=== PATIENT | female | born 1950 | race Caucasian/White ===

== ENCOUNTER → 2017-01-05 | Outpatient (REF) | payer MEDICARE, OTHER ==
[~2017-01-05] MED LIST: /ATOR40TA PO; /WARF25TA PO; ALBU1.25 INH; ALBU17IN INH; ATEN25TA PO; ATOR40TA PO; AZIT250T3 PO; BENZ100C5 PO; BIOT50004 PO; BISO5TAB5 PO; BYDU1INJ SC; CALC1CAP31 PO; CEFD1CAP8 PO; CEFT250T8 PO; DIGO0.12 PO; DIGO0.126 OR; DIOV320T PO; Duoneb NEB; FISH100049 PO; FOLI1TAB2 PO; FURO20TA2 PO; FURO40TA2 PO; GUAI1TAB PO; HYDR-3716 PO; HYDR200T3 PO; IMDU30TA PO; ISOS30TA4 PO; LASI20TA PO; LASI80TA PO; LEVA500T PO; LEVO137T PO; LEVO250T24 PO; MIRA33504 PO; MUCI600T34 PO; NICO14DI20 TD; NITR4TASL SL; NYST5000 SS; OCEA0.654; OMEG100011 PO; OMEP20CA3 PO; OMEP40CA2 PO; Oxygen; PRED10PA PO; PRED10TA PO; PRED20TAB PO; PREV30CA6 PO; SINEQUAN PO; SPIR1CAP INH; SYMB16INH INH; SYNT100T PO; TYLE325T5 PO; VALS1TAB46 PO; VENTOLIN; VICT18IN SC; VITA50003 PO; WARF-18 PO; WARF4TAB51 PO; ZOLO100T PO; [UNRECOGNIZED DRUG - CODE]; spiriva INH
== END ==
LOC: M LAB REF 16:50
PROVIDERS: ATTEND Internal Medicine Nephrology
DX: D64.9 Anemia, unspecified (principal)

== ENCOUNTER → 2017-01-24 | Outpatient (REF) | payer MEDICARE, OTHER | LOC: M SFHCPLAZ 09:53 | PROVIDERS: ATTEND Internal Medicine | DX: E03.9 Hypothyroidism, unspecified (principal) | CPT/HCPCS: 36415; 84443; G0463 ==

== ENCOUNTER 2017-03-10 20:45 | Inpatient (IN) | payer MEDICARE, OTHER ==
[~2017-03-10] VITALS: Ht 162.6 cm; Wt 49.8 kg
[2017-03-10] MEDS ORDERED: ATEN25TA PO (21:14)
[2017-03-10] MEDS ORDERED: COUM2.5T11 PO (21:14)
[2017-03-10] MEDS ORDERED: IPRATROPIUM 0.5MG/ALBUTEROL 2.5MG INH SOL UD 3ML (DUONEB)(J7620) NEB ONE (21:30)
[2017-03-10 22:10] LABS: VENOUS BASE EXCESS 1.5 (-2.0-2.0); VENOUS O2 SATURATION 73.8 % (60.0-80.0); VENOUS PARTIAL PRESSURE CO2 75.5 mmHg (38.0-50.0); VENOUS PARTIAL PRESSURE O2 43.9 mmHg (30.0-50.0); VENOUS STANDARD HCO3 25.4 MEQ/L; VENOUS TOTAL CO2 33.1 MEQ/L (24.0-28.0)
[2017-03-10 22:16] LABS: ADD MORPHOLOGY? YES; BASO % 0.3 % (0.0-1.0); EOS % 0.8 % (0.0-3.0); LARGE UNSTAINED CELL # 0.1 K/mm3 (0.0-0.4); LARGE UNSTAINED CELL % 1.8 % (0.0-4.0); LYMPH # 0.6 K/mm3 (1.5-4.5); LYMPH % 16.5 % (24.0-44.0); MEAN CORPUSCULAR HEMOGLOBIN 32.1 pg (27.0-33.0); MEAN CORPUSCULAR HGB CONC 30.8 g/dl (32.0-36.5); MEAN CORPUSCULAR VOLUME 104.1 fl (80.0-96.0); MONO # 0.2 K/mm3 (0.0-0.8); MONO % 5.7 % (0.0-5.0); NEUTROPHILS # 2.9 K/mm3 (1.8-7.7); PLATELET COUNT, AUTOMATED 139 k/mm3 (150-450); RED CELL DISTRIBUTION WIDTH 14.9 % (11.5-14.5); WHITE BLOOD COUNT 3.9 K/mm3 (4.0-10.0)
[2017-03-10 22:33] LABS: CALCIUM LEVEL 8.5 MG/DL (8.8-10.2); CREATININE FOR GFR 3.43 MG/DL (0.55-1.02); GLOMERULAR FILTRATION RATE 14.2 (>45); POTASSIUM SERUM 4.4 MEQ/L (3.5-5.1)
[2017-03-10 22:44] LABS: DIGOXIN LEVEL 1.1 NG/ML (0.5-2.0)
[2017-03-10 22:47] LABS: HYPOCHROMASIA 1+
[2017-03-10 23:39] LABS: ABG BASE EXCESS 1.5 (-2.0-2.0); ABG HCO3 28.8 MEQ/L (22.0-26.0); ABG PARTIAL PRESSURE CO2 59.8 mmHg (35.0-45.0); ABG PARTIAL PRESSURE O2 74.5 mmHg (75.0-100.0); ABG STANDARD HCO3 25.8 MEQ/L (22.0-26.0); ABG TOTAL CO2 30.7 MEQ/L (23.0-31.0); ABG pH (ARTERIAL) 7.301 UNITS (7.350-7.450)
[2017-03-11] VITALS (8 sets, daily range): BP systolic 146–172; BP diastolic 65–95; O2SAT 90
[2017-03-11] MEDS ORDERED: SYMB16INH INH (00:52)
[2017-03-11] MEDS ORDERED: ISOS20TAB PO (00:52)
[2017-03-11] MEDS ORDERED: PRED5TA PO (00:52)
[2017-03-11] MEDS ORDERED: SYNT150T PO (00:52)
[2017-03-11 01:58] LABS: ABG BASE EXCESS 1.7 (-2.0-2.0); ABG PARTIAL PRESSURE CO2 45.7 mmHg (35.0-45.0); ABG PARTIAL PRESSURE O2 71.8 mmHg (75.0-100.0); ABG STANDARD HCO3 25.9 MEQ/L (22.0-26.0); ABG TOTAL CO2 28.4 MEQ/L (23.0-31.0)
[2017-03-11] MEDS ORDERED: NITROGLYCERIN 0.4 MG SUBL TABLET SL PRN (02:30)
[2017-03-11] MEDS ORDERED: IPRATROPIUM 0.5MG/ALBUTEROL 2.5MG INH SOL UD 3ML (DUONEB)(J7620) NEB PRN (02:45)
[2017-03-11] MEDS ORDERED: LOPERAMIDE 2 MG CAP PO PRN (03:00)
--- NOTE | 2017-03-11 03:28 | HPEPDOC ---
General Date of Admission 03/11/2017 Primary Care Physician: Romel Powell Attending Physician: LUIGI ARDON MD Chief Complaint The patient is a 66-year-old female admitted with a reason for visit of SOB. Source: Patient, Family Exam Limitations: Clinical conditions (Currently on noninvasive positive pressure ventilation) Timing/Duration: Day(s) (2) History of Present Illness Anjali Delgado is a 66 year old woman with a history of COPD, CHF, cardiac stents, HTN, and left nephrectomy who presents with 2 days of fatigue, decreased appetite, and increasing shortness of breath. The patients daughter was in the room during the interview and provided most of the information because the patient was too tired to talk. She denies chest pain, cough, or sputum production, her only additional complaint is that of a 2 week bout of diarrhea and she vomited two days ago. She has no sick contacts. The patient did have feet and ankle swelling a few days ago, but this has gone down since. Home Medications Scheduled Atorvastatin Calcium (Atorvastatin Calcium) 40 Mg Tab, 40 MG PO DAILY, (Reported ) Bisoprolol Fumarate (Bisoprolol Fumarate) 5 Mg Tab, 5 MG PO DAILY, (Reported) Budesonide/Formoterol (Symbicort 160-4.5 Mcg/Act) 60 Puff/Inhaler Aers, 2 PUFF INH BID, (Reported) Calcitriol (Calcitriol) 0.25 Mcg Cap, 0.25 MCG PO DAILY, (Reported) Digoxin (Digoxin) 0.125 Mg Tab, 0.125 MG PO 3XW, (Reported) QHS: MON, WED, TUE Folic Acid (Folic Acid) 1 Mg Tab, 1 MG PO DAILY, (Reported) Furosemide (Furosemide) 40 Mg Tab, 40 MG PO DAILY, (Reported) Isosorbide Dinitrate (Isosorbide Dinitrate) 20 Mg Tab, 20 MG PO QHS, (Reported) Levothyroxine Sodium (Synthroid) 150 Mcg Tab, 150 MCG PO DAILY, (Reported) [place] 3 Polyunsat Fatty Acids ([place] 3 1000 mg) 1 Cap Cap, 1 CAP PO QHS, ( Reported) Omeprazole (Omeprazole) 40 Mg Cap, 40 MG PO DAILY, (Reported) Prednisone (Prednisone) 5 Mg Tab, 5 MG PO DAILY, (Reported) Sertraline Hcl (Zoloft) 100 Mg Tab, 100 MG PO QHS, (Reported) Warfarin Sod (Coumadin) 2.5 Mg Tab, 2.5 MG PO DAILY, (Reported) Scheduled PRN Albuterol Sulfate (Ventolin Hfa) 200 Puff/8 Gm Aers, 2 PUFF INH Q4H PRN for SHORTNESS OF BREATH, (Reported) Nitroglycerin (Nitrostat) 0.4 Mg Subl, 0.4 MG SL NITRO PRN for CHEST PAIN, ( Reported) Allergies Coded Allergies: Hydromorphone (Verified Adverse Reaction, Mild, HALLUCINATIONS, NOT HERSELF, 03/10/17) Past Medical History Medical History COPD Diastolic CHF Atrial fibrillation HTN Dyslipidemia CAD Hypothyroidism Depression Chronic kidney disease stage IV Family History Father: Paget disease Mother: atrial fibrillation Social History * Smoker: current smoker Alcohol: Denies Drugs: denies Recent Travel/Sick Contacts: Denies: Recent travel, Recent sick contacts Patient questioning limited due to her being too tired to talk. Review of Symptoms Constitutional: Reports: Chills (chronic), Fatigue, Denies: Fever, Night Sweats Eyes: Denies: Vision change Skin: Reports: Lesions (1st right metatarsal appears to have a cut), Denies: Rash Pulmonary: Reports: Dyspnea, Denies: Cough Cardiovascular: Denies: Chest Pain, Palpitations, Edema Gastrointestinal: Reports: Vomiting (2 days ago (once)), Diarrhea (started 2 weeks ago), Denies: Nausea, Abdominal Pain, Constipation, Melena, Hematochezia Genitourinary: Denies: Hematuria Neurological: Denies: Numbness Psych: Reports: Mood Normal Physical Examination General Exam: Positive: Cooperative, Moderate Distress, Negative: Alert Eye Exam: Positive: PERRLA, EOMI Chest Exam: Positive: Diminished Heart Exam: Positive: Rate Normal, Negative: Gallops, Murmurs, Rubs Abdomen Exam: Positive: Normal bowel sounds, Negative: Tenderness Extremity Exam: Positive: Normal pulses, Negative: Edema, Tenderness Skin Exam: Positive: Lesion (1st right metatarsal), Negative: Rash Psych Exam: Positive: Mental status NL, Oriented x 3 Vital Signs Vital Signs Date Time Temp Pulse Resp B/P (MAP) Pulse Ox O2 Delivery O2 Flow Rate FiO2 03/11/17 00:32 94 BIPAP/CPAP 35 03/10/17 22:06 03/10/17 22:04 70 03/10/17 22:04 6.0 03/10/17 20:51 99.1 22 Laboratory Data Labs 24H Laboratory Tests 2 03/10/17 21:59: White Blood Count 3.9L, Red Blood Count 3.36L, Hemoglobin 10.8L, Hematocrit 35.0L, Mean Corpuscular Volume 104.1H, Mean Corpuscular Hemoglobin 32.1, Mean Corpuscular Hemoglobin Concent 30.8L, Red Cell Distribution Width 14.9H, Platelet Count 139L, Neutrophils (%) (Auto) 75.0H, Lymphocytes (%) (Auto) 16.5L , Monocytes (%) (Auto) 5.7H, Eosinophils (%) (Auto) 0.8, Basophils (%) (Auto) 0.3, Neutrophils # (Auto) 2.9, Lymphocytes # (Auto) 0.6L, Monocytes # (Auto) 0.2 , Eosinophils # (Auto) 0.0, Basophils # (Auto) 0.0, Large Unclassified Cells % 1.8, Large Unclassified Cells # 0.1, Platelet Estimate NORMAL, Hypochromasia 1+ , Basophilic Stippling 1+, Macrocytosis 2+, Blood Gas Bicarbonate Standard 25.4 , Venous Blood pH 7.228L, Venous Blood Partial Pressure CO2 75.5H, Venous Blood Partial Pressure O2 43.9, Venous Blood Total Carbon Dioxide 33.1H, Venous Blood HCO3 30.8H, Venous Blood Oxygen Saturation 73.8, Venous Blood Base Excess 1.5, Anion Gap 9, Glomerular Filtration Rate 14.2L, Blood Urea Nitrogen 58H, Creatinine 3.43H, Sodium Level 142, Potassium Level 4.4, Chloride Level 102, Carbon Dioxide Level 31, Calcium Level 8.5L, Total Creatine Kinase 23L, Creatine Kinase MB 1.6, Creatine Kinase MB Relative Index 6.95H, Troponin I 0.03 , B-Type Natriuretic Peptide 901H, Digoxin Level 1.1 03/10/17 23:25: Blood Gas Bicarbonate Standard 25.8, Arterial Blood pH 7.301L, Arterial Blood Partial Pressure CO2 59.8H, Arterial Blood Partial Pressure O2 74.5L, Arterial Blood Total CO2 30.7, Arterial Blood HCO3 28.8H, Arterial Blood Base Excess 1.5 , Arterial Blood Oxygen Saturation 94.2L CBC/BMP Laboratory Tests 03/10/17 21:59 Red Blood Count 3.36 L, Mean Corpuscular Volume 104.1 H, Mean Corpuscular Hemoglobin 32.1, Mean Corpuscular Hemoglobin Concent 30.8 L, Red Cell Distribution Width 14.9 H, Neutrophils (%) (Auto) 75.0 H, Lymphocytes (%) (Auto ) 16.5 L, Monocytes (%) (Auto) 5.7 H, Eosinophils (%) (Auto) 0.8, Basophils (%) (Auto) 0.3, Neutrophils # (Auto) 2.9, Lymphocytes # (Auto) 0.6 L, Monocytes # ( Auto) 0.2, Eosinophils # (Auto) 0.0, Basophils # (Auto) 0.0, Calcium Level 8.5 L , Total Creatine Kinase 23 L Microbiology Microbiology 03/10/17 Blood Culture, Received Pending Problems (1) COPD exacerbation Status: Acute (2) Acute and chronic respiratory failure with hypoxia Status: Acute (3) Acute kidney injury superimposed on CKD Status: Acute (4) Injury of right great toe Status: Acute Problem Text: X-rays ordered (5) COPD (chronic obstructive pulmonary disease) Status: Chronic (6) Diastolic CHF Status: Chronic (7) CKD stage 4 due to type 2 diabetes mellitus Status: Chronic (8) CAD S/P percutaneous coronary angioplasty Status: Chronic (9) Hx of renal cell carcinoma Status: Resolved (10) Atrial fibrillation, chronic Status: Chronic (11) Diabetes Status: Chronic (12) Hypertension Status: Chronic (13) Hypothyroid Status: Chronic (14) GERD (gastroesophageal reflux disease) Status: Chronic (15) Depression Status: Chronic Problem Text: Continue with home dose of Zoloft daily at bedtime Plan / VTE VTE Prophylaxis Ordered?: Yes (Warfarin) Plan Plan Started on NIPPV in the ED, repeat blood gas showed improvement. Will continue on NIPPV for the evening and reassess in the morning. We'll also check a respiratory panel. As she is on chronic prednisone and 3 L oxygen at home, we will give scheduled IV steroids. Will empirically treat with azithromycin for both antimicrobial and anti-inflammatory properties. We'll provide her with a DuoNeb scheduled every 4 hours as well as every 2 hours when necessary, and we will continue with her usual home regimen of inhaled corticosteroids. Given the fact that she does not have a leukocytosis, and she has not had any recent antibiotics, we will treat her diarrhea with PRN loperamide after each loose bowel movement. Otherwise, we will continue her on her usual home dose of antihypertensives bisoprolol, isosorbide dinitrate, and digoxin, but we will hold her Lasix given her acute kidney injury. We will continue Zoloft and daily at bedtime for depression, Synthroid for her hypothyroidism status post thyroidectomy, calcitriol for history of elevated PTH, warfarin for her atrial fibrillation I have both independently examined this patient as well as reviewed the dictated note. I have discussed in detail with the resident the findings and plan of treatment as documented in the residents note. I will continue to follow the patient and offer further guidance to the patients care as necessary during this hospital stay. Bipap hopefully can be weaned in the morning. NORMAN KWAN DO Mar 11, 2017 02:50 LUIGI ARDON MD Mar 12, 2017 20:39
[2017-03-11] MEDS: IPRATROPIUM 0.5MG/ALBUTEROL 2.5MG INH SOL UD 3ML (DUONEB)(J7620) NEB SCH ×6 (04:00→23:40)
[2017-03-11] MEDS ORDERED: AZITHROMYCIN INJ 500 MG, VIAL MATE ADAPTER 1 EACH in D5W 250 ML IV SCH (04:00)
[2017-03-11 05:20] LABS: MEAN CORPUSCULAR HEMOGLOBIN 30.9 pg (27.0-33.0); MEAN CORPUSCULAR HGB CONC 30.3 g/dl (32.0-36.5); MEAN CORPUSCULAR VOLUME 102.1 fl (80.0-96.0); WHITE BLOOD COUNT 4.3 K/mm3 (4.0-10.0)
[2017-03-11 05:40] LABS: ANION GAP 8 MEQ/L (8-16); BLOOD UREA NITROGEN 55 MG/DL (7-18); CALCIUM LEVEL 8.4 MG/DL (8.8-10.2); CARBON DIOXIDE LEVEL 30 MEQ/L (21-32); CHLORIDE LEVEL 102 MEQ/L (98-107); CREATININE FOR GFR 3.23 MG/DL (0.55-1.02); GLOMERULAR FILTRATION RATE 15.2 (>45); GLUCOSE, FASTING 107 MG/DL (80-110); POTASSIUM SERUM 4.4 MEQ/L (3.5-5.1); SODIUM LEVEL 140 MEQ/L (136-145)
[2017-03-11] MEDS: methylPREDNISolone INJ 125 MG/2 ML VIAL (J2930) IV SCH ×3 (06:14→21:14)
[2017-03-11] MEDS: LEVOTHYROXINE 0.15 MG TAB (150 MCG) PO SCH (06:14)
[2017-03-11] MEDS: SYMBICORT 160/4.5MCG INHALER 6GM INH SCH ×2 (08:32→19:39)
[2017-03-11] MEDS: OMEPRAZOLE 20 MG CAP PO SCH (08:37)
[2017-03-11] MEDS: BISOPROLOL FUMARATE 5 MG TAB PO SCH (08:38)
[2017-03-11] MEDS: ATORVASTATIN 20 MG TAB PO SCH (08:38)
[2017-03-11] MEDS: FOLIC ACID 1 MG TAB PO SCH (08:38)
[2017-03-11] MEDS: CALCITRIOL 0.25 MCG CAP (S0169) PO SCH (08:38)
--- NOTE | 2017-03-11 08:58 | REP ---
CHEST, TWO VIEWS: Two views of the chest are performed. Comparison 07/08/2016. There is again blunting of the costophrenic angles bilaterally representing bilateral pleural fluid or thickening unchanged. Mild patchy atelectasis or infiltrate in the right lung base is also stable. Streaky interstitial opacities in the lower lungs are also unchanged. Heart appears slightly enlarged. There is calcification and tortuosity of the thoracic aorta. The mediastinal silhouette is unchanged. There are mild degenerative changes of the spine. IMPRESSION: Mild cardiomegaly. Mild bilateral pleural fluid or thickening and mild bibasilar parenchymal opacities are stable compared to the prior study of 07/08/2016. Signed by Miguel Matamoros MD 03/11/2017 04:35 P
[2017-03-11 09:27] LABS: INR 2.55
--- NOTE | 2017-03-11 09:30 | REP ---
RIGHT FOOT: Four views right foot are performed. There is no acute fracture or dislocation. There is mild inferior calcaneal spurring. There is mild narrowing at the first metatarsophalangeal joint with subchondral sclerosis and spurring as well as hallux valgus deformity. There is diffuse narrowing of the interphalangeal joints. There is an old healed fracture of the fifth metatarsal distally. Vascular calcifications are seen diffusely in the soft tissues. IMPRESSION: Degenerative changes. No evidence of acute fracture or dislocation. Signed by Miguel Matamoros MD 03/11/2017 04:36 P
[2017-03-11] MEDS ORDERED: WARFARIN SOD 2.5 MG TAB PO SCH (17:00)
--- NOTE | 2017-03-11 19:43 | IPN ---
DATE: 03/11/2017 Patient seen and examined. Reported improved respiration. Denies any chest pain, pressure or discomfort, fevers or chills. Reported diarrhea. Patient admitted overnight. VITAL SIGNS: Temperature 99.3, pulse 88, respirations 20, blood pressure 146/74, pulse oximetry 95% on 4 liters nasal cannula. LABORATORY DATA: WBC 4.3, hemoglobin and hematocrit 10 over 31.1, platelets 145. Chemistry: Sodium 140, potassium 4.4, chloride 102, bicarbonate 30, BUN 55, creatinine 3.23. Cardiac enzymes negative times two. PHYSICAL EXAMINATION: GENERAL: Patient alert and oriented times three, in no acute distress, frail. HEENT: Normocephalic, atraumatic. PULMONARY: Diminished breath sounds bilateral. No significant wheeze. CARDIAC: Regular rate and rhythm. Normal S1, S2. ABDOMEN: Soft, nontender, nondistended. Positive bowel sounds. EXTREMITIES: No edema of bilateral lower extremities. ASSESSMENT AND PLAN: This is a 66-year-old female patient with underlying medical history of chronic obstructive pulmonary disease (COPD), severe pulmonary hypertension, congestive heart failure (CHF) with diastolic dysfunction, cardiac stent, hypertension, left nephrectomy with chronic kidney disease, stage IV, dyslipidemia, coronary artery disease, hypothyroidism, depression, presented with progressive worsening fatigue, especially over the last 2 days but has been ongoing for the past 2 weeks with decrease in appetite, increasing shortness of breath and also diarrhea. The patient subsequently was admitted for acute COPD exacerbation with worsening pulmonary hypertension, likely severe deconditioning. PROBLEMS: 1. Acute COPD exacerbation, likely viral. Respiratory panel appreciated. Azithromycin for anti-inflammatory, Solu-Medrol. Taper steroids as tolerated. Continue Symbicort. Arterial blood gas (ABG) appreciated. Nebulizer treatment. Pulmonology, Dr. Barker, consulted. 2. Severe pulmonary hypertension. Likely secondary to longstanding pulmonary disease. Oxygen supplementation. Case discussed with pulmonology, Dr. Barker. Patient has very poor prognosis. No visible treatment at this time. Continue medication management above. 3. Diastolic heart failure. The patient does not appear to be markedly fluid overloaded. Will continue to monitor fluid status. 4. Acute on chronic hypoxic respiratory failure, likely secondary to COPD exacerbation with worsening underlying cor pulmonale with pulmonary hypertension. 5. Chronic kidney disease, stage IV. Currently BUN and creatinine at baseline. Continue to monitor. Avoid fluid overload. Daily weight, strict intake and output. 6. Injury to right great toe. X-ray appreciated. Currently negative. Will continue to follow. 7. Coronary artery disease with stents. Continue statin. Patient on Coumadin. Monitor blood pressure. Continue Isordil, digoxin. Telemetry monitoring. Cardiac enzymes appreciated. 8. Atrial fibrillation. Continue anticoagulation with Coumadin. Followup INR. Continue digoxin (dig). 9. Diabetes. Diet controlled. Follow fingersticks. 10. Gastroesophageal reflux disease. Continue proton pump inhibitor (PPI). 11. Hypertension. Continue bisoprolol and Isordil. Monitor blood pressure, adjust as needed. 12. Dyslipidemia. Continue statin. 13. Deep vein thrombosis (DVT) prophylaxis. Patient on Coumadin with therapeutic INR. 14. Diarrhea. Followup with GI panel. Currently not euvolemic. Will continue to follow. Oral as tolerated. DISPOSITION: Patient with severe pulmonary hypertension, severe underlying lung disease, very low lung reserve Patient currently weaned off of bilevel positive airway pressure (BiPAP), back to nasal cannula 4 liters, which is the patient's baseline. Case discussed with Dr. Barker. Poor overall prognosis. Code status discussed with the patient. Patient needs some time for thinking. Will further address the patient's current status. The patient continues to smoke. Counseling provided. Will offer nicotine gum. MTDVijay
[2017-03-11] MEDS ORDERED: DIGOXIN 0.125 MG TAB PO SCH (21:00)
[2017-03-11] MEDS: VANCOMYCIN ORAL SOL 250MG/5ML ORAL SYRINGE PO SCH (21:13)
[2017-03-11] MEDS: OMEGA-3 1050MG CAPSULE PO SCH (21:14)
[2017-03-11] MEDS: SERTRALINE 100 MG TAB PO SCH (21:14)
[2017-03-11] MEDS: ISOSORBIDE DIN. (ISORDIL) 20 MG TAB PO SCH (21:14)
[2017-03-12] VITALS (9 sets, daily range): BP systolic 127–186; BP diastolic 62–77; O2SAT 92–97
[2017-03-12] MEDS: IPRATROPIUM 0.5MG/ALBUTEROL 2.5MG INH SOL UD 3ML (DUONEB)(J7620) NEB SCH ×6 (03:36→23:42)
[2017-03-12 04:37] LABS: MEAN CORPUSCULAR HEMOGLOBIN 30.8 pg (27.0-33.0); MEAN CORPUSCULAR HGB CONC 30.5 g/dl (32.0-36.5); MEAN CORPUSCULAR VOLUME 100.7 fl (80.0-96.0); RED CELL DISTRIBUTION WIDTH 15.2 % (11.5-14.5); WHITE BLOOD COUNT 3.1 K/mm3 (4.0-10.0)
[2017-03-12 04:41] LABS: INR 1.62
[2017-03-12 05:04] LABS: CALCIUM LEVEL 8.8 MG/DL (8.8-10.2); CREATININE FOR GFR 3.07 MG/DL (0.55-1.02); GLOMERULAR FILTRATION RATE 16.1 (>45); POTASSIUM SERUM 4.6 MEQ/L (3.5-5.1)
[2017-03-12] MEDS ORDERED: DEXTROSE 50% 50 ML SYRINGE IV PRN (05:30)
[2017-03-12] MEDS ORDERED: GLUCOSE 4 GM CHEW TABLET PO PRN (05:30)
[2017-03-12] MEDS ORDERED: GLUCAGON FOR INJ 1 MG VIAL (J1610) SC PRN (05:30)
[2017-03-12] MEDS: methylPREDNISolone INJ 125 MG/2 ML VIAL (J2930) IV SCH (05:36)
[2017-03-12] MEDS: LEVOTHYROXINE 0.15 MG TAB (150 MCG) PO SCH (05:36)
[2017-03-12] MEDS: SYMBICORT 160/4.5MCG INHALER 6GM INH SCH ×2 (08:06→20:33)
--- NOTE | 2017-03-12 08:40 | ECGEPIP ---
Stationary ECG Study [facility] - ED Test Date: 2017-03-10 Pat Name: ROBBIE GOLD Department: Room: [place] [address] Gender: F Control Panel Assembler: nabila : 1950 Requested By: WALKER Linares Order Number: [id number] Reading MD: Tiesha Hussein Measurements Intervals [place] Rate: 69 P: DC: 0 QRS: 90 QRSD: 91 T: 0 QT: 349 QTc: 376 Interpretive Statements ATRIAL FIBRILLATION NONSPECIFIC ST & T-WAVE ABNORMALITY ABNORMAL RHYTHM ECG NSTTW ABNORMALITY DECREASED RATE 07/08/16 Electronically Signed On 03-12-2017 8:40:11 EDT by Tiesha Hussein
[2017-03-12] MEDS: VANCOMYCIN ORAL SOL 250MG/5ML ORAL SYRINGE PO SCH ×4 (08:58→21:55)
[2017-03-12] MEDS: OMEPRAZOLE 20 MG CAP PO SCH (08:59)
[2017-03-12] MEDS: CALCITRIOL 0.25 MCG CAP (S0169) PO SCH (08:59)
[2017-03-12] MEDS: HumaLOG INSULIN (NovoLOG) PER UNIT SC SCH ×4 (08:59→21:00)
[2017-03-12] MEDS: ATORVASTATIN 20 MG TAB PO SCH (09:00)
[2017-03-12] MEDS: BISOPROLOL FUMARATE 5 MG TAB PO SCH (09:00)
[2017-03-12] MEDS: FOLIC ACID 1 MG TAB PO SCH (09:00)
[2017-03-12] MEDS: predniSONE 20 MG TAB PO SCH (10:06)
--- NOTE | 2017-03-12 12:03 | IPNPDOC ---
Subjective Date Seen The patient was seen on 03/12/17. Subjective Chief Complaint/HPI The patient is a 66-year-old female admitted with a reason for visit of Acute And Chronic Respiratory Failure W/ Hypoxia. General: Denies: Chills Eyes: Denies: Conjunctivae inflammation, Eyelid inflammation, Redness Pulmonary: Reports: Dyspnea, Denies: Cough Cardiovascular: Denies: Chest Pain, Palpitations Gastrointestinal: Denies: Nausea, Vomiting Neurological: Reports: Weakness Psych: Reports: Mood Normal Objective Physical Examination General Exam: Positive: Cooperative, Mild Distress, Negative: Alert, Moderate Distress Eye Exam: Positive: PERRLA, EOMI Chest Exam: Positive: Diminished (diminshed throughout), Negative: Rales, Wheezing Heart Exam: Positive: Rate Normal, Normal S1, Normal S2, Negative: Gallops, Murmurs, Rubs Abdomen Exam: Positive: Normal bowel sounds, Negative: Tenderness Extremity Exam: Positive: Normal pulses, Negative: Edema, Tenderness Skin Exam: Positive: Lesion (1st right metatarsal), Negative: Rash Psych Exam: Positive: Mental status NL, Oriented x 3 Assessment /Plan Problems (1) COPD exacerbation Status: Acute Response to Treatment: Stable Problem Text: pt stated her SOB was better since presentation was about to walk with PT today,will monitor her progress will be transferred out of ICU and maintained on continuous pulse ox on the floor d/c solumederol and prednisone started continue to monitor (2) Acute and chronic respiratory failure with hypoxia Status: Acute Response to Treatment: Stable Problem Text: pt stated her SOB was better since presentation was about to walk with PT today,will monitor her progress will be transferred out of ICU and maintained on continuous pulse ox on the floor d/c solumederol and prednisone started 93-97% on 4 L which is her home O2 requirement continue to monitor (3) Acute kidney injury superimposed on CKD Status: Acute Response to Treatment: Stable Problem Text: creatine 3.07 now from 3.43 on admission, appears baseline around 2.5 range continue to monitor (4) Injury of right great toe Status: Acute Problem Text: Degenerative changes. No evidence of acute fracture or dislocation. continue to monitor (5) COPD (chronic obstructive pulmonary disease) Status: Chronic (6) Diastolic CHF Status: Chronic (7) CKD stage 4 due to type 2 diabetes mellitus Status: Chronic (8) CAD S/P percutaneous coronary angioplasty Status: Chronic (9) Hx of renal cell carcinoma Status: Resolved (10) Atrial fibrillation, chronic Status: Chronic (11) Diabetes Status: Chronic (12) Hypertension Status: Chronic Response to Treatment: Stable Problem Text: 158/72 continue bisoprolol (13) Hypothyroid Status: Chronic Problem Text: c/w home medications (14) GERD (gastroesophageal reflux disease) Status: Chronic Response to Treatment: Stable Problem Text: c/w home medications (15) Depression Status: Chronic Problem Text: Continue with home dose of Zoloft daily at bedtime Plan/VTE VTE Prophylaxis Ordered?: Yes (Warfarin) VS, I&O, 24H, Fishbone Vital Signs/I&O Vital Signs Date Time Temp Pulse Resp B/P (MAP) Pulse Ox O2 Delivery O2 Flow Rate FiO2 03/12/17 09:00 74 158/72 03/12/17 08:00 98.3 18 97 Nasal Cannula 4.0 03/11/17 08:00 35 I&O- Last 24 Hours up to 6 AM 03/12/17 06:00 Intake Total 1230 ml Output Total 850 ml Balance 380 ml Laboratory Data 24H LABS Laboratory Tests 2 03/12/17 04:13: Prothrombin Time 19.3H, Prothromb Time International Ratio 1.62, Anion Gap 7L, Glomerular Filtration Rate 16.1L, Blood Urea Nitrogen 62H, Creatinine 3.07H, Sodium Level 138, Potassium Level 4.6, Chloride Level 100, Carbon Dioxide Level 31, Calcium Level 8.8 CBC/BMP Laboratory Tests 03/12/17 04:13 Red Blood Count 3.17 L, Mean Corpuscular Volume 100.7 H, Mean Corpuscular Hemoglobin 30.8, Mean Corpuscular Hemoglobin Concent 30.5 L, Red Cell Distribution Width 15.2 H, Calcium Level 8.8 Microbiology Microbiology 03/11/17 Blood Culture - Preliminary, Resulted No growth after 24 hours . All specim... 03/10/17 Blood Culture - Preliminary, Resulted No growth after 24 hours . All specim... 03/11/17 Gastrointestinal Tract Panel (PCR) - Final, Complete Clostridium Difficile A/B 03/11/17 Respiratory Virus Panel (PCR) ([facility]) - Final, Complete GME ATTESTATION GME ATTESTATION My preceptor for this patient encounter was physically present in the building during the encounter and was fully available. As needed, all aspects of the patient interview, examination, medical decision making process, and medical care plan development were reviewed and approved by the preceptor. Preceptor is aware and concurs with the plan as stated in the body of this note and will attest to such by his/her cosignature. ATTENDING NOTE I have both independently examined this patient as well as reviewed the note. I have discussed in detail with the resident the findings and plan of treatment as documented in the residents note. I will continue to follow the patient and offer further guidance to the patients care as necessary during this hospital stay. ANNE Segura DO Mar 12, 2017 12:02 CAROLINE HAWLEY MD Mar 13, 2017 06:50
[2017-03-12] MEDS ORDERED: WARFARIN SOD 4 MG TAB PO SCH (17:00)
[2017-03-12] MEDS: OMEGA-3 1050MG CAPSULE PO SCH (21:55)
[2017-03-12] MEDS: ISOSORBIDE DIN. (ISORDIL) 20 MG TAB PO SCH (21:55)
[2017-03-12] MEDS: SERTRALINE 100 MG TAB PO SCH (21:55)
[2017-03-13] MEDS: IPRATROPIUM 0.5MG/ALBUTEROL 2.5MG INH SOL UD 3ML (DUONEB)(J7620) NEB SCH ×6 (02:45→23:22)
[2017-03-13 06:00] VITALS: BP 149/85
[2017-03-13] MEDS: LEVOTHYROXINE 0.15 MG TAB (150 MCG) PO SCH (06:14)
[2017-03-13 06:50] LABS: MEAN CORPUSCULAR HGB CONC 30.8 g/dl (32.0-36.5); MEAN CORPUSCULAR VOLUME 100.8 fl (80.0-96.0); RED CELL DISTRIBUTION WIDTH 15.6 % (11.5-14.5); WHITE BLOOD COUNT 7.9 K/mm3 (4.0-10.0)
[2017-03-13 06:57] LABS: INR 1.45
[2017-03-13 07:06] LABS: CALCIUM LEVEL 9.3 MG/DL (8.8-10.2); CREATININE FOR GFR 2.56 MG/DL (0.55-1.02); GLOMERULAR FILTRATION RATE 19.8 (>45)
[2017-03-13] MEDS: SYMBICORT 160/4.5MCG INHALER 6GM INH SCH ×2 (07:53→19:45)
[2017-03-13] MEDS: VANCOMYCIN ORAL SOL 250MG/5ML ORAL SYRINGE PO SCH ×4 (08:34→22:32)
[2017-03-13] MEDS: BISOPROLOL FUMARATE 5 MG TAB PO SCH (08:34)
[2017-03-13] MEDS: CALCITRIOL 0.25 MCG CAP (S0169) PO SCH (08:34)
[2017-03-13] MEDS: OMEPRAZOLE 20 MG CAP PO SCH (08:35)
[2017-03-13] MEDS: ATORVASTATIN 20 MG TAB PO SCH (08:35)
[2017-03-13] MEDS: HumaLOG INSULIN (NovoLOG) PER UNIT SC SCH ×4 (08:36→21:00)
[2017-03-13 09:00] VITALS: O2SAT 94
[2017-03-13] MEDS: predniSONE 20 MG TAB PO SCH (09:06)
[2017-03-13] MEDS: FOLIC ACID 1 MG TAB PO SCH (09:06)
--- NOTE | 2017-03-13 13:29 | IPN ---
DATE OF SERVICE: 03/13/2017 Patient seen and examined. Reported continues to have diarrhea, but much improved, formed stool. Denies any chest pain, pressure or discomfort. Reported respirations almost back to baseline. Temperature 98.9, pulse 89, respirations 18, blood pressure 149/85, pulse oximetry 97% on 4 liters nasal cannula. LABORATORIES: WBC 7.9, hemoglobin and hematocrit 9.4/30.5, platelets 132. Chemistries: Sodium 142, potassium 4, chloride 104, bicarb 31, BUN 64, creatinine 2.56. PHYSICAL EXAMINATION: GENERAL: Patient frail, alert and oriented times three, in no acute distress. HEENT: Normocephalic, atraumatic. PULMONARY: Diminished breath sounds bilaterally. No significant wheeze. CARDIAC: Regular rate and rhythm. Normal S1 and S2. ABDOMEN: Soft, nontender. Hyperactive bowel sounds. EXTREMITIES: No edema bilateral lower extremities. ASSESSMENT/PLAN: This is a 66-year-old female patient with underlying medical history of chronic obstructive pulmonary disease (COPD), severe pulmonary hypertension, congestive heart failure (CHF) with diastolic dysfunction, cardiac stents, hypertension, left nephrectomy with chronic kidney disease stage 4, dyslipidemia, coronary artery disease, hypothyroidism and depression, who presented with progressive worsening fatigue, especially over the last two days and also has been ongoing for the past two weeks or so, decreased appetite, increasing shortness of breath and also diarrhea. Patient subsequently admitted for acute COPD exacerbation with worsening pulmonary hypertension with severe deconditioning and was also found to have C. difficile colitis. 1. Dyspnea with questionable COPD exacerbation, possible due to C. Difficile. Respiratory panel has been negative. Steroid has been decreased to 20 mg of prednisone. ABG is appreciated. Continue Symbicort. Azithromycin discontinued. Case discussed with Dr. Barker. 2. C. difficile colitis. Vancomycin. Continue to follow. Monitor electrolytes. 3. Severe pulmonary hypertension likely secondary to longstanding pulmonary disease. Oxygen supplementation. Case discussed with Dr. Barker. Very poor terminal clerk prognosis. No viable treatment at this time. Continue medication management as mentioned above. 4. Diastolic heart failure. Patient does not appear to be fluid overloaded. Will continue to monitor fluid status. 5. Acute on chronic hypoxic respiratory failure. Patient currently with underlying COPD. Patient currently back to baseline oxygen requirement. Continue treatment as above. Cor pulmonale with pulmonary hypertension. 6. Chronic kidney disease stage 4. BUN and creatinine currently at baseline. Continue to monitor. Remedial [place] informed. Avoid fluid overload. Strict intake and output and daily weights. 7. Injury to right great toe. X-ray appreciated. Currently negative. Continue to follow. 8. Coronary artery disease with stents. Continue statin. Patient on Coumadin. Monitor INR. Continue Isordil, digoxin. Telemetry monitoring. Cardiac enzymes appreciated. 9. Atrial fibrillation. Continue anticoagulation with Coumadin. INR. Continue patient on digoxin and Zebeta. 10. Hypothyroidism. Continue Synthroid. 11. Diabetes. Diet controlled. Continue to monitor fingersticks. 12. Gastroesophageal reflux disease (GERD). Continue proton pump inhibitor (PPI). 13. Hypertension. Continue bisoprolol, Isordil. Monitor blood pressure. Adjust as needed. 14. Dyslipidemia. Continue statin. 15. Deep vein thrombosis (DVT) prophylaxis. Patient on Coumadin. Followup INR. DISPOSITION: Patient with severe pulmonary disease. Poor overall prognosis. Code status discussed with the patient. Patient still needs some time to decide. In the meantime we will treat underlying C. Difficile. Patient is still smoking. Counseling provided.
[2017-03-13 14:00] VITALS: BP 140/62
[2017-03-13] MEDS ORDERED: WARFARIN SOD 5 MG TAB PO SCH (17:00)
[2017-03-13 19:45] VITALS: O2SAT 92
[2017-03-13 22:00] VITALS: BP 152/72
[2017-03-13] MEDS: SERTRALINE 100 MG TAB PO SCH (22:32)
[2017-03-13] MEDS: OMEGA-3 1050MG CAPSULE PO SCH (22:32)
[2017-03-13] MEDS: ISOSORBIDE DIN. (ISORDIL) 20 MG TAB PO SCH (22:33)
[2017-03-13 23:14] VITALS: O2SAT 96
[2017-03-14 03:47] VITALS: O2SAT 97
[2017-03-14] MEDS: IPRATROPIUM 0.5MG/ALBUTEROL 2.5MG INH SOL UD 3ML (DUONEB)(J7620) NEB SCH ×4 (03:54→15:28)
[2017-03-14 06:00] VITALS: BP 153/73
[2017-03-14] MEDS: LEVOTHYROXINE 0.15 MG TAB (150 MCG) PO SCH (06:23)
[2017-03-14 07:18] LABS: MEAN CORPUSCULAR HEMOGLOBIN 29.9 pg (27.0-33.0); MEAN CORPUSCULAR HGB CONC 29.3 g/dl (32.0-36.5); MEAN CORPUSCULAR VOLUME 101.9 fl (80.0-96.0); RED CELL DISTRIBUTION WIDTH 15.4 % (11.5-14.5); WHITE BLOOD COUNT 6.5 K/mm3 (4.0-10.0)
[2017-03-14 07:24] LABS: INR 1.74
[2017-03-14] MEDS: HumaLOG INSULIN (NovoLOG) PER UNIT SC SCH ×2 (07:30→12:59)
[2017-03-14] MEDS: SYMBICORT 160/4.5MCG INHALER 6GM INH SCH (07:37)
[2017-03-14 07:45] LABS: CALCIUM LEVEL 8.8 MG/DL (8.8-10.2); CREATININE FOR GFR 2.65 MG/DL (0.55-1.02); GLOMERULAR FILTRATION RATE 19.1 (>45)
[2017-03-14 07:56] LABS: POTASSIUM SERUM 5.5 MEQ/L (3.5-5.1)
[2017-03-14] MEDS ORDERED: DARBEPOETIN 100 MCG/0.5 ML *NON-DIALYSIS* SYRINGE (J0881) SC SCH (09:00)
[2017-03-14] MEDS ORDERED: FUROSEMIDE 40 MG TAB PO SCH (09:00)
[2017-03-14] MEDS: ATORVASTATIN 20 MG TAB PO SCH (09:56)
[2017-03-14 09:57] VITALS: BP 153/73
[2017-03-14] MEDS: VANCOMYCIN ORAL SOL 250MG/5ML ORAL SYRINGE PO SCH ×2 (09:57→12:59)
[2017-03-14] MEDS: OMEPRAZOLE 20 MG CAP PO SCH (09:57)
[2017-03-14] MEDS: BISOPROLOL FUMARATE 5 MG TAB PO SCH (09:57)
[2017-03-14] MEDS: FOLIC ACID 1 MG TAB PO SCH (09:57)
[2017-03-14] MEDS: predniSONE 20 MG TAB PO SCH (09:57)
[2017-03-14] MEDS: CALCITRIOL 0.25 MCG CAP (S0169) PO SCH (09:57)
[2017-03-14] MEDS ORDERED: VANC250C2 PO (13:22)
--- NOTE | 2017-03-14 13:29 | CR ---
DATE OF CONSULTATION: 03/14/2017 REQUESTING PHYSICIAN: Dr. Anjana Lange CONSULTING PHYSICIAN: Dr. Shahzad Spence REASON FOR CONSULTATION: Management of hyperkalemia in this patient with chronic kidney disease stage IV. CHIEF COMPLAINT: The patient was admitted on 03/11/2017 with progressive shortness of breath. HISTORY OF PRESENT ILLNESS: Mrs. Anjali Delgado is a 66-year-old female with past medical history of severe chronic obstructive pulmonary disease (COPD), home oxygen-dependent, active smoker, hypertension, chronic kidney disease stage IV, who follows up with me in the nephrology clinic. She was admitted on 03/11/2017 with progressive shortness of breath, which she is being treated for acute COPD exacerbation. However, during this admission, her potassium is progressively rising. It was 4.4 on admission, and it is 5.5 today. The patient's creatinine is 2.65 today. Her glomerular filtration rate (GFR) is around 19. Nephrology service was called for further management of hyperkalemia. Of note, the patient was on diuretics before admission. Her diuretics were on hold when she was admitted, and the patient also reports that she ate a banana yesterday, as well. Otherwise, the patient is asymptomatic at this time. She is laying in the bed and uncomfortable. No apparent distress. PAST MEDICAL HISTORY: Past medical history of severe COPD, home oxygen dependent, history of diastolic congestive heart failure, atrial fibrillation, hypertension, hyperlipidemia, coronary artery disease, hypothyroidism, chronic kidney disease stage IV. PAST SURGICAL HISTORY: Status post left nephrectomy, status post cardiac stents. ALLERGIES: The patient is allergic to HYDROMORPHONE. HOME MEDICATIONS: The patient's home medications include: - atorvastatin - bisoprolol - calcitriol - Symbicort - digoxin - folic acid - Lasix 40 mg by mouth daily - isosorbide - levothyroxine - omega-3 - omeprazole - prednisone 5 mg daily - Zoloft - Coumadin 2.5 mg by mouth daily FAMILY HISTORY: No significant family history of end-stage renal disease requiring hemodialysis. Her father had Paget disease. SOCIAL HISTORY: The patient is a current active smoker. She denies any drug abuse or alcohol abuse. She lives at home with her . REVIEW OF SYSTEMS: CONSTITUTIONAL: The patient denies any fevers, chills, or night sweats. EYES: She denies any blurry vision or double vision. EARS, NOSE, AND THROAT (ENT): She denies any dysphagia or odynophagia, ear discharge. CARDIOVASCULAR: She reports history of atrial fibrillation (AFib), but she denies any palpitations or chest pain. RESPIRATORY: She reports history of COPD and recently admitted with COPD and shortness of breath, but her shortness of breath is improving back to her baseline. GASTROINTESTINAL (GI): She denies any nausea, vomiting at this time, but she was found to have Clostridium (C) difficile during this admission. Her diarrhea is improving now. GENITOURINARY: She denies any dysuria, hematuria. CENTRAL NERVOUS SYSTEM (SOCIAL DIRECTOR): She denies any seizures or strokes. PSYCHIATRIC: Denies history of depression or anxiety. HEMATOLOGICAL AND ONCOLOGICAL: Denies any history of malignancy, but she reports history of anemia secondary to chronic kidney disease. ENDOCRINE: The patient denies any history of diabetes, but she does have secondary hyperparathyroidism. All other review of system is negative. PHYSICAL EXAMINATION: GENERAL: The patient is awake, alert, oriented times three, laying in bed, in no apparent distress. VITAL SIGNS: Temperature is 97.5 degrees Fahrenheit, blood pressure is 153/73, pulse is 78, respiratory rate of 18, saturating 99% on nasal cannula. INTAKE AND OUTPUT: Urine output is not recorded well. She had four voids yesterday and one void so far today. Weight on the bed scale is 49.8 kg. HEAD AND NECK EXAMINATION: The patient is normocephalic, atraumatic. She is weak and cachectic, and she has temporal wasting. The patient is wearing a nasal cannula. Mucous membranes are moist. Neck is supple. There is mild jugular venous distention (JVD). CARDIOVASCULAR: S1, S2, irregular heart rate. No murmur, rub, and gallop. RESPIRATORY: Decreased breath sounds at the bases. Otherwise, no rales or rhonchi. The patient is oxygen dependent. ABDOMEN: Is soft. Positive bowel sounds. Nontender. No ascites. No hepatosplenomegaly. EXTREMITIES: No clubbing. The patient does have cyanosis at the extremities, and she does have 2+ pulses. CENTRAL NERVOUS SYSTEM (SOCIAL DIRECTOR): No focal neurological deficit. Power is 5/5 in all extremities. PSYCHIATRIC: Normal mood and affect. LABORATORY REVIEW: CBC showed a WBC 6..5, hemoglobin 9.1, platelets of 125. BMP showed sodium 144, potassium 5.5, chloride 107, bicarbonate 33, BUN is 64, creatinine is 2.65, GFR is 19. MICROBIOLOGY: Stool for C. difficile was found to be positive on 03/11/2017. IMAGING: No latest imaging is available. Renal ultrasound was not done during this admission. CURRENT INPATIENT MEDICATIONS: - DuoNeb as needed - Lipitor 40 mg nightly - Zebeta, which is bisoprolol, 5 mg by mouth daily - Symbicort two puffs twice a day - calcitriol 0.25 mcg by mouth daily - digoxin 0.125 mg by mouth Tuesday, Tuesday, Tuesday - folic acid 1 mg by mouth daily - Lasix 40 mg by mouth daily, which has started today - glucagon - isosorbide 20 mg by mouth nightly - levothyroxine 15 mcg by mouth daily - omega-3 one capsule at nighttime - omeprazole 40 mg by mouth daily - prednisone 20 mg by mouth daily - Zoloft 100 mg nightly - vancomycin 200 mg by mouth four times a day - Coumadin 5 mg by mouth daily ASSESSMENT: A 66-year-old female with history of severe end-stage chronic obstructive pulmonary disease, home oxygen dependency, chronic kidney disease stage IV, diastolic congestive heart failure, admitted this time with COPD exacerbation, C. difficile colitis, and now nephrology service following the patient for management of hyperkalemia and chronic kidney disease (CKD) IV. PLAN: 1. Hyperkalemia. The patient was now taking her diuretics since admission, and she will also taking high potassium in the diet. Her diet has been changed to [id number] diet. She was already started on Lasix 40 mg by mouth daily. Diuresis would hopefully help decrease the potassium level. I would not give Kayexalate to this patient because she is already having diarrhea because of C. difficile. Continue to monitor for improvement. 2. Chronic kidney disease stage IV. The patient's creatinine is 2.6 at this time. Her glomerular filtration rate (GFR) is 19, which is slightly better than her baseline. No urgent need of hemodialysis. The patient is already scheduled for AV fistula placement as outpatient, and she can followup once she is discharged from the hospital. 3. Anemia on chronic kidney disease. The patient's hemoglobin is 9.1, which is suboptimal. I will give her a dose of Aranesp during this admission. 4. Secondary hyperparathyroidism. Continue current dose of calcitriol 0.25 mcg by mouth daily. 5. Hypertension. The patient's blood pressure is acceptable at this time. Continue current dose of bisoprolol 5 mg by mouth daily, isosorbide 20 mg by mouth nightly. 6. Chronic obstructive pulmonary disease (COPD) exacerbation. Management is as per primary team. She is asymptomatic at this time. Continue the inhalers. Prednisone was increased to 20 mg by mouth daily. 7. Clostridium (C) difficile colitis. Diarrhea is improving now. The patient is currently on vancomycin 250 mg four times a day. 8. Atrial fibrillation. Heart rate is well controlled at this time. Continue digoxin and bisoprolol. The patient is on Coumadin 5 mg by mouth daily. International normalized ratio (INR) is subtherapeutic at 1.74. The dosage of Coumadin is as per primary team. DISPOSITION: The plan of care was discussed with hospitalist team, Dr. Anjana Lange. Her potassium level would hopefully normalize with the diuretics. Her renal function is at her baseline. It is okay to discharge the patient from nephrology standpoint whenever she is cleared by physical therapy, and she can followup with nephrology as outpatient after being discharged from the hospital. Thank you for involving us in the care of this patient.
[2017-03-14 14:00] VITALS: BP 120/64
--- NOTE | 2017-03-14 20:38 | DSES ---
DATE OF ADMISSION: 03/11/2017 DATE OF DISCHARGE: ENERGY CONSERVATION TECHNICIAN: Dr. Barker LIP READING TEACHER: Dr. Spence PRIMARY CARE PROVIDER: Dr. Romel Powell FINAL DIAGNOSES: 1. Clostridium (C) difficile colitis. 2. Questionable acute chronic obstructive pulmonary disease (COPD) exacerbation. 3. Severe pulmonary hypertension. 4. Chronic hypoxic respiratory failure. 5. Diastolic congestive heart failure (CHF). 6. Hyperkalemia. 7. Chronic kidney disease stage IV. 8. Right great toe injury. 9. Coronary arterial disease with stent. 10. Atrial fibrillation. 11. Hypothyroidism. 12. Diabetes. 13. Gastroesophageal reflux disease (GERD). 14. Hypertension. 15. Dyslipidemia. HISTORY OF PRESENT ILLNESS: This is a 66-year-old female patient with underlying medical history of congestive heart failure (CHF) with diastolic heart failure, COPD on 4 liters of oxygen at home, cardiac stents, hypertension, left sided nephrectomy, pulmonary hypertension, who presented with two days of worsening fatigue, decrease in appetite, increase in shortness of breath, as per patient's daughter, who is in the room initially on admission and provided most of the information. The patient has been more tired than usual and has been having diarrhea persistently over the past two weeks. Denies any chest pain, coughing, sputum production, and also has vomited two days ago. Denies any sick contacts. Did report mild swelling of lower extremities. Since then it has resolved over the past week or so. HOSPITAL COURSE: The patient was admitted to the hospital. ABG was done. Initially was placed on bilevel positive airway pressure (BIPAP) for work of breathing. GI panel was sent. Blood culture was sent. Initially, the patient was on steroids, Solu-Medrol. Given azithromycin. Stool studies and blood cultures were sent, as well as respiratory panel and GI panel. Respiratory panel was negative. GI panel showed C difficile. Subsequently, vancomycin has been started. Pulmonology, Dr. Barker, has been consulted. The patient's steroid was quickly tapered off. The patient's respirations returned to baseline off BiPAP and back on 4 liters nasal cannula. Code status was discussed with the patient and Medical Orders for Life Sustaining Treatment (MOLST) form was given. The patient will need some time to discuss. Physical therapy (PT) was done. Nephrology was also consulted. Taking a lot of bananas during the hospital course. Lasix dose has been restarted. Renal diet has been prescribed. Case discussed with Dr. Spence. From a renal perspective, the patient can be discharged for further followup as an outpatient. The patient has passed physical therapy and ready for discharge for further care as an outpatient. Currently, the patient reported diarrhea improving. Tolerating oral. Denies any chest pain, pressure, discomfort. Denies any fevers or chills. VITAL SIGNS: Temperature 96.5, pulse 78, respirations 18, blood pressure 153/73, pulse oximetry 99% on 2 liters nasal cannula. LABORATORY: WBC 6.5, hemoglobin and hematocrit 9.1/31, platelets 125. Chemistry: Sodium 144, potassium 5.5, chloride 107, bicarbonate 33, BUN 64, creatinine 2.6. DISCHARGE MEDICATIONS: - vancomycin 250 mg by mouth four times a day, 56 dose - Ventolin inhaler every 4 hours as needed - Lipitor 40 mg by mouth daily - bisoprolol 5 mg by mouth daily - Symbicort 160/4.5 mcg inhalation twice a day - calcitriol 0.25 mcg by mouth daily - Digoxin 0.125 mg by mouth three times a week - folic acid 5 mg by mouth daily - Lasix 40 mg by mouth daily - isosorbide dinitrate 20 mg by mouth at night - Synthroid 150 mcg by mouth daily - nitroglycerin 0.4 mg sublingually as needed - O'Brien 3 fatty acid one capsule by mouth at night - omeprazole 40 mg by mouth daily - prednisone 5 mg by mouth daily - Zoloft 100 mg by mouth daily - Coumadin 2.5 mg by mouth daily DISCHARGE INSTRUCTIONS: The patient is instructed to followup with his primary care provider and link and link knitting machine operator in 7 days. Followup basic metabolic panel and electrolytes with primary care provider and link and link knitting machine operator. Followup with watch electrician in 7 to 10 days. Return to the hospital if symptoms worsen. Renal diet prescribed.
[2017-03-14 21:52] LABS: CALCIUM LEVEL 9.2 MG/DL (8.8-10.2); CREATININE FOR GFR 2.42 MG/DL (0.55-1.02); GLOMERULAR FILTRATION RATE 21.2 (>45); POTASSIUM SERUM 4.7 MEQ/L (3.5-5.1)
== END 2017-03-14 16:40 | disposition home health service (06) | DRG 372 ==
LOC: EDBD 20:45 → M ED 22:24 → M ED INP 03-11 04:02 → M ICU 03-11 04:49 → M MS5PR 03-12 15:33
PROVIDERS: ADMIT Internal Medicine; ATTEND Hospitalist
DX: A04.7 Enterocolitis due to Clostridium difficile (principal); J44.1 Chronic obstructive pulmonary disease with (acute) exacerbation; J96.11 Chronic respiratory failure with hypoxia; N18.4 Chronic kidney disease, stage 4 (severe); I50.32 Chronic diastolic (congestive) heart failure; N17.9 Acute kidney failure, unspecified; E78.5 Hyperlipidemia, unspecified; I12.9 Hypertensive chronic kidney disease with stage 1 through stage 4 chronic kidney disease, or unspecified chronic kidney disease; I48.91 Unspecified atrial fibrillation; E11.9 Type 2 diabetes mellitus without complications; E03.9 Hypothyroidism, unspecified; K21.9 Gastro-esophageal reflux disease without esophagitis; E87.5 Hyperkalemia; I25.10 Atherosclerotic heart disease of native coronary artery without angina pectoris; I27.2 Other secondary pulmonary hypertension; Z79.899 Other long term (current) drug therapy; Z79.52 Long term (current) use of systemic steroids; Z88.5 Allergy status to narcotic agent; F32.9 Major depressive disorder, single episode, unspecified; I27.81 Cor pulmonale (chronic); Z79.01 Long term (current) use of anticoagulants; D63.1 Anemia in chronic kidney disease

== ENCOUNTER → 2017-03-22 | Outpatient (REF) | payer MEDICARE, OTHER ==
[~2017-03-22] MED LIST changes: +COUM2.5T11 PO; +ISOS20TAB PO; +PRED5TA PO; +SYNT150T PO; +VANC250C2 PO
[2017-03-23 14:08] LABS: HEPATITIS B SURFACE ANTIBODY NEGATIVE (POSITIVE)
[2017-03-23 14:13] LABS: CHOLESTEROL LEVEL 148 MG/DL (<200); TRIGLYCERIDES LEVEL 71 MG/DL (<150)
== END ==
LOC: M LAB REF 12:51
PROVIDERS: ATTEND Internal Medicine Nephrology
DX: N18.5 Chronic kidney disease, stage 5 (principal)

== ENCOUNTER → 2017-04-08 | Outpatient (REF) | payer MEDICARE, OTHER ==
[2017-04-08 15:44] LABS: INR 4.09
== END ==
LOC: M LAB REF 15:29
PROVIDERS: ATTEND Family Medicine
DX: Z51.81 Encounter for therapeutic drug level monitoring (principal); Z79.01 Long term (current) use of anticoagulants

== ENCOUNTER → 2017-04-15 | Outpatient (REF) | payer MEDICARE, OTHER ==
[2017-04-15 16:06] LABS: INR 2.26
[2017-04-15 16:18] LABS: CALCIUM LEVEL 7.9 MG/DL (8.8-10.2); CREATININE FOR GFR 3.71 MG/DL (0.55-1.02); GLOMERULAR FILTRATION RATE 12.9 (>45)
[2017-04-15 16:24] LABS: POTASSIUM SERUM 5.3 MEQ/L (3.5-5.1)
== END ==
LOC: M SFHCPLAZ 14:10
PROVIDERS: ATTEND Physician Assistant Medical
DX: N18.4 Chronic kidney disease, stage 4 (severe) (principal); I48.91 Unspecified atrial fibrillation; Z86.19 Personal history of other infectious and parasitic diseases

== ENCOUNTER 2017-04-28 15:39 | Inpatient (IN) | payer MEDICARE, OTHER ==
[~2017-04-28] VITALS: Ht 160 cm; Wt 48.8 kg
[2017-04-28] MEDS ORDERED: LEVO175T2 (16:09)
[2017-04-28] MEDS ORDERED: RENV2TAB (16:09)
[2017-04-28] MEDS ORDERED: KION15SU (16:09)
[2017-04-28 16:45] LABS: BASO % 0.6 % (0.0-1.0); EOS # 0.1 K/mm3 (0.0-0.50); EOS % 2.1 % (0.0-3.0); LARGE UNSTAINED CELL # 0.1 K/mm3 (0.0-0.4); LARGE UNSTAINED CELL % 1.1 % (0.0-4.0); LYMPH # 0.7 K/mm3 (1.5-4.5); LYMPH % 13.5 % (24.0-44.0); MEAN CORPUSCULAR HEMOGLOBIN 30.8 pg (27.0-33.0); MEAN CORPUSCULAR HGB CONC 28.6 g/dl (32.0-36.5); MEAN CORPUSCULAR VOLUME 107.7 fl (80.0-96.0); MONO # 0.1 K/mm3 (0.0-0.8); NEUTROPHILS # 3.7 K/mm3 (1.8-7.7); NEUTROPHILS % 79.7 % (36.0-66.0); PLATELET COUNT, AUTOMATED 122 k/mm3 (150-450); RED CELL DISTRIBUTION WIDTH 15.3 % (11.5-14.5); WHITE BLOOD COUNT 4.7 K/mm3 (4.0-10.0)
[2017-04-28 17:10] LABS: ADD MORPHOLOGY? YES
[2017-04-28 17:19] LABS: ANISOCYTOSIS 1+; HYPOCHROMASIA 1+
--- NOTE | 2017-04-28 17:21 | REP ---
PORTABLE CHEST: AP portable view of the chest was performed. COMPARISON: 03/10/2017 There is mild cardiomegaly. There are small bilateral pleural effusions which have increased since the prior study. There is mild bibasilar atelectasis/infiltrate which is essentially unchanged. There is calcification of the thoracic aorta. The mediastinal silhouette is unchanged. IMPRESSION: Mild cardiomegaly. Small bilateral effusions mildly increased in size compared to the prior study of 03/10/2017. There is mild bibasilar atelectasis infiltrate which is unchanged. Signed by Miguel Matamoros MD 04/29/2017 05:15 P
[2017-04-28 17:23] LABS: CALCIUM LEVEL 7.8 MG/DL (8.8-10.2); CREATININE FOR GFR 4.33 MG/DL (0.55-1.02); GLOMERULAR FILTRATION RATE 10.8 (>45); POTASSIUM SERUM 4.9 MEQ/L (3.5-5.1)
[2017-04-28] MEDS ORDERED: ALBU83IN INH (17:30)
[2017-04-28] MEDS ORDERED: HYDR-3716 PO ×2 (17:30)
[2017-04-28] MEDS ORDERED: LEVO175T2 PO (17:30)
[2017-04-28] MEDS ORDERED: KION15SU PO (17:30)
[2017-04-28] MEDS ORDERED: TYLE325T5 PO (17:30)
[2017-04-28] MEDS ORDERED: WARF-18 PO (17:30)
[2017-04-28] MEDS ORDERED: RENV2TAB PO (17:30)
[2017-04-28] MEDS ORDERED: IRON65TA PO (17:30)
[2017-04-28 18:30] LABS: INR 1.15
[2017-04-28] MEDS ORDERED: IPRATROPIUM 0.5MG/ALBUTEROL 2.5MG INH SOL UD 3ML (DUONEB)(J7620) NEB PRN (18:45)
[2017-04-28] MEDS ORDERED: NITROGLYCERIN 0.4 MG SUBL TABLET SL PRN (18:45)
[2017-04-28] MEDS: IPRATROPIUM 0.5MG/ALBUTEROL 2.5MG INH SOL UD 3ML (DUONEB)(J7620) NEB SCH (20:00)
[2017-04-28 20:13] VITALS: BP 126/65
[2017-04-28] MEDS ORDERED: HEPARIN DRIP 25,000 UNITS in APPROPRIATE DILUENT 1 EA IV SCH ×2 (20:23→22:51)
[2017-04-28] MEDS ORDERED: WARFARIN SOD 7.5 MG TAB PO ONE (20:30)
[2017-04-28] MEDS ORDERED: HEPARIN SOD (PORCINE) 5000 UNITS/ML VIAL IV ONE (20:30)
[2017-04-28] MEDS ORDERED: HEPARIN SOD (PORCINE) 5000 UNITS/ML VIAL IV PRN (20:30)
[2017-04-28] MEDS: OMEGA-3 1050MG CAPSULE PO SCH (20:35)
[2017-04-28] MEDS: ATORVASTATIN 20 MG TAB PO SCH (20:35)
[2017-04-28] MEDS: SERTRALINE 100 MG TAB PO SCH (20:35)
--- NOTE | 2017-04-28 20:39 | HPEPDOC ---
General Date of Admission Apr 28, 2017 at 18:40 Primary Care Physician: Romel Powell Attending Physician: AMBER SIMS MD Chief Complaint The patient is a 66-year-old female admitted with a reason for visit of Esrd Needing Dialysis. History of Present Illness 66-year-old female with past medical history of dyslipidemia, hypertension, hypothyroidism, atrial fibrillation, pulmonary hypertension, C. difficile, COPD on 4 L of oxygen at baseline, Diastolic CHF, CAD status post cardiac stents, Left Sided Nephrectomy, and CKD Stage IV-V presented to the ER from her outpatient nephrology appointment with the need to be admitted for implementation of dialysis. According to the patient, she has been increasingly short of breath over the last 2-3 weeks. She states that attempts have been made to adjust her diuretic medication in the past to achieve fluid balance but her kidney function has worsened. She notes that she was scheduled for an AV fistula placement on May 11, however given her increasing shortness of breath and worsening kidney function she has come to the hospital for initiation of dialysis by her edge inker heels. At baseline, the patient states that she is able to walk around to different rooms in her home without feeling shortness of breath. However, during this time the patient states that she is feeling short of breath even at rest. She denies any complaints of fevers, chills, chest pain , palpitations, abdominal pain, or any nausea/vomiting. The patient will be admitted to the hospitalist service and a consultation will be placed for nephrology for further management of fluid optimization with dialysis. Home Medications Scheduled (Iron) 325 Mg Tab, 325 MG PO DAILY, (Reported) Acetaminophen/Hydrocodone (Hydrocodone/Acetaminophen 7.5-325 mg) 1 Tab Tab, 1 TAB PO DAILY, (Reported) Atorvastatin Calcium (Atorvastatin Calcium) 40 Mg Tab, 40 MG PO QHS, (Reported) Bisoprolol Fumarate (Bisoprolol Fumarate) 5 Mg Tab, 5 MG PO DAILY, (Reported) Budesonide/Formoterol (Symbicort 160-4.5 Mcg/Act) 60 Puff/Inhaler Aers, 2 PUFF INH BID, (Reported) Calcitriol (Calcitriol) 0.25 Mcg Cap, 0.25 MCG PO DAILY, (Reported) Digoxin (Digoxin) 0.125 Mg Tab, 0.125 MG PO 3XW, (Reported) QHS: MON, WED, FRI Folic Acid (Folic Acid) 1 Mg Tab, 1 MG PO DAILY, (Reported) Furosemide (Furosemide) 40 Mg Tab, 60 MG PO DAILY, (Reported) TAKES AT NOON Isosorbide Dinitrate (Isosorbide Dinitrate) 20 Mg Tab, 20 MG PO QHS, (Reported) Levothyroxine Sodium (Synthroid) 175 Mcg Tab, 175 MCG PO DAILY, (Reported) Rush 3 Polyunsat Fatty Acids (Rush 3 1000 mg) 1 Cap Cap, 1 CAP PO QHS, ( Reported) Omeprazole (Omeprazole) 40 Mg Cap, 40 MG PO DAILY, (Reported) Prednisone (Prednisone) 5 Mg Tab, 5 MG PO DAILY, (Reported) Sertraline Hcl (Zoloft) 100 Mg Tab, 100 MG PO QHS, (Reported) Sevelamer Carbonate (Renvela) 800 Mg Tab, 800 MG PO BIDWM, (Reported) Sodium Polystyrene Sulfonate (Kionex) 15 Gm/60 Ml Cynthia, 15 GM PO QWEEK, (Reported ) TAKES ON TUESDAY Warfarin Sod (Coumadin) 2.5 Mg Tab, 2.5 MG PO 5XW, (Reported) QHS: Tue Warfarin Sod (Warfarin Sodium) 2.5 Mg Tab, 1.25 MG PO 2XW, (Reported) QHS: Tue Scheduled PRN Acetaminophen (Tylenol) 325 Mg Tab, 650 MG PO Q4H PRN for PAIN, (Reported) Acetaminophen/Hydrocodone (Hydrocodone/Acetaminophen 7.5-325 mg) 1 Tab Tab, 1 TAB PO QHS PRN for PAIN, (Reported) Albuterol Sulfate (Ventolin Hfa) 200 Puff/8 Gm Aers, 2 PUFF INH Q4H PRN for SHORTNESS OF BREATH, (Reported) Albuterol Sulfate (Albuterol Sulfate) 2.5 Mg/3 Ml Nebu, 2.5 MG INH Q4H PRN for SHORTNESS OF BREATH, (Reported) Nitroglycerin (Nitrostat) 0.4 Mg Subl, 0.4 MG SL NITRO PRN for CHEST PAIN, ( Reported) Allergies Coded Allergies: Hydromorphone (Verified Adverse Reaction, Mild, HALLUCINATIONS, NOT HERSELF, 03/10/17) Past Medical History Medical History As noted in HPI. Surgical History Status post left nephrectomy, status post cardiac stents Family History Significant Family History: No pertinent family hx Social History * Smoker: Denies Alcohol: Denies Drugs: denies Review of Symptoms Other systems 10 point review of systems negative unless otherwise specified in HPI. Physical Examination General Exam: Positive: Alert, Cooperative, No Acute Distress ENT Exam: Positive: Atraumatic, Mucous membr. moist/pink Neck Exam: Positive: JVD Chest Exam: Positive: Rales (bibasilar rales noted on auscultation.), Diminished Heart Exam: Positive: Rate Normal, Normal S1, Normal S2 Telemetry: Positive: Atrial fibrillation Abdomen Exam: Positive: Soft, Negative: Tenderness Extremity Exam: Positive: Other, Negative: Tenderness Psych Exam: Positive: Oriented x 3 Vital Signs Vital Signs Date Time Temp Pulse Resp B/P (MAP) Pulse Ox O2 Delivery O2 Flow Rate FiO2 04/28/17 19:22 99.6 79 18 130/60 (83) 91 Room Air 04/28/17 16:42 4.0 Laboratory Data Labs 24H Laboratory Tests 2 04/28/17 16:34: White Blood Count 4.7, Red Blood Count 4.02, Hemoglobin 12.4, Hematocrit 43.3, Mean Corpuscular Volume 107.7H, Mean Corpuscular Hemoglobin 30.8, Mean Corpuscular Hemoglobin Concent 28.6L, Red Cell Distribution Width 15.3H, Platelet Count 122L, Neutrophils (%) (Auto) 79.7H, Lymphocytes (%) (Auto) 13.5L , Monocytes (%) (Auto) 3.0, Eosinophils (%) (Auto) 2.1, Basophils (%) (Auto) 0.6 , Neutrophils # (Auto) 3.7, Lymphocytes # (Auto) 0.7L, Monocytes # (Auto) 0.1, Eosinophils # (Auto) 0.1, Basophils # (Auto) 0.0, Large Unclassified Cells % 1.1 , Large Unclassified Cells # 0.1, Platelet Estimate DECREASED, Hypochromasia 1+ , Anisocytosis 1+, Macrocytosis 2+, Prothrombin Time 14.8H, Prothromb Time International Ratio 1.15, Anion Gap 7L, Glomerular Filtration Rate 10.8L, Blood Urea Nitrogen 63H, Creatinine 4.33H, Sodium Level 138, Potassium Level 4.9, Chloride Level 100, Carbon Dioxide Level 31, Calcium Level 7.8L, Total Creatine Kinase 45, Creatine Kinase MB 2.4, Creatine Kinase MB Relative Index 5.33H, Troponin I 0.03 CBC/BMP Laboratory Tests 04/28/17 16:34 Red Blood Count 4.02, Mean Corpuscular Volume 107.7 H, Mean Corpuscular Hemoglobin 30.8, Mean Corpuscular Hemoglobin Concent 28.6 L, Red Cell Distribution Width 15.3 H, Neutrophils (%) (Auto) 79.7 H, Lymphocytes (%) (Auto ) 13.5 L, Monocytes (%) (Auto) 3.0, Eosinophils (%) (Auto) 2.1, Basophils (%) ( Auto) 0.6, Neutrophils # (Auto) 3.7, Lymphocytes # (Auto) 0.7 L, Monocytes # ( Auto) 0.1, Eosinophils # (Auto) 0.1, Basophils # (Auto) 0.0, Calcium Level 7.8 L , Total Creatine Kinase 45 Plan / VTE VTE Prophylaxis Ordered?: Yes Plan Plan Decompensated DCHF 2/2 End-Stage Renal Disease requiring Dialysis Permacath to be placed by IR tomorrow No urgent need for dialysis at this time as the patients electrolytes and metabolic/respiratory status is stable Nephrology on board Atrial fibrillation on Coumadin, rate controlled Cont Bisoprolol INR noted to be subtherapeutic at 1.15--I will hold the patient's Coumadin at this time as she is scheduled for a Permacath placement in the morning--I did discuss the risks associated with possible CVA with the patient. The patient will need to be restarted on Coumadin once she has the permacath placed COPD on 4L of Oxygen at baseline Cont Albuterol, Symbicort, Prednisone as ordered CAD s/p Stents in the past Cont Statin, Bisoprolol, Isosorbide Dinitrate Not on ASA, as the patient is already taking Coumadin at home GERD Cont PPI Hypothyroidism Cont Levothyroxine Dyslipidemia Cont Statin DVT Prophylaxis SCDs/TEDs The patient will be admitted under the service of Dr. Sims, who will begin to follow the patient on 04/29 @ 7am. SERA LOWERY MD Apr 28, 2017 20:39
[2017-04-28] MEDS: ISOSORBIDE DIN. (ISORDIL) 20 MG TAB PO SCH (20:40)
[2017-04-28] MEDS ORDERED: WARFARIN SOD 2.5 MG TAB PO SCH (21:00)
[2017-04-28] MEDS: SYMBICORT 160/4.5MCG INHALER 6GM INH SCH (21:00)
[2017-04-28] MEDS ORDERED: ONDANSETRON 4MG/2ML VIAL (J2405) IV SCH (21:15)
[2017-04-28] MEDS: HEPARIN DRIP 25,000 UNITS in APPROPRIATE DILUENT 1 EA IV SCH (23:25)
[2017-04-29] VITALS (14 sets, daily range): BP systolic 83–134; BP diastolic 51–74
[2017-04-29] MEDS: IPRATROPIUM 0.5MG/ALBUTEROL 2.5MG INH SOL UD 3ML (DUONEB)(J7620) NEB SCH ×4 (01:21→20:00)
[2017-04-29] MEDS: LEVOTHYROXINE 25MCG TABLET (0.025MG) PO SCH (05:32)
[2017-04-29] MEDS: LEVOTHYROXINE 150MCG TABLET (0.15MG) PO SCH (05:32)
[2017-04-29 06:19] LABS: ANION GAP 5 MEQ/L (8-16); BLOOD UREA NITROGEN 65 MG/DL (7-18); CALCIUM LEVEL 7.6 MG/DL (8.8-10.2); CARBON DIOXIDE LEVEL 33 MEQ/L (21-32); CHLORIDE LEVEL 101 MEQ/L (98-107); CREATININE FOR GFR 4.48 MG/DL (0.55-1.02); GLOMERULAR FILTRATION RATE 10.4 (>45); GLUCOSE, FASTING 99 MG/DL (80-110); MAGNESIUM LEVEL 2.2 MG/DL (1.8-2.4); POTASSIUM SERUM 4.6 MEQ/L (3.5-5.1); SODIUM LEVEL 139 MEQ/L (136-145)
[2017-04-29 06:27] LABS: MEAN CORPUSCULAR HEMOGLOBIN 30.9 pg (27.0-33.0); MEAN CORPUSCULAR HGB CONC 28.5 g/dl (32.0-36.5); MEAN CORPUSCULAR VOLUME 108.5 fl (80.0-96.0); RED CELL DISTRIBUTION WIDTH 15.3 % (11.5-14.5); WHITE BLOOD COUNT 5.4 K/mm3 (4.0-10.0)
[2017-04-29 06:49] LABS: INR 1.31
--- NOTE | 2017-04-29 08:14 | ECGEPIP ---
Stationary ECG Study [facility] - ED Test Date: 2017-04-28 Pat Name: ROBBIE GOLD Department: Room: - Gender: F Hydrostatic Tubing Tester: diana : [id number] Requested By: Beau Lebron Order Number: [id number] Reading MD: Beau Murguia Measurements Intervals [place] Rate: 77 P: OK: 0 QRS: 101 QRSD: 93 T: -41 QT: 302 QTc: 343 Interpretive Statements ATRIAL FLUTTER/TACHYCARDIA WITH ABERRANT CONDUCTION OR VENTRICULAR PREMATURE COMPLEXES POSSIBLE RIGHT VENTRICULAR HYPERTROPHY MODERATE ST DEPRESSION SIMILAR TO 03/10/17 Electronically Signed On 04-29-2017 8:14:39 EDT by Beau Murguia
[2017-04-29] MEDS: SYMBICORT 160/4.5MCG INHALER 6GM INH SCH ×2 (08:15→21:18)
[2017-04-29] MEDS: OMEPRAZOLE 20 MG CAP PO SCH (08:27)
[2017-04-29] MEDS: (RENVELA) SEVELAMER **CARBONate** 800 MG TAB PO SCH ×2 (08:27→17:50)
[2017-04-29] MEDS: predniSONE 5 MG TAB PO SCH (08:27)
[2017-04-29] MEDS: CALCITRIOL 0.25 MCG CAP (S0169) PO SCH (08:27)
[2017-04-29] MEDS: FOLIC ACID 1 MG TAB PO SCH (08:29)
[2017-04-29] MEDS: BISOPROLOL FUMARATE 5 MG TAB PO SCH (08:29)
[2017-04-29] MEDS: FERROUS SULFATE 325MG TAB PO SCH (08:30)
[2017-04-29] MEDS: ACETAMINOPHEN TAB 650MG DOSE (2X325MG) PO PRN (08:43)
[2017-04-29] MEDS ORDERED: HEPARIN 1,000 UNITS/ML 10ML VIAL (FOR RADIOLOGY& DIALYSIS ONLY) As Ordered ONE (10:16)
[2017-04-29] MEDS ORDERED: SODIUM BICARBONATE 4 % INJ 2.4MEQ 5 ML VIAL (THIS HAS A PRESERVATIVE) As Ordered ONE (10:16)
[2017-04-29 10:17] LABS: CHOLESTEROL LEVEL 116 MG/DL (<200); TRIGLYCERIDES LEVEL 51 MG/DL (<150)
[2017-04-29] MEDS ORDERED: LIDOCAINE W/EPINEPHRINE 1% 20ML VIAL As Ordered ONE (10:17)
--- NOTE | 2017-04-29 10:35 | IPNPDOC ---
Subjective Date Seen The patient was seen on 04/29/17. Subjective Chief Complaint/HPI The patient is a 66-year-old female admitted with a reason for visit of Esrd Needing Dialysis. General: Denies: ROS Unobtainable, Chills, Night Sweats, Fatigue, Malaise, Normal Appetite, Other Symptoms Constitutional: Denies: Chills, Fever, Malaise, Night Sweats, Weakness, Fatigue , Weight Loss, Lethargy, Other Eyes: Denies: Pain, Vision change, Conjunctivae inflammation, Eyelid inflammation, Redness, Other ENT: Denies: Head Aches, Ear Pain, Dysphagia, Sinus Congestion, Post Nasal Drip , Sore Throat, Epistaxis, Other Symptoms Skin: Denies: Rash, Lesions, Jaundice, Bruising, Itching, Dry, Breakdown, Nail Changes, Other Pulmonary: Denies: Dyspnea, Cough, Pleuritic Chest Pain, Other Symptoms Cardiovascular: Denies: Chest Pain, Palpitations, Orthopnea, Paroxysmal Noc. Dyspnea, Edema, Lt Headedness, Other Symptoms Gastrointestinal: Denies: Nausea, Vomiting, Abdominal Pain, Diarrhea, Constipation, Melena, Hematochezia, Other Symptoms Objective Physical Examination General Exam: Positive: Alert, Cooperative, No Acute Distress ENT Exam: Positive: Atraumatic, Mucous membr. moist/pink Neck Exam: Positive: JVD Chest Exam: Positive: Rales (bibasilar rales noted on auscultation.), Diminished Heart Exam: Positive: Rate Normal, Normal S1, Normal S2 Telemetry: Positive: Atrial fibrillation Abdomen Exam: Positive: Soft, Negative: Tenderness Extremity Exam: Positive: Edema (gross peripheral pitting edema), Other (left hallux TTT), Negative: Tenderness Psych Exam: Positive: Oriented x 3 Assessment /Plan Problems (1) ESRD needing dialysis Status: Acute Discussed With: Patient Problem Specific Plan: Consult Specialist Problem Text: planned for permacath placement today. has appointments 05/06 for pre-screening and 05/11 for av fistula placement in [facility]. follow as per nephrology, assistance appreciated. (2) Atrial fibrillation, chronic Status: Chronic Discussed With: Patient Problem Specific Plan: Repeat Labs Problem Text: heparin gtt, hold 3 hours prior to placement perma-cath, - can resume at 1pm - resume coumadin following procedure (3) COPD (chronic obstructive pulmonary disease) Status: Chronic Discussed With: Patient Problem Specific Plan: Monitor Clinically Problem Text: baseline 4L supplemental O2 - follows with Dr. Barker (4) Diastolic CHF Status: Chronic Discussed With: Patient Problem Specific Plan: Monitor Clinically (5) CAD S/P percutaneous coronary angioplasty Status: Chronic Discussed With: Patient (6) Hx of renal cell carcinoma Status: Resolved Discussed With: Patient Problem Text: s/p left nephrectomy 2006 (7) Hypertension Status: Chronic Problem Specific Plan: Monitor Clinically (8) Hypothyroid Status: Chronic Plan/VTE VTE Prophylaxis Ordered?: Yes (hep gtt/coumadin) Plan Diet: Continue Current Activity: Continue Current Therapy: PT, OT Pt and Family Services: Home Care Diagnostics: Repeat Labs in AM Plan for permacath placement today. ADDENDUM: Patient in respiratory distress - ABG = respiratory acidosis, transferred to ICU , will likely need NIPPV in addition to dialysis. VS, I&O, 24H, Fishbone Vital Signs/I&O Vital Signs Date Time Temp Pulse Resp B/P (MAP) Pulse Ox O2 Delivery O2 Flow Rate FiO2 04/29/17 08:29 64 122/60 04/29/17 05:50 97.8 17 92 Nasal Cannula 4.0 I&O- Last 24 Hours up to 6 AM 04/29/17 06:00 Intake Total 42 ml Output Total 100 ml Balance -58 ml Laboratory Data 24H LABS Laboratory Tests 2 04/28/17 16:34: White Blood Count 4.7, Red Blood Count 4.02, Hemoglobin 12.4, Hematocrit 43.3, Mean Corpuscular Volume 107.7H, Mean Corpuscular Hemoglobin 30.8, Mean Corpuscular Hemoglobin Concent 28.6L, Red Cell Distribution Width 15.3H, Platelet Count 122L, Neutrophils (%) (Auto) 79.7H, Lymphocytes (%) (Auto) 13.5L , Monocytes (%) (Auto) 3.0, Eosinophils (%) (Auto) 2.1, Basophils (%) (Auto) 0.6 , Neutrophils # (Auto) 3.7, Lymphocytes # (Auto) 0.7L, Monocytes # (Auto) 0.1, Eosinophils # (Auto) 0.1, Basophils # (Auto) 0.0, Large Unclassified Cells % 1.1 , Large Unclassified Cells # 0.1, Platelet Estimate DECREASED, Hypochromasia 1+ , Anisocytosis 1+, Macrocytosis 2+, Prothrombin Time 14.8H, Prothromb Time International Ratio 1.15, Activated Partial Thromboplast Time 31.7, Anion Gap 7L , Glomerular Filtration Rate 10.8L, Blood Urea Nitrogen 63H, Creatinine 4.33H, Sodium Level 138, Potassium Level 4.9, Chloride Level 100, Carbon Dioxide Level 31, Calcium Level 7.8L, Total Creatine Kinase 45, Creatine Kinase MB 2.4, Creatine Kinase MB Relative Index 5.33H, Troponin I 0.03 04/29/17 05:31: Anion Gap 5L, Glomerular Filtration Rate 10.4L, Blood Urea Nitrogen 65H, Creatinine 4.48H, Sodium Level 139, Potassium Level 4.6, Chloride Level 101, Carbon Dioxide Level 33H, Calcium Level 7.6L, Magnesium Level 2.2, Triglycerides Level 51, LDL Cholesterol 35.8, Total Cholesterol 116, Non-HDL Cholesterol (LDL + VLDL) 46, Total HDL Cholesterol 70, Cholesterol/HDL Ratio 1.657 04/29/17 05:44: Prothrombin Time 16.4H, Prothromb Time International Ratio 1.31, Activated Partial Thromboplast Time 92.3H CBC/BMP Laboratory Tests 04/28/17 16:34 Red Blood Count 4.02, Mean Corpuscular Volume 107.7 H, Mean Corpuscular Hemoglobin 30.8, Mean Corpuscular Hemoglobin Concent 28.6 L, Red Cell Distribution Width 15.3 H, Neutrophils (%) (Auto) 79.7 H, Lymphocytes (%) (Auto ) 13.5 L, Monocytes (%) (Auto) 3.0, Eosinophils (%) (Auto) 2.1, Basophils (%) ( Auto) 0.6, Neutrophils # (Auto) 3.7, Lymphocytes # (Auto) 0.7 L, Monocytes # ( Auto) 0.1, Eosinophils # (Auto) 0.1, Basophils # (Auto) 0.0, Calcium Level 7.8 L , Total Creatine Kinase 45 04/29/17 05:31 Calcium Level 7.6 L 04/29/17 05:44 Red Blood Count 3.56 L, Mean Corpuscular Volume 108.5 H, Mean Corpuscular Hemoglobin 30.9, Mean Corpuscular Hemoglobin Concent 28.5 L, Red Cell Distribution Width 15.3 H AMBER QUEVEDO MD Apr 29, 2017 10:35
[2017-04-29 10:56] LABS: HEPATITIS B SURFACE ANTIBODY NEGATIVE (POSITIVE)
[2017-04-29] MEDS ORDERED: HEPARIN 1,000 UNITS/ML 10ML VIAL (FOR RADIOLOGY& DIALYSIS ONLY) XX ONE (12:00)
[2017-04-29] MEDS ORDERED: FUROSEMIDE 20 MG TAB PO SCH (12:00)
[2017-04-29 12:16] LABS: ABG PARTIAL PRESSURE CO2 85.2 mmHg (35.0-45.0); ABG pH (ARTERIAL) 7.174 UNITS (7.350-7.450)
[2017-04-29 12:17] LABS: ABG PARTIAL PRESSURE O2 71.7 mmHg (75.0-100.0); ABG STANDARD HCO3 24.7 MEQ/L (22.0-26.0)
--- NOTE | 2017-04-29 12:17 | REPKIM ---
CLINICAL HISTORY: End stage COPD and underlying chronic hypoxia requiring chronic O2, CHF, CAD, AF and renal failure. The referring service has requested a tunneled dialysis catheter placement for hemodialysis. PROCEDURE PERFORMED: Right IJ Tunneled Hemodialysis Catheter Placement INTERVENTIONALIST: Lisa Garcia MD CONSENT: The risks, benefits and alternatives to the procedure were explained to the patients family and informed written consent was obtained and witnessed. MEDICATIONS: Local Lidocaine EBL: 25 mL DEVICE USED: 14.5-Estonian 19-cm tip to cuff Palindrome Catheter Lot#[id number] FLUORO TIME: 0.4 minutes PROCEDURE/FINDINGS: The patient was brought to the interventional radiology suite where a timeout procedure was performed. The patient was placed in the supine position and head of bed gently elevated. The right neck and upper chest were prepped and draped in the usual sterile fashion. Real time ultrasound was used and permanent image stored. Using ultrasound guidance the internal jugular vein was punctured with a micropunture needle, after infiltration of the skin and deep tissues with local anesthetic. A 19-cm tip to cuff length, 14.5-Estonian dual lumen Palindrome hemodialysis catheter was inserted. The catheter was placed through a subcutaneous tunnel requiring a second incision. The incision at the base of the neck was closed with 4-0 Vicryl suture and covered with steristrips. The catheter was secured at the skin exit site with 2-0 Prolene suture. The ports of the catheter were locked with heparin (1000 units/mL). A sterile dressing was then applied. Post procedure chest fluoroscopy showed the tip of the catheter at the SVC The patient tolerated the procedure with no immediate complications. This procedure was performed using ultrasound and fluoroscopy. Dr. Garcia was present. IMPRESSION: 1. Ultrasound of the neck demonstrates patent right IJ vein and compressible. 2. Successful right IJ tunneled hemodialysis catheter placement as discussed above. There is free aspiration of blood from all ports of the catheter. The catheter is ready for immediate use. cc: MD Shahzad Bunch MD MTDD
[2017-04-29 12:18] LABS: ABG BASE EXCESS 0.3 (-2.0-2.0); ABG HCO3 30.7 MEQ/L (22.0-26.0); ABG TOTAL CO2 33.3 MEQ/L (23.0-31.0)
--- NOTE | 2017-04-29 12:34 | REP ---
PORTABLE CHEST: AP portable view of the chest is performed. There is cardiomegaly. Since the prior study of 04/28/2017, there are increased bibasilar infiltrates and increased bilateral effusions. There is calcification over the thoracic aorta. A right central venous catheter is seen with the tip in the superior vena cava. IMPRESSION: Increased bibasilar infiltrates and effusions compared to a prior study of 04/28/2017. Signed by Miguel Matamoros MD 04/29/2017 05:22 P
--- NOTE | 2017-04-29 13:27 | CR ---
DATE OF CONSULTATION: 04/29/2017 CONSULTATION REPORT FOR: Dr. Vinay Sims CONSULTING PHYSICIAN: Dr. Spence REASON FOR CONSULTATION: Management of end-stage renal disease and initiation of dialysis. CHIEF COMPLAINT: The patient was sent from nephrology office yesterday because her chronic kidney disease, stage V had progressed to end-stage renal disease and the patient needs to start dialysis because of her worsening symptoms of weakness, fatigue, shortness of breath, and edema. HISTORY OF PRESENT ILLNESS: Anjali Delgado is a 66-year-old female with past medical history of chronic kidney disease, stage V. She has a history of left-sided nephrectomy and only solitary functioning right kidney. She has multiple other comorbidities including end-stage chronic obstructive pulmonary disease (COPD) requiring four liters of oxygen at home, and despite having severe COPD, she continues to smoke about 3-4 cigarettes a day. She has atrial fibrillation on anticoagulation, history of coronary artery disease status post stent and diastolic congestive heart failure, multiple other comorbidities as mentioned below. The patient was seen in the nephrology clinic yesterday by me and she complained of worsening lower extremity edema, weight gain, worsening shortness of breath, fatigue, and decreased appetite. The patient was sent to the emergency room for admission, placement of catheter, and initiation of hemodialysis in an inpatient setting because the patient was too unstable to start hemodialysis electively. The patient was referred to vascular surgery multiple times but unfortunately she kept on deferring and cancelling her arteriovenous (AV) fistula appointments. She was scheduled to have her AV fistula placed on 05/11/2017 by vascular surgery in [place] but the patient is too unstable at this time to wait for a fistula placement and maturation. The patient got the right internal jugular (IJ) tunneled hemodialysis catheter placed by interventional radiology today. She was seen by me today in the morning after the catheter placement. The patient is hypoxemic in moderate respiratory distress. Pulse oximetry is in high 80s at this time and arterial blood gas (ABG) and chest x-ray portable stat is being done at this time. PAST MEDICAL HISTORY: The patient has a past medical history of: 1. Chronic kidney disease, stage V. Glomerular filtration rate (GFR) has dropped to 11 now. 2. Hypertension. 3. Hyperlipidemia. 4. Hypothyroidism. 5. Atrial fibrillation on anticoagulation. 6. Pulmonary hypertension. 7. Chronic obstructive pulmonary disease (COPD) on home oxygen. 8. Chronic active smoker. 9. Diastolic congestive heart failure. 10. Coronary artery disease. 12. She has a solitary functioning right kidney status post left nephrectomy. PAST SURGICAL HISTORY: The patient is status post left nephrectomy, status post cardiac stents in the past. ALLERGIES: The patient is allergic to HYDROMORPHONE. FAMILY HISTORY: No significant family history of end-stage renal disease requiring hemodialysis. SOCIAL HISTORY: The patient lives with her family. She denies any alcohol abuse or illicit drug abuse. The patient is an active smoker and she smokes about 3-4 cigarettes per day despite having end-stage chronic obstructive pulmonary disease (COPD) and being oxygen dependent. REVIEW OF SYSTEMS: CONSTITUTIONAL: The patient reports feeling fatigued, tired, lack of energy, but she denies any fevers or chills. EYES: She denies any blurry vision or double vision. EARS, NOSE AND THROAT: The patient denies any dysphagia, odynophagia, or ear discharge. CARDIOVASCULAR: The patient reports a history of atrial fibrillation, diastolic congestive heart failure, shortness of breath, and lower extremity edema. RESPIRATORY: The patient has end-stage chronic obstructive pulmonary disease (COPD). She is short of breath at this time after the catheter placement and she is oxygen dependent. GASTROINTESTINAL: The patient denies any nausea, vomiting, or pain abdomen. GENITOURINARY: The patient denies any dysuria or hematuria. MUSCULOSKELETAL: The patient denies any muscle aches and pains but she does report lower extremity worsening edema. CENTRAL NERVOUS SYSTEM: The patient denies any history of seizures or stroke. PSYCHIATRIC: The patient reports history of depression. She is on Zoloft at this time. HEMATOLOGIC/ONCOLOGIC: She reports history of anemia secondary to chronic kidney disease. ENDOCRINE: The patient denies history of diabetes but she does report secondary hyperparathyroidism, secondary to chronic kidney disease. All of other review of systems is negative at this time. PHYSICAL EXAMINATION: GENERAL: The patient is awake, alert, and oriented times three in moderate respiratory distress wearing a nasal cannula at this time. VITAL SIGNS: Temperature is 97.8 degrees Fahrenheit, blood pressure is 122/60, pulse is 64, respiratory rate of 18, saturating 88% on nasal cannula at four liters. INTAKE AND OUTPUT: Urine output recorded as 100 mL yesterday. There is no urine output recorded so far today. Weight on the bed scale is 51.3 kg. HEAD AND NECK EXAMINATION: Extraocular muscles intact. Pupils are equally round and reactive to light. Mucous membranes are moist. The patient is weak and cachectic and has temporal wasting. Neck is supple. There is no jugular venous distention (JVD). The patient has a right internal jugular (IG) tunneled hemodialysis catheter which was placed today. CARDIOVASCULAR: S1, S2, irregularly irregular heart rate. RESPIRATORY: Decreased breath sounds and crepitations bilaterally at the bases. ABDOMEN: Soft, positive bowel sounds, nontender. No ascites. No organomegaly. EXTREMITIES: The patient has cyanosis of the bilateral hand fingertips and toes and she has 2+ pitting edema of the bilateral lower extremities. CENTRAL NERVOUS SYSTEM: No focal neurological deficit. Power is 5/5 in all bilateral upper extremities but the patient does have mild asterixis at this time. SKIN: No rashes or ulcers. PSYCHIATRIC: Normal mood and affect at this time. LABORATORY REVIEW: CBC showed a WBC of 5.4, hemoglobin 11, platelets are 128. ABG done right now shows a pH of 7.14, pCO2 of 85, pO2 of 71, bicarbonate is 30, oxygen saturation is 92%. BMP showed sodium 139, potassium 4.6, chloride 101, bicarbonate 33, BUN is 65, creatinine is 4.4, GFR is 10.4, A1c is 5, calcium 7.6, magnesium 2.2, triglycerides 51, total cholesterol 116, LDL 35.8, HDL 70. IMAGING STUDIES: A portable chest x-ray done right now shows a right IJ catheter in superior vena cava. The patient has inflated lungs because of COPD and there is evidence of pulmonary edema in the lower lobes. The report was read by me. CURRENT INPATIENT MEDICATIONS: The patient's inpatient medications were all reviewed by me. She is currently on: - heparin drip - Tylenol as needed - DuoNebs every six hours - Lipitor 40 mg at bedtime - bisoprolol 5 mg daily - Symbicort two puffs twice a day - calcitriol 0.25 mcg by mouth daily - digoxin 0.125 mg by mouth Tuesday, Tuesday and Tuesday - iron tablet 325 mg by mouth daily - folic acid 1 mg by mouth daily - Lasix 60 mg by mouth daily - isosorbide 20 mg by mouth at bedtime - levothyroxine 25 mcg by mouth daily along with 150 mcg by mouth daily - omeprazole 40 mg by mouth daily - Zofran as needed - prednisone 5 mg by mouth daily - Zoloft 100 mg by mouth daily - Renvela 800 mg by mouth twice a day with meals - warfarin 6 mg by mouth was given yesterday ASSESSMENT: A 66-year-old female with past medical history of chronic kidney disease stage V, history of diastolic congestive heart failure, end-stage chronic obstructive pulmonary disease (COPD), admitted this time because her chronic kidney disease (CKD) V has progressed to end-stage renal disease. She needs to initiate hemodialysis. PLAN: 1. Chronic kidney disease (CKD), stage V progressed to end-stage renal disease. The patient got the PermaCath placed today. I shall start the patient on hemodialysis. First session will be for two hours today. 2. Acute shortness of breath secondary to chronic obstructive pulmonary disease (COPD) and fluid overload. The patient will be dialyzed today. I shall try to remove about one liter of fluid as tolerated by her blood pressure. Continue the albuterol, Symbicort, and prednisone. Continue the four liters of oxygen. If needed, the patient can be placed on bilevel positive airway pressure (BiPAP) because of hypercapnia and respiratory acidosis. 3. Atrial fibrillation. Heart rate is controlled at this time. Continue bisoprolol. Coumadin has been restarted after placement of the catheter. 4. Coronary artery disease, status post stents. Continue home dose of isosorbide, statins, bisoprolol, and the patient is already on Coumadin. 5. Hypothyroidism. Continue home dose of levothyroxine 175 mcg by mouth daily. 6. Secondary hyperparathyroidism. Continue home dose of calcitriol 0.25 mcg by mouth daily. 7. Chronic kidney disease, mineral bone disease. Continue home dose of Renvela 800 mg by mouth twice a day with meals. 8. History of depression. Continue Zoloft 100 mg by mouth at bedtime. 9. Iron deficiency anemia in the setting of end-stage renal disease. Hemoglobin is 11 at this time. Continue oral iron. No need of Aranesp administration at this time. Thank you for involving us in the care of this patient. We shall be happy to follow the patient along with you tomorrow morning. Plan of care was discussed with the patient and her at the bedside and with the hospitalist team, Dr. Vinay Sims. I have arranged for dialysis of this patient today in the afternoon. This will be her first session of dialysis.
[2017-04-29 14:10] LABS: ABG BASE EXCESS 1.5 (-2.0-2.0); ABG DEVICE BIPAP; ABG HCO3 31.9 MEQ/L (22.0-26.0); ABG PARTIAL PRESSURE O2 61.3 mmHg (75.0-100.0); ABG STANDARD HCO3 25.7 MEQ/L (22.0-26.0); ABG TOTAL CO2 34.5 MEQ/L (23.0-31.0)
[2017-04-29 14:16] LABS: ABG PARTIAL PRESSURE CO2 86.4 mmHg (35.0-45.0); ABG pH (ARTERIAL) 7.185 UNITS (7.350-7.450)
[2017-04-29] MEDS: HEPARIN DRIP 25,000 UNITS in APPROPRIATE DILUENT 1 EA IV SCH (14:47)
[2017-04-29] MEDS ORDERED: WARFARIN SOD 5 MG TAB PO ONE (17:00)
--- NOTE | 2017-04-29 17:42 | CCN ---
DATE: 04/29/2017 START TIME: 1320 STOP TIME: 1408 I was called to the intensive care unit (ICU) to attend Anjali Delgado. Patient's medical exam and chart is reviewed. I have spoken at length with the primary service. In essence, This is a 66-year-old female with end-stage obstructive lung disease, both hypoxemic and hypercapnic. Known panlobular emphysema and continued tobacco abuse. She had the removal of one kidney previously. Now has loss of functioning in her remaining kidney and is admitted for dialysis. She is felt to be volume overloaded. This morning had significant decline in her oxygenation status. Was somewhat somnolent. Arterial blood gas done at that time with pH 7.17, pCO2 of 86.2, and pO2 of 71. This is on an unknown FiO2. Chest x-ray done compared to the last several days and the last several months shows an increasing pattern of interstitial edema and bilateral effusions. She was brought to the intensive care unit, placed on noninvasive support. Adjustments made by myself. Currently she is easily arousable and answers questions. Tidal volumes moving about 350 mL with a respiratory rate of about 14-16. Pupils are reactive, sclerae clear. Heart rate in the 70s. Respiratory rate as outlined above. Blood pressure 115/60. ' HEENT: Shows non-invasive mask in place. Pupils are reactive. She has a dialysis catheter in the right neck. Trachea is midline. CHEST: Shows markedly diminished but symmetric expansion. Chest is hyperresonant to percussion. Dullness to percussion with even more marked decreased breath sound intensity at the bases dependently. CARDIAC: Distant. Fairly regular. Peripheral pluses markedly diminished. Trace edema. ABDOMEN: Soft, nontender, normoactive bowel sounds. EXTREMITIES: Showed no cyanosis or clubbing. NEUROLOGIC: As outlined above. OTHER LABORATORIES: Show white blood cell count of 5.4, hemoglobin 11, platelet count of 28,000. Sodium of 139, potassium 4.6, chloride 101, CO2 of 33, BUN 65, creatinine 4.8. The most pressing problems requiring my immediate appearance at the bedside: 1. Acute on chronic respiratory failure with hypercapnic and hypoxemic. 2. Pulmonary edema. 3. End-stage renal disease, now for dialysis. 4. Steroid and oxygen-dependent lung disease. 5. Continued tobacco abuse. At this point, we await the repeat blood gas. Her mental status is improving with noninvasive support. Family has told nursing staff that she previously had been a DO NOT RESUSCITATE/DO NOT INTUBATE. They have confirmed this to me. Patient is now awake and confirms this herself, and a new medical order for life-sustaining treatment (MOLST) form is being filled out. I spoke with Dr. Sims in that regard as well. We will await the outcome of dialysis. Will continue her current pulmonary treatments. We need to find out how much prednisone she was on as an outpatient and be kept on a similar dose. I do not believe this represents a chronic obstructive pulmonary disease (COPD) exacerbation as much as volume overload and inability to compensate from a respiratory standpoint. I did review the need for smoking cessation with her, but she does not seem interested in that regard. At this point she is critically ill. I left the bedside at 1408 hours. There was 48 minutes of critical care and delivery at the bedside, not including procedures.
[2017-04-29 17:55] LABS: ABG BASE EXCESS 2.5 (-2.0-2.0); ABG PARTIAL PRESSURE CO2 78.8 mmHg (35.0-45.0); ABG PARTIAL PRESSURE O2 73.5 mmHg (75.0-100.0); ABG STANDARD HCO3 26.6 MEQ/L (22.0-26.0); ABG TOTAL CO2 34.4 MEQ/L (23.0-31.0); ABG pH (ARTERIAL) 7.226 UNITS (7.350-7.450)
[2017-04-29] MEDS: ISOSORBIDE DIN. (ISORDIL) 20 MG TAB PO SCH (21:00)
[2017-04-29] MEDS ORDERED: WARFARIN SOD 2.5 MG TAB PO SCH (21:00)
[2017-04-29] MEDS ORDERED: ONDANSETRON 4MG/2ML VIAL (J2405) IV PRN (21:15)
[2017-04-29] MEDS: OMEGA-3 1050MG CAPSULE PO SCH (21:21)
[2017-04-29] MEDS: ATORVASTATIN 20 MG TAB PO SCH (21:22)
[2017-04-29] MEDS: DIGOXIN 0.125 MG TAB PO SCH (21:22)
[2017-04-29] MEDS: SERTRALINE 100 MG TAB PO SCH (21:22)
[2017-04-30] VITALS (15 sets, daily range): BP systolic 110–162; BP diastolic 54–101
[2017-04-30] MEDS: IPRATROPIUM 0.5MG/ALBUTEROL 2.5MG INH SOL UD 3ML (DUONEB)(J7620) NEB SCH ×4 (01:30→19:52)
[2017-04-30 03:17] LABS: INR 1.41
[2017-04-30 03:18] LABS: MEAN CORPUSCULAR HEMOGLOBIN 30.6 pg (27.0-33.0); MEAN CORPUSCULAR HGB CONC 28.4 g/dl (32.0-36.5); MEAN CORPUSCULAR VOLUME 107.5 fl (80.0-96.0); RED CELL DISTRIBUTION WIDTH 15.2 % (11.5-14.5); WHITE BLOOD COUNT 5.8 K/mm3 (4.0-10.0)
[2017-04-30 03:46] LABS: CALCIUM LEVEL 7.8 MG/DL (8.8-10.2); CREATININE FOR GFR 3.42 MG/DL (0.55-1.02); GLOMERULAR FILTRATION RATE 14.2 (>45); POTASSIUM SERUM 4.6 MEQ/L (3.5-5.1)
[2017-04-30] MEDS: LEVOTHYROXINE 150MCG TABLET (0.15MG) PO SCH (06:30)
[2017-04-30] MEDS: LEVOTHYROXINE 25MCG TABLET (0.025MG) PO SCH (06:35)
--- NOTE | 2017-04-30 07:59 | IPNPDOC ---
Subjective Date Seen The patient was seen on 04/30/17. Subjective Chief Complaint/HPI The patient is a 66-year-old female admitted with a reason for visit of Esrd Needing Dialysis. General: Denies: ROS Unobtainable, Chills, Night Sweats, Fatigue, Malaise, Normal Appetite, Other Symptoms Constitutional: Denies: Chills, Fever, Malaise, Night Sweats, Weakness, Fatigue , Weight Loss, Lethargy, Other Eyes: Denies: Pain, Vision change, Conjunctivae inflammation, Eyelid inflammation, Redness, Other ENT: Denies: Head Aches, Ear Pain, Dysphagia, Sinus Congestion, Post Nasal Drip , Sore Throat, Epistaxis, Other Symptoms Skin: Denies: Rash, Lesions, Jaundice, Bruising, Itching, Dry, Breakdown, Nail Changes, Other Pulmonary: Reports: Dyspnea, Denies: Cough, Pleuritic Chest Pain, Other Symptoms Cardiovascular: Denies: Chest Pain, Palpitations, Orthopnea, Paroxysmal Noc. Dyspnea, Edema, Lt Headedness, Other Symptoms Gastrointestinal: Denies: Nausea, Vomiting, Abdominal Pain, Diarrhea, Constipation, Melena, Hematochezia, Other Symptoms Genitourinary: Denies: Dysuria, Frequency, Incontinence, Hematuria, Retention, Other Symptoms Objective Physical Examination General Exam: Positive: Alert, Cooperative, No Acute Distress, Other (elderly, frail) Eye Exam: Positive: PERRLA, EOMI, Negative: Sclera icteric ENT Exam: Positive: Atraumatic, Mucous membr. moist/pink Neck Exam: Positive: JVD Chest Exam: Positive: Rales (bibasilar rales noted on auscultation.), Rhonchi, Diminished Heart Exam: Positive: Rate Normal, Normal S1, Normal S2 Telemetry: Positive: Atrial fibrillation Abdomen Exam: Positive: Soft, Negative: Tenderness Extremity Exam: Positive: Edema (peripheral edema - much improved from yesterday), Other (left hallux TTT), Negative: Tenderness Psych Exam: Positive: Oriented x 3 Assessment /Plan Problems (1) ESRD needing dialysis Status: Acute Discussed With: Patient Problem Specific Plan: Consult Specialist Problem Text: permacath placed yesterday - received HD yesterday has appointments 05/06 for pre-screening and 05/11 for av fistula placement in [place]. follow as per nephrology, assistance appreciated. (2) Atrial fibrillation, chronic Status: Chronic Discussed With: Patient Problem Specific Plan: Repeat Labs Problem Text: continue heparin gtt for bridging until coumadin therapeutic rate controlled (3) COPD (chronic obstructive pulmonary disease) Status: Chronic Discussed With: Patient Problem Specific Plan: Monitor Clinically Problem Text: baseline 4L supplemental O2 - follows with Dr. Barker (4) Diastolic CHF Status: Chronic Discussed With: Patient Problem Specific Plan: Monitor Clinically (5) CAD S/P percutaneous coronary angioplasty Status: Chronic Discussed With: Patient (6) Hx of renal cell carcinoma Status: Resolved Discussed With: Patient Problem Text: s/p left nephrectomy 2006 (7) Hypertension Status: Chronic Problem Specific Plan: Monitor Clinically (8) Hypothyroid Status: Chronic (9) Acute and chronic respiratory failure with hypercapnia Status: Acute Discussed With: Patient Problem Specific Plan: Consult Specialist Problem Text: Repeat ABG pending. Uncomfortable with BiPAP but tolerating. (10) Nicotine addiction Status: Chronic Discussed With: Patient Problem Text: Counselling and cessation assistance offered at bedside. Patient refused. Plan/VTE VTE Prophylaxis Ordered?: Yes (hep gtt/coumadin) Plan Diet: Continue Current Activity: Continue Current Therapy: PT, OT Pt and Family Services: Home Care Respiratory: Wean Oxygen Diagnostics: Repeat Labs in AM Advance Directives: DNR VS, I&O, 24H, Fishbone Vital Signs/I&O Vital Signs Date Time Temp Pulse Resp B/P (MAP) Pulse Ox O2 Delivery O2 Flow Rate FiO2 04/30/17 06:00 69 139/67 (91) 96 NIPPV (BIPAP/CPAP) 45 04/30/17 04:00 98.8 18 04/29/17 12:15 5.0 I&O- Last 24 Hours up to 6 AM 04/30/17 06:00 Intake Total 160 ml Output Total 1050 ml Balance -890 ml Laboratory Data 24H LABS Laboratory Tests 2 04/29/17 12:05: Blood Gas Bicarbonate Standard 24.7, Arterial Blood pH 7.174*L, Arterial Blood Partial Pressure CO2 85.2*H, Arterial Blood Partial Pressure O2 71.7L, Arterial Blood Total CO2 33.3H, Arterial Blood HCO3 30.7H, Arterial Blood Base Excess 0.3 , Arterial Blood Oxygen Saturation 92.8L 04/29/17 13:44: Blood Gas Bicarbonate Standard 25.7, Arterial Blood pH 7.185*L, Arterial Blood Partial Pressure CO2 86.4*H, Arterial Blood Partial Pressure O2 61.3L, Arterial Blood Total CO2 34.5H, Arterial Blood HCO3 31.9H, Arterial Blood Base Excess 1.5 , Arterial Blood Oxygen Saturation 88.9L, Arterial Blood Gas Liter Flow 40, Oxygen Delivery Device BIPAP 04/29/17 17:16: Activated Partial Thromboplast Time 213.7*H 04/29/17 17:44: Blood Gas Bicarbonate Standard 26.6H, Arterial Blood pH 7.226*L, Arterial Blood Partial Pressure CO2 78.8*H, Arterial Blood Partial Pressure O2 73.5L, Arterial Blood Total CO2 34.4H, Arterial Blood HCO3 32.0H, Arterial Blood Base Excess 2.5H, Arterial Blood Oxygen Saturation 93.6L 04/29/17 18:46: Activated Partial Thromboplast Time 159.5*H 04/30/17 03:01: Activated Partial Thromboplast Time 66.8H, Prothrombin Time 17.4H, Prothromb Time International Ratio 1.41, Anion Gap 5L, Glomerular Filtration Rate 14.2L, Blood Urea Nitrogen 36H, Creatinine 3.42H, Sodium Level 138, Potassium Level 4.6 , Chloride Level 100, Carbon Dioxide Level 33H, Calcium Level 7.8L CBC/BMP Laboratory Tests 04/30/17 03:01 Red Blood Count 3.59 L, Mean Corpuscular Volume 107.5 H, Mean Corpuscular Hemoglobin 30.6, Mean Corpuscular Hemoglobin Concent 28.4 L, Red Cell Distribution Width 15.2 H, Calcium Level 7.8 L AMBER QUEVEDO MD Apr 30, 2017 07:59
[2017-04-30] MEDS: TIOTROPIUM INHALER/CAPSULE (SPIRIVA) INH SCH (08:00)
[2017-04-30] MEDS: SYMBICORT 160/4.5MCG INHALER 6GM INH SCH ×2 (08:01→20:58)
[2017-04-30] MEDS ORDERED: PREVNAR 13 VACCINE SYRINGE (CPT CODE:90670) IM ONE (09:00)
[2017-04-30] MEDS: FERROUS SULFATE 325MG TAB PO SCH (09:12)
[2017-04-30] MEDS: OMEPRAZOLE 20 MG CAP PO SCH (09:12)
[2017-04-30] MEDS: FOLIC ACID 1 MG TAB PO SCH (09:12)
[2017-04-30] MEDS: predniSONE 5 MG TAB PO SCH (09:12)
[2017-04-30] MEDS: (RENVELA) SEVELAMER **CARBONate** 800 MG TAB PO SCH (09:12)
[2017-04-30] MEDS: BISOPROLOL FUMARATE 5 MG TAB PO SCH (09:12)
[2017-04-30] MEDS: CALCITRIOL 0.25 MCG CAP (S0169) PO SCH (09:12)
[2017-04-30] MEDS ORDERED: HEPARIN 1,000 UNITS/ML 10ML VIAL (FOR RADIOLOGY& DIALYSIS ONLY) XX ONE (11:00)
[2017-04-30] MEDS ORDERED: PREVNAR 13 VACCINE SYRINGE (CPT CODE:90670) IM SCH (13:00)
--- NOTE | 2017-04-30 13:59 | CCN ---
DATE: 04/30/2017 Anjali remains on bilevel noninvasive therapy. Currently she states her breathing is slightly better. She has not yet been tried off bilevel. Last blood gas yesterday did show hypercarbia. No blood gas was performed this morning. She has chronic obstructive pulmonary disease (COPD), emphysema. She is about to start dialysis today. There is a plan to remove another 1.5 kg. The patient is requesting to eat. No chest pain. No cough. PHYSICAL EXAMINATION: Temperature is 98.8, pulse is 82, respiratory rate is 18, blood pressure is 138/69, oxygen saturation is 96% on 0.5 FIO2. General: The patient is sitting in bed, able to move, awake. She is oriented to person, place and year. She is not oriented to month. HEENT: Sclerae are clear and anicteric. Pupils equal and react to light. Mucous membranes moist without lesions. Abdomen is soft, nontender, nondistended. No hepatosplenomegaly. Cardiac: Distant, irregularly irregular. Peripheral pulses palpated. There is bilateral pedal edema. Pitting to the level of ankle. Pulmonary: Decreased breath sounds throughout without rhonchi or wheeze. There is dullness to percussion at the bases. Extremities: No cyanosis or clubbing but again dependent edema in her feet. Neurologic: No asterixis. No unilateral weakness. Skin is pale, cool, dry. No rash, jaundice, bruising. Musculoskeletal: Significant muscle wasting. White blood cell count from this morning is 5.8, hemoglobin 11.0, hematocrit of 38.6, platelet count of 102. Sodium is 138, potassium is 4.6, chloride 100, bicarbonate 33, BUN of 36, creatinine of 3.4 with a glucose of 73. No new chest x-ray and ABG is pending. 1. Acute hypoxic hypercarbic respiratory failure. Will repeat ABG, if she is more compensated, will consider starting meal after dialysis. We will continue bilevel if she remains decompensated. 2. Emphysema. I have added Spiriva to her regimen. She is already on Symbicort. She has no evidence of bronchospasm on exam. 3. Chronic kidney disease, managed per Dr. Carrillo. 4. DO NOT RESUSCITATE (DNR) status. The patient remains DNR. No further resuscitation other than bilevel will be attempted.
[2017-04-30 14:17] LABS: ABG BASE EXCESS 1.8 (-2.0-2.0); ABG HCO3 28.4 MEQ/L (22.0-26.0); ABG PARTIAL PRESSURE CO2 54.4 mmHg (35.0-45.0); ABG PARTIAL PRESSURE O2 83.9 mmHg (75.0-100.0); ABG STANDARD HCO3 26.1 MEQ/L (22.0-26.0); ABG TOTAL CO2 30.1 MEQ/L (23.0-31.0); ABG pH (ARTERIAL) 7.336 UNITS (7.350-7.450)
[2017-04-30 16:37] LABS: INR 1.6
[2017-04-30] MEDS: HEPARIN DRIP 25,000 UNITS in APPROPRIATE DILUENT 1 EA IV SCH (16:42)
[2017-04-30] MEDS: ANEXSIA, NORCO 7.5MG/325MG TABLET(HYDROCODONE/APAP) PO PRN (18:26)
[2017-04-30] MEDS ORDERED: WARFARIN SOD 5 MG TAB PO ONE (21:00)
--- NOTE | 2017-04-30 21:01 | IPN ---
DATE: 04/30/2017 SUBJECTIVE: Mrs. Delgado is seen this morning on her bedside in intensive care unit. She was admitted with generalized weakness and worsening shortness of breath. She has known history of end-stage lung disease with home oxygen at four liters via nasal cannula. She also has history of coronary artery disease, diastolic congestive heart failure and end-stage renal disease. She was admitted and dialysis was initiated yesterday. One liter of fluid was removed. She did tolerate her dialysis well. She still remains on bilevel positive airway pressure (BiPAP) due to shortness of breath. She has bilateral pleural effusions and congestive heart failure on chest x-ray, in addition to significant peripheral edema. She has no fever or chills. She has not been able to eat or drink much. PHYSICAL EXAMINATION: She is a frail elderly lady who is using BiPAP mask at present. VITAL SIGNS: Temperature 98.8 degrees Fahrenheit, heart rate 74 per minute and respiratory rate 18 per minute. Blood pressure 139/67 mmHg and oxygen saturation 96% on BiPAP with 45% FiO2. HEAD/NECK: Head is atraumatic. Neck is supple and jugular venous distention (JVD) is elevated. There is no thyroid enlargement and trachea is midline. Pupils are equal and reactive to light and sclerae are anicteric. HEART: Heart sounds are somewhat distant but regular. LUNGS: Have bilateral rhonchi and diminished breath sounds at dependent parts. ABDOMEN: Soft and bowel sounds are present. There is no palpable organomegaly. EXTREMITIES: Have no cyanosis or clubbing. She has significant peripheral edema on lower extremities. NEUROLOGIC: She is awake, able to answer questions and moving all her limbs. SKIN: Has no rash or ulcers. LABORATORY DATA: Today's labs show WBC count 5.8, hemoglobin 11.0 and hematocrit 38.6. Platelets 102. Sodium 138 and potassium 4.6. BUN 36 and creatinine 3.42. A calcium level is 7.8. IMAGING: Last chest x-ray was done on April 29 which showed increased bibasilar infiltrates and effusion. PROBLEMS: 1. End-stage renal disease. The patient underwent first hemodialysis yesterday. We will dialyze her again today due to decompensated volume status. Her electrolytes are within normal range. 2. Hypoxemia. This is multifactorial related to her end-stage lung disease, pleural effusions and congestive heart failure. We will try to remove 1.5 liters fluid today with hemodialysis and see how she tolerates. 3. Chronic obstructive pulmonary disease (COPD). She has advanced lung disease and remains on her chronic bronchodilator therapy. She is currently on BiPAP. 4. Atrial fibrillation. The patient is anticoagulated with heparin. Ventricular rate is well controlled.
[2017-04-30] MEDS: ATORVASTATIN 20 MG TAB PO SCH (21:02)
[2017-04-30] MEDS: OMEGA-3 1050MG CAPSULE PO SCH (21:02)
[2017-04-30] MEDS: SERTRALINE 100 MG TAB PO SCH (21:02)
[2017-04-30] MEDS: ISOSORBIDE DIN. (ISORDIL) 20 MG TAB PO SCH (21:03)
[2017-05-01] VITALS (8 sets, daily range): BP systolic 110–146; BP diastolic 54–79
[2017-05-01 01:38] LABS: INR 2.07
[2017-05-01] MEDS: IPRATROPIUM 0.5MG/ALBUTEROL 2.5MG INH SOL UD 3ML (DUONEB)(J7620) NEB SCH ×4 (02:58→19:39)
[2017-05-01 04:43] LABS: MEAN CORPUSCULAR HEMOGLOBIN 31.8 pg (27.0-33.0); MEAN CORPUSCULAR HGB CONC 30.3 g/dl (32.0-36.5); MEAN CORPUSCULAR VOLUME 104.9 fl (80.0-96.0); RED CELL DISTRIBUTION WIDTH 15.3 % (11.5-14.5)
[2017-05-01 04:49] LABS: INR 2.16
[2017-05-01 04:56] LABS: ALBUMIN 2.4 GM/DL (3.2-5.2); CALCIUM LEVEL 7.8 MG/DL (8.8-10.2); CREATININE FOR GFR 2.73 MG/DL (0.55-1.02); GLOMERULAR FILTRATION RATE 18.4 (>45); POTASSIUM SERUM 3.8 MEQ/L (3.5-5.1)
[2017-05-01] MEDS: LEVOTHYROXINE 150MCG TABLET (0.15MG) PO SCH (06:02)
[2017-05-01] MEDS: LEVOTHYROXINE 25MCG TABLET (0.025MG) PO SCH (06:02)
[2017-05-01] MEDS ORDERED: FUROSEMIDE 100 MG/10 ML VIAL (J1940) IV ONE (07:00)
--- NOTE | 2017-05-01 07:34 | IPNPDOC ---
Subjective Date Seen The patient was seen on 05/01/17. Subjective Chief Complaint/HPI The patient is a 66-year-old female admitted with a reason for visit of Esrd Needing Dialysis. General: Denies: ROS Unobtainable, Chills, Night Sweats, Fatigue, Malaise, Normal Appetite, Other Symptoms Constitutional: Denies: Chills, Fever, Malaise, Night Sweats, Weakness, Fatigue , Weight Loss, Lethargy, Other Eyes: Denies: Pain, Vision change, Conjunctivae inflammation, Eyelid inflammation, Redness, Other ENT: Denies: Head Aches, Ear Pain, Dysphagia, Sinus Congestion, Post Nasal Drip , Sore Throat, Epistaxis, Other Symptoms Skin: Denies: Rash, Lesions, Jaundice, Bruising, Itching, Dry, Breakdown, Nail Changes, Other Pulmonary: Denies: Dyspnea, Cough, Pleuritic Chest Pain, Other Symptoms Cardiovascular: Denies: Chest Pain, Palpitations, Orthopnea, Paroxysmal Noc. Dyspnea, Edema, Lt Headedness, Other Symptoms Gastrointestinal: Reports: Diarrhea, Denies: Nausea, Vomiting, Abdominal Pain, Constipation, Melena, Hematochezia , Other Symptoms Genitourinary: Denies: Dysuria, Frequency, Incontinence, Hematuria, Retention, Other Symptoms Objective Physical Examination General Exam: Positive: Alert, Cooperative, No Acute Distress, Other (elderly, frail) Eye Exam: Positive: PERRLA, Conjunctiva & lids normal, EOMI, Negative: Sclera icteric ENT Exam: Positive: Atraumatic, Mucous membr. moist/pink Chest Exam: Positive: Rhonchi, Diminished Heart Exam: Positive: Rate Normal, Normal S1, Normal S2 Telemetry: Positive: Atrial fibrillation, Other Telemetry: (4 beats VT overnight) Abdomen Exam: Positive: Soft, Negative: Tenderness Extremity Exam: Positive: Edema (1+ peripheral edema - significant improvement from admission), Negative: Tenderness Psych Exam: Positive: Oriented x 3 Assessment /Plan Problems (1) ESRD needing dialysis Status: Acute Discussed With: Patient Problem Specific Plan: Consult Specialist Problem Text: permacath placed - received HD Tuesday has appointments 05/06 for pre-screening and 05/11 for av fistula placement in [place]. follow as per nephrology, assistance appreciated. (2) Atrial fibrillation, chronic Status: Chronic Discussed With: Patient Problem Specific Plan: Repeat Labs Problem Text: continue heparin gtt for bridging until coumadin therapeutic rate controlled (3) COPD (chronic obstructive pulmonary disease) Status: Chronic Discussed With: Patient Problem Specific Plan: Monitor Clinically Problem Text: baseline 4L supplemental O2 - follows with Dr. Barker (4) Diastolic CHF Status: Chronic Discussed With: Patient Problem Specific Plan: Monitor Clinically (5) CAD S/P percutaneous coronary angioplasty Status: Chronic Discussed With: Patient (6) Hx of renal cell carcinoma Status: Resolved Discussed With: Patient Problem Text: s/p left nephrectomy 2006 (7) Hypertension Status: Chronic Problem Specific Plan: Monitor Clinically (8) Hypothyroid Status: Chronic (9) Acute and chronic respiratory failure with hypercapnia Status: Acute Response to Treatment: Improving Discussed With: Patient Problem Specific Plan: Consult Specialist Problem Text: Off BiPAP - saturating well on 5L this morning - baseline is 4L supplemental oxygen. (10) Nicotine addiction Status: Chronic Discussed With: Patient Problem Text: Counselling and cessation assistance offered at bedside. Patient refused. Plan/VTE VTE Prophylaxis Ordered?: Yes (hep gtt/coumadin) Plan Diet: Continue Current Activity: Continue Current Therapy: PT, OT Pt and Family Services: Home Care Respiratory: Wean Oxygen Diagnostics: Repeat Labs in AM Advance Directives: DNR Continue heparin gtt for bridging pending therapeutic INR 2-3 for afib. Some diarrhea yesterday - GI panel pending. If remains off BiPAP can transfer to medical floor. PT/OT, PFS. Nephrology follow up - HD. [facility] Vital Signs Date Time Temp Pulse Resp B/P (MAP) Pulse Ox O2 Delivery O2 Flow Rate FiO2 05/01/17 06:00 72 110/54 (72) 90 Nasal Cannula 5.0 05/01/17 04:00 97.8 20 04/30/17 16:00 45 I&O- Last 24 Hours up to 6 AM 05/01/17 05:59 Intake Total 142.5 ml Output Total 1500 ml Balance -1357.5 ml Laboratory Data 24H LABS Laboratory Tests 2 04/30/17 09:38: Activated Partial Thromboplast Time 62.6H 04/30/17 13:45: Blood Gas Bicarbonate Standard 26.1H, Arterial Blood pH 7.336L, Arterial Blood Partial Pressure CO2 54.4H, Arterial Blood Partial Pressure O2 83.9, Arterial Blood Total CO2 30.1, Arterial Blood HCO3 28.4H, Arterial Blood Base Excess 1.8 , Arterial Blood Oxygen Saturation 95.6 04/30/17 15:26: Activated Partial Thromboplast Time 79.5H, Prothrombin Time 19.1H, Prothromb Time International Ratio 1.60 05/01/17 01:03: Activated Partial Thromboplast Time 61.5H, Prothrombin Time 23.4H, Prothromb Time International Ratio 2.07 05/01/17 04:27: Prothrombin Time 24.2H, Prothromb Time International Ratio 2.16, Blood Urea Nitrogen 26H, Creatinine 2.73H, Sodium Level 141, Potassium Level 3.8, Chloride Level 105, Carbon Dioxide Level 32, Anion Gap 4L, Glomerular Filtration Rate 18.4L, Calcium Level 7.8L, Phosphorus Level 4.0, Albumin 2.4L CBC/BMP Laboratory Tests 05/01/17 04:27 Red Blood Count 3.15 L, Mean Corpuscular Volume 104.9 H, Mean Corpuscular Hemoglobin 31.8, Mean Corpuscular Hemoglobin Concent 30.3 L, Red Cell Distribution Width 15.3 H, Anion Gap 4 L AMBER QUEVEDO MD May 01, 2017 07:34
[2017-05-01] MEDS: TIOTROPIUM INHALER/CAPSULE (SPIRIVA) INH SCH (07:49)
[2017-05-01] MEDS: SYMBICORT 160/4.5MCG INHALER 6GM INH SCH ×2 (07:49→19:41)
[2017-05-01] MEDS: FOLIC ACID 1 MG TAB PO SCH (08:28)
[2017-05-01] MEDS: BISOPROLOL FUMARATE 5 MG TAB PO SCH (08:28)
[2017-05-01] MEDS: predniSONE 5 MG TAB PO SCH (08:28)
[2017-05-01] MEDS: CALCITRIOL 0.25 MCG CAP (S0169) PO SCH (08:28)
[2017-05-01] MEDS: OMEPRAZOLE 20 MG CAP PO SCH (08:28)
[2017-05-01 08:39] LABS: ABG BASE EXCESS 2.1 (-2.0-2.0); ABG HCO3 28.5 MEQ/L (22.0-26.0); ABG PARTIAL PRESSURE CO2 53.5 mmHg (35.0-45.0); ABG PARTIAL PRESSURE O2 60.3 mmHg (75.0-100.0); ABG STANDARD HCO3 26.2 MEQ/L (22.0-26.0); ABG TOTAL CO2 30.2 MEQ/L (23.0-31.0); ABG pH (ARTERIAL) 7.345 UNITS (7.350-7.450)
[2017-05-01] MEDS ORDERED: NORCO, ANEXSIA 5/325MG TABLET (HYDROcodone/ACETAMINOPHEN) PO ONE (08:45)
[2017-05-01] MEDS: HEPARIN SOD (PORCINE) 5000 UNITS/ML VIAL IV PRN ×2 (09:59→23:18)
[2017-05-01] MEDS ORDERED: PREVNAR 13 VACCINE SYRINGE (CPT CODE:90670) IM ONE (12:00)
[2017-05-01] MEDS ORDERED: DARBEPOETIN 100 MCG/0.5 ML *DIALYSIS* SYRINGE (J0882) IV SCH (16:45)
[2017-05-01] MEDS: HEPARIN DRIP 25,000 UNITS in APPROPRIATE DILUENT 1 EA IV SCH (18:22)
--- NOTE | 2017-05-01 19:03 | IPN ---
DATE: 05/01/2017 Ms. Delgado is seen this morning on her bedside. She is sitting in the chair at the time of my visit. She is feeling much better and has been transferred out of intensive care unit. She was dialyzed yesterday again and 1.5 liters of fluid was removed which helped to improve her respiratory status and she has been off BiPap. She is currently using oxygen via nasal cannula. She denies any nausea or vomiting and appetite is improving. She denies any fever, chills, abdominal pain, dysuria or back pain. On physical examination, temperature 97.9 degrees Fahrenheit, heart rate 68 per minute and respiratory rate 16 per minute. Blood pressure 146/79 mmHg and oxygen saturation 92% on 5 liters oxygen. Intake and output records from yesterday show total intake only 162 mL and output 1500 mL, which was all in the form of hemodialysis. Her head is atraumatic. Ears, nose and throat are unremarkable. Pupils equal and reactive to light and sclerae is anicteric. Hemodialysis catheter in right internal jugular vein is intact. There is no bleeding or signs of infection. Heart sounds are regular and lungs have diminished breath sounds bilaterally with bilateral coarse crepitations. Abdomen soft and nontender. Bowel sounds are normal and there is no palpable organomegaly. Extremities have no cyanosis or clubbing. Her lower extremity edema has improved almost. Skin has no rash or ulcers and neurologically she is awake, alert and oriented times three. Today's labs show sodium level 141 and potassium 3.8. BUN 26 and creatinine 2.73. Rest of chemistry is unremarkable. WBC count is 4.0, hemoglobin 10.0 and hematocrit 33.0. Platelets are 75,000. PROBLEMS: 1. Shortness of breath. This was related to volume overload in the setting of end-stage renal disease, chronic obstructive pulmonary disease (COPD) and diastolic congestive heart failure. Volume status improved with hemodialysis. She is feeling much better now. We will plan to dialyze her again tomorrow and try to remove another 1.5 liters of fluid. She is currently oliguric. 2. Chronic hypoxemia due to advanced chronic obstructive pulmonary disease (COPD). The patient remains on her nebulizers and inhalers in addition to oxygen supplementation. She is almost at her baseline. 3. Anemia. Slight worsening of anemia is related to correction of her acute hypoxemia and volume status. I will order one dose of Aranesp 100 mcg with next hemodialysis. 4. Anticoagulation. The patient remains on IV heparin and is also back on her Coumadin. 5. Hyperparathyroidism. At present she continues with calcitriol 0.25 mcg daily. I have stopped her phosphate binder due to poor oral intake over last few days and initiation of dialysis. This will be monitored as an outpatient. DISPOSITION: Patient and family services will be requested to arrange for outpatient hemodialysis. The patient is likely to be ready for discharge in next couple of days.
[2017-05-01] MEDS: SERTRALINE 100 MG TAB PO SCH (21:08)
[2017-05-01] MEDS: ISOSORBIDE DIN. (ISORDIL) 20 MG TAB PO SCH (21:08)
[2017-05-01] MEDS: OMEGA-3 1050MG CAPSULE PO SCH (21:09)
[2017-05-01] MEDS: ATORVASTATIN 20 MG TAB PO SCH (21:10)
[2017-05-01] MEDS: ANEXSIA, NORCO 7.5MG/325MG TABLET(HYDROCODONE/APAP) PO PRN (21:25)
[2017-05-01 22:57] LABS: INR 2.97
[2017-05-02] MEDS: IPRATROPIUM 0.5MG/ALBUTEROL 2.5MG INH SOL UD 3ML (DUONEB)(J7620) NEB SCH ×5 (01:30→20:00)
[2017-05-02 04:09] LABS: MEAN CORPUSCULAR HEMOGLOBIN 31.4 pg (27.0-33.0); MEAN CORPUSCULAR HGB CONC 30.1 g/dl (32.0-36.5); MEAN CORPUSCULAR VOLUME 104.1 fl (80.0-96.0); RED CELL DISTRIBUTION WIDTH 15.5 % (11.5-14.5); WHITE BLOOD COUNT 4.4 K/mm3 (4.0-10.0)
[2017-05-02 04:14] LABS: INR 3.2
[2017-05-02 04:21] LABS: CALCIUM LEVEL 7.7 MG/DL (8.8-10.2); CREATININE FOR GFR 3.5 MG/DL (0.55-1.02); GLOMERULAR FILTRATION RATE 13.8 (>45)
[2017-05-02 06:00] VITALS: BP 136/66
[2017-05-02] MEDS: OMEPRAZOLE 20 MG CAP PO SCH (06:22)
[2017-05-02] MEDS: predniSONE 5 MG TAB PO SCH (06:22)
[2017-05-02] MEDS: LEVOTHYROXINE 25MCG TABLET (0.025MG) PO SCH (06:22)
[2017-05-02] MEDS: LEVOTHYROXINE 150MCG TABLET (0.15MG) PO SCH (06:22)
[2017-05-02] MEDS: BISOPROLOL FUMARATE 5 MG TAB PO SCH (06:23)
[2017-05-02] MEDS: FOLIC ACID 1 MG TAB PO SCH (06:24)
[2017-05-02] MEDS: CALCITRIOL 0.25 MCG CAP (S0169) PO SCH (06:25)
[2017-05-02] MEDS: TIOTROPIUM INHALER/CAPSULE (SPIRIVA) INH SCH ×2 (08:00→13:56)
[2017-05-02] MEDS: SYMBICORT 160/4.5MCG INHALER 6GM INH SCH ×3 (08:53→20:36)
--- NOTE | 2017-05-02 11:27 | IPN ---
DATE OF VISIT: 05/02/2017 Ms. Delgado is seen this morning on her bedside. She is currently being dialyzed. She is feeling better, and her shortness of breath has improved. She denies any nausea, vomiting, chest pain, fever, or chills. On physical examination, temperature 97.7 degrees Fahrenheit, heart rate 77 per minute, and respiratory rate 20 per minute. Blood pressure 136/66 mmHg and oxygen saturation 95% on 5 liters oxygen. Head is atraumatic. Ears, nose, and throat are unremarkable. There is no oral thrush or ulcers. Neck is supple and without jugular venous distention (JVD). There is no thyroid enlargement, and trachea is midline. Dialysis catheter is intact in right internal jugular vein. Heart sounds are regular. Lungs have diminished breath sounds and bibasilar crepitations. Abdomen soft and nontender and without palpable organomegaly. Extremities have no cyanosis or clubbing. 1+ ankle edema is still present. Today's laboratories show WBC count 4.4, hemoglobin 9.4, and hematocrit 31. Platelets 82,000 Sodium 141 and potassium 4.0. BUN 33 and creatinine 3.5. PROBLEMS: 1. End-stage renal disease. The patient has recently initiated hemodialysis. She is being dialyzed today and is tolerating it very well. I have asked patient and family services to arrange for outpatient dialysis. 2. Respiratory insufficiency. The patient had volume overload in the setting of advanced chronic lung disease. Her volume status has improved significantly. We have removed another 1.5 liters of fluid today. She is tolerating it very well. She seems to be back to her baseline, where she requires about 4 liters of oxygen at home. 3. Anemia. Anemia is related to end-stage renal disease. She is being given Aranesp 100 mcg today. 4. Hypertension. Blood pressure is very well controlled, and no changes in antihypertensives are needed. DISPOSITION: From a renal standpoint, the patient can be discharged to home when outpatient dialysis is arranged.
--- NOTE | 2017-05-02 12:08 | IPNPDOC ---
Subjective Date Seen The patient was seen on 05/02/17. Subjective Chief Complaint/HPI The patient is a 66-year-old female admitted with a reason for visit of Esrd Needing Dialysis. General: Denies: ROS Unobtainable, Chills, Night Sweats, Fatigue, Malaise, Normal Appetite, Other Symptoms Constitutional: Denies: Chills, Fever, Malaise, Night Sweats, Weakness, Fatigue , Weight Loss, Lethargy, Other Eyes: Denies: Pain, Vision change, Conjunctivae inflammation, Eyelid inflammation, Redness, Other ENT: Denies: Head Aches, Ear Pain, Dysphagia, Sinus Congestion, Post Nasal Drip , Sore Throat, Epistaxis, Other Symptoms Skin: Denies: Rash, Lesions, Jaundice, Bruising, Itching, Dry, Breakdown, Nail Changes, Other Pulmonary: Denies: Dyspnea, Cough, Pleuritic Chest Pain, Other Symptoms Cardiovascular: Denies: Chest Pain, Palpitations, Orthopnea, Paroxysmal Noc. Dyspnea, Edema, Lt Headedness, Other Symptoms Gastrointestinal: Denies: Nausea, Vomiting, Abdominal Pain, Diarrhea, Constipation, Melena, Hematochezia, Other Symptoms Objective Physical Examination General Exam: Positive: Alert, Cooperative, No Acute Distress, Other (elderly, frail) Eye Exam: Positive: PERRLA, Conjunctiva & lids normal, EOMI, Negative: Sclera icteric ENT Exam: Positive: Atraumatic, Mucous membr. moist/pink Chest Exam: Positive: Rhonchi, Diminished Heart Exam: Positive: Rate Normal, Normal S1, Normal S2 Abdomen Exam: Positive: Soft, Negative: Tenderness Extremity Exam: Positive: Edema (1+ peripheral edema - significant improvement from admission), Negative: Tenderness Psych Exam: Positive: Oriented x 3 Assessment /Plan Problems (1) ESRD needing dialysis Status: Acute Discussed With: Patient Problem Specific Plan: Consult Specialist Problem Text: permacath placed - received HD Tuesday -HD today has appointments 05/06 for pre-screening and 05/11 for av fistula placement in [place]. follow as per nephrology, assistance appreciated. (2) Atrial fibrillation, chronic Status: Chronic Discussed With: Patient Problem Specific Plan: Repeat Labs Problem Text: slightly supratherapeutic on coumadin - held for today rate controlled (3) COPD (chronic obstructive pulmonary disease) Status: Chronic Discussed With: Patient Problem Specific Plan: Monitor Clinically Problem Text: baseline 4L supplemental O2 - follows with Dr. Barker (4) Diastolic CHF Status: Chronic Discussed With: Patient Problem Specific Plan: Monitor Clinically (5) CAD S/P percutaneous coronary angioplasty Status: Chronic Discussed With: Patient (6) Hx of renal cell carcinoma Status: Resolved Discussed With: Patient Problem Text: s/p left nephrectomy 2006 (7) Hypertension Status: Chronic Problem Specific Plan: Monitor Clinically (8) Hypothyroid Status: Chronic (9) Acute and chronic respiratory failure with hypercapnia Status: Acute Response to Treatment: Improving Discussed With: Patient Problem Specific Plan: Consult Specialist Problem Text: Off BiPAP - saturating well on 5L this morning - baseline is 4L supplemental oxygen. (10) Nicotine addiction Status: Chronic Discussed With: Patient Problem Text: Counselling and cessation assistance offered at bedside. Patient refused. (11) Anemia Status: Chronic Problem Specific Plan: Monitor Clinically, Repeat Labs Problem Text: slowly trending down - likely secondary to CKD - continue to follow. Plan/VTE VTE Prophylaxis Ordered?: Yes (hep gtt/coumadin) Plan Diet: Continue Current Activity: Continue Current Therapy: PT, OT Pt and Family Services: Home Care Respiratory: Wean Oxygen Diagnostics: Repeat Labs in AM Advance Directives: DNR Wean O2 - currently 5L, baseline 4L. Follow Hg - slowly trending down. Needs outpatient setup for HD. 05/11 in [facility] fistula. [facility]O Vital Signs Date Time Temp Pulse Resp B/P (MAP) Pulse Ox O2 Delivery O2 Flow Rate FiO2 05/02/17 08:33 Nasal Cannula 5.0 05/02/17 06:23 77 136/66 05/02/17 06:00 97.7 20 95 04/30/17 16:00 45 I&O- Last 24 Hours up to 6 AM 05/02/17 06:00 Intake Total 975 ml Output Total 0 ml Balance 975 ml Laboratory Data 24H LABS Laboratory Tests 2 05/01/17 15:56: Activated Partial Thromboplast Time 154.2*H 05/01/17 21:49: Activated Partial Thromboplast Time 55.3H, Prothrombin Time 30.9H, Prothromb Time International Ratio 2.97 05/02/17 03:52: Activated Partial Thromboplast Time 83.3H, Prothrombin Time 32.8H, Prothromb Time International Ratio 3.20, Anion Gap 5L, Glomerular Filtration Rate 13.8L, Blood Urea Nitrogen 33H, Creatinine 3.50H, Sodium Level 141, Potassium Level 4.0 , Chloride Level 105, Carbon Dioxide Level 31, Calcium Level 7.7L 05/02/17 10:30: Activated Partial Thromboplast Time 53.4H CBC/BMP Laboratory Tests 05/02/17 03:52 Red Blood Count 2.98 L, Mean Corpuscular Volume 104.1 H, Mean Corpuscular Hemoglobin 31.4, Mean Corpuscular Hemoglobin Concent 30.1 L, Red Cell Distribution Width 15.5 H, Calcium Level 7.7 L AMBER QUEVEDO MD May 02, 2017 12:08
[2017-05-02] MEDS ORDERED: HEPARIN 1,000 UNITS/ML 10ML VIAL (FOR RADIOLOGY& DIALYSIS ONLY) XX ONE (12:30)
[2017-05-02 14:00] VITALS: BP 130/72
[2017-05-02] MEDS: ANEXSIA, NORCO 7.5MG/325MG TABLET(HYDROCODONE/APAP) PO PRN (20:29)
[2017-05-02] MEDS: OMEGA-3 1050MG CAPSULE PO SCH (20:30)
[2017-05-02] MEDS: DIGOXIN 0.125 MG TAB PO SCH (20:30)
[2017-05-02] MEDS: SERTRALINE 100 MG TAB PO SCH (20:31)
[2017-05-02] MEDS: ISOSORBIDE DIN. (ISORDIL) 20 MG TAB PO SCH (20:31)
[2017-05-02] MEDS: ATORVASTATIN 20 MG TAB PO SCH (20:31)
[2017-05-02 22:00] VITALS: BP 130/60
[2017-05-03] MEDS: IPRATROPIUM 0.5MG/ALBUTEROL 2.5MG INH SOL UD 3ML (DUONEB)(J7620) NEB SCH ×4 (01:18→19:06)
[2017-05-03] MEDS: LEVOTHYROXINE 150MCG TABLET (0.15MG) PO SCH (05:34)
[2017-05-03] MEDS: LEVOTHYROXINE 25MCG TABLET (0.025MG) PO SCH (05:34)
[2017-05-03 06:00] VITALS: BP 126/60
[2017-05-03 06:31] LABS: MEAN CORPUSCULAR HEMOGLOBIN 31.4 pg (27.0-33.0); MEAN CORPUSCULAR HGB CONC 29.9 g/dl (32.0-36.5); MEAN CORPUSCULAR VOLUME 104.9 fl (80.0-96.0); RED CELL DISTRIBUTION WIDTH 15.7 % (11.5-14.5); WHITE BLOOD COUNT 5.1 K/mm3 (4.0-10.0)
[2017-05-03 06:43] LABS: INR 1.89
[2017-05-03 06:47] LABS: CALCIUM LEVEL 8.3 MG/DL (8.8-10.2); CREATININE FOR GFR 2.63 MG/DL (0.55-1.02); GLOMERULAR FILTRATION RATE 19.2 (>45)
[2017-05-03] MEDS: TIOTROPIUM INHALER/CAPSULE (SPIRIVA) INH SCH (07:47)
[2017-05-03] MEDS: SYMBICORT 160/4.5MCG INHALER 6GM INH SCH ×2 (07:48→19:05)
[2017-05-03] MEDS: OMEPRAZOLE 20 MG CAP PO SCH (11:58)
[2017-05-03] MEDS: CALCITRIOL 0.25 MCG CAP (S0169) PO SCH (11:59)
[2017-05-03] MEDS: FOLIC ACID 1 MG TAB PO SCH (11:59)
[2017-05-03] MEDS: predniSONE 5 MG TAB PO SCH (11:59)
[2017-05-03] MEDS: BISOPROLOL FUMARATE 5 MG TAB PO SCH (11:59)
--- NOTE | 2017-05-03 13:46 | REP ---
BILATERAL LOWER EXTREMITY DUPLEX DOPPLER ARTERIAL ULTRASOUND: Real-time ultrasound evaluation and duplex Doppler evaluation of the bilateral lower extremity arterial systems is performed. WARREN could not be performed bilaterally as the dorsalis pedis and posterior tibial areas are noncompressible. There is moderate to severe diffuse atherosclerotic plaque throughout the common femoral, superficial femoral, and popliteal arteries extending into the trifurcation vessels in both calves. Waveforms are predominantly monophasic in the trifurcation vessels compatible with significant narrowing bilaterally of the arteries in both calves. There is no elevation of peak systolic velocity in any of the lower extremity arteries bilaterally. RIGHT LEFT Peak sytolic velocity [employer] ASSISTANT 102.4 cm/s triphasic 84.4 cm/s triphasic. Profunda 68.9 cm/s triphasic 59.7 cm/s monophasic SFA proximal 76.2 cm/s triphasic 77.1 cm/s monophasic SFA mid 86.8 cm/s biphasic 95.8 cm/s monophasic SFA distal 81.0 cm/s triphasic 73.6 cm/s biphasic Popliteal 68.4 cm/s monophasic 66.8 cm/s monophasic Anterior tibial artery proximal 69.4 cm/s triphasic 51.8 cm/s biphasic Tibioperoneal trunk Not evaluated 46.5 cm/s triphasic Posterior tibial artery proximal 34.3 cm/s monophasic 60.7 cm/s monophasic Posterior tibial artery distal 20.6 cm/s monophasic 14.6 cm/s monophasic Anterior tibial artery distal 64.6 cm/s monophasic 90.6 monophasic. IMPRESSION: Significant moderate partially calcified and calcified plaque throughout the lower extremity arterial system bilaterally without elevated peak systolic velocity noted. There is at least a moderate degree of diffuse arterial narrowing bilaterally. Waveforms in the trifurcation vessels of both calves are predominantly monophasic indicating significant narrowing bilaterally. Signed by Miguel Matamoros MD 05/03/2017 05:04 P
[2017-05-03 14:00] VITALS: BP 121/58
--- NOTE | 2017-05-03 14:25 | IPNPDOC ---
Subjective Date Seen The patient was seen on 05/03/17. Subjective Chief Complaint/HPI The patient is a 66-year-old female admitted with a reason for visit of Esrd Needing Dialysis. Events since last encounter No issues noted overnight, no events noted by staff, tolerating diet, no pain Constitutional: Denies: Chills, Fever Pulmonary: Denies: Dyspnea Cardiovascular: Denies: Chest Pain Gastrointestinal: Denies: Nausea, Vomiting, Abdominal Pain Objective Physical Examination General Exam: Positive: No Acute Distress, Other (elderly, frail) Eye Exam: Negative: Sclera icteric ENT Exam: Positive: Mucous membr. moist/pink Chest Exam: Positive: Rhonchi, Diminished, Negative: Rales, Wheezing Heart Exam: Positive: Rate Normal, Normal S1, Normal S2 Abdomen Exam: Positive: Soft, Negative: Tenderness Extremity Exam: Positive: Edema (1+ peripheral edema), Negative: Tenderness Psych Exam: Positive: Oriented x 3 Assessment /Plan Problems (1) ESRD needing dialysis Status: Acute Discussed With: Patient Problem Specific Plan: Consult Specialist Problem Text: permacath placed - received HD Tuesday has appointments 05/06 for pre-screening and 05/11 for av fistula placement in [place]. I discussed in person with Dr. Carrillo 05/03/17 (2) Atrial fibrillation, chronic Status: Chronic Discussed With: Patient Problem Specific Plan: Repeat Labs Problem Text: coumadin restarted 05/03/17 rate controlled (3) COPD (chronic obstructive pulmonary disease) Status: Chronic Discussed With: Patient Problem Specific Plan: Monitor Clinically Problem Text: baseline 4L supplemental O2 - follows with Dr. Barker (4) Diastolic CHF Status: Chronic Discussed With: Patient Problem Specific Plan: Monitor Clinically Problem Text: Appears compensated (5) CAD S/P percutaneous coronary angioplasty Status: Chronic Discussed With: Patient (6) Hx of renal cell carcinoma Status: Resolved Discussed With: Patient Problem Text: s/p left nephrectomy 2006 (7) Hypertension Status: Chronic Problem Specific Plan: Monitor Clinically (8) Hypothyroid Status: Chronic (9) Acute and chronic respiratory failure with hypercapnia Status: Acute Response to Treatment: Improving Discussed With: Patient Problem Specific Plan: Consult Specialist Problem Text: Still on 5L this morning - baseline is 4L supplemental oxygen. (10) Nicotine addiction Status: Chronic Discussed With: Patient Problem Text: Counselling and cessation assistance offered at bedside. Patient refused. (11) Anemia Status: Chronic Problem Specific Plan: Monitor Clinically, Repeat Labs Problem Text: slowly trending down - likely secondary to CKD - continue to follow. Plan/VTE VTE Prophylaxis Ordered?: Yes (hep gtt/coumadin) Plan Diet: Continue Current Activity: Continue Current Therapy: PT, OT Pt and Family Services: Home Care Respiratory: Wean Oxygen Diagnostics: Repeat Labs in AM Advance Directives: DNR VS, I&O, 24H, Fishbone Vital Signs/I&O Vital Signs Date Time Temp Pulse Resp B/P (MAP) Pulse Ox O2 Delivery O2 Flow Rate FiO2 05/03/17 11:59 62 130/62 05/03/17 06:00 98.4 18 89 Nasal Cannula 5.0 04/30/17 16:00 45 I&O- Last 24 Hours up to 6 AM 05/03/17 06:00 Intake Total 720 ml Output Total 1700 ml Balance -980 ml Laboratory Data 24H LABS Laboratory Tests 2 05/03/17 05:51: Prothrombin Time 21.8H, Prothromb Time International Ratio 1.89, Anion Gap 8, Glomerular Filtration Rate 19.2L, Blood Urea Nitrogen 19H, Creatinine 2.63H, Sodium Level 141, Potassium Level 4.0, Chloride Level 106, Carbon Dioxide Level 27, Calcium Level 8.3L CBC/BMP Laboratory Tests 05/03/17 05:51 Red Blood Count 3.23 L, Mean Corpuscular Volume 104.9 H, Mean Corpuscular Hemoglobin 31.4, Mean Corpuscular Hemoglobin Concent 29.9 L, Red Cell Distribution Width 15.7 H, Calcium Level 8.3 L LUIGI ARDON MD May 03, 2017 14:25
[2017-05-03] MEDS: WARFARIN SOD 3 MG TAB PO SCH (17:56)
[2017-05-03] MEDS: ANEXSIA, NORCO 7.5MG/325MG TABLET(HYDROCODONE/APAP) PO PRN (20:09)
[2017-05-03] MEDS: OMEGA-3 1050MG CAPSULE PO SCH (20:09)
[2017-05-03] MEDS: ATORVASTATIN 20 MG TAB PO SCH (20:09)
[2017-05-03] MEDS: SERTRALINE 100 MG TAB PO SCH (20:09)
[2017-05-03] MEDS: ISOSORBIDE DIN. (ISORDIL) 20 MG TAB PO SCH (20:11)
--- NOTE | 2017-05-03 21:13 | IPN ---
DATE: 05/03/2017 Ms. Delgado is seen this morning on her bedside. She just came back from ultrasound of her lower extremities. Her dyspnea has been stable at about baseline. She denies any chest pain, palpitations, nausea, vomiting, fever, or chills. She reports a fair appetite. PHYSICAL EXAMINATION: Temperature 98.4 degrees Fahrenheit, heart rate 64 per minute, respiratory rate 18 per minute, blood pressure 126/60 mm of mercury, and oxygen saturation 90% 5 liters oxygen. Head is atraumatic. Ears, nose, and throat are unremarkable. Neck is supple with mild elevation of jugular venous distention (JVD). Dialysis catheter in right internal jugular vein is intact. Heart sounds are regular, and lungs have moderate bilateral air entry with chronic bilateral basilar crepitations. Abdomen soft and nontender and without a palpable organomegaly. Bowel sounds are normal. Extremities have no cyanosis or clubbing. Skin has no rash or ulcers. Neurologically, she is awake, alert, and oriented times three. Today's labs show WBC count 5.1, hemoglobin 10.1, and hematocrit 33.9. Platelets are 81,000. Sodium 141, potassium 4.0, BUN 19, and creatinine 2.63. Rest of chemistry is unremarkable and stable. PROBLEMS: 1. Shortness of breath. The patient has advanced chronic lung disease. In addition, she had volume overload related to end-stage renal disease. Her volume status has now improved with hemodialysis and fluid removal. Her chronic hypoxemia is stable at about baseline. Further fluid removal will be attempted with next hemodialysis; however, at this point there is no emergent need for dialysis today. 2. End-stage renal disease. The patient has initiated hemodialysis during this admission. She is going to be scheduled for outpatient hemodialysis on , so we will plan on not doing dialysis tomorrow. If all arrangements are in place and she gets cleared by physical therapy, she can probably be discharged to home tomorrow. 3. Anemia. Her anemia is stable, and we will continue to monitor and manage with hemodialysis. 4. Diastolic congestive heart failure. At present her volume status is reasonably well compensated. She is not likely to respond to diuretics, so I have already stopped her diuretic. Her fluid and volume status will be managed with hemodialysis now. 5. Hypertension. Blood pressure has been very well controlled, and no changes in medications are indicated. DISPOSITION: From renal standpoint, the patient can be discharged home when medically and physically stable from physical therapy standpoint. She will be scheduled for next hemodialysis as an outpatient on May 05.
[2017-05-03 22:00] VITALS: BP 108/74
[2017-05-04] MEDS: IPRATROPIUM 0.5MG/ALBUTEROL 2.5MG INH SOL UD 3ML (DUONEB)(J7620) NEB SCH ×4 (01:17→20:00)
[2017-05-04 06:00] VITALS: BP 110/64
[2017-05-04] MEDS: LEVOTHYROXINE 25MCG TABLET (0.025MG) PO SCH (06:03)
[2017-05-04] MEDS: LEVOTHYROXINE 150MCG TABLET (0.15MG) PO SCH (06:03)
[2017-05-04 06:43] LABS: MEAN CORPUSCULAR HEMOGLOBIN 31.3 pg (27.0-33.0); MEAN CORPUSCULAR HGB CONC 29.6 g/dl (32.0-36.5); MEAN CORPUSCULAR VOLUME 105.5 fl (80.0-96.0); RED CELL DISTRIBUTION WIDTH 15.2 % (11.5-14.5); WHITE BLOOD COUNT 6.5 K/mm3 (4.0-10.0)
[2017-05-04 06:47] LABS: INR 1.62
[2017-05-04 06:56] LABS: CALCIUM LEVEL 8.7 MG/DL (8.8-10.2); CREATININE FOR GFR 3.46 MG/DL (0.55-1.02); POTASSIUM SERUM 4.2 MEQ/L (3.5-5.1)
[2017-05-04] MEDS: SYMBICORT 160/4.5MCG INHALER 6GM INH SCH ×2 (08:32→20:41)
[2017-05-04] MEDS: TIOTROPIUM INHALER/CAPSULE (SPIRIVA) INH SCH (08:32)
[2017-05-04] MEDS: ANEXSIA, NORCO 7.5MG/325MG TABLET(HYDROCODONE/APAP) PO PRN (08:49)
[2017-05-04] MEDS: FOLIC ACID 1 MG TAB PO SCH (09:11)
[2017-05-04] MEDS: predniSONE 5 MG TAB PO SCH (09:11)
[2017-05-04] MEDS: CALCITRIOL 0.25 MCG CAP (S0169) PO SCH (09:11)
[2017-05-04] MEDS: OMEPRAZOLE 20 MG CAP PO SCH (09:12)
[2017-05-04] MEDS: BISOPROLOL FUMARATE 5 MG TAB PO SCH (09:12)
[2017-05-04] MEDS ORDERED: HEPARIN 1,000 UNITS/ML 10ML VIAL (FOR RADIOLOGY& DIALYSIS ONLY) XX ONE (11:45)
[2017-05-04] MEDS ORDERED: HEPARIN 1,000 UNITS/ML 10ML VIAL (FOR RADIOLOGY& DIALYSIS ONLY) IV ONE (11:45)
[2017-05-04 17:45] VITALS: BP 132/69
[2017-05-04] MEDS: WARFARIN SOD 3 MG TAB PO SCH (18:02)
--- NOTE | 2017-05-04 18:39 | IPN ---
DATE: 05/04/2017 Ms. Delgado is seen this morning on her bedside. She remains short of breath chronically and has been on five liters of oxygen. She denies any fever or chills. There is no nausea or vomiting. PHYSICAL EXAMINATION: On physical examination, temperature 98.2 degrees Fahrenheit, heart rate 70 per minute and respiratory rate 20 per minute. Blood pressure 110/64 mmHg and oxygen saturation 91% on five liters of oxygen. Earlier after walking with physical therapist, her oxygen saturation dropped down to 73% while she was on six liters if oxygen. Her head is atraumatic. Ears, nose and throat are unremarkable. Neck is supple and jugular venous distention (JVD) is at least 6-7 cm above the sternal angle. Dialysis catheter is present in right internal jugular vein. Pupils are equal and reactive to light and sclera is anicteric. Heart sounds are regular and lungs with diminished breath sounds and bilateral rhonchi. Abdomen is soft and nontender. Bowel sounds are normal. Extremities have no cyanosis or clubbing. Skin has no rash or ulcers. Neurologically, she is awake, alert and oriented times three. LABORATORY DATA: Today's laboratories show WBC count 6.5, hemoglobin 10.2 and hematocrit 34.5. Sodium 142 and potassium 4.2. BUN 28 and creatinine 3.46. PROBLEMS: 1. Hypoxemia. Most likely this is related to her advanced chronic lung disease and volume overload. She has desaturated on ambulation. We will dialyze her later this afternoon and try to remove about 2.5 liters of fluid. 2. End-stage renal disease. The patient was last dialyzed on Tuesday. She will be dialyzed again today. She already has a seat in outpatient dialysis clinic and once she is ready for discharge then she will initiate dialysis as an outpatient on Tuesday, and Tuesday schedule. 3. Anemia. Her anemia has been stable and does not need any intervention at present. 4. Generalized weakness and deconditioning. Most likely this is related to her chronic lung disease and hypoxemia. Once her volume status improves, she is likely to improve quickly.
[2017-05-04] MEDS: OMEGA-3 1050MG CAPSULE PO SCH (20:29)
[2017-05-04] MEDS: DIGOXIN 0.125 MG TAB PO SCH (20:29)
[2017-05-04] MEDS: SERTRALINE 100 MG TAB PO SCH (20:29)
[2017-05-04] MEDS: ATORVASTATIN 20 MG TAB PO SCH (20:29)
[2017-05-04] MEDS: ISOSORBIDE DIN. (ISORDIL) 20 MG TAB PO SCH (20:30)
--- NOTE | 2017-05-04 21:49 | IPNPDOC ---
Subjective Date Seen The patient was seen on 05/04/17. Subjective Chief Complaint/HPI The patient is a 66-year-old female admitted with a reason for visit of Esrd Needing Dialysis. Events since last encounter Feeling better, would like to go home, working with physical therapy, but had difficulty with stairs, Constitutional: Denies: Chills, Fever Pulmonary: Denies: Dyspnea, Cough Cardiovascular: Denies: Chest Pain, Palpitations Gastrointestinal: Denies: Nausea, Vomiting, Abdominal Pain Objective Physical Examination General Exam: Positive: Alert, Cooperative, No Acute Distress, Other (elderly, frail) Eye Exam: Negative: Sclera icteric ENT Exam: Positive: Mucous membr. moist/pink Chest Exam: Positive: Rhonchi, Diminished, Negative: Rales, Wheezing Heart Exam: Positive: Rate Normal, Normal S1, Normal S2 Abdomen Exam: Positive: Soft, Negative: Tenderness Extremity Exam: Positive: Edema (1+ peripheral edema), Negative: Tenderness Psych Exam: Positive: Oriented x 3 Assessment /Plan Problems (1) ESRD needing dialysis Status: Acute Discussed With: Patient Problem Specific Plan: Consult Specialist Problem Text: permacath placed - received HD Tuesday has appointments 05/06 for pre-screening and 05/11 for av fistula placement in [place]. I discussed in person with Dr. Carrillo 05/04/17 Patient deconditioned, unable to pass PT (2) Atrial fibrillation, chronic Status: Chronic Discussed With: Patient Problem Specific Plan: Repeat Labs Problem Text: coumadin restarted 05/03/17 rate controlled (3) COPD (chronic obstructive pulmonary disease) Status: Chronic Discussed With: Patient Problem Specific Plan: Monitor Clinically Problem Text: baseline 4L supplemental O2 - follows with Dr. Barker currently requiring 5l nc (4) Diastolic CHF Status: Chronic Discussed With: Patient Problem Specific Plan: Monitor Clinically Problem Text: could benefit from dialysis (5) CAD S/P percutaneous coronary angioplasty Status: Chronic Discussed With: Patient (6) Hx of renal cell carcinoma Status: Resolved Discussed With: Patient Problem Text: s/p left nephrectomy 2006 (7) Hypertension Status: Chronic Problem Specific Plan: Monitor Clinically (8) Hypothyroid Status: Chronic (9) Acute and chronic respiratory failure with hypercapnia Status: Acute Response to Treatment: Improving Discussed With: Patient Problem Specific Plan: Consult Specialist Problem Text: Still on 5L this morning - baseline is 4L supplemental oxygen. (10) Nicotine addiction Status: Chronic Discussed With: Patient Problem Text: Counselling and cessation assistance offered at bedside. Patient refused. (11) Anemia Status: Chronic Problem Specific Plan: Monitor Clinically, Repeat Labs Problem Text: slowly trending down - likely secondary to CKD - continue to follow. Plan/VTE VTE Prophylaxis Ordered?: Yes (hep gtt/coumadin) Plan Diet: Continue Current Activity: Continue Current Therapy: PT, OT Pt and Family Services: Home Care Respiratory: Wean Oxygen Diagnostics: Repeat Labs in AM Advance Directives: DNR VS, I&O, 24H, Fishbone Vital Signs/I&O Vital Signs Date Time Temp Pulse Resp B/P (MAP) Pulse Ox O2 Delivery O2 Flow Rate FiO2 05/04/17 20:41 Nasal Cannula 5.0 05/04/17 20:30 143/67 05/04/17 20:29 73 05/04/17 17:45 97.8 18 90 04/30/17 16:00 45 I&O- Last 24 Hours up to 6 AM 05/04/17 06:00 Intake Total 1320 ml Output Total 600 ml Balance 720 ml Laboratory Data 24H LABS Laboratory Tests 2 05/04/17 06:22: Prothrombin Time 19.3H, Prothromb Time International Ratio 1.62, Anion Gap 5L, Glomerular Filtration Rate 14.0L, Blood Urea Nitrogen 28H, Creatinine 3.46H, Sodium Level 142, Potassium Level 4.2, Chloride Level 106, Carbon Dioxide Level 31, Calcium Level 8.7L CBC/BMP Laboratory Tests 05/04/17 06:22 Red Blood Count 3.27 L, Mean Corpuscular Volume 105.5 H, Mean Corpuscular Hemoglobin 31.3, Mean Corpuscular Hemoglobin Concent 29.6 L, Red Cell Distribution Width 15.2 H, Calcium Level 8.7 L Microbiology Microbiology 05/03/17 Gastrointestinal Tract Panel (PCR) - Final, Complete FLINT,LUIGI Irene MD May 04, 2017 21:49
[2017-05-04 22:00] VITALS: BP 143/67
[2017-05-05] MEDS: IPRATROPIUM 0.5MG/ALBUTEROL 2.5MG INH SOL UD 3ML (DUONEB)(J7620) NEB SCH ×4 (01:06→19:46)
[2017-05-05] MEDS: LEVOTHYROXINE 150MCG TABLET (0.15MG) PO SCH (05:31)
[2017-05-05] MEDS: ACETAMINOPHEN TAB 650MG DOSE (2X325MG) PO PRN (05:31)
[2017-05-05] MEDS: LEVOTHYROXINE 25MCG TABLET (0.025MG) PO SCH (05:31)
[2017-05-05 06:00] VITALS: BP 132/68
[2017-05-05 06:12] LABS: INR 1.76
[2017-05-05 06:21] LABS: MEAN CORPUSCULAR HEMOGLOBIN 30.8 pg (27.0-33.0); MEAN CORPUSCULAR HGB CONC 28.4 g/dl (32.0-36.5); MEAN CORPUSCULAR VOLUME 108.4 fl (80.0-96.0); RED CELL DISTRIBUTION WIDTH 15.4 % (11.5-14.5); WHITE BLOOD COUNT 5.6 K/mm3 (4.0-10.0)
[2017-05-05 06:29] LABS: CALCIUM LEVEL 8.7 MG/DL (8.8-10.2); CREATININE FOR GFR 2.41 MG/DL (0.55-1.02); GLOMERULAR FILTRATION RATE 21.3 (>45); POTASSIUM SERUM 4.7 MEQ/L (3.5-5.1)
[2017-05-05] MEDS: TIOTROPIUM INHALER/CAPSULE (SPIRIVA) INH SCH (07:57)
[2017-05-05] MEDS: SYMBICORT 160/4.5MCG INHALER 6GM INH SCH ×2 (07:57→19:46)
[2017-05-05] MEDS: OMEPRAZOLE 20 MG CAP PO SCH (09:34)
[2017-05-05] MEDS: FOLIC ACID 1 MG TAB PO SCH (09:34)
[2017-05-05] MEDS: CALCITRIOL 0.25 MCG CAP (S0169) PO SCH (09:34)
[2017-05-05] MEDS: BISOPROLOL FUMARATE 5 MG TAB PO SCH (09:34)
[2017-05-05] MEDS: predniSONE 5 MG TAB PO SCH (09:34)
[2017-05-05] MEDS ORDERED: HEPARIN 1,000 UNITS/ML 10ML VIAL (FOR RADIOLOGY& DIALYSIS ONLY) IV ONE (10:45)
[2017-05-05] MEDS ORDERED: SLF 3 ML SYR IV PRN (11:00)
--- NOTE | 2017-05-05 11:53 | IPNPDOC ---
Subjective Date Seen The patient was seen on 05/05/17. Subjective Chief Complaint/HPI The patient is a 66-year-old female admitted with a reason for visit of Esrd Needing Dialysis. Events since last encounter Patient having increased shortness of breath with ambulation. Patient was able to walk retirement down the [place] before becoming short of breath and weak. Patient was on 6L of oxygen when normally on 4 L at home. Had conversation with patient to get an AVF in arm from vascular surgeon in [place] post discharge. Patient will think it over. May receive more dialysis today. This will be performed inpatient. Patient will miss preop appointment in [place] tomorrow. Constitutional: Denies: Chills, Fever Eyes: Denies: Vision change ENT: Denies: Head Aches Skin: Denies: Rash, Lesions Pulmonary: Reports: Dyspnea (on 6 liters) Cardiovascular: Denies: Chest Pain, Palpitations Genitourinary: Denies: Frequency, Incontinence Neurological: Denies: Change in speech, Confusion Psych: Reports: Mood Normal Objective Physical Examination General Exam: Positive: Alert, Cooperative, No Acute Distress, Other (elderly, frail) Eye Exam: Negative: Sclera icteric ENT Exam: Positive: Mucous membr. moist/pink Chest Exam: Positive: Rhonchi, Diminished, Negative: Rales, Wheezing Heart Exam: Positive: Rate Normal, Normal S1, Normal S2, Negative: Gallops, Murmurs, Rubs Abdomen Exam: Positive: Soft, Negative: Tenderness Extremity Exam: Negative: Tenderness Psych Exam: Positive: Oriented x 3 Assessment /Plan Problems (1) ESRD needing dialysis Status: Acute Discussed With: Patient Problem Specific Plan: Consult Specialist Problem Text: permacath placed - received HD Tuesday currently has appointments 05/06 for pre-screening and 05/11 for av fistula placement in [place]. Discussed with patient on consulting local vascular surgeon for fistula. This would be done outside of hospital. I discussed in person with Dr. Carrillo 05/05/17. Patient getting more dialysis . Patient deconditioned, unable to pass PT (2) Atrial fibrillation, chronic Status: Chronic Discussed With: Patient Problem Specific Plan: Repeat Labs Problem Text: coumadin restarted 05/03/17. 3 mg. rate controlled. INR subtherapeutic 05/05/17. (3) COPD (chronic obstructive pulmonary disease) Status: Chronic Discussed With: Patient Problem Specific Plan: Monitor Clinically Problem Text: baseline 4L supplemental O2 - follows with Dr. Barker currently requiring 6l nc. Desaturated to 80% P02 while ambulating while on 6L. (4) Diastolic CHF Status: Chronic Discussed With: Patient Problem Specific Plan: Monitor Clinically Problem Text: had dialysis 05/04/17 and plan is to receive more dialysis . Patient will benefit from dialysis until fluid status is balanced. (5) CAD S/P percutaneous coronary angioplasty Status: Chronic Discussed With: Patient (6) Hx of renal cell carcinoma Status: Resolved Discussed With: Patient Problem Text: s/p left nephrectomy 2006 (7) Hypertension Status: Chronic Problem Specific Plan: Monitor Clinically (8) Hypothyroid Status: Chronic Problem Text: Continued home meds. Monitor as needed. (9) Acute and chronic respiratory failure with hypercapnia Status: Acute Response to Treatment: Improving Discussed With: Patient Problem Specific Plan: Consult Specialist Problem Text: Still on 5L this morning - baseline is 4L supplemental oxygen. (10) Nicotine addiction Status: Chronic Discussed With: Patient Problem Text: Counselling and cessation assistance offered at bedside previously. Patient refused. Monitor as needed. (11) Anemia Status: Chronic Problem Specific Plan: Monitor Clinically, Repeat Labs Problem Text: trending similar level to previous day - likely secondary to CKD - continue to follow. check with morning labs. Plan/VTE VTE Prophylaxis Ordered?: Yes (hep gtt/coumadin) Plan Diet: Continue Current Activity: Continue Current Therapy: PT, OT Pt and Family Services: Home Care Respiratory: Wean Oxygen Diagnostics: Repeat Labs in AM Advance Directives: DNR VS, I&O, 24H, Fishbone Vital Signs/I&O Vital Signs Date Time Temp Pulse Resp B/P (MAP) Pulse Ox O2 Delivery O2 Flow Rate FiO2 05/05/17 09:34 74 132/68 05/05/17 06:00 99.0 18 93 Nasal Cannula 5.0 04/30/17 16:00 45 I&O- Last 24 Hours up to 6 AM 05/05/17 06:00 Intake Total 480 ml Output Total 2500 ml Balance -2020 ml Laboratory Data 24H LABS Laboratory Tests 2 05/05/17 05:48: Prothrombin Time 20.6H, Prothromb Time International Ratio 1.76, Anion Gap 7L, Glomerular Filtration Rate 21.3L, Blood Urea Nitrogen 18, Creatinine 2.41H, Sodium Level 139, Potassium Level 4.7, Chloride Level 105, Carbon Dioxide Level 27, Calcium Level 8.7L CBC/BMP Laboratory Tests 05/05/17 05:48 Red Blood Count 3.19 L, Mean Corpuscular Volume 108.4 H, Mean Corpuscular Hemoglobin 30.8, Mean Corpuscular Hemoglobin Concent 28.4 L, Red Cell Distribution Width 15.4 H, Calcium Level 8.7 L Microbiology Microbiology 05/03/17 Gastrointestinal Tract Panel (PCR) - Final, Complete GME ATTESTATION GME ATTESTATION I have both independently examined this patient as well as reviewed the dictated note. I have discussed in detail with the resident the findings and plan of treatment as documented in the residents note. I will continue to follow the patient and offer further guidance to the patients care as necessary during this hospital stay. AMBER LEMONS DO May 05, 2017 11:53 LUIGI ARDON MD May 09, 2017 18:13
[2017-05-05] MEDS: SLF 3 ML SYR IV SCH ×2 (14:00→20:51)
[2017-05-05 16:00] VITALS: BP 143/66
[2017-05-05] MEDS: WARFARIN SOD 3 MG TAB PO SCH (17:52)
[2017-05-05] MEDS: OMEGA-3 1050MG CAPSULE PO SCH (20:50)
[2017-05-05] MEDS: SERTRALINE 100 MG TAB PO SCH (20:51)
[2017-05-05] MEDS: ATORVASTATIN 20 MG TAB PO SCH (20:51)
[2017-05-05] MEDS: ANEXSIA, NORCO 7.5MG/325MG TABLET(HYDROCODONE/APAP) PO PRN (20:52)
[2017-05-05] MEDS: ISOSORBIDE DIN. (ISORDIL) 20 MG TAB PO SCH (20:53)
--- NOTE | 2017-05-05 21:24 | IPN ---
DATE: 05/05/2017 Ms. Delgado is seen this morning on her bedside. She is sitting in the chair and feels well. She underwent hemodialysis yesterday and 2.5 liters of fluid was removed. The patient reports that she walked with physical therapist this morning. I have been just informed that the patient dropped her oxygen saturation down to 80% even on 6 liters of oxygen with activity. She has no fever or chills. She is using oxygen and has been on chronic oxygen. PHYSICAL EXAMINATION Temperature 99 degrees Fahrenheit, heart rate 74 per minute and respiratory rate 18 per minute. Blood pressure 132/60 mmHg and oxygen saturation is 93% at rest on 5 liters oxygen. Head is atraumatic. Neck veins are only mildly elevated sitting upright. Dialysis catheter in right internal jugular vein is present. Pupils are equal and reactive to light and sclera is anicteric. Heart sounds are regular and lungs with bilateral rhonchi and minimal wheezing. Abdomen is soft and nontender. Extremities have no cyanosis or clubbing. Skin has no rash or ulcers. Neurologically, she is awake, alert and oriented times three. Today's labs show WBC count 5.6, hemoglobin 9.8 and hematocrit 34.6. Platelets 84,000. Sodium 139 and potassium 4.7. BUN 18 and creatinine 2.41. PROBLEMS: 1. End-stage renal disease. The patient was dialyzed yesterday, which she tolerated well. So far she has received three dialysis treatments. She will be dialyzed on a Tuesday, and Tuesday schedule as an outpatient. 2. Hypoxemia. She still desaturates with any activity. Will try to ultrafiltrate her today and remove another 1.5 liters of fluid as tolerated. She has advanced chronic lung disease, which may be the most limiting factor. After ultrafiltration today, we will consider getting a chest x-ray to assess her volume status. 3. Anemia. Her anemia is stable at present, and we will treat her with hemodialysis. She will receive Aranesp once a week. DISPOSITION: Our plan was initially to discharge her today and start dialysis as an outpatient. Due to her oxygen desaturation, discharge plans are on hold now. Will reevaluate her tomorrow for discharge.
[2017-05-05 22:00] VITALS: BP 118/58
[2017-05-06] MEDS: IPRATROPIUM 0.5MG/ALBUTEROL 2.5MG INH SOL UD 3ML (DUONEB)(J7620) NEB SCH ×4 (02:00→19:55)
[2017-05-06] MEDS: LEVOTHYROXINE 150MCG TABLET (0.15MG) PO SCH (05:30)
[2017-05-06] MEDS: LEVOTHYROXINE 25MCG TABLET (0.025MG) PO SCH (05:30)
[2017-05-06] MEDS: ACETAMINOPHEN TAB 650MG DOSE (2X325MG) PO PRN (05:31)
[2017-05-06] MEDS: SLF 3 ML SYR IV SCH ×3 (05:31→21:21)
[2017-05-06 06:00] VITALS: BP 124/64
[2017-05-06] MEDS: SYMBICORT 160/4.5MCG INHALER 6GM INH SCH ×2 (07:58→19:54)
[2017-05-06] MEDS: TIOTROPIUM INHALER/CAPSULE (SPIRIVA) INH SCH (07:58)
[2017-05-06 08:57] LABS: MEAN CORPUSCULAR HEMOGLOBIN 31.6 pg (27.0-33.0); MEAN CORPUSCULAR VOLUME 105.2 fl (80.0-96.0); RED CELL DISTRIBUTION WIDTH 15.7 % (11.5-14.5); WHITE BLOOD COUNT 6.1 K/mm3 (4.0-10.0)
[2017-05-06 09:14] LABS: CALCIUM LEVEL 8.6 MG/DL (8.8-10.2); CREATININE FOR GFR 3.19 MG/DL (0.55-1.02); GLOMERULAR FILTRATION RATE 15.4 (>45); POTASSIUM SERUM 4.3 MEQ/L (3.5-5.1)
[2017-05-06 09:21] LABS: INR 2.08
[2017-05-06] MEDS: FOLIC ACID 1 MG TAB PO SCH (09:39)
[2017-05-06] MEDS: OMEPRAZOLE 20 MG CAP PO SCH (09:39)
[2017-05-06] MEDS: predniSONE 5 MG TAB PO SCH (09:39)
[2017-05-06] MEDS: CALCITRIOL 0.25 MCG CAP (S0169) PO SCH (09:39)
[2017-05-06] MEDS: BISOPROLOL FUMARATE 5 MG TAB PO SCH (09:40)
--- NOTE | 2017-05-06 12:19 | REP ---
CHEST, TWO VIEWS: Two views of the chest are performed and compared to multiple prior exams, the most recent of which is a portable chest radiograph 04/29/2017. There appears to be improvement of bilateral effusions and parenchymal opacities. There is still mild to moderate right pleural fluid present with adjacent right lower lung atelectasis/infiltrate. There is a small left effusion with minor adjacent atelectasis/infiltrate. The heart is mildly enlarged. There is calcification and tortuosity of the thoracic aorta. The mediastinal silhouette is unchanged. Right central venous catheter is seen with tip in the superior vena cava. There is osteopenia with degenerative change of the spine. There are a couple of compression deformities of lower thoracic vertebral bodies. IMPRESSION: Improvement in bilateral pleural effusions and parenchymal opacities. However, there is still mild to moderate right pleural fluid and mild left pleural fluid present. There is right basilar atelectasis/infiltrate as well with some minor left basilar atelectasis/infiltrate. Cardiomegaly. Signed by Miguel Matamoros MD 05/06/2017 03:16 P
--- NOTE | 2017-05-06 12:59 | IPNPDOC ---
Subjective Date Seen The patient was seen on 05/06/17. Subjective Chief Complaint/HPI The patient is a 66-year-old female admitted with a reason for visit of Esrd Needing Dialysis. Events since last encounter Has been up and walking - pulse ox dropped to 80% on 5l after walking a short distance, no cough, not back to baseline Constitutional: Denies: Chills, Fever Pulmonary: Reports: Dyspnea, Denies: Cough Cardiovascular: Denies: Chest Pain, Palpitations Gastrointestinal: Denies: Nausea, Vomiting, Abdominal Pain Objective Physical Examination General Exam: Positive: Alert, No Acute Distress, Other (elderly, frail) Eye Exam: Negative: Sclera icteric ENT Exam: Positive: Mucous membr. moist/pink Chest Exam: Positive: Rhonchi, Diminished, Negative: Rales, Wheezing Heart Exam: Positive: Rate Normal, Normal S1, Normal S2, Negative: Gallops, Murmurs, Rubs Abdomen Exam: Positive: Soft, Negative: Tenderness Extremity Exam: Negative: Tenderness Psych Exam: Positive: Oriented x 3 Assessment /Plan Problems (1) ESRD needing dialysis Status: Acute Discussed With: Patient Problem Specific Plan: Consult Specialist Problem Text: permacath placed - received HD Tuesday currently has appointments 05/06 for pre-screening and 05/11 for av fistula placement in [place]. Discussed with patient on consulting local vascular surgeon for fistula. This would be done outside of hospital. I discussed in person with Dr. Carrillo 05/06/17. Patient getting more dialysis . Patient deconditioned, passed PT but still hypoxic (2) Atrial fibrillation, chronic Status: Chronic Discussed With: Patient Problem Specific Plan: Repeat Labs Problem Text: coumadin restarted 05/03/17. 3 mg. rate controlled. INR therapeutic 05/06/17. (3) COPD (chronic obstructive pulmonary disease) Status: Chronic Discussed With: Patient Problem Specific Plan: Monitor Clinically Problem Text: baseline 4L supplemental O2 - follows with Dr. Barker currently requiring increased oxygen. Desaturated while ambulating on supplemental oxygen. Continues to smoke, plans to smoke when leaving hospital, but has been cutting down (4) Diastolic CHF Status: Chronic Discussed With: Patient Problem Specific Plan: Monitor Clinically Problem Text: had dialysis 05/05/17 and plan is to receive more dialysis . Patient will benefit from dialysis until fluid status is balanced. Has effusions noted on chest xray (5) CAD S/P percutaneous coronary angioplasty Status: Chronic Discussed With: Patient (6) Hx of renal cell carcinoma Status: Resolved Discussed With: Patient Problem Text: s/p left nephrectomy 2006 (7) Hypertension Status: Chronic Problem Specific Plan: Monitor Clinically (8) Hypothyroid Status: Chronic Problem Text: Continued home meds. Monitor as needed. (9) Acute and chronic respiratory failure with hypercapnia Status: Acute Response to Treatment: Improving Discussed With: Patient Problem Specific Plan: Consult Specialist Problem Text: Still on 5L this morning - baseline is 4L supplemental oxygen. (10) Nicotine addiction Status: Chronic Discussed With: Patient Problem Text: Counselling and cessation assistance offered at bedside previously. Patient refused. Monitor as needed. (11) Anemia Status: Chronic Problem Specific Plan: Monitor Clinically, Repeat Labs Problem Text: trending similar level to previous day - likely secondary to CKD - continue to follow. check with morning labs. Plan/VTE VTE Prophylaxis Ordered?: Yes (hep gtt/coumadin) Plan Diet: Continue Current Activity: Continue Current Therapy: PT, OT Pt and Family Services: Home Care Respiratory: Wean Oxygen Diagnostics: Repeat Labs in AM Advance Directives: DNR VS, I&O, 24H, Fishbone Vital Signs/I&O Vital Signs Date Time Temp Pulse Resp B/P (MAP) Pulse Ox O2 Delivery O2 Flow Rate FiO2 05/06/17 09:00 Nasal Cannula 5.0 05/06/17 06:00 97.8 74 16 124/64 (84) 92 04/30/17 16:00 45 I&O- Last 24 Hours up to 6 AM 05/06/17 06:00 Intake Total 1920 ml Output Total 2250 ml Balance -330 ml Laboratory Data 24H LABS Laboratory Tests 2 05/06/17 08:35: Prothrombin Time 23.5H, Prothromb Time International Ratio 2.08, Anion Gap 6L, Glomerular Filtration Rate 15.4L, Blood Urea Nitrogen 33#H, Creatinine 3.19H, Sodium Level 138, Potassium Level 4.3, Chloride Level 104, Carbon Dioxide Level 28, Calcium Level 8.6L CBC/BMP Laboratory Tests 05/06/17 08:35 Red Blood Count 3.28 L, Mean Corpuscular Volume 105.2 H, Mean Corpuscular Hemoglobin 31.6, Mean Corpuscular Hemoglobin Concent 30.0 L, Red Cell Distribution Width 15.7 H, Calcium Level 8.6 L Microbiology Microbiology 05/03/17 Gastrointestinal Tract Panel (PCR) - Final, Complete FLINT,LUIGI Irene MD May 06, 2017 12:59
[2017-05-06 14:00] VITALS: BP 117/58
[2017-05-06] MEDS: WARFARIN SOD 3 MG TAB PO SCH (17:09)
--- NOTE | 2017-05-06 19:28 | IPN ---
DATE: 05/06/2017 Mrs. Delgado is seen this morning on her bedside. She underwent ultrafiltration yesterday due to worsening hypoxemia. There was 1.5 liters of fluid removed, which she tolerated very well. Today she is feeling better and denies any nausea, vomiting, fever, or chills. She has chronic hypoxemia and remains on 5 liters oxygen. PHYSICAL EXAMINATION: Temperature 97.8 degrees Fahrenheit, heart rate 74 per minute, respiratory rate 16 per minute, blood pressure 124/64 mm of mercury, and oxygen saturation 92% on 5 liters oxygen. Her urine output is minimal, and most of the weight change is related to fluid removal by hemodialysis. Head is atraumatic. Neck is supple and without any jugular venous distention (JVD) or thyroid enlargement. Hemodialysis catheter in right internal jugular vein is intact. Heart sounds are regular and lungs with moderate bilateral air entry. She has no wheezing, and occasional coarse crepitations are audible. Abdomen is soft and nontender. Bowel sounds are normal. There is no palpable organomegaly. Extremities have no cyanosis or clubbing. Skin has no rash or ulcers. Neurologically she is awake, alert, and oriented times three. Today's labs show WBC count 6.1, hemoglobin 10.3, and hematocrit 34.5. Sodium 138, potassium 4.3, BUN 33, and creatinine 3.19. PROBLEMS: 1. End-stage renal disease. Patient is going to be scheduled for next hemodialysis tomorrow. At present, her electrolytes are within normal range. She is not considered stable for discharge, so we plan to dialyze here as inpatient. 2. Hypoxemia. Volume status seems to have improved significantly. We will try to remove another 2 liters of fluid with the next hemodialysis. At present, she remains on 5 liters oxygen. 3. Anemia, stable and slightly improved. She did receive Aranesp 100 mcg earlier. 4. Hypertension. Blood pressure is very well controlled, and no changes are indicated in her antihypertensive medications. DISPOSITION: At present the patient seems to be desaturating with activity. She is being evaluated by physical therapy. I will defer any plans for discharge to hospitalist service.
[2017-05-06] MEDS: SERTRALINE 100 MG TAB PO SCH (21:18)
[2017-05-06] MEDS: ATORVASTATIN 20 MG TAB PO SCH (21:18)
[2017-05-06] MEDS: ANEXSIA, NORCO 7.5MG/325MG TABLET(HYDROCODONE/APAP) PO PRN (21:19)
[2017-05-06] MEDS: OMEGA-3 1050MG CAPSULE PO SCH (21:19)
[2017-05-06] MEDS: DIGOXIN 0.125 MG TAB PO SCH (21:19)
[2017-05-06] MEDS: ISOSORBIDE DIN. (ISORDIL) 20 MG TAB PO SCH (21:20)
[2017-05-06 22:00] VITALS: BP 130/90
[2017-05-07] MEDS: IPRATROPIUM 0.5MG/ALBUTEROL 2.5MG INH SOL UD 3ML (DUONEB)(J7620) NEB SCH ×4 (01:55→19:02)
[2017-05-07 06:00] VITALS: BP 118/58
[2017-05-07] MEDS: SLF 3 ML SYR IV SCH ×3 (06:00→20:24)
[2017-05-07] MEDS: FOLIC ACID 1 MG TAB PO SCH (06:19)
[2017-05-07] MEDS: predniSONE 5 MG TAB PO SCH (06:19)
[2017-05-07] MEDS: OMEPRAZOLE 20 MG CAP PO SCH (06:19)
[2017-05-07] MEDS: LEVOTHYROXINE 150MCG TABLET (0.15MG) PO SCH (06:19)
[2017-05-07] MEDS: LEVOTHYROXINE 25MCG TABLET (0.025MG) PO SCH (06:19)
[2017-05-07] MEDS: BISOPROLOL FUMARATE 5 MG TAB PO SCH (06:19)
[2017-05-07] MEDS: CALCITRIOL 0.25 MCG CAP (S0169) PO SCH (06:19)
[2017-05-07] MEDS: TIOTROPIUM INHALER/CAPSULE (SPIRIVA) INH SCH (08:00)
[2017-05-07] MEDS: SYMBICORT 160/4.5MCG INHALER 6GM INH SCH ×2 (08:00→19:52)
--- NOTE | 2017-05-07 09:37 | IPNPDOC ---
Subjective Date Seen The patient was seen on 05/07/17. Subjective Chief Complaint/HPI The patient is a 66-year-old female admitted with a reason for visit of Esrd Needing Dialysis. Events since last encounter Feeling well, saw Dr. Ramirez this morning, considering inpatient av fistula, tolerating diet, not sob at rest, has not been oob today, aware of dialysis plan for today Constitutional: Denies: Chills, Fever Skin: Denies: Rash Pulmonary: Denies: Dyspnea, Cough Cardiovascular: Denies: Chest Pain Gastrointestinal: Denies: Nausea, Vomiting, Abdominal Pain Objective Physical Examination General Exam: Positive: Alert, Cooperative, No Acute Distress, Other (elderly, frail) Eye Exam: Negative: Sclera icteric ENT Exam: Positive: Mucous membr. moist/pink Chest Exam: Positive: Rhonchi, Diminished, Negative: Rales, Wheezing Heart Exam: Positive: Rate Normal, Normal S1, Normal S2, Negative: Gallops, Murmurs, Rubs Abdomen Exam: Positive: Soft, Negative: Tenderness Extremity Exam: Negative: Tenderness Neuro Exam: Positive: Normal Speech Psych Exam: Positive: Mental status NL, Oriented x 3, Negative: Anxiety Assessment /Plan Problems (1) ESRD needing dialysis Status: Acute Discussed With: Patient Problem Specific Plan: Consult Specialist Problem Text: permacath placed - currently has appointments 05/06 for pre-screening and 05/11 for av fistula placement in [place]. Based on prolonged hospital stay, consulted local vascular surgery for possible fistula placement I discussed in person with Dr. Carrillo 05/06/17. Patient getting more dialysis . Patient deconditioned, passed PT but still hypoxic (2) Atrial fibrillation, chronic Status: Chronic Discussed With: Patient Problem Specific Plan: Repeat Labs Problem Text: coumadin restarted 05/03/17. 3 mg. rate controlled. INR therapeutic 05/06/17. Coumadin held 05/07/17- due to possible inpt av fistula placement (3) COPD (chronic obstructive pulmonary disease) Status: Chronic Discussed With: Patient Problem Specific Plan: Monitor Clinically Problem Text: baseline 4L supplemental O2 - follows with Dr. Barker currently requiring increased oxygen. Desaturated while ambulating on supplemental oxygen. Continues to smoke, plans to smoke when leaving hospital, but has been cutting down (4) Diastolic CHF Status: Chronic Discussed With: Patient Problem Specific Plan: Monitor Clinically Problem Text: had dialysis 05/05/17 and plan is to receive more dialysis . Patient will benefit from dialysis until fluid status is balanced. Has effusions noted on chest xray- should continue to improve with dialysis (5) CAD S/P percutaneous coronary angioplasty Status: Chronic Discussed With: Patient (6) Hx of renal cell carcinoma Status: Resolved Discussed With: Patient Problem Text: s/p left nephrectomy 2006 (7) Hypertension Status: Chronic Problem Specific Plan: Monitor Clinically (8) Hypothyroid Status: Chronic Problem Text: Continued home meds. Monitor as needed. (9) Acute and chronic respiratory failure with hypercapnia Status: Acute Response to Treatment: Improving Discussed With: Patient Problem Specific Plan: Consult Specialist Problem Text: Still on 5L this morning - baseline is 4L supplemental oxygen. (10) Nicotine addiction Status: Chronic Discussed With: Patient Problem Text: Counselling and cessation assistance offered at bedside previously. Patient refused. Monitor as needed. (11) Anemia Status: Chronic Problem Specific Plan: Monitor Clinically, Repeat Labs Problem Text: trending similar level to previous day - likely secondary to CKD - continue to follow. check with morning labs. Plan/VTE VTE Prophylaxis Ordered?: Yes (hep gtt/coumadin) Plan Diet: Continue Current Activity: Continue Current Therapy: PT, OT Pt and Family Services: Home Care Respiratory: Wean Oxygen Diagnostics: Repeat Labs in AM Advance Directives: DNR VS, I&O, 24H, Fishbone Vital Signs/I&O Vital Signs Date Time Temp Pulse Resp B/P (MAP) Pulse Ox O2 Delivery O2 Flow Rate FiO2 05/07/17 06:19 77 118/58 05/07/17 06:00 97.6 16 90 Nasal Cannula 5.0 I&O- Last 24 Hours up to 6 AM 05/07/17 06:00 Intake Total 960 ml Output Total 500 ml Balance 460 ml Laboratory Data Microbiology Microbiology 05/03/17 Gastrointestinal Tract Panel (PCR) - Final, Complete LUIGI ARDON MD May 07, 2017 09:37
[2017-05-07] MEDS ORDERED: HEPARIN 1,000 UNITS/ML 10ML VIAL (FOR RADIOLOGY& DIALYSIS ONLY) IV ONE (11:30)
--- NOTE | 2017-05-07 15:39 | IPN ---
DATE: 05/07/2017 SUBJECTIVE: Patient was seen and examined at the bedside today in the afternoon during hemodialysis procedures. She is tolerating the hemodialysis procedure well. She denies any acute complaints. REVIEW OF SYSTEMS: Patient denies any fevers, chills, rigors, headache, nausea, vomiting, chest pain. She denies any shortness of breath at rest, but she reports that when she walks around she gets hypoxemic. Her saturation drops to 70s. Patient denies any constipation, diarrhea. She reports that she has mild lower extremity edema. Rest of review of systems is negative. OBJECTIVE: Vital signs: Temperature is 97.6 degrees Fahrenheit, blood pressure is 118/58, pulse is 77, respiratory rate of 16, saturating 90% on nasal cannula at 5 liters. Intake and output: Urine output recorded is 200 mL so far today since overnight. Weight in bed scale is 48.8 kg. PHYSICAL EXAMINATION: GENERAL: Patient is awake, alert, oriented times three, sitting on the sofa. No apparent distress. HEAD AND NECK: Extraocular muscles intact. Patient has temporal wasting. Mucous membranes are moist. Neck is supple. There is no jugular venous distention (JVD). CARDIOVASCULAR: S1, S2, regular rate. No murmur, rub, or gallop. RESPIRATORY: Decreased breath sounds at the bases and mild crepitations at the bases on deep inspiration. Arteriovenous (AV) access: Patient has a right internal jugular (IJ) tunneled hemodialysis catheter. ABDOMEN: Abdomen is soft. Positive bowel sounds. Nontender. No ascites. No organomegaly. EXTREMITIES: Patient has trace edema of the bilateral lower extremities. Patient does have clubbing, and there is mild cyanosis of the extremities as well. CENTRAL NERVOUS SYSTEM: No focal neurological deficit. Power is 5/5 in all extremities. PSYCHIATRIC: Normal mood and affect. LABORATORY REVIEW: CBC showed a WBC 6.1, hemoglobin 10.3, platelets are 85. BMP showed sodium 138, potassium 4.3, chloride 104, bicarbonate 28, BUN 33, creatinine is 3.1. Calcium is 8.6. IMAGING: A chest x-ray done yesterday morning showed improvement at the bilateral pleural effusions and parenchymal opacities; however, there is still mild to moderate right effusion and mild left pleural effusion. There was cardiomegaly. CURRENT INPATIENT MEDICATIONS: Patient's medications were all reviewed by me. Her warfarin has been held now, because INR is 2.0. There is no other change in the medications today as compared with yesterday. ASSESSMENT: A 66-year-old female with past medical history of end-stage renal disease, started on hemodialysis during this admission, end-stage chronic obstructive pulmonary disease (COPD), oxygen dependent. PLAN: 1. End-stage renal disease. Patient is being dialyzed according to Tuesday/ schedule now. Her outpatient schedule will be Tuesday, , Tuesday as well. Patient is being dialyzed according to a schedule. We shall try to remove 1.5 liters of fluid as tolerated by her blood pressure. 2. Hypoxemia. It is secondary to a combination of her end-stage COPD, active smoking despite oxygen dependence, and fluid overload on admission. Patient continues to be on 5 liters oxygen at this time. She decompensates on walking. We are doing hemodialysis. Her pleural effusions are improving. More ultrafiltration is being done today. 3. Anemia and end-stage renal disease. Hemoglobin is 10.3. Continue current dose of Aranesp 100 mcg IV with hemodialysis. 4. Hypertension. Continue bisoprolol 5 mg, isosorbide 20 mg daily. Blood pressure is acceptable at this time. DISCHARGE PLANNING: Patient is okay to be discharged from nephrology standpoint whenever she is cleared by pulmonary and she passes a walking test. She already has outpatient dialysis here available on a Tuesday, , Tuesday schedule.
[2017-05-07] MEDS: ATORVASTATIN 20 MG TAB PO SCH (20:22)
[2017-05-07 20:23] VITALS: BP 126/60
[2017-05-07] MEDS: ISOSORBIDE DIN. (ISORDIL) 20 MG TAB PO SCH (20:23)
[2017-05-07] MEDS: OMEGA-3 1050MG CAPSULE PO SCH (20:23)
[2017-05-07] MEDS: ANEXSIA, NORCO 7.5MG/325MG TABLET(HYDROCODONE/APAP) PO PRN (20:24)
[2017-05-07] MEDS: SERTRALINE 100 MG TAB PO SCH (20:24)
[2017-05-08] MEDS: IPRATROPIUM 0.5MG/ALBUTEROL 2.5MG INH SOL UD 3ML (DUONEB)(J7620) NEB SCH ×4 (01:36→21:07)
[2017-05-08] MEDS: ACETAMINOPHEN TAB 650MG DOSE (2X325MG) PO PRN (03:04)
[2017-05-08] MEDS: SLF 3 ML SYR IV SCH ×3 (05:31→20:30)
[2017-05-08] MEDS: LEVOTHYROXINE 150MCG TABLET (0.15MG) PO SCH (05:31)
[2017-05-08] MEDS: LEVOTHYROXINE 25MCG TABLET (0.025MG) PO SCH (05:31)
[2017-05-08 06:00] VITALS: BP 108/58
[2017-05-08 07:02] LABS: MEAN CORPUSCULAR HEMOGLOBIN 31.6 pg (27.0-33.0); MEAN CORPUSCULAR HGB CONC 29.5 g/dl (32.0-36.5); MEAN CORPUSCULAR VOLUME 107.1 fl (80.0-96.0); RED CELL DISTRIBUTION WIDTH 15.7 % (11.5-14.5)
[2017-05-08 07:15] LABS: ALBUMIN 2.7 GM/DL (3.2-5.2); CALCIUM LEVEL 8.5 MG/DL (8.8-10.2); CREATININE FOR GFR 2.62 MG/DL (0.55-1.02); GLOMERULAR FILTRATION RATE 19.3 (>45); PHOSPHORUS LEVEL 3.7 MG/DL (2.5-4.9); POTASSIUM SERUM 4.3 MEQ/L (3.5-5.1)
[2017-05-08 07:18] LABS: INR 2.7
[2017-05-08] MEDS: TIOTROPIUM INHALER/CAPSULE (SPIRIVA) INH SCH (08:03)
[2017-05-08] MEDS: SYMBICORT 160/4.5MCG INHALER 6GM INH SCH ×2 (08:04→21:07)
[2017-05-08] MEDS: OMEPRAZOLE 20 MG CAP PO SCH (11:12)
[2017-05-08] MEDS: CALCITRIOL 0.25 MCG CAP (S0169) PO SCH (11:19)
[2017-05-08] MEDS: BISOPROLOL FUMARATE 5 MG TAB PO SCH (11:19)
[2017-05-08] MEDS: predniSONE 5 MG TAB PO SCH (11:19)
[2017-05-08] MEDS: FOLIC ACID 1 MG TAB PO SCH (11:20)
--- NOTE | 2017-05-08 13:03 | IPNPDOC ---
Subjective Date Seen The patient was seen on 05/08/17. Subjective Chief Complaint/HPI The patient is a 66-year-old female admitted with a reason for visit of Esrd Needing Dialysis. Events since last encounter No complaint of pain, was out of bed walking with assistance short distances, became hypoxic, recovered quickly, no pain Constitutional: Denies: Chills, Fever Pulmonary: Denies: Dyspnea, Cough Cardiovascular: Denies: Chest Pain, Palpitations Gastrointestinal: Denies: Nausea, Vomiting Objective Physical Examination General Exam: Positive: Alert, Cooperative, No Acute Distress, Other (elderly, frail) Eye Exam: Negative: Sclera icteric ENT Exam: Positive: Mucous membr. moist/pink Chest Exam: Positive: Rhonchi, Diminished, Negative: Rales, Wheezing Heart Exam: Positive: Rate Normal, Normal S1, Normal S2, Negative: Gallops, Murmurs, Rubs Abdomen Exam: Positive: Soft, Negative: Tenderness Extremity Exam: Negative: Tenderness Neuro Exam: Positive: Normal Speech Psych Exam: Positive: Mental status NL, Oriented x 3, Negative: Anxiety Assessment /Plan Problems (1) ESRD needing dialysis Status: Acute Discussed With: Patient Problem Specific Plan: Consult Specialist Problem Text: permacath placed - currently had appointments 05/06 for pre-screening and 05/11 for av fistula placement in [place]. Based on prolonged hospital stay, consulted local vascular surgery for possible fistula placement I discussed in person with Dr. Spence 05/08/17. Patient getting more dialysis . Patient deconditioned, passed PT but still hypoxic D/C 05/09/17- I d/w /pt at bedside (2) Atrial fibrillation, chronic Status: Chronic Discussed With: Patient Problem Specific Plan: Repeat Labs Problem Text: coumadin restarted 05/03/17. 3 mg. rate controlled. INR therapeutic 05/06/17. Coumadin held 05/07/17- due to possible inpt av fistula placement Coumadin restarted 05/08/17 (3) COPD (chronic obstructive pulmonary disease) Status: Chronic Discussed With: Patient Problem Specific Plan: Monitor Clinically Problem Text: baseline 4L supplemental O2 - follows with Dr. Barker currently requiring increased oxygen. Desaturated while ambulating on supplemental oxygen. Continues to smoke, plans to smoke when leaving hospital, but has been cutting down (4) Diastolic CHF Status: Chronic Discussed With: Patient Problem Specific Plan: Monitor Clinically Problem Text: had dialysis 05/05/17 and plan is to receive more dialysis . Patient will benefit from dialysis until fluid status is balanced. Has effusions noted on chest xray- should continue to improve with dialysis Reasonably compensated at present (5) CAD S/P percutaneous coronary angioplasty Status: Chronic Discussed With: Patient (6) Hx of renal cell carcinoma Status: Resolved Discussed With: Patient Problem Text: s/p left nephrectomy 2006 (7) Hypertension Status: Chronic Problem Specific Plan: Monitor Clinically (8) Hypothyroid Status: Chronic Problem Text: Continued home meds. Monitor as needed. (9) Acute and chronic respiratory failure with hypercapnia Status: Acute Response to Treatment: Improving Discussed With: Patient Problem Specific Plan: Consult Specialist Problem Text: Still on 5L this morning - baseline is 4L supplemental oxygen. (10) Nicotine addiction Status: Chronic Discussed With: Patient Problem Text: Counselling and cessation assistance offered at bedside previously. Patient refused. Monitor as needed. (11) Anemia Status: Chronic Problem Specific Plan: Monitor Clinically, Repeat Labs Problem Text: trending similar level to previous day - likely secondary to CKD - continue to follow. check with morning labs. Plan/VTE VTE Prophylaxis Ordered?: Yes (hep gtt/coumadin) VS, I&O, 24H, Fishbone Vital Signs/I&O Vital Signs Date Time Temp Pulse Resp B/P (MAP) Pulse Ox O2 Delivery O2 Flow Rate FiO2 05/08/17 11:19 66 110/40 05/08/17 06:00 98.5 16 99 Nasal Cannula 5.0 I&O- Last 24 Hours up to 6 AM 05/08/17 06:00 Intake Total 1920 ml Output Total 2350 ml Balance -430 ml Laboratory Data 24H LABS Laboratory Tests 2 05/08/17 06:09: Prothrombin Time 28.7H, Prothromb Time International Ratio 2.70, Blood Urea Nitrogen 25H, Creatinine 2.62H, Sodium Level 138, Potassium Level 4.3, Chloride Level 103, Carbon Dioxide Level 30, Anion Gap 5L, Glomerular Filtration Rate 19.3L, Calcium Level 8.5L, Phosphorus Level 3.7, Albumin 2.7L CBC/BMP Laboratory Tests 05/08/17 06:09 Red Blood Count 3.07 L, Mean Corpuscular Volume 107.1 H, Mean Corpuscular Hemoglobin 31.6, Mean Corpuscular Hemoglobin Concent 29.5 L, Red Cell Distribution Width 15.7 H, Anion Gap 5 L Microbiology Microbiology 05/03/17 Gastrointestinal Tract Panel (PCR) - Final, Complete FLINT,LUIGI Irene MD May 08, 2017 13:03
[2017-05-08 14:00] VITALS: BP 109/53
[2017-05-08] MEDS ORDERED: WARFARIN SOD 2.5 MG TAB PO SCH (17:00)
[2017-05-08 20:20] VITALS: BP 120/59
[2017-05-08] MEDS: FUROSEMIDE 20 MG TAB PO SCH (20:28)
[2017-05-08] MEDS: ATORVASTATIN 20 MG TAB PO SCH (20:29)
[2017-05-08] MEDS: SERTRALINE 100 MG TAB PO SCH (20:29)
[2017-05-08] MEDS: OMEGA-3 1050MG CAPSULE PO SCH (20:29)
[2017-05-08] MEDS: ANEXSIA, NORCO 7.5MG/325MG TABLET(HYDROCODONE/APAP) PO PRN (20:29)
[2017-05-08] MEDS: ISOSORBIDE DIN. (ISORDIL) 20 MG TAB PO SCH (20:30)
[2017-05-09] MEDS: IPRATROPIUM 0.5MG/ALBUTEROL 2.5MG INH SOL UD 3ML (DUONEB)(J7620) NEB SCH ×2 (01:38→07:56)
[2017-05-09] MEDS: ACETAMINOPHEN TAB 650MG DOSE (2X325MG) PO PRN (04:53)
[2017-05-09 05:19] VITALS: BP 112/59
[2017-05-09 05:50] LABS: MEAN CORPUSCULAR HEMOGLOBIN 31.7 pg (27.0-33.0); MEAN CORPUSCULAR HGB CONC 29.7 g/dl (32.0-36.5); WHITE BLOOD COUNT 5.8 K/mm3 (4.0-10.0)
[2017-05-09] MEDS: LEVOTHYROXINE 25MCG TABLET (0.025MG) PO SCH (05:51)
[2017-05-09] MEDS: LEVOTHYROXINE 150MCG TABLET (0.15MG) PO SCH (05:51)
[2017-05-09 05:55] LABS: INR 1.89
[2017-05-09] MEDS: SLF 3 ML SYR IV SCH (06:00)
[2017-05-09 06:02] LABS: ALBUMIN 2.9 GM/DL (3.2-5.2); CALCIUM LEVEL 8.3 MG/DL (8.8-10.2); CREATININE FOR GFR 3.75 MG/DL (0.55-1.02); GLOMERULAR FILTRATION RATE 12.8 (>45); PHOSPHORUS LEVEL 4.4 MG/DL (2.5-4.9); POTASSIUM SERUM 4.7 MEQ/L (3.5-5.1)
[2017-05-09] MEDS: TIOTROPIUM INHALER/CAPSULE (SPIRIVA) INH SCH (07:56)
[2017-05-09] MEDS: SYMBICORT 160/4.5MCG INHALER 6GM INH SCH (07:56)
[2017-05-09] MEDS: CALCITRIOL 0.25 MCG CAP (S0169) PO SCH (08:52)
[2017-05-09] MEDS: OMEPRAZOLE 20 MG CAP PO SCH (08:52)
[2017-05-09 08:53] VITALS: BP 112/59
[2017-05-09] MEDS: predniSONE 5 MG TAB PO SCH (08:53)
[2017-05-09] MEDS: FUROSEMIDE 20 MG TAB PO SCH (08:53)
[2017-05-09] MEDS: FOLIC ACID 1 MG TAB PO SCH (08:53)
[2017-05-09] MEDS: BISOPROLOL FUMARATE 5 MG TAB PO SCH (08:53)
--- NOTE | 2017-05-09 12:11 | IPN ---
DATE: 05/08/2017 SUBJECTIVE: The patient was seen and examined at the bedside today in the morning. She was actually lying in bed sleeping comfortably this morning when I saw her. The patient reports that her shortness of breath is significantly better. The patient was dialyzed yesterday according to her regular schedule. She tolerated the procedure well. The patient is afebrile and hemodynamically stable at this time. REVIEW OF SYSTEMS: The patient denies any fevers, chills, rigors, headaches, nausea, vomiting, chest pain. She reports that she is not short of breath at rest. She only gets short of breath when walking around. She denies any pain abdomen, constipation, or diarrhea. Rest of review of systems is negative. OBJECTIVE: VITAL SIGNS: Temperature is 98.5 degrees Fahrenheit, blood pressure is 108/58, pulse is 61, respiratory rate of 16, saturating 99% on nasal cannula at five liters per minute. INTAKE AND OUTPUT: Urine output recorded as only 250 mL since overnight. Ultrafiltration with hemodialysis was two liters yesterday. PHYSICAL EXAMINATION: GENERAL: The patient is awake, alert, and oriented times three, lying in bed, no apparent distress. HEAD/NECK: Extraocular muscles intact. Pupils equal, round, and reactive to light. The patient has temporal wasting and she is cachectic. There is no jugular venous distention (JVD) at this time. CARDIOVASCULAR: S1, S2, regular rate. No murmur, rub, or gallop. RESPIRATORY: Mildly decrease breath sounds at the bases with mild crepitations at the bases on deep inspiration. ARTERIOVENOUS (AV) ACCESS: The patient has a right internal jugular (IJ) tunneled hemodialysis catheter. ABDOMEN: Soft. Positive bowel sounds. Nontender. No ascites. No organomegaly. EXTREMITIES: The patient has very trace edema of the bilateral ankles. Pulses are 2+. There is no cyanosis of the extremities; however, she does have clubbing. CENTRAL NERVOUS SYSTEM (HEALTH INFORMATION CLERK): No focal neurological deficit. Power is 5/5 in all extremities. LABORATORY DATA: CBC showed a WBC 6, hemoglobin 9.7, platelets 106. INR is 2.7. BMP done today morning showed sodium 138, potassium 4.3, chloride 103, bicarbonate 30, BUN 25, creatinine 2.6, calcium 8.5, phosphorus 3.7, albumin 2.7. CURRENT INPATIENT MEDICATIONS: The patient's medications were all reviewed by me. Only new medication is Lasix 60 mg by mouth daily which was started today. ASSESSMENT: A 66-year-old female with past medical history of end-stage chronic obstructive pulmonary disease (COPD), dependent on oxygen, chronic active smoke, chronic kidney disease stage V which has progressed to end-stage renal disease during this admission requiring hemodialysis. PLAN: 1. End-stage renal disease: The patient is being dialyzed according to Tuesday, , Tuesday schedule. She was dialyzed yesterday. Volume status is being optimized with dialysis. However, I have started the patient on home dose of Lasix 60 mg by mouth daily to prevent the intradialytic weight gain. 2. End-stage COPD and hypoxemia: The patient has chronic oxygen dependence; however, she continues to smoke despite being dependent on oxygen. She is currently requiring five liters of oxygen. Continue the physical therapy. Fluid status has been optimized with dialysis. I believe the patient is back to her baseline COPD status. The rest of the management is as per primary team. 3. Anemia in end-stage renal disease: The patient's hemoglobin is 9.7, which is slightly suboptimal. However, I will continue the current dose of Aranesp 100 mcg intravenous (IV) with hemodialysis. Rest of the anemia management will be according to outpatient protocol. 4. Hypertension: Blood pressure is acceptable at this time. Continue bisoprolol 5 mg daily, isosorbide 20 mg daily. 5. AV access: The patient has a right IJ tunneled hemodialysis catheter. She has been evaluated by vascular surgery. They plan to do the AV fistula under mild sedation and local anesthesia. 6. Discharge planning: It is okay to discharge the patient from nephrology standpoint whenever her pulmonary status is stable. Plan of care was discussed with the hospitalist, Dr. Mckeon, and with the vascular surgeon, Dr. Ramirez.
--- NOTE | 2017-05-09 20:03 | IPN ---
DATE: 05/09/2017 SUBJECTIVE: The patient was seen and examined at the bedside today in the morning. She feels back to her baseline status. She is still requiring oxygen, but she reports she is able to ambulate at this time. Volume status is optimized. The patient is getting ready to be discharged today. REVIEW OF SYSTEMS: The patient denies any fever, chills, rigors, headache, nausea, vomiting, chest pain. She does report her shortness of breath is at her baseline. She reports shortness of breath on moderate exertion. She denies any pain in abdomen, constipation or diarrhea. The rest of the review of systems is negative. OBJECTIVE: VITAL SIGNS: Temperature is 97.9 degrees Fahrenheit. Blood pressure is 112/59, pulse is 83, respiratory rate of 18, saturating 88% on 4 liters of nasal cannula. Intake and output: Urine output recorded is 300 mL yesterday, 150 mL so far today since overnight. Weight in the bed scale is not available. PHYSICAL EXAMINATION: GENERAL: The patient is awake, alert and oriented times three. Sitting in the bed. No apparent distress at this time. HEAD/NECK: Extraocular muscles intact. Pupils equally round and reactive to light. The patient is cachectic. She has temporal wasting. CARDIOVASCULAR: S1, S2, regular rate. No murmur, rub or gallop. RESPIRATORY: Mildly decreased breath sounds at the bases, with mild crepitations on deep inspiration. The patient is oxygen dependent, currently wearing nasal cannula. AV ACCESS: The patient has a right IJ tunneled hemodialysis catheter. ABDOMEN: Soft. Positive bowel sounds. Nontender. No ascites. No organomegaly. EXTREMITIES: The patient has trace edema on the bilateral ankles. She does have clubbing in bilateral fingers. CENTRAL NERVOUS SYSTEM: No focal neurological deficit. Power is 5/5 in all extremities. LAB REVIEW: CBC showed a WBC of 5.8, hemoglobin 9.4, platelets of 121, INR is 1.89. BMP showed sodium 137, potassium 4.7, chloride 104, bicarbonate 26, BUN 38, creatinine 3.7. Calcium is 8.3, albumin 2.9. CURRENT INPATIENT MEDICATIONS: The patient's medications are all reviewed by me. There is no change in the medications today apart from change in the Coumadin dose. ASSESSMENT: 66-year-old female with past medical history of end-stage renal disease, COPD, dependent on oxygen, chronic active smoker admitted this time because she has progressed to end-stage renal disease. The patient was started on hemodialysis during this admission. PLAN: 1. End-stage renal disease. The patient's dialysis days are Tuesday, , Tuesday. She already has a chair available at outpatient dialysis center. She will be dialyzed according to her schedule tomorrow morning. 2. End-stage COPD and hypoxemia. The patient is oxygen dependent. Despite her severe COPD, she continues to smoke. The patient was advised again to quit smoking. Continue the home oxygen at this time 3. Anemia and end-stage renal disease. The patient's hemoglobin is suboptimal. The rest of the anemia management will be done as outpatient anemia protocol. 4. Hypertension. Blood pressure is acceptable at this time with current dose of bisoprolol 5 mg daily and isosorbide 20 mg daily. 5. AV access. The patient has a tunneled right IJ hemodialysis catheter. She will get the AV fistula placed by vascular surgery as outpatient after discharge. DISCHARGE PLANNING: It is okay to discharge the patient from nephrology standpoint.
--- NOTE | 2017-05-10 06:05 | DSES ---
DATE OF ADMISSION: 04/28/2017 DATE OF DISCHARGE: 05/09/2017 SPECIALISTS INVOLVED IN HER STAY INCLUDED: Dr. Carrillo, Dr. Spence, Dr. Ramirez, and Dr. Barlow. DISCHARGE DIAGNOSES: 1. End-stage renal disease on dialysis. 2. Atrial fibrillation. 3. Chronic pulmonary obstructive disease (COPD). 4. Diastolic congestive heart failure. 5. Coronary artery disease status post percutaneous coronary angioplasty. 6. History of renal cell carcinoma. 7. Hypertension. 8. Hypothyroidism. 9. Acute on chronic respiratory failure with hypercapnia. 10. Nicotine addiction. 11. Anemia. SUMMARY OF HOSPITALIZATION: This is a 66-year-old who presented with increasing shortness of breath with increasing use of diuretics. She has had worsening kidney function and decreasing level of activities. The patient was admitted to the hospitalist service and seen in consultation by nephrology. She had a PermaCath placed and began dialysis. She did suffer respiratory compromise and required BiPAP. She had significant volume overload and required multiple sessions of dialysis. Patient family services were consulted for arranging outpatient dialysis and she had a slow recovery with need for physical therapy. She had continued hypoxia. She was seen in consultation later in her stay by Dr. Ramirez for the possibility of arteriovenous (AV) fistula placement which will be pursued as an outpatient. PHYSICAL EXAMINATION VITAL SIGNS: On the day of discharge her temperature is 97.9, respirations 18, blood pressure 112/59, she is 88% on 4 liters which is her home level of oxygen. GENERAL: She is awake, appropriately interactive, pleasant and conversant. LUNGS: Breathing is symmetrical. I:E ratio is 1:4, diminished throughout, no wheezes. HEART: Distant sounding, normal S1, S2. ABDOMEN: Soft, doughy, nontender. One bowel movement on the day prior to discharge. LABORATORY DATA: White cell count 5.8, hemoglobin 9.4, platelets 121. BUN 38, creatinine 3.75. DISCHARGE INSTRUCTIONS: 1. Followup with Dr. Carrillo for dialysis tomorrow. 2. Activities as tolerated. 3. Renal diet, 15 mL/per 24 hour fluid restriction. DISCHARGE MEDICATIONS: - continue Tylenol 3-4 hours as needed for pain - [place] one tablet by mouth daily and daily at bedtime as needed for pain - albuterol two puffs every 4 hours as needed for shortness of breath - nebulizer every 4 hours as needed for shortness of breath - atorvastatin 40 mg by mouth daily at bedtime - Zebeta 5 mg by mouth daily - Symbicort two puffs inhaled twice daily - calcitriol 0.25 mcg by mouth daily - digoxin 0.125 mg three times a week - folic acid 1 mg by mouth daily - Lasix 60 mg by mouth daily at noon - iron supplement daily - isosorbide dinitrate 20 mg by mouth daily at bedtime - Synthroid 165 mcg daily - sublingual nitroglycerine as needed - omega 3 fatty acids one capsule daily at bedtime - omeprazole 40 mg by mouth daily - prednisone 5 mg by mouth daily - Sertraline 100 mg by mouth daily at bedtime - Renvela 800 mg by mouth with meals twice a day - Kionex 15 grams 15 grams by mouth weekly on Wednesdays - Coumadin to continue her home dosing
== END 2017-05-09 12:55 | disposition home health service (06) | DRG 682 ==
LOC: M ED 17:29 → M ED INP 18:40 → M MSPAV 20:14 → M ICU 04-29 12:50 → M MSPAV 05-01 10:57
PROVIDERS: ADMIT Internal Medicine; ATTEND Internal Medicine
PROC: 02HV33Z Insertion of Infusion Device into Superior Vena Cava, Percutaneous Approach (ICD-10-PCS; principal; 2017-04-29)
DX: I13.11 Hypertensive heart and chronic kidney disease without heart failure, with stage 5 chronic kidney disease, or end stage renal disease (principal); J96.22 Acute and chronic respiratory failure with hypercapnia; J96.21 Acute and chronic respiratory failure with hypoxia; I50.31 Acute diastolic (congestive) heart failure; N18.6 End stage renal disease; N25.81 Secondary hyperparathyroidism of renal origin; J44.9 Chronic obstructive pulmonary disease, unspecified; E87.70 Fluid overload, unspecified; D50.9 Iron deficiency anemia, unspecified; F17.200 Nicotine dependence, unspecified, uncomplicated; E03.9 Hypothyroidism, unspecified; I25.10 Atherosclerotic heart disease of native coronary artery without angina pectoris; I48.91 Unspecified atrial fibrillation; Z79.899 Other long term (current) drug therapy; Z79.52 Long term (current) use of systemic steroids; Z88.5 Allergy status to narcotic agent; Z79.01 Long term (current) use of anticoagulants; K21.9 Gastro-esophageal reflux disease without esophagitis; E78.5 Hyperlipidemia, unspecified; I27.2 Other secondary pulmonary hypertension; F32.9 Major depressive disorder, single episode, unspecified; Z99.81 Dependence on supplemental oxygen; Z66 Do not resuscitate; D63.1 Anemia in chronic kidney disease; D69.6 Thrombocytopenia, unspecified

== ENCOUNTER 2017-06-15 16:01 | Emergency (ER) | payer MEDICARE, OTHER ==
[~2017-06-15] VITALS: Ht 162.6 cm; Wt 45.5 kg
[~2017-06-15 16:01] MED LIST changes: +ALBU83IN INH; -ATOR40TA PO; +ATOR40TA75 PO; +AZIT-12 PO; -AZIT250T3 PO; -COUM2.5T11 PO; +COUM2.5T17 PO; -FOLI1TAB2 PO; +FOLI1TAB4 PO; +IRON65TA PO; +KION15SU; +KION15SU PO; +LEVA1TAB2 PO; -LEVA500T PO; +LEVO175T2; +LEVO175T2 PO; +LEVO250T12 PO; -LEVO250T24 PO; -MUCI600T34 PO; +MUCI600T37 PO; +RENV2TAB; +RENV2TAB PO; +VITA1CAP40 PO; -VITA50003 PO
[2017-06-15] MEDS ORDERED: WARF05TA GT (16:13)
[2017-06-15] MEDS ORDERED: ASPIRIN 81 MG CHEW TABLET PO ONE (17:00)
[2017-06-15 17:25] LABS: ADD MANUAL DIFFER YES; MEAN CORPUSCULAR HEMOGLOBIN 31.5 pg (27.0-33.0); MEAN CORPUSCULAR HGB CONC 29.8 g/dl (32.0-36.5); MEAN CORPUSCULAR VOLUME 105.8 fl (80.0-96.0); PLATELET COUNT, AUTOMATED 134 k/mm3 (150-450); RED CELL DISTRIBUTION WIDTH 15.3 % (11.5-14.5); WHITE BLOOD COUNT 5.7 K/mm3 (4.0-10.0)
[2017-06-15 17:40] LABS: ANISOCYTOSIS 1+
[2017-06-15 17:42] LABS: HYPOCHROMASIA 2+
[2017-06-15 17:57] LABS: CALCIUM LEVEL 8.4 MG/DL (8.8-10.2); CREATININE FOR GFR 3.6 MG/DL (0.55-1.02); GLOMERULAR FILTRATION RATE 13.4 (>45); POTASSIUM SERUM 4.5 MEQ/L (3.5-5.1)
--- NOTE | 2017-06-15 17:58 | REP ---
Portable chest, single AP view the patient upright, 05:17 p.m.: Comparison is 05/06/2017. There are bilateral pleural effusions, not significantly changed. Cardiomegaly is again identified, unchanged. There is focal increased density inferiorly in the right lung, not present previously, suggestive of a new right lower lobe infiltrate. A dual lumen right IJ central venous catheter is again identified with the tip in the superior vena cava in satisfactory location, unchanged. Impression: Chronic changes as described. Possible new right lower lobe infiltrate. Signed by Miguel Mauro MD 06/15/2017 05:49 P
[2017-06-15 21:31] VITALS: BP 114/58
--- NOTE | 2017-06-16 21:28 | ECGEPIP ---
Stationary ECG Study [facility] - ED Test Date: 2017-06-15 Pat Name: ROBBIE GOLD Department: Room: - Gender: F Music Education Director: JKee : 1950 Requested By: Beau Lebron Order Number: [id number] Reading MD: Tiesha Hussein Measurements Intervals [place] Rate: 67 P: [place]: 0 QRS: 107 QRSD: 98 T: 0 QT: 364 QTc: 386 Interpretive Statements ATRIAL FIBRILLATION MARKED RIGHT AXIS DEVIATION NONSPECIFIC ST & T-WAVE ABNORMALITY Electronically Signed On 06-16-2017 21:28:36 EDT by Tiesha Hussein
--- NOTE | 2017-06-16 21:29 | ECGEPIP ---
Stationary ECG Study [facility] - ED Test Date: 2017-06-15 Pat Name: ROBBIE GOLD Department: Room: - Gender: F Shake Backboard Notcher: tk : 1950 Requested By: Beau Lebron Order Number: [id number] Reading MD: Tiesha Hussein Measurements Intervals [place] Rate: 49 P: [place]: 0 QRS: 102 QRSD: 100 T: 26 QT: 354 QTc: 320 Interpretive Statements ATRIAL FIBRILLATION WITH SLOW VENTRICULAR RESPONSE MARKED RIGHT AXIS DEVIATION MODERATE ST DEPRESSION DECREASED RATE 16:37 Electronically Signed On 06-16-2017 21:29:41 EDT by Tiesha Hussein
== END 2017-06-15 21:52 | disposition home or self-care (01) ==
LOC: M ED 16:01
DX: R07.89 Other chest pain (principal); I25.10 Atherosclerotic heart disease of native coronary artery without angina pectoris; I25.2 Old myocardial infarction; E11.9 Type 2 diabetes mellitus without complications; I10 Essential (primary) hypertension; E78.5 Hyperlipidemia, unspecified; J44.9 Chronic obstructive pulmonary disease, unspecified; Z98.61 Coronary angioplasty status; F17.210 Nicotine dependence, cigarettes, uncomplicated; Z88.8 Allergy status to other drugs, medicaments and biological substances; Z79.01 Long term (current) use of anticoagulants; Z79.899 Other long term (current) drug therapy

== ENCOUNTER 2017-06-23 18:30 | Inpatient (IN) | payer MEDICARE, OTHER ==
[~2017-06-23] VITALS: Ht 160 cm; Wt 44.5 kg
[~2017-06-23 18:30] MED LIST changes: +WARF05TA GT
[2017-06-23] MEDS ORDERED: COUM2.5T17 PO (18:48)
[2017-06-23] MEDS ORDERED: VITA200015 PO (18:48)
[2017-06-23 19:24] LABS: ADD MANUAL DIFFER YES; MEAN CORPUSCULAR HEMOGLOBIN 31.6 pg (27.0-33.0); MEAN CORPUSCULAR HGB CONC 29.3 g/dl (32.0-36.5); MEAN CORPUSCULAR VOLUME 107.9 fl (80.0-96.0); PLATELET COUNT, AUTOMATED 156 k/mm3 (150-450); RED CELL DISTRIBUTION WIDTH 15.3 % (11.5-14.5); WHITE BLOOD COUNT 6.7 K/mm3 (4.0-10.0)
[2017-06-23 19:30] LABS: INR 2.16
--- NOTE | 2017-06-23 19:44 | REP ---
AP PORTABLE CHEST: 06/23/2017: Comparison: 06/15/2017, 05/06/2017, 04/29/2017. Clinical history: Dyspnea, cough. Findings: There is a right jugular dialysis catheter tip in the SVC. Improvement since the study 8 days ago with less infiltrate or atelectasis and less pleural effusion on the right base. Trace left pleural effusion and small residual right effusion. Suspected skin fold overlying the posterior peripheral right mid lung zone. There are patchy areas of atelectasis or infiltrate in the right mid lung zone. There is cardiomegaly with left ventricular configuration and left atrial enlargement, venous hypertension noted. There is upper lung zone bullous emphysematous change. Calcified tortuous aortic arch without aneurysm. Airway intact. Impression: 1. Cardiomegaly with vascular redistribution, pulmonary venous hypertension. Bilateral effusions smaller on the right side since the 06/15/2017 study, increased on the left. 2. Patchy infiltrate or atelectasis right mid lung zone and decreased atelectasis or infiltrate in the right base compared to the previous study. A skin fold over the periphery of the right mid lung zone. 3. Indwelling right jugular catheter, tortuous calcified aorta, unchanged. Signed by Harinder Irby MD 06/24/2017 11:03 A
[2017-06-23 19:52] LABS: CALCIUM LEVEL 8.3 MG/DL (8.8-10.2); CREATININE FOR GFR 2.15 MG/DL (0.55-1.02); GLOMERULAR FILTRATION RATE 24.3 (>45); POTASSIUM SERUM 3.5 MEQ/L (3.5-5.1)
[2017-06-23 19:57] LABS: ALBUMIN 3.4 GM/DL (3.2-5.2); ALBUMIN/GLOBULIN RATIO 1.03 (1.00-1.93); BILIRUBIN,DIRECT 0.1 MG/DL (0.0-0.2); BILIRUBIN,TOTAL 0.4 MG/DL (0.2-1.0); TOTAL PROTEIN 6.7 GM/DL (6.4-8.2)
[2017-06-23 19:59] LABS: EOSINOPHILS 1 % (0-5)
[2017-06-23 20:00] LABS: ANISOCYTOSIS 1+
[2017-06-23] MEDS: IPRATROPIUM 0.5MG/ALBUTEROL 2.5MG INH SOL UD 3ML (DUONEB)(J7620) NEB SCH ×3 (20:22→20:44)
[2017-06-23] MEDS ORDERED: AZITHROMYCIN INJ 500 MG, VIAL MATE ADAPTER 1 EACH in D5W 250 ML IV ONE (20:30)
[2017-06-23] MEDS ORDERED: CEFUROXIME SODIUM 1.5 GM in D5W MINI-BAG PLUS 50 ML IV ONE (20:30)
[2017-06-23 20:49] LABS: ABG BASE EXCESS 4.5 (-2.0-2.0); ABG HCO3 34.5 MEQ/L (22.0-26.0); ABG PARTIAL PRESSURE O2 214.9 mmHg (75.0-100.0); ABG STANDARD HCO3 28.5 MEQ/L (22.0-26.0); ABG TOTAL CO2 37.2 MEQ/L (23.0-31.0); ABG pH (ARTERIAL) 7.217 UNITS (7.350-7.450)
[2017-06-23 20:50] LABS: ABG PARTIAL PRESSURE CO2 86.9 mmHg (35.0-45.0)
[2017-06-23] MEDS ORDERED: ONDANSETRON 4MG/2ML VIAL (J2405) As Ordered ONE (20:52)
[2017-06-23] MEDS: ATORVASTATIN 20 MG TAB PO SCH (21:00)
[2017-06-23] MEDS: OMEGA-3 1050MG CAPSULE PO SCH (21:00)
[2017-06-23] MEDS: ISOSORBIDE DIN. (ISORDIL) 20 MG TAB PO SCH (21:00)
[2017-06-23] MEDS ORDERED: ONDANSETRON 4MG/2ML VIAL (J2405) IV ONE (21:00)
--- NOTE | 2017-06-23 21:02 | ECGEPIP ---
Stationary ECG Study [facility] - ED Test Date: 2017-06-23 Pat Name: ROBBIE GOLD Department: Room: - Gender: F Director Of Communications: beverley : 1950 Requested By: Tiesha Hussein Order Number: [id number] Reading MD: Tiesha Hussein Measurements Intervals [place] Rate: 60 P: [place]: 0 QRS: 105 QRSD: 96 T: 120 QT: 349 QTc: 349 Interpretive Statements ATRIAL FIBRILLATION POSSIBLE RIGHT VENTRICULAR HYPERTROPHY NONSPECIFIC ST & T-WAVE ABNORMALITY INCREASED RATE 06/15/17 Electronically Signed On 06-23-2017 21:02:26 EDT by Tiesha Hussein
[2017-06-23] MEDS ORDERED: SYMB80INH INH (23:17)
[2017-06-23] MEDS ORDERED: DIGO0.12 PO (23:17)
[2017-06-24] VITALS (14 sets, daily range): BP systolic 91–146; BP diastolic 41–114; O2SAT 96
[2017-06-24] MEDS ORDERED: ANEXSIA, NORCO 7.5MG/325MG TABLET(HYDROCODONE/APAP) PO PRN
[2017-06-24] MEDS ORDERED: NITROGLYCERIN 0.4 MG SUBL TABLET SL PRN
[2017-06-24] MEDS ORDERED: ALBUTEROL 90 MCG/ACT 8GM HFA INHALER INH PRN
[2017-06-24] MEDS ORDERED: ALBUTEROL SULFATE 2.5 MG/0.5 ML INH NEB SOLN INH PRN
--- NOTE | 2017-06-24 01:23 | HPE ---
DATE OF ADMISSION: 06/23/2017 PRIMARY CARE PROVIDER: Romel Powell MD. COOK SOUP: Don Carrillo MD. ATTENDING HOSPITALIST: Kurtis Larkin MD. CHIEF COMPLAINT: Shortness of breath. HISTORY OF PRESENTING ILLNESS: This is a 66-year-old female with history of chronic kidney disease stage V with left-sided nephrectomy with one solitary functioning right kidney, end-stage chronic obstructive pulmonary disease (COPD) on 4 liters of oxygen, active smoking 3-4 cigarettes daily, atrial fibrillation on anticoagulation, history of coronary artery disease (CAD), stent, diastolic congestive heart failure, hyperlipidemia, hypothyroidism, and hypertension presents to the emergency room with worsening shortness of breath since dialysis accompanied with subjective fevers, cough which is dry without nausea or vomiting, but with a headache. No abdominal pain. Shortness of breath worsened prompting the patient to come to the emergency room. In the emergency room (ER), she was found to have patchy infiltrate in the right midlung zone, atelectasis at the right base, vascular redistribution with pulmonary venous hypertension, bilateral effusions greater on the left with brain-natruretic peptide of 2430. Patient is admitted to the intensive care unit (ICU) for bilevel positive airway pressure (BiPAP) management due to a pH of 7.217, CO2 of 86.9, for BiPAP management while she is diuresed. Dr. Carrillo has been consulted for fluid management and diuresis. Patient denies any other sick contacts. She has received intravenous cefuroxime and azithromycin from the emergency room and is admitted as an inpatient. PAST MEDICAL HISTORY: 1. Solitary kidney. 2. Left-sided nephrectomy. 3. Chronic kidney disease stage V. 4. End-stage COPD. 5. Chronic hypoxic respiratory failure, 4 liters of home oxygen. 6. Active smoker, 3-4 cigarettes daily. 7. Atrial fibrillation on chronic anticoagulation. 8. CAD, stent. 9. Diastolic congestive heart failure. 10. Hypertension. 11. Hyperlipidemia. 12. Hypothyroidism. 13. Pulmonary hypertension. PAST SURGICAL HISTORY: 1. Left nephrectomy. 2. Cardiac stents in the past. 3. Right internal jugular tunneled hemodialysis catheter on 04/29/2017. ALLERGIES: HYDROMORPHONE. FAMILY HISTORY: No family history of end-stage renal disease. SOCIAL HISTORY: Lives with her family. Denies alcohol use. Active smoker, still smokes 3-4 cigarettes a day despite end-stage COPD and being oxygen dependent. HOME MEDICATIONS: - acetaminophen 650 every 4 hours - hydrocodone one tablet by mouth three times a day - albuterol sulfate 2.5 every six - atorvastatin 40 mg nightly - bisoprolol 5 mg daily - Symbicort 80/4.5 mcg twice a day - vitamin D 2000 units daily - digoxin 0.125 by mouth three times a week - folic acid 1 mg daily - isosorbide dinitrate 20 mg nightly - nitroglycerin 0.4 sublingually - omega-3 one capsule nightly - Prilosec 40 daily - prednisone 5 daily - sertraline 150 daily - Renvela 800 mg twice a day with meals - warfarin 2.5 mg daily - Synthroid 175 mcg daily REVIEW OF SYSTEMS: 12-point system negative aside from positive findings in history of present illness. PHYSICAL EXAMINATION: VITAL SIGNS: Temperature 98.3, pulse 70, respiratory rate 18, blood pressure 134/92, 91% on 5 liters nasal cannula. GENERAL: Patient is awake, alert, oriented times to person, place, answering questions appropriately. Mild respiratory distress. Positive jugular venous distention. Pupils round and reactive. Extraocular muscles are intact. Anicteric sclerae. No jaundice. No pallor. No use of respiratory accessory muscles. Can still speak in full sentences. LUNGS: Diminished with bilateral coarse rhonchi. HEART: S1, S2, irregularly irregular. ABDOMEN: Soft, nontender, nondistended. EXTREMITIES: Have no pitting edema. White count 6.7, hemoglobin 12, hematocrit 41, platelet count 156, 80% neutrophils. Sodium 139, potassium 3.5, chloride 98, bicarbonate 36, BUN 10, creatinine 2.15, glucose 109, lactic acid 1.2, total bilirubin 0.4, direct bilirubin 0.1, AST 13, ALT 13, alkaline phosphatase 64, BNP 2430. Two sets of blood cultures are pending. Chest x-ray patchy right middle lobe infiltrate, increased bilateral pleural effusion smaller on the right, increased on the left, indwelling right jugular venous catheter unchanged, cardiomegaly with vascular redistribution. ASSESSMENT AND PLAN: This is a 66-year-old female with history of a solitary kidney, left nephrectomy, chronic kidney disease stage V, glomerular filtration rate (GFR) has dropped to 11, on hemodialysis on Tuesday, , Tuesday, hypertension, hyperlipidemia, hypothyroidism, atrial fibrillation on anticoagulation, pulmonary hypertension, end-stage chronic obstructive pulmonary disease (COPD) on 4 liters of home oxygen, chronic active smoker, 3-4 cigarettes daily, diastolic congestive heart failure, coronary artery disease (CAD) with stent, presents to the emergency room with increasing shortness of breath, subjective fevers, dry cough and a headache that started today. Patient was found to have a right middle lobe infiltrate, as well as congestive heart failure with fluid overload and respiratory acidosis. Patient is admitted as an inpatient to intensive care unit (ICU), assigned to Dr. Kurtis Larkin. Patient will be admitted as an inpatient for two midnights for the following issues: 1. Acute on chronic hypoxic respiratory failure secondary to right middle lobe pneumonia, as well as fluid overload and diastolic congestive heart failure exacerbation with acute hypercarbia requiring bilevel positive airway pressure (BiPAP) treatment and diuresis with hemodialysis. Patient will be treated conservatively with full supportive care, intravenous antibiotics, supplemental oxygen, BiPAP management by Dr. Barlow, clinical services director plastics seasoner operator has been consulted, as well as diuresis by Dr. Carrillo, agriculture internship plastics seasoner operator. Continue with nebulizer treatments and supplemental oxygen to keep saturations greater than 88-92%. Sputum culture if possible, but patient states that it has been a dry cough. Monitor for any decompensation. 2. Fluid overload/diastolic congestive heart failure exacerbation. Patient continues to have bilateral pleural effusions, increased on the left. Dr. Carrillo has been consulted for fluid management and diuresis. Strict intake and output (I and O), daily weights and fluid restriction. Patient will be on a renal diet. Patient's right middle lobe pneumonia might have been the instigating factor that caused the fluid overload with elevated beta-natruretic peptide (BNP) of over 2000. 3. History of CAD, stent placement. Cycle cardiac markers in light of new fluid overload and congestive heart failure, diastolic dysfunction acute exacerbation to rule out acute ischemia as etiology for patient's decompensation. 4. Atrial fibrillation. Appears to be rate controlled. Continue on home dose of digoxin five times weekly. Check a digoxin level in the morning. Continue with anticoagulation with Coumadin. Check daily international normalized ratio (INR). Adjust accordingly. 5. Hypertension. Appears to be controlled at this time. 6. Hyperlipidemia, chronic. Continue on atorvastatin. 7. End-stage COPD. On 4 liters of home oxygen. Patient has coarse rhonchi on examination. Will be diuresed. If no significant improvement, may benefit from low-dose Solu-Medrol. For now continue on prednisone. 8. Depression. Continue on sertraline. 9. Vitamin D deficiency. Continue vitamin D. 10. Hypothyroidism. Check a thyroid-stimulating hormone (TSH). 11. Deep venous thrombosis (DVT) prophylaxis with subcutaneous heparin. Patient will be assigned to Dr. Kurtis Larkin at 7 a.m. on 06/24/2017.
[2017-06-24] MEDS: cefTRIAXone SOD 2 GM in D5W MINI-BAG PLUS 50 ML IV SCH (04:00)
[2017-06-24 05:18] LABS: ADD MANUAL DIFFER YES; MEAN CORPUSCULAR HEMOGLOBIN 31.1 pg (27.0-33.0); MEAN CORPUSCULAR HGB CONC 28.8 g/dl (32.0-36.5); PLATELET COUNT, AUTOMATED 121 k/mm3 (150-450); RED CELL DISTRIBUTION WIDTH 15.4 % (11.5-14.5); WHITE BLOOD COUNT 5.3 K/mm3 (4.0-10.0)
[2017-06-24 05:39] LABS: CALCIUM LEVEL 7.5 MG/DL (8.8-10.2); CREATININE FOR GFR 2.86 MG/DL (0.55-1.02); GLOMERULAR FILTRATION RATE 17.5 (>45); POTASSIUM SERUM 4.3 MEQ/L (3.5-5.1)
[2017-06-24 05:49] LABS: DIGOXIN LEVEL 2.4 NG/ML (0.5-2.0)
[2017-06-24 05:55] LABS: BANDS 1 % (< 11); EOSINOPHILS 5 % (0-5)
[2017-06-24 05:56] LABS: HYPOCHROMASIA 3+
[2017-06-24] MEDS: LEVOTHYROXINE 100MCG TABLET (0.1MG) PO SCH (06:00)
[2017-06-24] MEDS: LEVOTHYROXINE 75MCG TABLET (0.075MG) PO SCH (06:00)
[2017-06-24] MEDS: HEPARIN SOD (PORCINE) 5000 UNITS/ML VIAL SQ SCH ×3 (06:00→21:14)
--- NOTE | 2017-06-24 07:35 | REP ---
Chest single lateral view only: Comparison is the portable AP view from 06:57 p.m. earlier today. There are bilateral pleural effusions in the posterior sulci. There is a central venous catheter with the tip at the confluence of the superior vena cava and right atrium. There is demineralization and degenerative disc disease throughout the thoracic spine. Signed by Miguel Mauro MD 06/24/2017 07:27 A
[2017-06-24 08:33] LABS: ABG BASE EXCESS 4.8 (-2.0-2.0); ABG PARTIAL PRESSURE O2 88.4 mmHg (75.0-100.0); ABG STANDARD HCO3 28.8 MEQ/L (22.0-26.0); ABG TOTAL CO2 35.2 MEQ/L (23.0-31.0); ABG pH (ARTERIAL) 7.295 UNITS (7.350-7.450)
[2017-06-24 08:37] LABS: ABG PARTIAL PRESSURE CO2 69.5 mmHg (35.0-45.0)
[2017-06-24] MEDS: SYMBICORT 80/4.5MCG INHALER 6GM INH SCH ×2 (08:38→20:28)
[2017-06-24] MEDS: DIGOXIN 0.125 MG TAB PO SCH (09:00)
[2017-06-24] MEDS: BISOPROLOL FUMARATE 5 MG TAB PO SCH (09:00)
[2017-06-24] MEDS: VITAMIN D 1,000 INTERNATIONAL UNITS TABLET PO SCH (09:07)
[2017-06-24] MEDS: (RENVELA) SEVELAMER **CARBONate** 800 MG TAB PO SCH ×2 (09:07→17:33)
[2017-06-24] MEDS: OMEPRAZOLE 20 MG CAP PO SCH (09:07)
[2017-06-24] MEDS: FOLIC ACID 1 MG TAB PO SCH (09:07)
[2017-06-24] MEDS: predniSONE 5 MG TAB PO SCH (09:08)
[2017-06-24] MEDS: SERTRALINE HCL 50 MG TAB PO SCH (09:08)
--- NOTE | 2017-06-24 09:59 | CCN ---
DATE OF VISIT: 06/24/2017 Start time: 0832 hours Stop time: 0909 hours I was asked to attend Anjali Delgado here in the intensive care unit. Patient has been examined and chart reviewed. EMR has been reviewed as well. In essence, this is a 66-year-old female with known advanced obstructive lung disease and chronic hypoxemic and hypercapnic respiratory failure. She continues to smoke. She is generally maintained on Symbicort 160, nebulized albuterol and as needed albuterol MDI as an outpatient. Unfortunately, she continues to smoke. She is dialysis dependent generally receiving therapy on Tuesdays, and Saturdays. Yesterday, despite being dialyzed in the morning, she had increasing chest pressure and shortness of breath. She presented to the ER. Chest x-ray showed significant vascular congestion and small bilateral effusions. Blood gas done at that time showed a pH of 7.217, pCO2 of 86.9 and pO2 of 214.9 on an unknown oxygen flow. She was then placed on noninvasive support. She is scheduled for dialysis later this morning. On exam, she says she is breathing easier, although she hates the mask. She is having no further chest pain. She does not think she had fevers at home. She does have a little bit of a cough, but describes it as dry. Her past medical history is quite significant for known coronary artery disease with stents in placed on chronic anticoagulation for atrial fibrillation as well as known vascular disease and her chronic renal failure now on dialysis. She denies any hemoptysis. She was smoking right up until the time of her admission. Current medications here in the hospital azithromycin, Coumadin, Zebeta, her Symbicort, digoxin 0.125 daily, folic acid, Prilosec, prednisone 5 mg daily, Zoloft, sevelamer, Synthroid 175 mcg daily, Rocephin, pain medications as needed and nebulized albuterol, as well as her Lipitor, Isordil and fish oil. On exam, she is awake, alert and appropriate. Bilevel mask/noninvasive ventilatory mask in place. Pupils are reactive, sclera clear. Currently, blood pressure is 104/72. Heart rate in the 60s, somewhat irregular. Respiratory rate about 22 without any accessory muscle use and she is afebrile. As outlined above, pupils reactive, sclera clear. Trachea is in the midline. Chest diminished but symmetric expansion. There are dependent crackles. Breath sound intensity more markedly diminished at the bases. No convincing egophony. Cardiac exam is distant. I do believe irregular, but maybe an early systolic murmur. Peripheral pulses markedly diminished. Some trace dependent edema. Abdomen is soft, nontender with active bowel sounds. No hepatosplenomegaly or masses. Extremities no cyanosis or clubbing. Neurologically she is awake, alert and appropriate. Psych: normal mood and affect. Skins shows multiple bruises consistent with her anticoagulation. Other available laboratories show a blood gas done this morning on noninvasive support 31/08 with 40% FiO2 with a pH of 7.295, pCO2 of 69.5, and PaO2 of 88.4. Sodium 141, potassium 4.3, chloride 101, CO2 33, BUN 18, creatinine 2.86. Troponin max of 0.1 since admission. White blood cell count 5.3, hemoglobin 10.6, platelet count 121,000, 80% segs, 1% bands. White blood cell count 6.7 on admission with no bands. Chest x-ray is reviewed. There is cardiomegaly. Her dialysis catheter is in place. She has significant vascular congestion throughout. There may be small bilateral pleural effusions. There is some increased markings at the bases. I cannot discount an early infiltrate. The most pressing problems requiring my presence at the bedside: 1. Acute on chronic respiratory failure, both hypoxemic and hypercapnic. 2. Pulmonary vascular congestion. 3. Continued tobacco abuse. 4. Advanced obstructive lung disease and emphysema. At this point, we await repeat dialysis given the appearance of her x-ray. I wonder about progressive cardiac dysfunction and repeat echo may be worthwhile once she is off the bilevel. We had a long discussion regarding the need for smoking cessation. We will continue her outpatient pulmonary regimen. Overall, she is critically ill. I left the bedside at 0909 hours. 37 minutes of critical care time was delivered at the beside, not including procedures. BRYAN
[2017-06-24] MEDS ORDERED: HEPARIN 1,000 UNITS/ML 10ML VIAL (FOR RADIOLOGY& DIALYSIS ONLY) XX ONE (11:00)
--- NOTE | 2017-06-24 13:01 | CR ---
DATE OF CONSULTATION: 06/24/2017 REQUESTING PHYSICIAN: Dr. Kurtis Larkin CONSULTING PHYSICIAN: Dr. Spence REASON FOR CONSULTATION: Management of end-stage renal disease, hemodialysis and fluid overload. CHIEF COMPLAINT: Patient presented to the emergency room yesterday with progressive shortness of breath. HISTORY OF PRESENTING ILLNESS: Anjali Delgado is a 66-year-old female with past medical history end-stage renal disease on hemodialysis TTS. She was dialyzed yesterday according to her regular schedule. She has history of end-stage chronic obstructive pulmonary disease (COPD) currently on home oxygen at 4 liters, active smoker. She smokes about four cigarettes a day. History of atrial fibrillation on anticoagulation and multiple other comorbidities as mentioned below. Despite having a dialysis session yesterday, she presented to the emergency room with progressive shortness of breath, along with subjective feelings of fever, along with a dry cough. She also complained of central chest pain and pain in the epigastrium. The patient was found to have hypoxic and hypercapnic respiratory failure. She was started on bilevel positive airway pressure (BiPAP). She was transferred to intensive care unit (ICU). Initial chest x-ray showed the patient had vascular congestion, along with bilateral effusions. Nephrology service was called for further help in the management of end-stage renal disease and fluid overload. Patient had a brain natriuretic peptide (BNP) of 2430 on admission yesterday. When I saw the patient today morning in the ICU she was still on BiPAP. Her arterial blood gas (ABG) pH and pCO2 is improving, but she still complains that she is in respiratory distress at this time. She is unable to take off the BiPAP. PAST MEDICAL HISTORY: The patient has a past medical history of end-stage renal disease, currently on hemodialysis, end-stage COPD, on home oxygen dependent, active smoker, solitary functioning right kidney, atrial fibrillation, on anticoagulation, coronary artery disease, status post stent, history of diastolic congestive heart failure, hypertension, hypothyroidism, hyperlipidemia, and pulmonary hypertension. PAST SURGICAL HISTORY: Status post left nephrectomy, status post cardiac stents in the past, status post right internal jugular (IJ) tunneled hemodialysis catheter placement. ALLERGIES: Patient is allergic HYDROMORPHONE. FAMILY HISTORY: No significant family history of end-stage renal disease requiring hemodialysis. SOCIAL HISTORY: Patient lives with her . She denies any illicit drug abuse or alcohol abuse. She is an active smoker despite being on home oxygen with end-stage COPD, and she has been counseled multiple times to quit smoking but she is unable to quit. REVIEW OF SYSTEMS: CONSTITUTIONAL: Patient reports symptoms of fevers and chills. EYES: SHE denies any blurry vision or double vision. ENT: She denies any dysphagia, odynophagia or ear discharge. CARDIOVASCULAR: Patient reports central hest pain and she reports progressive shortness of breath. RESPIRATORY: Patient reports history of COPD and home oxygen dependence and shortness of breath and inability to walk. GASTROINTESTINAL: She denies any pain in abdomen, constipation or diarrhea. Patient does report decreased appetite. GENITOURINARY: She denies any dysuria or hematuria. MUSCULOSKELETAL: She denies any muscle aches and pains. CENTRAL NERVOUS SYSTEM: She denies any strokes and seizures. PSYCHIATRIC: Patient denies any depression or anxiety at this time. HEMATOLOGICAL/ONCOLOGIC: Patient denies any active bleeding or bruising. She does report history of anemia secondary to end-stage renal disease. ENDOCRINE: Patient is not diabetic. She does report history of hypothyroidism. All of the review of systems is negative. PHYSICAL EXAMINATION: GENERAL: Patient is awake, alert, oriented times three, in moderate respiratory distress, currently wearing BiPAP at this time. VITAL SIGNS: Temperature is 97.5 degrees Fahrenheit. Blood pressure is 99/72. Pulse is 66. Respiratory rate of 22. Saturating 99% on 60% FiO2 via BiPAP. HEAD/NECK EXAM: Extraocular muscles intact. Pupils equally round and reactive to light. Patient is currently on BiPAP at this time, which was not taken off because of shortness of breath. Mucous membranes are moist. Neck is supple. There is significantly elevated jugular venous distension (JVD). CARDIOVASCULAR: S1, S2. Irregularly irregular heart rate. No murmur, rub or gallop. RESPIRATORY: Decreased breath sounds at the bases and mild expiratory rhonchi bilaterally. ABDOMEN: Is soft, positive bowel sounds, nontender. No organomegaly. AV ACCESS: Patient has a right IJ tunneled hemodialysis catheter. MUSCULOSKELETAL: Patient has mild cyanosis of her extremities. Otherwise, no edema. Pulses are 2+. CENTRAL NERVOUS SYSTEM: No focal neurologic deficit. Patient is slightly anxious. Otherwise, power is 5/5 in all extremities. SKIN: No rashes or ulcers. PSYCHIATRIC: Anxious mood at this time. LABORATORY REVIEW: CBC showed a WBC 5.3, hemoglobin 10.6, platelets of 121. INR is 2.1. ABG done yesterday showed a pH of 7.27 with pCO2 of 86. Repeat ABG today morning on BiPAP showed a pH of 7.29, pCO2 of 69, pO2 88. Bicarbonate is 33. Oxygen saturation is 96%. BMP today morning showed sodium 141, potassium 4.3, chloride 101, bicarbonate 33, BUN 18, creatinine is 2.8, calcium 7.5, albumin is 3.4, TSH is 3.3. BNP last night was 2430. MICROBIOLOGY: Blood cultures are pending. IMAGING: A chest x-ray done today morning showed bilateral pleural effusions and positive pulmonary vasculature congestion. CURRENT INPATIENT MEDICATIONS: Patient's medications were all reviewed by me. She has been started on: - azithromycin 500 mg IV daily - Rocephin 2 gram IV every 24 - Tylenol as needed - Lipitor 40 mg nightly - bisoprolol 5 mg daily - Symbicort two puff twice a day - digoxin 0.125mg by mouth Tuesday/Tuesday/Tuesday - folic acid 1 mg by mouth daily - heparin subcu - isosorbide 20 mg by mouth nightly - levothyroxine 175 mcg daily - omeprazole 40 mg daily - Zofran as needed - prednisone 5 mg by mouth daily - Zoloft 150 mg by mouth daily - Renvela 800 mg by mouth twice a day with meals - vitamin D 2000 units daily - Coumadin 2.5 mg by mouth daily ASSESSMENT: 66-year-old female with past medical history of end-stage renal disease on hemodialysis outpatient schedule TTS last hemodialysis session yesterday. She has history of atrial fibrillation (AFib) on anticoagulation, hypothyroidism, end-stage chronic obstructive pulmonary disease , on home oxygen, along with pulmonary hypertension, admitted at this time because of fluid overload and hypercapnic respiratory failure. PLAN: 1. Acute hypercapnic respiratory failure and history of COPD. Continue BiPAP as per pulmonary service. Continue the nebulizations. Respiratory acidosis is improving at this time. Rest of the management is as per pulmonary service. 2. Acute decompensated diastolic congestive heart failure. Patient has high BNP, bilateral effusions and pulmonary congestion on the x-ray. She will be dialyzed today for 3 hours and we shall try to remove about 2-2.5 kg of fluid as tolerated by her blood pressure. If needed, patient will get another session of hemodialysis and ultrafiltration tomorrow morning according to her schedule. 3. Atrial fibrillation. Her heart rate is controlled at this time. Continue current dose of digoxin. Continue anticoagulation with Coumadin. International normalized ratio (INR) is therapeutic at 2.1 at this time. 4. Anemia and end-stage renal disease. Hemoglobin is 10.6, which is acceptable. No need of blood transfusion or Aranesp administration at this time. 5. Chronic kidney disease, mineral bone disease. Continue current dose of Renvela 800 mg by mouth twice a day with meals. 6. Hypertension. Blood pressure is acceptable at this time. Continue current dose of bisoprolol 5 mg daily, isosorbide 20 mg daily. 7. Depression. Continue home dose of sertraline. 8. Hypothyroidism. Continue current dose of levothyroxine 175 mcg by mouth daily. If patient is unable to take the tablets, then she can be given half the oral dose as IV every day in the morning. Thank you for involving us in the care of this patient. We shall be happy to follow the patient along with you tomorrow morning. Patient's bedside hemodialysis was arranged. She will be dialyzed in the afternoon. Plan of care was discussed with the pulmonary team, Dr. Barlow and with patient's registered nurse (RN) at the bedside. BRYAN
--- NOTE | 2017-06-24 17:26 | IPNPDOC ---
Subjective Date Seen The patient was seen on 06/24/17. Subjective Chief Complaint/HPI Patient seen and examined at the bedside this morning. Noted to have her BiPAP mask on, in no acute distress and denies any acute complaints of chest pain at this time. Objective Physical Examination General Exam: Positive: Alert, Cooperative, No Acute Distress, Other (BIPAP Mask on) ENT Exam: Positive: Atraumatic Neck Exam: Positive: JVD Chest Exam: Positive: Rales (bibasilar rales noted on auscultation), Diminished Heart Exam: Positive: Rate Normal, Irregular Rhythm, Normal S1, Normal S2 Telemetry: Positive: Atrial fibrillation Abdomen Exam: Positive: Soft, Negative: Tenderness Extremity Exam: Negative: Tenderness, Swelling Assessment /Plan Plan/VTE VTE Prophylaxis Ordered?: Yes Plan Acute on chronic hypoxic and hypercapnic respiratory failure requiring bilevel ventilation support 2/2 Decompensated CHF Chest x-ray notable for bilateral pleural effusions ABG with improving respiratory acidosis this morning with BiPAP therapy Pulmonary on board-appreciate their input We will try to optimize the patient's volume status with dialysis, with assistance from Nephro Continue albuterol, Symbicort, Prednisone Continue azithromycin and Rocephin for possible infiltrate The patient continues use of tobacco, I have extensively discussed the need to abstain with the patient at the bedside. End-stage renal disease on hemodialysis Nephrology on board History of CAD, s/p Stents in the past EKG with no acute ST changes noted Patient denies chest pain at this time Troponin levels negative as of this morning-we will serially monitor Continue bisoprolol, Statin, Not on ASA (Already on Coumadin) Atrial fibrillation, stable Rate controlled with Bisoprolol Continue digoxin Continue Coumadin, INR level was noted to be therapeutic Dyslipidemia Continue statin Hypothyroidism Continue Synthroid End-stage COPD Continue management as noted above GERD continue Protonix Depression, stable Continue sertraline Hx of C. Diff Patient does have some Diarrhea here--will order C. Diff study DVT prophylaxis Therapeutic INR on Coumadin Dispo-we will continue to optimize the patient's volume/respiratory status with dialysis and bilevel ventilatory support. VS, I&O, 24H, Fishbone Vital Signs/I&O Vital Signs Date Time Temp Pulse Resp B/P (MAP) Pulse Ox O2 Delivery O2 Flow Rate FiO2 06/24/17 15:40 40 06/24/17 14:00 61 16 124/59 (80) 97 NIPPV (BIPAP/CPAP) 06/24/17 12:00 97.8 06/23/17 23:00 5.0 I&O- Last 24 Hours up to 6 AM 06/24/17 05:59 Intake Total 0 ml Output Total 0 ml Balance 0 ml Laboratory Data 24H LABS Laboratory Tests 2 06/23/17 19:05: Neutrophils 80H, Lymphocytes (Manual) 15L, Monocytes (Manual) 4, Eosinophils ( Manual) 1, Platelet Estimate NORMAL, Anisocytosis 1+, Macrocytosis 1+, Prothrombin Time 24.9H, Prothromb Time International Ratio 2.16, Activated Partial Thromboplast Time 41.3H, Anion Gap 5L, Glomerular Filtration Rate 24.3L , Lactic Acid Level 1.2, Blood Urea Nitrogen 10, Creatinine 2.15H, Sodium Level 139, Potassium Level 3.5, Chloride Level 98, Carbon Dioxide Level 36H, Calcium Level 8.3L, Total Creatine Kinase 25L, Aspartate Amino Transf (AST/SGOT) 13L, Alanine Aminotransferase (ALT/SGPT) 13, Alkaline Phosphatase 64, Total Bilirubin 0.4, Direct Bilirubin 0.1, Creatine Kinase MB 2.0, Creatine Kinase MB Relative Index 8.00H, Troponin I 0.04, B-Type Natriuretic Peptide 2430H, Total Protein 6.7, Albumin 3.4, Albumin/Globulin Ratio 1.03, Thyroid Stimulating Hormone (TSH) 3.330 06/23/17 20:08: Blood Gas Bicarbonate Standard 28.5H, Arterial Blood pH 7.217*L, Arterial Blood Partial Pressure CO2 86.9*H, Arterial Blood Partial Pressure O2 214.9H, Arterial Blood Total CO2 37.2H, Arterial Blood HCO3 34.5H, Arterial Blood Base Excess 4.5H, Arterial Blood Oxygen Saturation 99.5H 06/24/17 00:35: Total Creatine Kinase 20L, Creatine Kinase MB 1.6, Creatine Kinase MB Relative Index 8.00H, Troponin I 0.04 06/24/17 05:01: Neutrophils 80H, Lymphocytes (Manual) 7L, Monocytes (Manual) 7, Eosinophils ( Manual) 5, Platelet Estimate NORMAL, Macrocytosis 3+, Anion Gap 7L, Glomerular Filtration Rate 17.5L, Blood Urea Nitrogen 18#, Creatinine 2.86H, Sodium Level 141, Potassium Level 4.3#, Chloride Level 101, Carbon Dioxide Level 33H, Calcium Level 7.5L, Total Creatine Kinase 20L, Creatine Kinase MB 2.2, Creatine Kinase MB Relative Index 11.00H, Troponin I 0.10#, Thyroid Stimulating Hormone ( TSH) 2.740, Band Neutrophils 1, Hypochromasia 3+, Digoxin Level 2.4H 06/24/17 08:24: Blood Gas Bicarbonate Standard 28.8H, Arterial Blood pH 7.295L, Arterial Blood Partial Pressure CO2 69.5*H, Arterial Blood Partial Pressure O2 88.4, Arterial Blood Total CO2 35.2H, Arterial Blood HCO3 33.0H, Arterial Blood Base Excess 4.8H, Arterial Blood Oxygen Saturation 96.6 06/24/17 11:27: Total Creatine Kinase 20L, Creatine Kinase MB 2.0, Creatine Kinase MB Relative Index 10.00H, Troponin I 0.14#H CBC/BMP Laboratory Tests 06/23/17 19:05 Red Blood Count 3.82 L, Mean Corpuscular Volume 107.9 H, Mean Corpuscular Hemoglobin 31.6, Mean Corpuscular Hemoglobin Concent 29.3 L, Red Cell Distribution Width 15.3 H, Calcium Level 8.3 L, Total Creatine Kinase 25 L 06/24/17 05:01 Red Blood Count 3.40 L, Mean Corpuscular Volume 108.0 H, Mean Corpuscular Hemoglobin 31.1, Mean Corpuscular Hemoglobin Concent 28.8 L, Red Cell Distribution Width 15.4 H, Calcium Level 7.5 L, Total Creatine Kinase 20 L Microbiology Microbiology 06/23/17 Blood Culture, Received Pending 06/23/17 Blood Culture, Received Pending SERA LOWERY MD Jun 24, 2017 17:25
[2017-06-24] MEDS: WARFARIN SOD 2.5 MG TAB PO SCH (17:33)
[2017-06-24] MEDS: ISOSORBIDE DIN. (ISORDIL) 20 MG TAB PO SCH (21:00)
[2017-06-24] MEDS: ATORVASTATIN 20 MG TAB PO SCH (21:13)
[2017-06-24] MEDS: AZITHROMYCIN INJ 500 MG, VIAL MATE ADAPTER 1 EACH in D5W 250 ML IV SCH (21:13)
[2017-06-24] MEDS: OMEGA-3 1050MG CAPSULE PO SCH (21:13)
[2017-06-25] VITALS (11 sets, daily range): BP systolic 94–134; BP diastolic 39–80; O2SAT 98
[2017-06-25] MEDS: cefTRIAXone SOD 2 GM in D5W MINI-BAG PLUS 50 ML IV SCH (04:25)
[2017-06-25 04:43] LABS: ADD MANUAL DIFFER YES; MEAN CORPUSCULAR HEMOGLOBIN 31.6 pg (27.0-33.0); MEAN CORPUSCULAR HGB CONC 29.5 g/dl (32.0-36.5); MEAN CORPUSCULAR VOLUME 106.8 fl (80.0-96.0); PLATELET COUNT, AUTOMATED 105 k/mm3 (150-450); RED CELL DISTRIBUTION WIDTH 15.3 % (11.5-14.5); WHITE BLOOD COUNT 5.8 K/mm3 (4.0-10.0)
[2017-06-25 04:46] LABS: INR 1.87
[2017-06-25 04:52] LABS: EOSINOPHILS 7 % (0-5)
[2017-06-25 04:53] LABS: CALCIUM LEVEL 8.1 MG/DL (8.8-10.2); CREATININE FOR GFR 2.74 MG/DL (0.55-1.02); GLOMERULAR FILTRATION RATE 18.3 (>45); HYPOCHROMASIA 2+; POTASSIUM SERUM 4.2 MEQ/L (3.5-5.1)
[2017-06-25] MEDS: HEPARIN SOD (PORCINE) 5000 UNITS/ML VIAL SQ SCH ×3 (05:56→21:06)
[2017-06-25] MEDS: LEVOTHYROXINE 75MCG TABLET (0.075MG) PO SCH (05:56)
[2017-06-25] MEDS: LEVOTHYROXINE 100MCG TABLET (0.1MG) PO SCH (05:56)
[2017-06-25] MEDS: SYMBICORT 80/4.5MCG INHALER 6GM INH SCH ×2 (07:49→19:18)
[2017-06-25] MEDS: (RENVELA) SEVELAMER **CARBONate** 800 MG TAB PO SCH ×2 (08:23→17:04)
[2017-06-25] MEDS: FOLIC ACID 1 MG TAB PO SCH (08:23)
[2017-06-25] MEDS: predniSONE 5 MG TAB PO SCH (08:23)
[2017-06-25] MEDS: SERTRALINE HCL 50 MG TAB PO SCH (08:23)
[2017-06-25] MEDS: VITAMIN D 1,000 INTERNATIONAL UNITS TABLET PO SCH (08:23)
[2017-06-25] MEDS: OMEPRAZOLE 20 MG CAP PO SCH (08:23)
[2017-06-25] MEDS: BISOPROLOL FUMARATE 5 MG TAB PO SCH (08:23)
[2017-06-25] MEDS ORDERED: PANTOPRAZOLE 40MG TAB (PROTONIX) PO SCH (09:00)
[2017-06-25 09:05] LABS: ABG pH (ARTERIAL) 7.316 UNITS (7.350-7.450)
[2017-06-25 09:06] LABS: ABG BASE EXCESS -2.4 (-2.0-2.0); ABG HCO3 23.9 MEQ/L (22.0-26.0); ABG PARTIAL PRESSURE CO2 47.9 mmHg (35.0-45.0); ABG PARTIAL PRESSURE O2 75.4 mmHg (75.0-100.0); ABG STANDARD HCO3 22.4 MEQ/L (22.0-26.0); ABG TOTAL CO2 25.4 MEQ/L (23.0-31.0)
--- NOTE | 2017-06-25 09:15 | REP ---
Portable chest, 08:45 a.m., single AP view, patient sitting: Comparisons are 06/23/2079 06/15/2017. There are There are bilateral pleural effusions, decreased from 06/15/2017 but unchanged from 06/23/2017. There is increased radiodensity inferiorly in the right lung, likely compression atelectasis from the right pleural effusion. This has decreased from 06/15/2017, unchanged from the 09/02/2017. The remainder of the lung jones are clear and unchanged. Cardiac size is normal. Dual lumen right IJ central venous catheter is again identified, unchanged. Impression: Bilateral pleural effusions and infiltrate/compression atelectasis inferiorly in the right lung, all improved from 06/15/2079, unchanged from 06/23/2017. Signed by Miguel Mauro MD 06/25/2017 09:08 A
--- NOTE | 2017-06-25 11:46 | IPNPDOC ---
Subjective Date Seen The patient was seen on 06/25/17. Subjective Chief Complaint/HPI Patient seen and examined at the bedside this morning. States that her shortness of breath has improved following dialysis yesterday. Denies any acute complaints at this time. Objective Physical Examination General Exam: Positive: Alert, Cooperative, No Acute Distress ENT Exam: Positive: Atraumatic, Mucous membr. moist/pink Chest Exam: Positive: Diminished Heart Exam: Positive: Rate Normal, Irregular Rhythm, Normal S1, Normal S2 Telemetry: Positive: Atrial fibrillation Abdomen Exam: Positive: Soft Extremity Exam: Negative: Tenderness, Swelling Assessment /Plan Plan/VTE VTE Prophylaxis Ordered?: Yes Plan Acute on chronic hypoxic and hypercapnic respiratory failure requiring bilevel ventilation support 2/2 Decompensated CHF Repeat Chest x-ray notable for bilateral pleural effusions ABG with improving respiratory acidosis this morning with BiPAP therapy Pulmonary on board-appreciate their input We will try to optimize the patient's volume status with dialysis, with assistance from Nephro Continue albuterol, Symbicort, Prednisone Continue azithromycin and Rocephin for possible infiltrate The patient continues use of tobacco, I have extensively discussed the need to abstain with the patient at the bedside. We will continue to monitor the patient's respiratory status at this time End-stage renal disease on hemodialysis Nephrology on board History of CAD, s/p Stents in the past EKG with no acute ST changes noted Patient denies chest pain at this time Troponin level peaked with a mild elevation of 0.14 yesterday--likely 2/2 Demand Ischemia from respiratory distress. However, a 2D ECHO has been ordered for further evaluation as the patient did present with decompensated congestive heart failure. We will follow up with results Continue bisoprolol, Statin, Not on ASA (Already on Coumadin) Atrial fibrillation, stable Rate controlled with Bisoprolol Continue digoxin Continue Coumadin, INR subtherapeutic this AM--dose adjusted Dyslipidemia Continue statin Hypothyroidism Continue Synthroid End-stage COPD Continue management as noted above GERD continue Protonix Depression, stable Continue sertraline Hx of C. Diff Patient did have some diarrhea here--C Diff study negative DVT prophylaxis Already on Coumadin Dispo-we will continue to optimize the patient's volume/respiratory status with dialysis and bilevel ventilatory support. VS, I&O, 24H, Fishbone Vital Signs/I&O Vital Signs Date Time Temp Pulse Resp B/P (MAP) Pulse Ox O2 Delivery O2 Flow Rate FiO2 06/25/17 08:00 Nasal Cannula 4.0 06/25/17 08:00 98.5 57 20 118/47 (70) 97 06/25/17 07:50 40 I&O- Last 24 Hours up to 6 AM 06/25/17 06:00 Intake Total 590 ml Output Total 1300 ml Balance -710 ml Laboratory Data 24H LABS Laboratory Tests 2 06/24/17 17:25: Total Creatine Kinase 26, Creatine Kinase MB 1.5, Creatine Kinase MB Relative Index 5.76H, Troponin I 0.13H 06/25/17 00:43: Total Creatine Kinase 22L, Creatine Kinase MB 1.3, Creatine Kinase MB Relative Index 5.90H, Troponin I 0.10# 06/25/17 04:25: Neutrophils 66, Lymphocytes (Manual) 27, Eosinophils (Manual) 7H, Platelet Estimate DECREASED, Hypochromasia 2+, Macrocytosis 1+, Prothrombin Time 22.1H, Prothromb Time International Ratio 1.87, Anion Gap 8, Glomerular Filtration Rate 18.3L, Blood Urea Nitrogen 17, Creatinine 2.74H, Sodium Level 136, Potassium Level 4.2, Chloride Level 99, Carbon Dioxide Level 29, Calcium Level 8.1L 06/25/17 08:58: Blood Gas Bicarbonate Standard 22.4, Arterial Blood pH 7.316L, Arterial Blood Partial Pressure CO2 47.9H, Arterial Blood Partial Pressure O2 75.4, Arterial Blood Total CO2 25.4, Arterial Blood HCO3 23.9, Arterial Blood Base Excess -2.4L , Arterial Blood Oxygen Saturation 94.6L 06/25/17 10:04: Total Creatine Kinase 24L, Creatine Kinase MB 2.0, Creatine Kinase MB Relative Index 8.33H, Troponin I 0.10 CBC/BMP Laboratory Tests 06/25/17 04:25 Red Blood Count 3.52 L, Mean Corpuscular Volume 106.8 H, Mean Corpuscular Hemoglobin 31.6, Mean Corpuscular Hemoglobin Concent 29.5 L, Red Cell Distribution Width 15.3 H, Calcium Level 8.1 L Microbiology Microbiology 06/23/17 Blood Culture - Preliminary, Resulted No growth after 24 hours . All specim... 06/23/17 Blood Culture - Preliminary, Resulted No growth after 24 hours . All specim... 06/24/17 Clostridium difficile (PCR) - Final, Complete SERA LOWERY MD Jun 25, 2017 11:46
[2017-06-25] MEDS ORDERED: HEPARIN 1,000 UNITS/ML 10ML VIAL (FOR RADIOLOGY& DIALYSIS ONLY) XX ONE (12:00)
--- NOTE | 2017-06-25 13:59 | ECHO ---
DATE OF SERVICE: 06/25/2017 REFERRING PROVIDER: Dr. Elliott Barlow PATIENT LOCATION: Room 3209 REASON FOR THE ECHOCARDIOGRAM: Heart failure, unspecified. 2D MEASUREMENTS: IVS: 0.9 cm LV: 3.5 cm LVPW: 1.1 cm LA: 3.2 cm Aorta: 2.5 cm IVC: 2.0 cm DOPPLER MEASUREMENTS: Peak velocity across the aortic valve: 1.5 m/s Peak velocity across the LVOT: 0.9 m/s Mitral E: 1.1 Maximum tricuspid valve velocity: 4.3 m/s 2D COMMENTS: 1. Normal left ventricular size, wall thickness. Left ventricular systolic function is normal estimated at 65-70%. 2. The left atrium subjectively appeared to be mildly enlarged as well as the right atrium. The right ventricle is also mildly enlarged, but was carla well. There may be mild hypertrophy of the right ventricular wall. The ventricular septum was flattening but mostly in diastole. 3. No shunt was noted across the atrial septum. 4. Normal aortic root. 5. No pericardial effusion. 6. Mildly calcified aortic valve with normal leaflet excursion. Mildly calcified mitral annulus with normal anterior mitral valve leaflet motion. Normal tricuspid valve and pulmonic valve. The proximal pulmonary artery branches were not well visualized. 7. The inferior vena cava was mildly enlarged, central venous pressure might be elevated. DOPPLER: It detects trace mitral regurgitation, moderate tricuspid regurgitation, and trace pulmonic regurgitation. The calculated pulmonary artery systolic pressure was over 75 mmHg. Assessment of the left ventricular diastolic function was limited in view of the underlying atrial fibrillation. IMPRESSION: 1. Normal global left ventricular systolic function with a hyperdynamic left ventricle. 2. Mildly dilated left atrium with trace mitral regurgitation. 3. Moderate tricuspid regurgitation with severe pulmonary hypertension and dilated right heart chambers. 4. There are features of elevated central venous pressure, the inferior vena cava was mildly enlarged. 5. The above was compared with an echocardiogram on 04/28/2016, pulmonary artery pressure is now higher but otherwise, no remarkable changes. [facility]
[2017-06-25] MEDS ORDERED: WARFARIN SOD 1 MG TAB PO ONE (17:00)
[2017-06-25] MEDS: WARFARIN SOD 2.5 MG TAB PO SCH (17:04)
[2017-06-25] MEDS: ISOSORBIDE DIN. (ISORDIL) 20 MG TAB PO SCH (21:00)
[2017-06-25] MEDS: ATORVASTATIN 20 MG TAB PO SCH (21:06)
[2017-06-25] MEDS: AZITHROMYCIN INJ 500 MG, VIAL MATE ADAPTER 1 EACH in D5W 250 ML IV SCH (21:06)
[2017-06-25] MEDS: OMEGA-3 1050MG CAPSULE PO SCH (21:06)
[2017-06-26] VITALS (7 sets, daily range): BP systolic 93–126; BP diastolic 43–61
[2017-06-26] MEDS: cefTRIAXone SOD 2 GM in D5W MINI-BAG PLUS 50 ML IV SCH (04:16)
[2017-06-26] MEDS: ACETAMINOPHEN 325 MG TAB PO PRN ×2 (04:23→21:19)
[2017-06-26 04:35] LABS: INR 2.09
[2017-06-26 04:43] LABS: BASO % 0.4 % (0.0-1.0); EOS # 0.3 K/mm3 (0.0-0.50); EOS % 4.9 % (0.0-3.0); LARGE UNSTAINED CELL # 0.1 K/mm3 (0.0-0.4); LARGE UNSTAINED CELL % 1.7 % (0.0-4.0); LYMPH # 1.4 K/mm3 (1.5-4.5); LYMPH % 22.4 % (24.0-44.0); MEAN CORPUSCULAR HEMOGLOBIN 32.3 pg (27.0-33.0); MEAN CORPUSCULAR HGB CONC 30.6 g/dl (32.0-36.5); MEAN CORPUSCULAR VOLUME 105.6 fl (80.0-96.0); MONO # 0.4 K/mm3 (0.0-0.8); MONO % 7.1 % (0.0-5.0); NEUTROPHILS # 3.6 K/mm3 (1.8-7.7); NEUTROPHILS % 63.4 % (36.0-66.0); RED CELL DISTRIBUTION WIDTH 15.5 % (11.5-14.5); WHITE BLOOD COUNT 5.7 K/mm3 (4.0-10.0)
[2017-06-26 04:47] LABS: CREATININE FOR GFR 4.16 MG/DL (0.55-1.02); GLOMERULAR FILTRATION RATE 11.3 (>45); POTASSIUM SERUM 3.8 MEQ/L (3.5-5.1)
[2017-06-26 05:37] LABS: PLATELET COUNT, AUTOMATED 90 k/mm3 (150-450)
[2017-06-26] MEDS: HEPARIN SOD (PORCINE) 5000 UNITS/ML VIAL SQ SCH (06:00)
[2017-06-26] MEDS: LEVOTHYROXINE 75MCG TABLET (0.075MG) PO SCH (06:12)
[2017-06-26] MEDS: LEVOTHYROXINE 100MCG TABLET (0.1MG) PO SCH (06:12)
[2017-06-26] MEDS: SYMBICORT 80/4.5MCG INHALER 6GM INH SCH ×2 (08:17→19:29)
[2017-06-26] MEDS: BISOPROLOL FUMARATE 5 MG TAB PO SCH (09:00)
[2017-06-26] MEDS: SERTRALINE HCL 50 MG TAB PO SCH (09:05)
[2017-06-26] MEDS: OMEPRAZOLE 20 MG CAP PO SCH (09:05)
[2017-06-26] MEDS: predniSONE 5 MG TAB PO SCH (09:05)
[2017-06-26] MEDS: VITAMIN D 1,000 INTERNATIONAL UNITS TABLET PO SCH (09:05)
[2017-06-26] MEDS: (RENVELA) SEVELAMER **CARBONate** 800 MG TAB PO SCH ×2 (09:05→18:01)
[2017-06-26] MEDS: FOLIC ACID 1 MG TAB PO SCH (09:05)
--- NOTE | 2017-06-26 14:27 | IPNPDOC ---
Subjective Date Seen The patient was seen on 06/26/17. Subjective Chief Complaint/HPI Patient seen and examined at the bedside this morning. She has remained off BiPAP therapy for 24+ hours at this time. She states that her respiratory status has improved following 2 sessions of hemodialysis and that she is looking for to work with physical therapy today. Objective Physical Examination General Exam: Positive: Alert, Cooperative, No Acute Distress ENT Exam: Positive: Atraumatic, Mucous membr. moist/pink Chest Exam: Positive: Diminished Heart Exam: Positive: Rate Normal, Irregular Rhythm, Normal S1, Normal S2 Telemetry: Positive: Atrial fibrillation Abdomen Exam: Positive: Soft Extremity Exam: Negative: Tenderness, Swelling Psych Exam: Positive: Oriented x 3 Assessment /Plan Plan/VTE VTE Prophylaxis Ordered?: Yes Plan Acute on chronic hypoxic and hypercapnic respiratory failure requiring bilevel ventilation support 2/2 Decompensated CHF Continue albuterol, Symbicort, Prednisone Continue azithromycin and Rocephin for possible infiltrate The patient continues use of tobacco, I have extensively discussed the need to abstain with the patient at the bedside. The patient's respiratory status has improved quite a bit over the last 48 hours , and we will have her work with physical therapy today to optimize her functional status Pulmonary assistance with BiPAP therapy appreciated. Nephrology input with volume optimization via hemodialysis appreciated. We will continue to monitor the patient's respiratory status at this time--the patient will be downgraded to the med/surge floor today. End-stage renal disease on hemodialysis Nephrology on board History of CAD, s/p Stents in the past EKG with no acute ST changes noted Patient denies chest pain at this time Troponin level peaked with a mild elevation of 0.14 yesterday--likely 2/2 Demand Ischemia from respiratory distress. 2D ECHO ordered--findings similar to previous ECHO from 04/2016 (Preserved EF, Trace MR, Moderate TR, Severe Pulm HTN) except for higher pulmonary artery pressures being noted Continue bisoprolol, Statin, Not on ASA (Already on Coumadin) Atrial fibrillation, stable Rate controlled with Bisoprolol Continue digoxin Continue Coumadin, INR therapeutic Dyslipidemia Continue statin Hypothyroidism Continue Synthroid End-stage COPD Continue management as noted above GERD continue Protonix Depression, stable Continue sertraline Hx of C. Diff Patient did have some diarrhea here--C Diff study negative DVT prophylaxis Already on Coumadin Dispo-D/C pending clinical improvement and PT clearance. VS, I&O, 24H, Fishbone Vital Signs/I&O Vital Signs Date Time Temp Pulse Resp B/P (MAP) Pulse Ox O2 Delivery O2 Flow Rate FiO2 06/26/17 12:00 Nasal Cannula 4.0 06/26/17 12:00 98.6 66 20 109/50 (69) 95 06/25/17 07:50 40 I&O- Last 24 Hours up to 6 AM 06/26/17 05:59 Intake Total 1585 ml Output Total 1050 ml Balance 535 ml Laboratory Data 24H LABS Laboratory Tests 2 06/26/17 04:18: White Blood Count 5.7, Red Blood Count 3.48L, Hemoglobin 11.3L, Hematocrit 36.7 , Mean Corpuscular Volume 105.6H, Mean Corpuscular Hemoglobin 32.3, Mean Corpuscular Hemoglobin Concent 30.6L, Red Cell Distribution Width 15.5H, Platelet Count 90L, Neutrophils (%) (Auto) 63.4, Lymphocytes (%) (Auto) 22.4L, Monocytes (%) (Auto) 7.1H, Eosinophils (%) (Auto) 4.9H, Basophils (%) (Auto) 0.4 , Neutrophils # (Auto) 3.6, Lymphocytes # (Auto) 1.4L, Monocytes # (Auto) 0.4, Eosinophils # (Auto) 0.3, Basophils # (Auto) 0.0, Large Unclassified Cells % 1.7 , Large Unclassified Cells # 0.1, Prothrombin Time 24.2H, Prothromb Time International Ratio 2.09, Anion Gap 9, Glomerular Filtration Rate 11.3L, Blood Urea Nitrogen 33#H, Creatinine 4.16#H, Sodium Level 136, Potassium Level 3.8, Chloride Level 99, Carbon Dioxide Level 28, Calcium Level 8.0L CBC/BMP Laboratory Tests 06/26/17 04:18 Red Blood Count 3.48 L, Mean Corpuscular Volume 105.6 H, Mean Corpuscular Hemoglobin 32.3, Mean Corpuscular Hemoglobin Concent 30.6 L, Red Cell Distribution Width 15.5 H, Neutrophils (%) (Auto) 63.4, Lymphocytes (%) (Auto) 22.4 L, Monocytes (%) (Auto) 7.1 H, Eosinophils (%) (Auto) 4.9 H, Basophils (%) (Auto) 0.4, Neutrophils # (Auto) 3.6, Lymphocytes # (Auto) 1.4 L, Monocytes # ( Auto) 0.4, Eosinophils # (Auto) 0.3, Basophils # (Auto) 0.0, Calcium Level 8.0 L Microbiology Microbiology 06/23/17 Blood Culture - Preliminary, Resulted No Growth after 48 hours. All Specime... 06/23/17 Blood Culture - Preliminary, Resulted No Growth after 48 hours. All Specime... 06/24/17 Clostridium difficile (PCR) - Final, Complete SERA LOWERY MD Jun 26, 2017 14:27
[2017-06-26] MEDS: ONDANSETRON 4MG/2ML VIAL (J2405) IV PRN ×2 (15:23→22:26)
[2017-06-26] MEDS: WARFARIN SOD 2.5 MG TAB PO SCH (18:02)
[2017-06-26] MEDS: ISOSORBIDE DIN. (ISORDIL) 20 MG TAB PO SCH (21:00)
[2017-06-26] MEDS: ATORVASTATIN 20 MG TAB PO SCH (21:19)
[2017-06-26] MEDS: OMEGA-3 1050MG CAPSULE PO SCH (21:19)
[2017-06-26] MEDS: AZITHROMYCIN INJ 500 MG, VIAL MATE ADAPTER 1 EACH in D5W 250 ML IV SCH (21:53)
[2017-06-27] MEDS: cefTRIAXone SOD 2 GM in D5W MINI-BAG PLUS 50 ML IV SCH (04:25)
[2017-06-27] MEDS: LEVOTHYROXINE 75MCG TABLET (0.075MG) PO SCH (05:48)
[2017-06-27] MEDS: LEVOTHYROXINE 100MCG TABLET (0.1MG) PO SCH (05:48)
[2017-06-27 06:00] VITALS: BP 110/54
--- NOTE | 2017-06-27 06:54 | IPN ---
DATE: 06/16/2017 Mrs. Delgado is seen this morning on her bedside. She is feeling much better today as far as her breathing goes. She is still very weak and frail. She reports that she did eat breakfast. She reports a fair appetite and denies any nausea or vomiting. She tolerated ultrafiltration however, only about 1 liter of fluid was removed yesterday due to recurrent hypotension. She has no fever or chills. PHYSICAL EXAMINATION: Temperature is 98.8 degrees Fahrenheit, heart rate 58 per minute and respiratory rate 20 per minute. Blood pressure 109/50 mmHg and oxygen saturation 95% on 4 liters oxygen. Head is atraumatic. Ears, nose and throat are unremarkable. Neck is supple and JVD is only minimally elevated. Heart sounds are regular. Lungs have diminished breath sounds bilaterally. Abdomen is soft and nontender and there is no palpable organomegaly. Extremities have no cyanosis or clubbing. Skin has no rash or ulcers. Neurologically she is awake, alert and oriented times three. Today's labs show a sodium level of 136 and potassium 3.8. BUN 33 and creatinine 4.16. Calcium level 8.0. WBC count is 5.7, hemoglobin 11.3 and hematocrit 36.7. PROBLEMS: 1. End-stage renal disease. The patient has been dialyzed during last week. Today she does not need urgent dialysis. We will plan to schedule her dialysis for June 28. I will reevaluate for need for dialysis tomorrow again due to her chronic volume overload. 2. Shortness of breath and hypoxemia. She has known history of advanced chronic obstructive pulmonary disease (COPD), congestive heart failure, bilateral pleural effusions. She tolerated only 1 liter of fluid removal yesterday with ultrafiltration. She had similar problems on Tuesday when dialysis was terminated due to hypotension and diarrhea. We will reevaluate her tomorrow for further fluid removal if she can tolerate. 3. Anemia. Her anemia remained stable and does not need any intervention at this point. 4. Chronic obstructive pulmonary disease (COPD) and possible pneumonia. The patient is being treated with ceftriaxone and azithromycin in addition to steroids. She is afebrile and being followed by pulmonology. 5. Generalized weakness and deconditioning. This is related to her chronic medical issues and physical therapy is already evaluating her.
--- NOTE | 2017-06-27 06:57 | IPN ---
DATE: 06/25/2017 Mrs. Delgado is seen in the afternoon of June 25 on her bedside. She is currently being dialyzed. I had seen her earlier this morning and evaluated her for her volume status. I felt that she was still somewhat volume overloaded and we decided to do an ultrafiltration today. We are trying to remove 1.5 liters of fluid as tolerated. She did have low blood pressure shortly after starting dialysis and ultrafiltration goal was cut down. At present, she denies any chest pain, headache, palpitations, nausea or vomiting. She does have chronic hypoxemia and has been on home oxygen at 4 liters. She was on BiPAP through the night and it was removed this morning. At the time of this second visit, she is being dialyzed and she is awake and alert. Temperature is 98.7 degrees Fahrenheit, heart rate 64 per minute and respiratory rate 22 per minute. Blood pressure 94/39 mmHg and oxygen saturation 95% on 4 liters oxygen. Head is atraumatic. Neck is supple and JVD is only mildly elevated. Oral mucosa is somewhat dry. Heart sounds are regular and lungs have moderate bilateral air entry with few basilar rales. Abdomen is soft and nontender. Bowel sounds are normal and there is no palpable organomegaly. Extremities have no cyanosis or clubbing. She does not have any peripheral edema. Neurologically she is awake, alert and oriented times three. Today's labs show WBC count 5.7, hemoglobin 11.1 and hematocrit 37.6. Sodium 136 and potassium 4.2. BUN 17 and creatinine 2.74. PROBLEMS: 1. Shortness of breath. She does have bilateral pleural effusions and known history of chronic diastolic congestive heart failure in the setting of end-stage renal disease. She has chronic hypoxemia requiring oxygen supplementation. She was dialyzed on and then again on Tuesday; however, it was cut short due to diarrhea and hypotension. Today we are doing only ultrafiltration and removing about 1.5 liters of fluid as tolerated. She has completed more than half of her treatment at the time of my visit. 2. End-stage renal disease. The patient was dialyzed on and Tuesday. At this point, she does not need further dialysis; however, only fluid removal is indicated. We will schedule her next regular hemodialysis on June 28. 3. Chronic hypoxemia. This is multifactorial related to her advanced chronic lung disease and bilateral pleural effusion in the setting of congestive heart failure and end-stage renal disease. We are trying to optimize her volume status with frequent dialysis, however, hypotension prevent any aggressive fluid removal. At this point, we will continue our efforts to optimize her volume status. She did require BiPAP through the night. 4. Anemia. Her anemia is mild and stable. No intervention is indicated at this point. 5. Hypotension. This is a chronic issue and we will continue to monitor her closely. Certainly this is not related to hypovolemia. 6. Chronic obstructive pulmonary disease (COPD) and possible pneumonia. The patient has been on azithromycin and ceftriaxone in addition to steroids. She is being followed by pulmonary in addition to the hospitalist service. I will defer the antibiotics to the pulmonary service.
[2017-06-27 07:56] LABS: CREATININE FOR GFR 5.23 MG/DL (0.55-1.02); GLOMERULAR FILTRATION RATE 8.7 (>45); POTASSIUM SERUM 4.1 MEQ/L (3.5-5.1)
[2017-06-27] MEDS: predniSONE 5 MG TAB PO SCH (08:00)
[2017-06-27] MEDS: (RENVELA) SEVELAMER **CARBONate** 800 MG TAB PO SCH ×2 (08:00→17:45)
[2017-06-27] MEDS: FOLIC ACID 1 MG TAB PO SCH (08:00)
[2017-06-27] MEDS: SERTRALINE HCL 50 MG TAB PO SCH (08:01)
[2017-06-27] MEDS: BISOPROLOL FUMARATE 5 MG TAB PO SCH (08:01)
[2017-06-27] MEDS: OMEPRAZOLE 20 MG CAP PO SCH (08:02)
[2017-06-27] MEDS: VITAMIN D 1,000 INTERNATIONAL UNITS TABLET PO SCH (08:02)
[2017-06-27] MEDS: DIGOXIN 0.125 MG TAB PO SCH (08:02)
[2017-06-27 08:05] LABS: INR 2.59
[2017-06-27 08:38] LABS: ADD MANUAL DIFFER YES; MEAN CORPUSCULAR HEMOGLOBIN 31.9 pg (27.0-33.0); MEAN CORPUSCULAR HGB CONC 30.4 g/dl (32.0-36.5); MEAN CORPUSCULAR VOLUME 104.8 fl (80.0-96.0); PLATELET COUNT, AUTOMATED 108 k/mm3 (150-450); RED CELL DISTRIBUTION WIDTH 14.7 % (11.5-14.5); WHITE BLOOD COUNT 5.9 K/mm3 (4.0-10.0)
[2017-06-27 08:45] LABS: EOSINOPHILS 5 % (0-5)
[2017-06-27 08:46] LABS: HYPOCHROMASIA 2+
[2017-06-27] MEDS: SYMBICORT 80/4.5MCG INHALER 6GM INH SCH ×2 (12:00→19:26)
--- NOTE | 2017-06-27 12:42 | IPN ---
DATE: 06/27/2017 Mrs. Delgado is seen this morning on her bedside. She has been transferred out of intensive care unit onto regular medical floor. She reports several loose stools through the night. She denies any nausea or vomiting and her dyspnea has been stable at baseline. She has no fever or chills. PHYSICAL EXAMINATION: Temperature 98.6 degrees Fahrenheit, heart rate 64 per minute and respiratory rate 20 per minute. Blood pressure 110/54 mmHg and oxygen saturation 96% on 4 liters oxygen. She has been off BiPAP and only on nasal cannula through the night. Her head is atraumatic. Neck veins are not abnormally distended. Oral mucosa is moist and healthy. Eyes, ears, nose and throat are unremarkable. Heart sounds are regular and lungs with moderate bilateral air entry and no wheezing or rales. Abdomen soft and nontender and without a palpable organomegaly. Bowel sounds are normal. Extremities have no cyanosis or clubbing. Skin has no rash or ulcers. Neurologically she is awake, alert and oriented times three. Today's labs show a WBC count 5.9, hemoglobin 11.8 and hematocrit 38.8. Platelets 108. Sodium 136 and potassium 4.1, BUN 42 and creatinine 5.23. PROBLEMS: 1. Shortness of breath: The patient has advanced COPD with bilateral pleural effusions and she also had volume overload related to end-stage renal disease. We have dialyzed her on Tuesday again for ultrafiltration and volume status has improved. Her dyspnea has improved back to baseline. She does have bilateral pleural effusions with some questionable infiltrate or compression atelectasis. At present she is feeling well and we will plan to dialyze her again tomorrow. There is no emergent need for further fluid removal today. 2. End-stage renal disease: The patient is regularly dialyzed on Tuesday, and Tuesday schedule. We will dialyze her again tomorrow. Electrolytes are all within normal range. 3. His anemia: Her anemia is stable and does not need any intervention. 4. Bilateral pleural effusion and infiltrates: This is a chronic issue. I would do not feel that she has any infective infiltrate and I would suggest to stop her antibiotics. 5. Diarrhea: Most likely related to antibiotic use. She did have stool checked for C diff and came back negative. She can be treated symptomatically for her loose stools.
[2017-06-27 14:00] VITALS: BP 118/50
--- NOTE | 2017-06-27 14:50 | IPNPDOC ---
Subjective Date Seen The patient was seen on 06/27/17. Subjective Chief Complaint/HPI Patient seen and examined at the bedside this morning. States that her respiratory status is improved. However, she is complaining of some nausea and diarrhea. C Diff studies here have been negative. Denies any other acute complaints at this time. Objective Physical Examination General Exam: Positive: Alert, Cooperative, No Acute Distress ENT Exam: Positive: Atraumatic, Mucous membr. moist/pink Neck Exam: Negative: JVD Chest Exam: Positive: Diminished Heart Exam: Positive: Rate Normal, Normal S1, Normal S2 Abdomen Exam: Positive: Soft Extremity Exam: Negative: Tenderness, Swelling Psych Exam: Positive: Oriented x 3 Assessment /Plan Plan/VTE VTE Prophylaxis Ordered?: Yes Plan Acute on chronic hypoxic and hypercapnic respiratory failure requiring bilevel ventilation support 2/2 Decompensated CHF Continue albuterol, Symbicort, Prednisone Continue azithromycin and Rocephin for possible infiltrate The patient continues use of tobacco, I have extensively discussed the need to abstain with the patient at the bedside. The patient's respiratory status has improved, we will have her work with physical therapy today to optimize her functional status Pulmonary assistance with BiPAP therapy appreciated--The patient has been off BiPAP here for the last 48hrs+ Nephrology input with volume optimization via hemodialysis appreciated. We will continue to monitor the patient's respiratory status at this time--the patient will be downgraded to the med/surge floor today. End-stage renal disease on hemodialysis Nephrology on board History of CAD, s/p Stents in the past EKG with no acute ST changes noted Patient denies chest pain at this time Troponin level peaked with a mild elevation of 0.14 on 06/25/17--likely 2/2 Demand Ischemia from respiratory distress. 2D ECHO ordered--findings similar to previous ECHO from 04/2016 (Preserved EF, Trace MR, Moderate TR, Severe Pulm HTN) except for higher pulmonary artery pressures being noted Continue bisoprolol, Statin, Not on ASA (Already on Coumadin) Atrial fibrillation, stable Rate controlled with Bisoprolol Continue digoxin Continue Coumadin, INR therapeutic Dyslipidemia Continue statin Hypothyroidism Continue Synthroid End-stage COPD Continue management as noted above GERD continue Protonix Depression, stable Continue sertraline Hx of C. Diff Patient did have some diarrhea here--C Diff study negative Imodium ordered DVT prophylaxis Already on Coumadin Dispo-Anticipate D/C in the next 24-48hrs pending clinical improvement. VS, I&O, 24H, Fishbone Vital Signs/I&O Vital Signs Date Time Temp Pulse Resp B/P (MAP) Pulse Ox O2 Delivery O2 Flow Rate FiO2 06/27/17 08:02 64 06/27/17 08:01 110/54 06/27/17 06:00 98.6 20 96 Nasal Cannula 4.0 06/25/17 07:50 40 I&O- Last 24 Hours up to 6 AM 06/27/17 06:00 Intake Total 1520 ml Output Total 0 ml Balance 1520 ml Laboratory Data 24H LABS Laboratory Tests 2 06/27/17 07:15: Neutrophils 76H, Lymphocytes (Manual) 18, Monocytes (Manual) 1, Eosinophils ( Manual) 5, Platelet Estimate NORMAL, Hypochromasia 2+, Macrocytosis 2+, Prothrombin Time 28.8H, Prothromb Time International Ratio 2.59, Anion Gap 11, Glomerular Filtration Rate 8.7L, Blood Urea Nitrogen 42H, Creatinine 5.23H, Sodium Level 136, Potassium Level 4.1, Chloride Level 100, Carbon Dioxide Level 25, Calcium Level 8.0L CBC/BMP Laboratory Tests 06/27/17 07:15 Red Blood Count 3.70 L, Mean Corpuscular Volume 104.8 H, Mean Corpuscular Hemoglobin 31.9, Mean Corpuscular Hemoglobin Concent 30.4 L, Red Cell Distribution Width 14.7 H, Calcium Level 8.0 L Microbiology Microbiology 06/23/17 Blood Culture - Preliminary, Resulted No Growth after 72 hours. All specime... 06/23/17 Blood Culture - Preliminary, Resulted No Growth after 72 hours. All specime... 06/24/17 Clostridium difficile (PCR) - Final, Complete SERA LOWERY MD Jun 27, 2017 14:50
[2017-06-27] MEDS: WARFARIN SOD 2.5 MG TAB PO SCH (17:00)
[2017-06-27] MEDS: LOPERAMIDE 2 MG CAP PO PRN (19:46)
[2017-06-27] MEDS: OMEGA-3 1050MG CAPSULE PO SCH (20:24)
[2017-06-27] MEDS: ATORVASTATIN 20 MG TAB PO SCH (20:24)
[2017-06-27] MEDS: ISOSORBIDE DIN. (ISORDIL) 20 MG TAB PO SCH (20:27)
[2017-06-27 22:00] VITALS: BP 105/54
[2017-06-28 06:00] VITALS: BP 116/61
[2017-06-28] MEDS: FOLIC ACID 1 MG TAB PO SCH (06:28)
[2017-06-28] MEDS: OMEPRAZOLE 20 MG CAP PO SCH (06:29)
[2017-06-28] MEDS: SERTRALINE HCL 50 MG TAB PO SCH (06:29)
[2017-06-28] MEDS: predniSONE 5 MG TAB PO SCH (06:29)
[2017-06-28] MEDS: LEVOTHYROXINE 100MCG TABLET (0.1MG) PO SCH (06:29)
[2017-06-28] MEDS: (RENVELA) SEVELAMER **CARBONate** 800 MG TAB PO SCH ×2 (06:29→16:52)
[2017-06-28] MEDS: LEVOTHYROXINE 75MCG TABLET (0.075MG) PO SCH (06:29)
[2017-06-28] MEDS: VITAMIN D 1,000 INTERNATIONAL UNITS TABLET PO SCH (06:32)
[2017-06-28] MEDS: BISOPROLOL FUMARATE 5 MG TAB PO SCH (06:32)
[2017-06-28 07:23] LABS: CALCIUM LEVEL 7.5 MG/DL (8.8-10.2); CREATININE FOR GFR 6.43 MG/DL (0.55-1.02); GLOMERULAR FILTRATION RATE 6.9 (>45)
[2017-06-28 07:25] LABS: BASO % 0.5 % (0.0-1.0); EOS # 0.2 K/mm3 (0.0-0.50); EOS % 3.7 % (0.0-3.0); LARGE UNSTAINED CELL # 0.2 K/mm3 (0.0-0.4); LARGE UNSTAINED CELL % 2.5 % (0.0-4.0); LYMPH # 0.8 K/mm3 (1.5-4.5); LYMPH % 12.5 % (24.0-44.0); MEAN CORPUSCULAR HGB CONC 30.6 g/dl (32.0-36.5); MEAN CORPUSCULAR VOLUME 104.4 fl (80.0-96.0); MONO # 0.6 K/mm3 (0.0-0.8); MONO % 8.6 % (0.0-5.0); NEUTROPHILS # 4.7 K/mm3 (1.8-7.7); NEUTROPHILS % 72.2 % (36.0-66.0); PLATELET COUNT, AUTOMATED 114 k/mm3 (150-450); POTASSIUM SERUM 5.5 MEQ/L (3.5-5.1); RED CELL DISTRIBUTION WIDTH 14.9 % (11.5-14.5); WHITE BLOOD COUNT 6.5 K/mm3 (4.0-10.0)
[2017-06-28 07:28] LABS: INR 3.26
[2017-06-28] MEDS: SYMBICORT 80/4.5MCG INHALER 6GM INH SCH ×2 (07:59→19:56)
[2017-06-28] MEDS: LOPERAMIDE 2 MG CAP PO PRN (09:23)
[2017-06-28] MEDS ORDERED: HEPARIN 1,000 UNITS/ML 10ML VIAL (FOR RADIOLOGY& DIALYSIS ONLY) XX ONE (12:30)
[2017-06-28 14:00] VITALS: BP 120/60
[2017-06-28] MEDS: ACETAMINOPHEN 325 MG TAB PO PRN (16:52)
--- NOTE | 2017-06-28 19:07 | IPN ---
DATE: 06/28/2017 SUBJECTIVE: Patient seen and examined during hemodialysis today. Patient still complains about frequent bowel movements. Patient requires 4 liters nasal cannula to maintain satisfactory oxygen saturation and per patient, this is about her baseline. OBJECTIVE: VITAL SIGNS: Temperature is 96.6, pulse is 67, respiratory rate 18, blood pressure 116/61, pulse oximetry is 91% with 4 liters nasal cannula. GENERAL: No sign of acute distress. Alert and oriented times three. HEENT: Normocephalic, atraumatic. Extraocular motor grossly intact. CARDIOVASCULAR: Positive S1, S2, regular rate. LUNGS: Decreased breath sounds. ABDOMEN: Soft, nontender. EXTREMITIES: No edema, no cyanosis. LABORATORY DATA: WBC is 6.5, hemoglobin 10.8, hematocrit 35.3, platelet count is 114. Sodium is 137, potassium 5.5, chloride is 101, carbon dioxide 24, BUN 49, creatinine is 6.43, GFR is 6.9, fasting glucose is 70, calcium is 7.5. ASSESSMENT AND PLAN: 1. Acute on chronic respiratory failure requiring bilevel ventilation support secondary to decompensated congestive heart failure. Currently, the patient's breathing has been approaching her baseline. Oxygen saturation is being maintained in a satisfactory range with 4 liters nasal cannula. Previously, the patient was on azithromycin and Rocephin for the lung infiltrate. The patient finished a course of antibiotics. The patient continues to smoke even though the patient has chronic obstructive pulmonary disease (COPD) requiring 4 liters nasal cannula at the baseline. Currently, pepper cutter has been assisting on patient's fluid management. 2. End-stage renal disease, on hemodialysis. Dialysis day is Tuesday, and Tuesday. 3. Severe pulmonary hypertension. 4. Atrial fibrillation, on bisoprolol, digoxin. Patient also on warfarin. Currently in a satisfactory range. 5. Hypothyroidism, on Synthroid. 6. Gastroesophageal reflux disease, on Protonix. 7. Depression, on sertraline. 8. Frequent diarrhea. Clostridium difficile study came back negative. Followup with a GI panel and stool lactoferrin. 9. History of coronary artery disease, status post cardiac stent. Patient on Lipitor, Zebeta and isosorbide mononitrate. 10. Supratherapeutic international normalized ratio (INR) today. Yesterday, the patient had an INR of 2.6, today it is 3.2. At her baseline, the patient is taking warfarin 2.5 mg by mouth daily. Will adjust accordingly. 11. Deep vein thrombosis (DVT) prophylaxis. Patient on warfarin.
[2017-06-28 21:00] VITALS: BP_SYST 96
[2017-06-28] MEDS: ISOSORBIDE DIN. (ISORDIL) 20 MG TAB PO SCH (21:00)
[2017-06-28 22:00] VITALS: BP 96/40
[2017-06-28] MEDS: ATORVASTATIN 20 MG TAB PO SCH (22:06)
[2017-06-28] MEDS: OMEGA-3 1050MG CAPSULE PO SCH (22:06)
[2017-06-29] MEDS: LOPERAMIDE 2 MG CAP PO PRN (01:09)
[2017-06-29] MEDS: ACETAMINOPHEN 325 MG TAB PO PRN (01:11)
[2017-06-29 06:00] VITALS: BP 95/50
[2017-06-29] MEDS: LEVOTHYROXINE 100MCG TABLET (0.1MG) PO SCH (06:20)
[2017-06-29] MEDS: LEVOTHYROXINE 75MCG TABLET (0.075MG) PO SCH (06:21)
[2017-06-29] MEDS: SYMBICORT 80/4.5MCG INHALER 6GM INH SCH (07:21)
[2017-06-29 07:27] LABS: INR 2.32
[2017-06-29 07:54] LABS: CALCIUM LEVEL 7.6 MG/DL (8.8-10.2); CREATININE FOR GFR 3.92 MG/DL (0.55-1.02); GLOMERULAR FILTRATION RATE 12.1 (>45); POTASSIUM SERUM 4.3 MEQ/L (3.5-5.1)
[2017-06-29 08:12] LABS: ADD MANUAL DIFFER YES; MEAN CORPUSCULAR HEMOGLOBIN 31.9 pg (27.0-33.0); MEAN CORPUSCULAR HGB CONC 30.6 g/dl (32.0-36.5); MEAN CORPUSCULAR VOLUME 104.2 fl (80.0-96.0); PLATELET COUNT, AUTOMATED 105 k/mm3 (150-450); RED CELL DISTRIBUTION WIDTH 15.1 % (11.5-14.5); WHITE BLOOD COUNT 5.8 K/mm3 (4.0-10.0)
[2017-06-29 08:42] LABS: EOSINOPHILS 2 % (0-5)
[2017-06-29 08:43] LABS: HYPOCHROMASIA 1+
[2017-06-29] MEDS: DIGOXIN 0.125 MG TAB PO SCH (10:28)
[2017-06-29 10:29] VITALS: BP_DIAS 50
[2017-06-29] MEDS: (RENVELA) SEVELAMER **CARBONate** 800 MG TAB PO SCH (10:29)
[2017-06-29] MEDS: SERTRALINE HCL 50 MG TAB PO SCH (10:29)
[2017-06-29] MEDS: BISOPROLOL FUMARATE 5 MG TAB PO SCH (10:29)
[2017-06-29] MEDS: OMEPRAZOLE 20 MG CAP PO SCH (10:29)
[2017-06-29] MEDS: FOLIC ACID 1 MG TAB PO SCH (10:30)
[2017-06-29] MEDS: predniSONE 5 MG TAB PO SCH (10:30)
[2017-06-29] MEDS: VITAMIN D 1,000 INTERNATIONAL UNITS TABLET PO SCH (10:30)
[2017-06-29] MEDS ORDERED: LOPE2CA PO (11:44)
--- NOTE | 2017-06-29 13:59 | IPN ---
DATE OF VISIT: 06/28/2017 Mrs. Delgado is seen this morning during hemodialysis on her bedside. She continues to report loose stools through the night. She was nauseated this morning. However, feeling better now. Her chronic dyspnea and hypoxemia unchanged. She has no fever or chills. On physical examination, temperature 96.6 degrees Fahrenheit, heart rate 64 per minute, and respiratory rate 18 per minute. Blood pressure has been as low as 76/40 mmHg and as high as 116/61 mmHg. Oxygen saturations 93% on 4-liter oxygen. Head is atraumatic. Ears, nose, and throat are unremarkable. Neck veins are minimally distended. Heart sounds are regular and lungs with diminished breath sounds at bases bilaterally with only few basilar rales. Abdomen: Soft and nontender. Bowel sounds are normal. Extremities have no cyanosis or clubbing. Skin has no rash or ulcers. Neurologically, she is at her baseline mentation without a focal deficit. Today's laboratories show WBC count 6.5, hemoglobin 10.8, and hematocrit 35.3. Sodium 137 and potassium 5.5. BUN 49 and creatinine 6.43. PROBLEMS: 1. End-stage renal disease. The patient is being dialyzed today, and today is her regular day. She will complete her 3-hour dialysis. 2. Bilateral pleural effusions, congestive heart failure, and hypoxemia. We tried to remove 2 liters of fluid. However, she became severely hypotensive. She could only tolerate less than 1 liter today. At this point, we cannot remove more excessive fluid due to recurrent hypotension. 3. Hyperkalemia. This is related to end-stage renal disease. We have dialyzed her with 2.0 mEq potassium bath today. This is likely to correct her hyperkalemia. 4. Diarrhea. Her stool has been tested negative for Clostridium (C) difficile. She was treated with Imodium. At this point, I would suggest to continue with symptomatic treatment and consider to stop antibiotics. 5. Pneumonia. The patient remains afebrile and without any leukocytosis. Her chest x-ray will need to be repeated if there is any concern about persistent pneumonia. 6. Hypotension. This is a chronic issue and persists. Will keep trying to remove fluid as much as she can tolerate. She is not on any antihypertensive medication. We may have to consider putting her on midodrine in order to maintain her blood pressure during dialysis.
--- NOTE | 2017-07-05 18:07 | DSES ---
DATE OF ADMISSION: 06/23/2017 DATE OF DISCHARGE: 06/29/2017 PRIMARY CARE PROVIDER: Dr. Romel Powell CONSULTANTS: Furniture Fabricator, Dr. Spence and Dr. Carrillo Lamp Stack Developer, Dr. Barlow PROCEDURES: None. COMPLICATIONS: None. DISCHARGE DIAGNOSES: 1. Acute on chronic respiratory failure requiring bilevel positive airway pressure (BiPAP) secondary to decompensated congestive heart failure (CHF), on chronic four liters of oxygen nasal cannula at home. 2. Severe pulmonary hypertension. 3. Atrial fibrillation. 4. Hypothyroidism. 5. Gastroesophageal reflux disease. 6. Depression. 7. History of coronary artery disease, status post cardiac stents. 8. Frequent diarrhea. 9. Supratherapeutic international normalized ratio (INR). 10. Diastolic congestive heart failure exacerbation. 11. End-stage renal disease, on hemodialysis. HOSPITALIZATION COURSE: The patient is a 66-year-old female, presented to [facility] on 06/23/2017 for acute worsening of shortness of breath. After diagnostic workup, the patient was found to have right middle lobe pneumonia and with a sign of fluid overload from diastolic congestive heart failure exacerbation. The patient required bilevel positive airway pressure (BiPAP) treatments and diuresis and process camera operator, Dr. Barlow, was consulted for BiPAP management and the sole conforming machine operator mirror fabrication supervisor was consulted for fluid management, and patient was admitted to the intensive care unit (ICU). In order to control the patient's fluid overload, the patient had several runs of ultrafiltration and hemodialysis. With hemodialysis, the patient's breathing showed continuous improvement, and the patient was also continued on empiric antibiotics for the lung infiltrate. Shortly after, the patient was able to be weaned off the BiPAP and oxygen saturations maintained with nasal cannula support. Progressively, the patient's respiratory status slowly returned to her baseline and the patient also continued to work with physical therapy. On 06/29/2017, the patient was medically stable and the patient returned to her baseline, and the patient was discharged home with the recommendation to followup with her primary care provider, Dr. Romel Powell, in 1-2 weeks. OBJECTIVE: VITAL SIGNS: Temperature is 98.8, pulse is 61, respirations 18, blood pressure is 95/50, pulse oximetry is 97% with 4 liters nasal cannula, which is her home oxygen requirement. LABORATORY DATA: WBC 5.8, hemoglobin 9.9, hematocrit 32.2, MCV is 104.2, platelet count is 105. Sodium 143, potassium 4.3, chloride 106, carbon dioxide 27, BUN 22, creatinine is 3.92, GFR is 12.1, fasting glucose 99, calcium is 7.6. On admission, the patient had an ABG, showed pH of 7.217, pCO2 was 86.9, pO2 was 214.9, HCO3 was 34.5. Microbiology: Blood cultures on 06/23/2017 was negative after 5 days and two sets. Clostridium difficile on 06/24/2017 was negative. IMAGING STUDIES: Chest x-ray on 06/23/2017 showed cardiomegaly with vascular redistribution, pulmonary venous hypertension, bilateral effusion, smaller on the right side, increased on the left. Patchy infiltrate or atelectasis of right middle lung zone and decreased atelectasis or infiltrate at the right base. Chest x-ray on 06/25/2017 showed bilateral pleural effusion and infiltrate/compression atelectasis inferiorly in the right lung, all improved from 06/15/2017, unchanged from 06/23/2017. DISCHARGE MEDICATIONS: - loperamide 2 mg by mouth as needed for diarrhea - Tylenol 650 mg by mouth every 4 hours as needed - Percocet 7.5/325 one tablet by mouth three times a day as needed - Ventolin two puff inhalation every 4 hours as needed - albuterol 2.5 mg inhalation every 6 hours as needed for shortness of breath - atorvastatin 40 mg by mouth nightly - bisoprolol 5 mg by mouth daily - Symbicort two puff inhalation twice a day - vitamin D 2000 units by mouth daily - digoxin 0.125 mg by mouth three times a week - folic acid 1 mg by mouth daily - isosorbide dinitrate 20 mg by mouth nightly - Symbicort 175 mcg by mouth daily - nitroglycerin 0.4 mg sublingual as needed for chest pain - omeprazole 40 mg by mouth daily - prednisone 5 mg by mouth daily - Zoloft 150 mg by mouth daily - Renvela 800 mg by mouth twice a day with meals - warfarin 2.5 mg by mouth daily DISCHARGE INSTRUCTIONS: Discontinue lines. Discharge home. Activity as tolerated. Diet as tolerated. The patient will followup with her primary care provider, Dr. Romel Powell, in 1-2 weeks. The patient will also followup with sole conforming machine operator at the scheduled time. DISCHARGE CONDITION: Stable. DISCHARGE TIME: Greater than 30 minutes.
== END 2017-06-29 16:10 | disposition home or self-care (01) | DRG 291 ==
LOC: M ED 18:30 → M ED INP 22:44 → M ICU 06-24 00:51 → M MS5PR 06-26 21:35
PROVIDERS: ADMIT General Practice; ATTEND Internal Medicine
PROC: 5A1D00Z (ICD-10-PCS; principal; 2017-06-24)
PROC: 5A09458 Assistance with Respiratory Ventilation, 24-96 Consecutive Hours, Intermittent Positive Airway Pressure (ICD-10-PCS; 2017-06-24)
DX: I13.2 Hypertensive heart and chronic kidney disease with heart failure and with stage 5 chronic kidney disease, or end stage renal disease (principal); J18.9 Pneumonia, unspecified organism; I50.33 Acute on chronic diastolic (congestive) heart failure; J96.21 Acute and chronic respiratory failure with hypoxia; N18.6 End stage renal disease; J96.22 Acute and chronic respiratory failure with hypercapnia; E78.5 Hyperlipidemia, unspecified; I48.91 Unspecified atrial fibrillation; F17.210 Nicotine dependence, cigarettes, uncomplicated; E55.9 Vitamin D deficiency, unspecified; E03.9 Hypothyroidism, unspecified; J44.9 Chronic obstructive pulmonary disease, unspecified; D63.1 Anemia in chronic kidney disease; K21.9 Gastro-esophageal reflux disease without esophagitis; F32.9 Major depressive disorder, single episode, unspecified; I27.2 Other secondary pulmonary hypertension; Z79.01 Long term (current) use of anticoagulants; Z79.52 Long term (current) use of systemic steroids; Z79.899 Other long term (current) drug therapy; Z90.5 Acquired absence of kidney; Z99.81 Dependence on supplemental oxygen; Z99.2 Dependence on renal dialysis; Z95.9 Presence of cardiac and vascular implant and graft, unspecified; Z88.5 Allergy status to narcotic agent

== ENCOUNTER 2017-07-12 11:52 | Inpatient (IN) | payer MEDICARE, OTHER ==
[2017-07-12] VITALS (11 sets, daily range): BP systolic 77–115; BP diastolic 47–62
[~2017-07-12] VITALS: Ht 162.6 cm; Wt 43.8 kg
[~2017-07-12 11:52] MED LIST changes: +LOPE2CA PO; +SYMB80INH INH; +VITA200015 PO
[2017-07-12 13:43] LABS: ABG BASE EXCESS 3.3 (-2.0-2.0); ABG HCO3 34.3 MEQ/L (22.0-26.0); ABG PARTIAL PRESSURE O2 83.6 mmHg (75.0-100.0); ABG STANDARD HCO3 27.4 MEQ/L (22.0-26.0); ABG TOTAL CO2 37.3 MEQ/L (23.0-31.0)
[2017-07-12 13:47] LABS: ABG PARTIAL PRESSURE CO2 96.6 mmHg (35.0-45.0); ABG pH (ARTERIAL) 7.168 UNITS (7.350-7.450)
--- NOTE | 2017-07-12 13:48 | REP ---
Chest one-view HISTORY: Shortness of breath Comparison: 06/25/2017 An increase in interstitial markings is present in the lungs. Increased density is present in the right lower lobe consistent with atelectasis or infiltrate. A small right pleural effusion is present. The cardiac silhouette is enlarged. The pulmonary vasculature is prominent. A catheter is present in the superior vena cava. Impression: 1. Findings consistent with congestive heart failure. 2. Right lower lobe atelectasis or infiltrate. Signed by Vinay Peña MD 07/12/2017 01:40 P
[2017-07-12] MEDS ORDERED: IPRATROPIUM 0.5MG/ALBUTEROL 2.5MG INH SOL UD 3ML (DUONEB)(J7620) NEB ONE (14:00)
[2017-07-12 14:48] LABS: BASO % 0.6 % (0.0-1.0); EOS # 0.2 K/mm3 (0.0-0.50); EOS % 2.6 % (0.0-3.0); LARGE UNSTAINED CELL # 0.1 K/mm3 (0.0-0.4); LARGE UNSTAINED CELL % 1.4 % (0.0-4.0); LYMPH # 0.9 K/mm3 (1.5-4.5); LYMPH % 13.4 % (24.0-44.0); MEAN CORPUSCULAR HEMOGLOBIN 31.8 pg (27.0-33.0); MEAN CORPUSCULAR HGB CONC 29.4 g/dl (32.0-36.5); MEAN CORPUSCULAR VOLUME 108.3 fl (80.0-96.0); MONO # 0.4 K/mm3 (0.0-0.8); MONO % 6.2 % (0.0-5.0); NEUTROPHILS # 5.1 K/mm3 (1.8-7.7); NEUTROPHILS % 75.8 % (36.0-66.0); PLATELET COUNT, AUTOMATED 140 k/mm3 (150-450); RED CELL DISTRIBUTION WIDTH 14.5 % (11.5-14.5); WHITE BLOOD COUNT 6.7 K/mm3 (4.0-10.0)
[2017-07-12 14:49] LABS: ANION GAP 8 MEQ/L (8-16); BLOOD UREA NITROGEN 32 MG/DL (7-18); CALCIUM LEVEL 8.1 MG/DL (8.8-10.2); CARBON DIOXIDE LEVEL 33 MEQ/L (21-32); CHLORIDE LEVEL 99 MEQ/L (98-107); CREATININE FOR GFR 4.87 MG/DL (0.55-1.02); FREE T4 1.11 NG/DL (0.76-1.46); GLOMERULAR FILTRATION RATE 9.4 (>45); GLUCOSE, FASTING 90 MG/DL (80-110); SODIUM LEVEL 140 MEQ/L (136-145)
[2017-07-12 15:00] LABS: DIGOXIN LEVEL 2.2 NG/ML (0.5-2.0)
[2017-07-12 15:21] LABS: HYPOCHROMASIA 2+
[2017-07-12] MEDS ORDERED: IPRATROPIUM 0.5MG/ALBUTEROL 2.5MG INH SOL UD 3ML (DUONEB)(J7620) NEB PRN (15:30)
[2017-07-12 15:35] LABS: INR 2.3
[2017-07-12] MEDS ORDERED: ONDANSETRON 4MG/2ML VIAL (J2405) IV PRN (15:45)
[2017-07-12] MEDS: LACTOBACILLUS ACIDOPHILUS CAP (BACID) GT SCH ×2 (16:00→21:46)
[2017-07-12 16:09] LABS: ABG BASE EXCESS 1.1 (-2.0-2.0); ABG HCO3 29.8 MEQ/L (22.0-26.0); ABG PARTIAL PRESSURE O2 63.2 mmHg (75.0-100.0); ABG STANDARD HCO3 25.3 MEQ/L (22.0-26.0)
[2017-07-12 16:15] LABS: ABG PARTIAL PRESSURE CO2 70.5 mmHg (35.0-45.0); ABG pH (ARTERIAL) 7.244 UNITS (7.350-7.450)
[2017-07-12] MEDS: BISOPROLOL FUMARATE 5 MG TAB PO SCH (17:40)
[2017-07-12] MEDS: (RENVELA) SEVELAMER **CARBONate** 800 MG TAB PO SCH (17:43)
[2017-07-12] MEDS: methylPREDNISolone INJ 125 MG/2 ML VIAL (J2930) IV SCH (18:11)
[2017-07-12] MEDS: IPRATROPIUM 0.5MG/ALBUTEROL 2.5MG INH SOL UD 3ML (DUONEB)(J7620) NEB SCH (20:00)
[2017-07-12] MEDS: SYMBICORT 80/4.5MCG INHALER 6GM INH SCH (21:00)
[2017-07-12] MEDS: ATORVASTATIN 20 MG TAB PO SCH (21:46)
[2017-07-12] MEDS: OMEGA-3 1050MG CAPSULE PO SCH (21:46)
[2017-07-12] MEDS: WARFARIN SOD 2.5 MG TAB PO SCH (21:47)
[2017-07-13] VITALS (13 sets, daily range): BP systolic 109–146; BP diastolic 52–79; O2SAT 93
--- NOTE | 2017-07-13 00:31 | CR ---
DATE OF CONSULTATION: 07/12/2017 REQUESTING PHYSICIAN: Dr. Ottoniel Murcia CONSULTING PHYSICIAN: Dr. Maria Victoria Spence REASON FOR CONSULTATION: Management of end-stage renal disease, hemodialysis and fluid overload. CHIEF COMPLAINT: Patient presented to the emergency room with altered mental status and respiratory distress. HISTORY OF THE PRESENT ILLNESS: Anjali Delgado is a 66-year-old female with past medical history of end-stage renal disease, on hemodialysis every Tuesday, , Tuesday. Today is a regular day of dialysis. She is well known to java web engineer service from outpatient clinic and hemodialysis center, and from previous hospitalizations. She has end-stage chronic obstructive pulmonary disease (COPD). She is oxygen dependent, 4 liters at home and despite that, she is a chronic active smoker. She smokes about 5-6 cigarettes a day. She has a history of chronic atrial fibrillation. The patient presented to the emergency room today with confusion, altered mental status, respiratory distress. She was found to have hypercapnic respiratory failure and evidence of fluid overload. The patient was transferred to the intensive care unit (ICU). She was placed on bilevel positive airway pressure (BiPAP). Nephrology service was called for further help in the management of her end-stage renal disease, hemodialysis and help with the ultrafiltration. When I saw the patient in the ICU, she was BiPAP. She was able to answer a few questions. I had already arranged emergent hemodialysis at the bedside in the ICU. The patient was being dialyzed in the ICU when I saw the patient. PAST MEDICAL HISTORY: The patient has a past medical history of end-stage renal disease, hemodialysis every Tuesday, , Tuesday. End-stage COPD, on home oxygen dependent. Chronic active smoker. Solitary functioning right kidney. Atrial fibrillation, on anticoagulation. Coronary artery disease, status post stents in the past. History of diastolic congestive heart failure. Hypertension. Hypothyroidism. Hyperlipidemia. Pulmonary artery hypertension. PAST SURGICAL HISTORY: The patient is status post left nephrectomy in the past. Status post cardiac stents in the past. Status post right internal jugular (IJ) tunneled hemodialysis catheter placement by interventional radiology. ALLERGIES: The patient is allergic to HYDROMORPHONE. FAMILY HISTORY: No significant family history of end-stage renal disease requiring hemodialysis. SOCIAL HISTORY: The patient lives with her . She denies any illicit drug abuse or alcohol abuse, but she admits to smoking about 5-6 cigarettes a day, and she has not been successful in quitting smoking so far. REVIEW OF SYSTEMS: CONSTITUTIONAL: The patient reports weakness and confusion. EYES: She denies any blurry vision or double vision. ENT: She denies any dysphagia, odynophagia or ear discharge. CARDIOVASCULAR: The patient reports central chest congestion and shortness of breath. RESPIRATORY: The patient reports a history of COPD, home oxygen dependent and progressive shortness of breath. GASTROINTESTINAL: She denies any pain in the abdomen, constipation or diarrhea. GENITOURINARY: She denies any hematuria, dysuria or foul-smelling urine. MUSCULOSKELETAL: She denies any muscle aches or pains. CENTRAL NERVOUS SYSTEM: The patient was obtunded when she was brought here, and there is slight improvement in her symptoms after placement of BiPAP. PSYCHIATRIC: The patient denies any depression or anxiety at this time. HEMATOLOGICAL/ONCOLOGICAL: The patient denies any easy bruising or bleeding. ENDOCRINE: The patient has a history of hypothyroidism. All other review of systems is negative. PHYSICAL EXAMINATION: GENERAL: The patient is currently on BiPAP. She is oriented times three otherwise, in mild respiratory distress. VITAL SIGNS: Temperature is 96.7 degrees Fahrenheit. Blood pressure is 92/52 pulse is 62, respiratory rate of 18, saturating 99% on BiPAP at 20% FiO2. INTAKE AND OUTPUT: Urine output is not recorded at this time. Weight on the bed scale is 47.2 kg. Patient is awake, alert, oriented times three. Currently on BiPAP. HEAD AND NECK EXAM: Extraocular muscles intact. Pupils equally round and reactive to light. She is wearing the BiPAP mask at this time. Neck is supple. The patient has elevated jugular venous distention (JVD). CARDIOVASCULAR: S1, S2. Irregular rate. No murmur, rub or gallop. The patient has no lower extremity edema. RESPIRATORY: Decreased breath sounds at the bases and mild respiratory rhonchi at the bases as well. ABDOMEN: Soft. Positive bowel sounds. Nontender. No ascites. No organomegaly. MUSCULOSKELETAL: The patient has cyanosis of her extremities. Pulses are 2+. CENTRAL NERVOUS SYSTEM: The patient was slightly obtunded, but otherwise she was able to communicate. LYMPH NODES: No significant cervical, axillary or inguinal lymphadenopathy. AV ACCESS: The patient has a right internal jugular (IJ) tunneled hemodialysis catheter. LAB REVIEW: CBC showed a WBC of 6.7, hemoglobin 11.2, platelets are 140. INR is 2.3. ABG showed a pH of 7.24, pCO2 of 70, pO2 of 63, Bicarbonate is 32. Oxygen saturation is 91%. BMP showed sodium 140, potassium is 5, chloride 99, bicarbonate is 33, BUN 32, creatinine is 1.8, lactic acid is 1, BNP was 2180. Blood cultures are pending. IMAGING: A chest x-ray done today in the afternoon shows congestive heart failure, right lower lobe atelectasis. CURRENT INPATIENT MEDICATIONS: The patient's medications were all reviewed by me. She is currently on Tylenol, DuoNeb, Lipitor 40 mg, Zebeta 5 mg daily, folic acid 1 mg daily, levothyroxine 175 mcg daily, Solu-Medrol 60 mg IV every 8 hours, Zofran as needed, Zoloft 150 mg daily, Renvela 800 mg by mouth twice a day, Coumadin 2.5 mg by mouth daily. ASSESSMENT: A 66-year-old female with a past medical history of end-stage renal disease, on hemodialysis every Tuesday, , Tuesday, end-stage chronic obstructive pulmonary disease, diastolic congestive heart failure, admitted at this time because of hypercapnic and hypoxic respiratory failure. PLAN: 1. Hypercapnic and hypoxic respiratory failure. The patient is currently on BiPAP. There is slight improvement in her pCO2. The patient is being actively dialyzed at this time. I shall try to do an ultrafiltration of 2 kg as tolerated by blood pressure. The rest of the management is as per pulmonary service. 2. End-stage renal disease, on hemodialysis. Today is the patient's regular day of dialysis, and she is being dialyzed at this time. She will be evaluated again tomorrow for any need to do further hemodialysis and ultrafiltration. 3. End-stage COPD. Continue the nebulizers at this time. She has also been started on Solu-Medrol 60 mg IV every 8 hours, and she is currently on BiPAP at this time. The patient is an active smoker, and she has not been able to quit despite her severe end-stage COPD. 4. Hypertension. Blood pressure is acceptable at this time. Continue current dose her bisoprolol 5 mg by mouth daily. 5. Chronic atrial fibrillation. Heart rate is controlled at this time. The patient is anticoagulated with warfarin. International normalized ratio (INR) is therapeutic. 6. Chronic kidney disease mineral bone disease. Continue current dose of Renvela 800 mg by mouth twice a day with meals. 7. Hypothyroidism. Continue current dose of levothyroxine. Thank you for involving us in the care of this patient. We shall be happy to follow the patient along with you tomorrow morning. Urgent hemodialysis was arranged at the bedside today. I spent a total of 50 minutes in coordinating the critical care of this patient in the ICU. BRYAN
--- NOTE | 2017-07-13 01:27 | HPE ---
DATE OF ADMISSION: 07/12/2017 PRIMARY CARE PROVIDER: Dr. Romel Powell JUNIOR ACCOUNTANT BOOKKEEPER: Dr. Carrillo [employer] FOUNDER: Dr. Lechuga CHIEF COMPLAINT: Shortness of breath and lethargy. HISTORY OF PRESENT ILLNESS: This is a 66-year-old female patient with underlying medical history of end-stage renal disease, on dialysis Tuesday, , Tuesday, with left-sided nephrectomy, end-stage chronic obstructive pulmonary disease (COPD) on 4 liters oxygen at home. Still actively smokes, about three to four cigarettes daily. Atrial fibrillation, on anticoagulation, coronary artery disease with stent, diastolic congestive heart failure, dyslipidemia, hypothyroidism, hypertension, pulmonary artery hypertension. Patient was recently just discharged from the hospital. Presented with progressive worsening weakness. Patient was not able to get out of the bed. Was dialyzed on Tuesday. Observing fluid restriction. This morning patient was found to have more lethargy than usual. Subsequently came to the hospital. Was found to be in hypercarbic respiratory failure. Placed on bilevel positive airway pressure (BiPAP). Patient is currently arousable but a very poor historian. Denies any fevers, chills, chest pain, pressure, discomfort. Denies any significant swelling. Does report unable to get up from the bed. Generalized weakness. ALLERGIES: Reported allergy to hydromorphone. PAST MEDICAL HISTORY: 1. Solitary kidney. 2. Left-sided nephrectomy. 3. End-stage renal disease, on hemodialysis. 4. End-stage COPD. 5. Chronic hypoxic and hypercarbic respiratory failure, on 4 liters oxygen at home. 6. Active smoker. 7. Atrial fibrillation, on anticoagulation. 8. Coronary artery disease with stents. 9. Diastolic congestive heart failure. 10. Hypertension. 11. Dyslipidemia. 12. Hypothyroidism. 13. Pulmonary artery hypertension. PAST SURGICAL HISTORY: 1. Left-sided nephrectomy. 2. Cardiac stents. 3. Tunneled hemodialysis catheter inserted April 2017. FAMILY HISTORY: No family history of renal disease. SOCIAL HISTORY: Lives with her family. Denies alcohol drinking. Active smoker, down to three to four cigarettes. End-stage COPD. Oxygen dependent. REVIEW OF SYSTEMS: Reported lethargy. One episode of diarrhea. Shortness of breath, generalized weakness. All other review of systems negative. HOME MEDICATIONS: - acetaminophen 650 mg by mouth every 4 hours as needed - acetaminophen/hydromorphone 7.5/25 mg by mouth three times a day as needed - Ventolin inhaler every 4 hours as needed - albuterol nebulizer treatment every 6 hours as needed - Lipitor 40 mg by mouth at bedtime - bisoprolol 5 mg by mouth daily - Symbicort 80/4.5 inhalation twice a day - vitamin D at 2000 units by mouth daily - digoxin 0.125 by mouth three times a week - folic acid 1 mg by mouth daily - isosorbide dinitrate 20 mg by mouth at bedtime - levothyroxine 175 mcg by mouth daily - sublingual nitroglycerine 0.4 as needed - omega-3 fatty acid by mouth at bedtime - omeprazole 40 mg by mouth daily - prednisone 5 mg by mouth daily - Zoloft 150 mg by mouth daily - Renvela 800 mg by mouth twice a day with meals - Coumadin 2.5 mg by mouth every evening PHYSICAL EXAMINATION: Temperature 96.7, pulse 62, respirations 18, blood pressure 92/58, pulse oximetry 99% on 40% FiO2. Patient arousable in no acute distress, on BiPAP. HEENT: Normocephalic, atraumatic. PULMONARY: Bilateral clear. No wheezes, rales, or rhonchi. Distant breath sounds. CARDIAC: Irregular, non-tachycardic. ABDOMEN: Soft, nontender. Positive bowel sounds. EXTREMITIES: No edema, bilateral lower extremities. Patient mildly lethargic. EKG: Atrial fibrillation with a rate of 58. Premature ventricular complexes. LABORATORY DATA: WBC 6.7, hemoglobin and hematocrit 11.2/38.1, platelets 140. Chemistry: Sodium 140, potassium 5, chloride 99, bicarbonate 33, BUN 32, creatinine 4.8. Troponin negative times two. C-reactive protein negative. BNP 2180. Chest x-ray shows consistent with congestive heart failure. ASSESSMENT AND PLAN: This is a 66-year-old female patient with underlying medical history of end-stage renal disease, on hemodialysis, congestive heart failure with frequent fluid overload, chronic hypoxic respiratory failure with end-stage chronic obstructive pulmonary disease (COPD), on 4 liters oxygen at home, end-stage renal disease, on hemodialysis Tuesday, , Tuesday, active smoker, atrial fibrillation, on anticoagulation, cardiac stent, hypertension, dyslipidemia, hypothyroidism, pulmonary artery hypertension, admitted with acute hypercarbic hypoxic respiratory failure secondary to congestive heart failure (CHF) and fluid overload. 1. Acute hypercarbic hypoxic respiratory failure secondary to CHF. Acute CHF exacerbation with diastolic dysfunction, fluid overload. Patient urgently dialyzed. Nephrology has been consulted. Empirically started Solu-Medrol. C-reactive protein is negative. No indication for dialysis. Patient on continuous positive airway pressure (CPAP). Repeat arterial blood gases (ABGs), respiratory panel. Chest x-ray appreciated. Pulmonary consulted. Patient full code with a trial of intubation for 5 days as per patient and patient's family. 2. End-stage COPD. Trial steroid, nebulizer treatment. Continue Symbicort. Continue BiPAP. Repeat ABG. Nothing by mouth until patient can be off BiPAP. 3. Hypertension. Holding nitrites given patient with borderline blood pressure. Continue beta blockers. Will continue to monitor blood pressure. 4. Atrial fibrillation. Continue Zebeta. Holding digoxin given patient's digoxin level mildly elevated. Continue Coumadin. Followup INR. 5. Coronary artery disease. Continue Coumadin. Continue beta blockers. 6. Hypothyroidism. Continue Synthroid. Thyroid panel appreciated. 7. Dyslipidemia. Continue statin. 8. Smoker. Patient is cutting down to three to four cigarettes daily. 9. Deep vein thrombosis (DVT) prophylaxis. Patient on Coumadin with therapeutic INR. DISPOSITION: Pending clinical improvement. Poor overall prognosis. Advanced COPD, end-stage renal disease, multiorgan disease. Poor long-term prognosis. Patient remains full code with a trial of intubation.
[2017-07-13] MEDS: IPRATROPIUM 0.5MG/ALBUTEROL 2.5MG INH SOL UD 3ML (DUONEB)(J7620) NEB SCH ×4 (02:00→19:37)
[2017-07-13] MEDS: methylPREDNISolone INJ 125 MG/2 ML VIAL (J2930) IV SCH ×2 (02:56→10:16)
[2017-07-13 04:40] LABS: MEAN CORPUSCULAR HEMOGLOBIN 32.5 pg (27.0-33.0); MEAN CORPUSCULAR HGB CONC 30.8 g/dl (32.0-36.5); MEAN CORPUSCULAR VOLUME 105.6 fl (80.0-96.0); RED CELL DISTRIBUTION WIDTH 14.6 % (11.5-14.5)
[2017-07-13 04:46] LABS: INR 2.37
[2017-07-13 04:58] LABS: CALCIUM LEVEL 8.2 MG/DL (8.8-10.2); CREATININE FOR GFR 2.79 MG/DL (0.55-1.02); PHOSPHORUS LEVEL 4.3 MG/DL (2.5-4.9)
[2017-07-13 05:01] LABS: POTASSIUM SERUM 5.9 MEQ/L (3.5-5.1)
[2017-07-13 05:21] LABS: ABG BASE EXCESS 4.2 (-2.0-2.0); ABG HCO3 30.5 MEQ/L (22.0-26.0); ABG PARTIAL PRESSURE CO2 54.3 mmHg (35.0-45.0); ABG PARTIAL PRESSURE O2 70.8 mmHg (75.0-100.0); ABG STANDARD HCO3 28.1 MEQ/L (22.0-26.0); ABG TOTAL CO2 32.2 MEQ/L (23.0-31.0); ABG pH (ARTERIAL) 7.368 UNITS (7.350-7.450)
[2017-07-13] MEDS: LEVOTHYROXINE 100MCG TABLET (0.1MG) PO SCH (05:56)
[2017-07-13] MEDS: LEVOTHYROXINE 75MCG TABLET (0.075MG) PO SCH (05:56)
[2017-07-13] MEDS ORDERED: SOD POLYSTYRENE SULFONATE SUSP 15 GM/60 ML UD PO ONE ×2 (06:15→06:30)
[2017-07-13] MEDS: (RENVELA) SEVELAMER **CARBONate** 800 MG TAB PO SCH ×2 (08:00→16:46)
[2017-07-13] MEDS: LACTOBACILLUS ACIDOPHILUS CAP (BACID) GT SCH ×3 (08:25→20:07)
[2017-07-13] MEDS: SERTRALINE 100 MG TAB PO SCH (08:25)
[2017-07-13] MEDS: FOLIC ACID 1 MG TAB PO SCH (08:25)
[2017-07-13] MEDS: BISOPROLOL FUMARATE 5 MG TAB PO SCH (08:26)
[2017-07-13] MEDS: VITAMIN D 1,000 INTERNATIONAL UNITS TABLET PO SCH (08:26)
[2017-07-13] MEDS: OMEPRAZOLE 20 MG CAP PO SCH (08:26)
--- NOTE | 2017-07-13 13:29 | IPN ---
DATE: 07/13/2017 66-year-old female seen at bedside. Has been on bilevel positive airway pressure (BiPAP) throughout the night. Feels that she is breathing little better and is able oxygenate somewhat on 2 liters on and off. We are going to try to progress her to a mechanical soft diet and appreciate pulmonology's input. OBJECTIVE: Temperature is 98.0. Pulse is 68 and regular. Respiratory rate 20, nonlabored. Blood pressure (BP) 127/79. SpO2 93% on 2 liters nasal cannula. General: The patient appears to be in no acute distress. She is alert, pleasant. HEENT: Unremarkable. Lungs: Diminished bibasilar breath sounds with occasional wheeze. Heart: Regular rate and rhythm. Abdomen: Soft. Extremities: No edema. No calf tenderness. LABORATORY DATA: White count 5.0, hemoglobin 10.9, platelets 127,000. Sodium 138, potassium 5.9, chloride 100, bicarbonate 33, anion gap 5, BUN 16, creatinine is 2.79, glucose 64. Troponin is 0.03 on three occasions. No acute changes on EKG. TSH 3.0. Her chest x-ray in the ER done yesterday did show cephalization, right lower lobe atelectasis versus infiltrate. ASSESSMENT AND PLAN: 1. Hyperkalemia. She was given a dose of Kayexalate. We will repeat renal profile on her at noon. 2. Acute hypoxic respiratory failure superimposed on chronic obstructive pulmonary disease (COPD). She has her own BiPAP. Her symptoms do appear to be improving. She is on Solu-Medrol, and there is most likely a component of congestive heart failure involved with this. 3. End-stage renal disease on hemodialysis likely volume overload and resulting in congestive heart failure. Appreciate Dr. Lugo's assistance with dialysis. 4. Congestive heart failure with diastolic dysfunction. Acute exacerbation contributing to her increased shortness of breath and oxygen needs. She likely needs to be dialyzed. Again, appreciate Dr. Lugo's assistance. 5. History of atrial fibrillation. Rate controlled and anticoagulated on Coumadin. INR is 2.37. Will continue to monitor. 6. Positive tobacco use, active smoker. Encourage smoking cessation. 7. Hypertension. Will continue to follow. Continue current medications. 8. Dyslipidemia. Continue Lipitor. 9. Coronary artery disease with stent placement. She is currently on Lipitor, bisoprolol, isosorbide dinitrate, as needed sublingual nitroglycerin, and Coumadin. 10. Hypothyroidism. Continue on Synthroid. 11. Deep venous thrombosis (DVT) prophylaxis. Currently therapeutic on Coumadin. DISPOSITION: Appreciate Dr. Lugo and Dr. Lechuga's input. Her shortness of breath is likely multifactorial. However, she does appear to be volume overloaded and likely related to congestive heart failure (CHF) exacerbation. Appreciate nephrology's input. Further regarding her volume status, I did request a physical therapy (PT) evaluation and treatment, and had a discussion regarding end-of-life/advance directives. The patient has informed me she wants to be a full code. Her is the healthcare proxy and we have encouraged her to discuss this further with him. His understanding was that in November she previously had been a DO NOT RESUSCITATE, DO NOT INTUBATE, and they will be able will revisit this again tomorrow after the they have had a change to discuss further.
[2017-07-13 13:41] LABS: ALBUMIN 3.2 GM/DL (3.2-5.2); CALCIUM LEVEL 8.4 MG/DL (8.8-10.2); CREATININE FOR GFR 3.45 MG/DL (0.55-1.02); GLOMERULAR FILTRATION RATE 14.1 (>45); PHOSPHORUS LEVEL 4.8 MG/DL (2.5-4.9); POTASSIUM SERUM 4.1 MEQ/L (3.5-5.1)
[2017-07-13] MEDS: NICOTINE 14 MG/24 HR TRANSDERMAL TD SCH (13:46)
[2017-07-13] MEDS: SYMBICORT 80/4.5MCG INHALER 6GM INH SCH ×2 (13:48→19:37)
--- NOTE | 2017-07-13 17:28 | CR ---
DATE OF CONSULTATION: 07/12/2017 I was asked initially by Dr. Lange to be available for recommendations regarding acute on chronic respiratory failure requiring noninvasive mechanical ventilation (NIMV), as the nocturnal hospitalist did not have privileges, and then by Dr. Murcia today because of patient request for recommendations regarding her recurrent episodes of acute on chronic respiratory failure. HISTORY OF PRESENT ILLNESS: Ms. Delgado is a 66-year-old white female with multiple medical difficulties, most specifically chronic obstructive pulmonary disease (COPD), end stage renal disease requiring dialysis, recurrent episodes of pulmonary edema felt to be secondary to congestive heart failure (CHF), severe pulmonary hypertension, and ongoing tobacco usage, who presented to the emergency department yesterday with a several day history of increasing shortness of breath and lethargy. She reports that she was started on dialysis yesterday, but the run could not be completed because of blood pressure difficulties. She reports that she follows her fluid consumption regulations, stating that she has two cups of coffee in the morning, one other beverage and that is intake for the whole day. She may have had an increase from her baseline cough but not change in sputum color or hemoptysis. She believes that her wheezing may have been increased (question cardiac wheeze). She denies orthopnea. She notes some lower extremity edema. No chest pressure, but she does not a burning sensation in her mid sternum region and was advised by her home health nurse to try nitroglycerin when that occurs again. No paroxysmal nocturnal dyspnea. No fevers. No ill contacts. She did not believe that she was coming down with a upper respiratory infection. In fact, it was her home healthcare nurse who felt that she appeared more short of breath and encouraged her to go the emergency department. On evaluation there she was felt show another acute CHF exacerbation from diastolic dysfunction and fluid overload. She had an arterial blood gas that was 7.17/97/84 with a measured saturation of 95% and a base excess of 3.3. I do not know how much oxygen that was drawn on. She was placed on noninvasive mechanical ventilation and, as noted previously, I was made aware of that device. Her repeat arterial blood gas had shown improvement and by this morning she no longer required that intervention. This is Ms. Delgado's third admission since April with a similar presentation. It has been felt that these are not COPD exacerbations but rather her presentation has been secondary to pulmonary edema and because of the severity of her lung disease she has an inability to compensate for this volume overload from a respiratory standpoint. She has been a do not resuscitate/do not intubate in the past, which has seemed appropriate. She reports to me today that she rescinded that because she was told by a nurse that this meant "do not treat." ALLERGIES: HYDROMORPHONE, although I do not know her reaction to this medication. PAST MEDICAL HISTORY: 1. COPD. A. Gold classification II; moderate. B. FEV1 0.99 liters (45%), and FVC 1.99 liters (69%) with an FEV1/FVC ratio of 50% on spirometry from 05/20/2015, which is the most recent testing I could find (this is 2 years old and she is actively smoking). 2. Pulmonary hypertension, severe with an systolic pressure greater than 75 mmHg per echocardiogram in June 2017. 3. Diabetes mellitus type 2. 4. End stage renal disease requiring hemodialysis. 5. History of renal cancer, status post left nephrectomy. 6. Coronary artery disease. A. Status post stents. 7. Diastolic congestive heart failure (CHF). 8. Atrial fibrillation, on chronic anticoagulation. 9. Dyslipidemia. 10. Hypertension. 11. Tobacco usage, ongoing. 12. Hypothyroidism. 13. Depression. MEDICATIONS: On admission: - acetaminophen 650 mg by mouth every 4 hours as needed - acetaminophen/hydromorphone 7.5/25 mg by mouth three times a day as needed (this is countered to her listed allergy) - Ventolin MDI every 4 hours as needed - albuterol nebulization every 6 hours as needed - Lipitor 40 mg by mouth at night - bisoprolol 5 mg by mouth daily - Symbicort 80/4.5 two puffs twice a day by a spacer - vitamin D 2000 units by mouth daily - Digoxin 0.125 mg by mouth three times a day - folic acid 1 mg by mouth daily - isosorbide dinitrate 20 mg by mouth at night - levothyroxine 175 mcg by mouth daily - sublingual nitroglycerin 0.5 mg as needed - [place] 3 fatty acid by mouth at night - omeprazole 40 mg by mouth daily - prednisone 5 mg by mouth daily - Zoloft 150 mg by mouth daily - Renvela 800 mg by mouth twice a day with meals - Coumadin 2.5 mg by mouth in the evening FAMILY HISTORY: Family history is noncontributory to this admission. SOCIAL HISTORY: Ms. Delgado lives with her family. She denies alcohol usage. She is an active smoker and currently reports three to four cigarettes per day. Per reading the previous notes, she has been reluctant to quit. REVIEW OF SYSTEMS: Per history of present illness. Remainder of pertinent review of systems are negative. PHYSICAL EXAMINATION: GENERAL: Ms. Delgado is lying in bed in no acute distress. She can complete full sentences. She intermittently has mild supraclavicular accessory muscle usage. VITAL SIGNS: Temperature 99.8, respiratory rate 20, pulse 68, blood pressure 127/79 with a mean arterial pressure of 95, SpO2 of 93% on 2 liters via nasal cannula. HEENT: Anicteric. Nares: Patent bilaterally. Oropharynx clear with no lesions. No evidence of drainage in the posterior oropharynx. Mallampati 3. Dentures. NECK: Supple. There is elevated jugular venous distention (JVD). Without thyromegaly or masses. Trachea is midline. LYMPHATICS: Without cervical or supraclavicular lymphadenopathy. CHEST: Increased AP diameter. LUNGS: Symmetric excursion, markedly diminished air entry. No wheeze, rhonchi or significant crackle on tidal excursion with scattered end expiratory wheezes noted on forced maneuver. Prolonged expiratory phase with accentuation on force maneuver. Intermittent mild supraclavicular accessory muscle usage. No retractions. Hyperresonance to percussion. CARDIOVASCULAR: Irregularly irregular. Normal S1, S2. No murmur, rub or gallop appreciated. ABDOMEN: Normoactive bowel sounds. Soft, nondistended. Mild generalized tenderness. No rebound or guarding. No hepatosplenomegaly or masses appreciated. EXTREMITIES: Without clubbing, cyanosis, or edema. LABORATORY DATA: Complete blood count (CBC) showing a hemoglobin of 10.9, hematocrit 35.3, platelet count 127,000, white blood cell count 5000. Chemistry showed a sodium of 137, potassium 4.1, chloride 97, bicarbonate 32, anion gap 8, BUN 22, creatinine 3.45, glucose 92, calcium 8.4, phosphorous 4.8, and albumin 3.2. Her BNP on presentation yesterday was 2180. Arterial blood gas from this morning was 7.37/54/71 with a measured saturation of 95% and a base excess of 4.2. This was drawn on NIMV set at 12/7 with an FiO2 of 0.4. I reviewed her chest x-ray, as well as the report from yesterday. That x-ray showed enlarged cardiac silhouette, normal appearing mediastinal region, pulmonary vascular shadows. There are chronic changes, particularly at the right base, as well as increased interstitial markings. There is evidence of hyperinflation. IMPRESSION: 1. Acute on chronic respiratory failure. This is her third admission since April and the primary difficulty has been felt secondary to CHF with an inability of the lungs to compensate. On none of the admissions has there been evidence of a chronic obstructive pulmonary disease (COPD) exacerbation. Unfortunately, with end stage lung disease, this can be expected as small perturbations can cause a significant acute decompensation of her chronic respiratory failure. 2. Congestive heart failure (CHF), diastolic. 3. Pulmonary hypertension, severe per recent echocardiogram. 4. End stage renal disease requiring dialysis. 5. Diabetes mellitus. 6. Atrial fibrillation. 7. Hypertension. 8. Tobacco usage, ongoing. RECOMMENDATIONS: 1. I do not feel that there is a COPD exacerbation and therefore would discontinue the intravenous Solu-Medrol and rather institute her chronic pulmonary medications, which include 5 mg daily of prednisone. 2. It should be noted that she is not on a LAMA, as she states that she cannot afford that medication. I do not know what particular brands have been tried, but if it is indicated this can be addressed as an outpatient by Dr. Barker. 3. At the present time, I see no role for pursuing bilevel therapy as an outpatient, as her decompensations have not been pulmonary in nature and I am fearful that should she obtain this device that using this would not treat the underlying cause that caused her decompensation, which has been CHF. 4. If she has truly been compliant with her fluid restrictions, as she states that she is, could consider cardiology consultation, as that has been the inciting problem for the last three admissions. 5. I did address her code status and tried to reassure that do not resuscitate/do not intubate does not mean do not treat. Her , who was present, was also in agreement with do not resuscitate and do not intubate, but it is ultimately the patient's choice. They were going to discuss this further this afternoon. After reviewing her chart, evaluating the patient, reviewing her laboratory values and radiographic images, I agree with previous recommendations that DNR / DNI would be appropriate. Thank you for this consultation. Please do not hesitate to contact the pulmonary service should there be further questions or problems. BRYAN
[2017-07-13] MEDS: WARFARIN SOD 2.5 MG TAB PO SCH (20:07)
[2017-07-13] MEDS: ATORVASTATIN 20 MG TAB PO SCH (20:07)
[2017-07-13] MEDS: ACETAMINOPHEN 325 MG TAB PO PRN (20:08)
[2017-07-13] MEDS: OMEGA-3 1050MG CAPSULE PO SCH (20:08)
--- NOTE | 2017-07-13 21:46 | IPN ---
DATE: 07/13/2017 SUBJECTIVE: Patient was seen and examined at the bedside today morning in the intensive care unit (ICU). Last 24-hour events were noted. I emergently dialyzed the patient yesterday because of hypercapnic and hypoxic respiratory failure. Patient is still on the bilevel positive airway pressure (BiPAP), and she reports that she feels significantly better, and she actually wants the BiPAP off now because she is feeling better. REVIEW OF SYSTEMS: Patient denies any fevers, chills, rigors, headache, nausea, vomiting, or chest pain. She reports that her shortness of breath is getting better. She denies any pain in abdomen, constipation, or diarrhea. Rest of review of systems is negative. OBJECTIVE: Vital signs: Temperature is 98 degrees Fahrenheit, blood pressure is 141/64, pulse is 71, respiratory rate of 20, saturating 93% on BiPAP at 40% FiO2. Intake and output: Urine output recorded is only 50 mL. Ultrafiltration with hemodialysis was 2 liters yesterday. Weight in the bed scale is 42.6 kg, which is not reliable, because her weight yesterday on the same bed scale was 47 kg. PHYSICAL EXAMINATION: GENERAL: Patient is awake, alert, oriented times three, lying in bed. No apparent distress. Wearing BiPAP. HEAD AND NECK: Pupils equally round and reactive to light. She has a BiPAP mask on at this time. Neck is supple. There is no jugular venous distention (JVD). CARDIOVASCULAR: S1, S2. No murmur, rub, or gallop. Irregular rate. RESPIRATORY: Decreased breath sounds at the bases. Otherwise no rales or rhonchi. ABDOMEN: Soft. Positive bowel sounds. Nontender. No ascites. No organomegaly. MUSCULOSKELETAL: Patient has cyanosis, upper extremities. Pulses are 2+. CENTRAL NERVOUS SYSTEM: Patient is awake and alert at this time. No focal deficits. SKIN: No rashes or ulcers. PSYCHIATRIC: Normal mood and affect. AV ACCESS: Patient has a right internal jugular (IJ) tunneled hemodialysis catheter. LABORATORY REVIEW: CBC showed a WBC 5, hemoglobin 10.9, platelets of 127. ABG done today morning showed a pH of 7.36, pCO2 of 54, pO2 of 70, bicarbonate is 30.5, oxygen saturation is 94%. BMP showed sodium 137, potassium 4.1, chloride 97, bicarbonate 32, BUN 22, creatinine is 3.4, calcium is 8.4, phosphorus is 4.8. Albumin is 3.2. Blood cultures are negative so far. CURRENT INPATIENT MEDICATIONS: Patient's medications were all reviewed by me. Her Solu-Medrol has been stopped by pulmonary service. A dose of Kayexalate 15 gram by mouth times one dose was given by me today morning, and she has been restarted on Zoloft 150 mg by mouth daily. She has been started on omeprazole 40 mg daily. There is no other change in the medications today as compared with yesterday. ASSESSMENT: A 66-year-old female with past medical history of end-stage renal disease, on hemodialysis Tuesday, , Tuesday, end-stage chronic obstructive pulmonary disease (COPD), home oxygen dependent, diastolic congestive heart failure, admitted at this time because of hypercapnic and hypoxic respiratory failure along with decompensated congestive heart failure (CHF). PLAN: 1. Hypercapnic and hypoxic respiratory failure. Patient was on BiPAP. She was emergently dialyzed yesterday. That helped improve her ventilation. Her pH has improved to 7.2. She is currently on BiPAP. Decision to stop the BiPAP will be up to pulmonary service. There is no need of another session of hemodialysis today. 2. End-stage renal disease, on hemodialysis. Patient was dialyzed emergently according to her regular scheduled at the bedside in the intensive care unit (ICU). Two liters of fluid was removed. Volume status is optimized. Next hemodialysis session will be done tomorrow. 3. Hyperkalemia. Patient was hyperkalemic on the morning labs with a potassium of 5.9. She was given a dose of Kayexalate. Repeat basic metabolic panel (BMP) showed a potassium of 4.1, which is acceptable at this time. 4. End-stage COPD. Continue the nebulizations. Solu-Medrol was stopped by the pulmonary service. Patient is an active smoker. She has not been able to quit smoking at this time. 5. History of tobacco abuse. Patient does not want to quit smoking. She gets depressed whenever she starts to cut down on her smoking. Patient was given nicotine patch in the ICU today. 6. Hypertension. Blood pressure is acceptable at this time. Continue current dose of bisoprolol 5 mg daily. 7. Chronic atrial fibrillation. Heart rate is controlled at this time. Patient is on warfarin. INR is therapeutic. 8. Chronic kidney disease, mineral bone disease. Continue Renvela 800 mg by mouth twice a day. Total critical care time spent in the management of this patient in the ICU today is 40 minutes.
[2017-07-14] VITALS (7 sets, daily range): BP systolic 108–146; BP diastolic 52–63
[2017-07-14] MEDS: IPRATROPIUM 0.5MG/ALBUTEROL 2.5MG INH SOL UD 3ML (DUONEB)(J7620) NEB SCH ×4 (01:17→20:00)
[2017-07-14 04:41] LABS: MEAN CORPUSCULAR HEMOGLOBIN 32.4 pg (27.0-33.0); MEAN CORPUSCULAR HGB CONC 31.6 g/dl (32.0-36.5); MEAN CORPUSCULAR VOLUME 102.5 fl (80.0-96.0); RED CELL DISTRIBUTION WIDTH 14.7 % (11.5-14.5); WHITE BLOOD COUNT 5.7 K/mm3 (4.0-10.0)
[2017-07-14 04:43] LABS: INR 3.09
[2017-07-14 04:52] LABS: POTASSIUM SERUM 3.8 MEQ/L (3.5-5.1)
[2017-07-14 05:16] LABS: ALBUMIN 2.7 GM/DL (3.2-5.2); CALCIUM LEVEL 7.3 MG/DL (8.8-10.2); CREATININE FOR GFR 4.24 MG/DL (0.55-1.02); GLOMERULAR FILTRATION RATE 11.1 (>45)
[2017-07-14 05:36] LABS: PHOSPHORUS LEVEL 6.1 MG/DL (2.5-4.9)
[2017-07-14] MEDS: LEVOTHYROXINE 75MCG TABLET (0.075MG) PO SCH (06:11)
[2017-07-14] MEDS: LEVOTHYROXINE 100MCG TABLET (0.1MG) PO SCH (06:11)
[2017-07-14] MEDS: SYMBICORT 80/4.5MCG INHALER 6GM INH SCH ×2 (07:33→20:23)
[2017-07-14] MEDS: SERTRALINE 100 MG TAB PO SCH (08:42)
[2017-07-14] MEDS: NICOTINE 14 MG/24 HR TRANSDERMAL TD SCH (08:42)
[2017-07-14] MEDS: predniSONE 5 MG TAB PO SCH (08:42)
[2017-07-14] MEDS: VITAMIN D 1,000 INTERNATIONAL UNITS TABLET PO SCH (08:42)
[2017-07-14] MEDS: OMEPRAZOLE 20 MG CAP PO SCH (08:42)
[2017-07-14] MEDS: LACTOBACILLUS ACIDOPHILUS CAP (BACID) GT SCH ×3 (08:42→21:51)
[2017-07-14] MEDS: FOLIC ACID 1 MG TAB PO SCH (08:42)
[2017-07-14] MEDS: (RENVELA) SEVELAMER **CARBONate** 800 MG TAB PO SCH ×2 (08:42→19:00)
[2017-07-14] MEDS: BISOPROLOL FUMARATE 5 MG TAB PO SCH (08:43)
--- NOTE | 2017-07-14 08:59 | ECGEPIP ---
Stationary ECG Study [facility] - ED Test Date: 2017-07-12 Pat Name: ROBBIE GOLD Department: Room: - Gender: F Machine Dyer: : 1950 Requested By: Beau Lebron Order Number: [id number] Reading MD: Tiesha Hussein Measurements Intervals [place] Rate: 58 P: [place]: 0 QRS: 105 QRSD: 108 T: 0 QT: 375 QTc: 371 Interpretive Statements ATRIAL FIBRILLATION WITH SLOW VENTRICULAR RESPONSE WITH ABERRANT CONDUCTION OR VENTRICULAR PREMATURE COMPLEXES MARKED RIGHT AXIS DEVIATION NONSPECIFIC ST & T-WAVE ABNORMALITY Electronically Signed On 07-14-2017 8:59:39 EDT by Tiesha Hussein
[2017-07-14] MEDS ORDERED: HEPARIN 1,000 UNITS/ML 10ML VIAL (FOR RADIOLOGY& DIALYSIS ONLY) IV ONE (12:00)
[2017-07-14] MEDS: ATORVASTATIN 20 MG TAB PO SCH (21:51)
[2017-07-14] MEDS: OMEGA-3 1050MG CAPSULE PO SCH (21:51)
[2017-07-14] MEDS: ACETAMINOPHEN 325 MG TAB PO PRN (21:52)
[2017-07-14] MEDS: WARFARIN SOD 2.5 MG TAB PO SCH (21:52)
[2017-07-15] MEDS: IPRATROPIUM 0.5MG/ALBUTEROL 2.5MG INH SOL UD 3ML (DUONEB)(J7620) NEB SCH ×3 (01:10→13:21)
[2017-07-15] MEDS: LEVOTHYROXINE 75MCG TABLET (0.075MG) PO SCH (05:49)
[2017-07-15] MEDS: LEVOTHYROXINE 100MCG TABLET (0.1MG) PO SCH (05:49)
[2017-07-15 06:00] VITALS: BP 96/48
[2017-07-15 06:30] VITALS: BP 100/54
[2017-07-15] MEDS: SYMBICORT 80/4.5MCG INHALER 6GM INH SCH (07:28)
[2017-07-15] MEDS: (RENVELA) SEVELAMER **CARBONate** 800 MG TAB PO SCH (08:00)
[2017-07-15 08:37] LABS: INR 2.19
[2017-07-15 08:57] LABS: ALBUMIN 2.9 GM/DL (3.2-5.2); CALCIUM LEVEL 7.9 MG/DL (8.8-10.2); CREATININE FOR GFR 2.88 MG/DL (0.55-1.02); GLOMERULAR FILTRATION RATE 17.3 (>45); MAGNESIUM LEVEL 1.9 MG/DL (1.8-2.4); PHOSPHORUS LEVEL 3.9 MG/DL (2.5-4.9)
[2017-07-15 08:59] LABS: MEAN CORPUSCULAR HEMOGLOBIN 31.7 pg (27.0-33.0); MEAN CORPUSCULAR HGB CONC 30.2 g/dl (32.0-36.5); MEAN CORPUSCULAR VOLUME 104.8 fl (80.0-96.0); RED CELL DISTRIBUTION WIDTH 14.7 % (11.5-14.5); WHITE BLOOD COUNT 6.1 K/mm3 (4.0-10.0)
[2017-07-15] MEDS: VITAMIN D 1,000 INTERNATIONAL UNITS TABLET PO SCH (09:46)
[2017-07-15] MEDS: OMEPRAZOLE 20 MG CAP PO SCH (09:47)
[2017-07-15] MEDS: LACTOBACILLUS ACIDOPHILUS CAP (BACID) GT SCH (09:47)
[2017-07-15] MEDS: predniSONE 5 MG TAB PO SCH (09:47)
[2017-07-15] MEDS: FOLIC ACID 1 MG TAB PO SCH (09:47)
[2017-07-15 09:48] VITALS: BP 100/54
[2017-07-15] MEDS: NICOTINE 14 MG/24 HR TRANSDERMAL TD SCH (09:48)
[2017-07-15] MEDS: BISOPROLOL FUMARATE 5 MG TAB PO SCH (09:48)
[2017-07-15] MEDS: SERTRALINE 100 MG TAB PO SCH (09:48)
[2017-07-15] MEDS ORDERED: PRED5TA PO (10:30)
[2017-07-15] MEDS ORDERED: TIOT18INH INH (10:30)
[2017-07-15] MEDS ORDERED: NICO14PA TD (10:30)
[2017-07-15] MEDS ORDERED: ALBU17IN INH (10:37)
[2017-07-15] MEDS ORDERED: SYMB80INH INH (10:37)
--- NOTE | 2017-07-15 14:21 | DSES ---
ADMISSION DATE: 07/12/2017 DISCHARGE DATE: 07/15/2017 PRIMARY CARE PROVIDER: Dr. Powell. REAL ESTATE SALESPERSON: Dr. Spence, Dr. Carrillo CONSULTANTS: Dr. Alexandrea Spence ADMISSION/DISCHARGE DIAGNOSES: 1. Congestive heart failure with exacerbation of volume overload. 2. Acute hypoxic respiratory failure superimposed on CHF. 3. Chronic obstructive pulmonary artery disease (COPD). 4. Hyperkalemia, resolved. 5. End-stage renal disease on hemodialysis. 6. History of atrial fibrillation rate control and anticoagulated. 7. Tobacco use. Encouraged smoking cessation with education provided as well as Nicoderm patch. 8. Hypertension, stable. 9. Dyslipidemia. 10. Coronary artery disease status post stent placement. 11. Hypothyroidism. BRIEF HOSPITAL COURSE: Ms. Delgado is a 66-year-old female presented to the emergency department with increasing shortness of breath, hypoxia, was felt to need BiPAP for support and her chest x-ray did suggest congestive heart failure, which she was diuresed, I appreciate Dr. Lechuga's assistance and the patient actually was dialyzed per Dr. Spence. Her symptomatology did improve. She was downgraded to medical floor and on date of discharge was felt to be back to her baseline. Further information regarding intake physical labs, diagnostics please refer to the H P as well as Dr. Lechuga and Dr. Dr. Spence's notes. PHYSICAL EXAMINATION: Temperature is 97.1, pulse 60, respiratory rate 16, BP is 100/54, SPO2 100% on 4 liters. HEENT: Unremarkable. Lungs: Diminished bibasilar breath sounds, otherwise clear. Heart: Regular rhythm. Abdomen: Soft. Extremities: No edema. No calf tenderness. LABORATORY DATA: White count 6.1, hemoglobin 10.5, platelets 149,000. Sodium 142, potassium 4.0, chloride 106, bicarb 20, anion gap 8, BUN is 22, creatinine 2.88, magnesium 1.9, phosphorus 2.9. Discharge condition is good. DISPOSITION: Discharge to home. DISCHARGE MEDICATIONS: - Nicoderm patch 14 mg patch daily - prednisone 5 mg daily - Spiriva one inhalation daily - Tylenol 650 every 4 hours as needed - [place] 7.5/325 1 tablet three times a day as needed arthritic pain - albuterol inhaler as directed - albuterol nebulizer as directed - Lipitor 40 mg at bedtime - bisoprolol 5 mg daily - Symbicort 80/4.5 mcg inhaler 2 inhalations twice a day - vitamin D 2000 units daily - digoxin 0.125 mg daily - folic acid 1 mg daily - isosorbide dinitrate 20 mg at bedtime - Synthroid 175 mcg daily - sublingual nitroglycerin 0.4 mg as directed - omega 3 one capsule daily - omeprazole 40 mg daily - Zoloft 150 mg daily - Renvela 800 mg twice a day with meals - Coumadin 2.5 mg daily DISCHARGE INSTRUCTIONS: Discharge to home. Activity as tolerated. Regular diet. Followup with Dr. Powell in the week. Keep regular appointments for dialysis with Dr. Spence and keep followup pulmonary appointments with Dr. Barker. She seek medical attention if symptoms should worsen or progress. She voices understanding. Discharge took 35 minutes.
--- NOTE | 2017-07-15 20:27 | IPN ---
DATE: 07/15/2017 SUBJECTIVE: The patient was seen and examined at the bedside today, morning. She feels much better. She denies any shortness of breath apart from her baseline shortness of breath. She is wearing oxygen. The patient reports that she is ready to go home today. REVIEW OF SYSTEMS: The patient denies any fever, chills, rigors, headache, nausea, vomiting, chest pain. She reports mild shortness of breath, which is her baseline. She denies any pain in abdomen, constipation or diarrhea. The rest of the review of systems is negative. OBJECTIVE: VITAL SIGNS: Temperature is 97.1 degrees Fahrenheit. Blood pressure is 96/48, pulse is 60, respiratory rate of 16, saturating 100% on nasal cannula at 4 liters. INTAKE/OUTPUT: Urine output is not recorded. Ultrafiltration with hemodialysis was 2 liters yesterday. Weight on the bed scale is not available. PHYSICAL EXAMINATION: GENERAL: The patient is awake, alert, oriented times three, sitting in the bed in no apparent distress. HEAD AND NECK EXAM: Extraocular muscles intact. Pupils equally round and reactive to light. Mucous membranes are moist. Neck is supple. There is no jugular venous distention (JVD). CARDIOVASCULAR: S1, S2, irregular rate. No murmur, rub or gallop. RESPIRATORY: Decreased breath sounds at the bases; otherwise no active rales or rhonchi. ABDOMEN: Abdomen is soft. Positive bowel sounds. Nontender. No ascites. No organomegaly. MUSCULOSKELETAL: The patient has clubbing of the nails. She has mildly cyanosed extremities and pulses are 2+. There is no edema. CENTRAL NERVOUS SYSTEM: No focal neurological deficit. Power is 5/5 in all extremities. PSYCHIATRIC: Normal mood and affect. AV ACCESS: The patient has a right internal jugular (IJ) tunneled hemodialysis catheter. LAB REVIEW: CBC showed a WBC of 6.1, hemoglobin 9.5, platelets are 149. INR is 2.1. BMP showed sodium 142, potassium is 4, chloride 106, bicarbonate 28, BUN 22, creatinine is 2.8, albumin is 2.9. CURRENT INPATIENT MEDICATIONS: The patient's medications were all reviewed by me. There is no change in the medications today as compared with yesterday. ASSESSMENT: A 66-year-old female with past medical history of end-stage renal disease, on hemodialysis every Tuesday, , Tuesday, end-stage chronic obstructive pulmonary disease (COPD), home oxygen dependent, diastolic congestive heart failure, admitted at this time because of hypercapnic and hypoxic respiratory failure secondary to decompensated congestive heart failure. PLAN: 1. Decompensated congestive heart failure. The patient was dialyzed yesterday. Two liters of fluid was removed. Volume status is optimized. No need of extra hemodialysis or ultrafiltration today. 2. End-stage renal disease, on hemodialysis. The patient's regular dialysis days are Tuesday, , Tuesday. Next hemodialysis will be as an outpatient tomorrow morning. 3. End-stage chronic obstructive pulmonary disease. Continue home dose of nebulizers. The patient is an active smoker and she does not want to quit at this time. 4. Hypertension. Blood pressure is acceptable at this time. Continue current dose of bisoprolol 5 mg by mouth daily. 5. Chronic atrial fibrillation. Heart rate is controlled at this time. International normalized ratio (INR) is therapeutic. Continue current dose of warfarin. 6. Discharge planning: It is okay to discharge the patient from nephrology standpoint. The patient will be dialyzed as an outpatient tomorrow morning. Plan of care was discussed with the hospitalist.
[2017-07-17] MEDS ORDERED: INFLUENZA VIRUS VACCINE HIGH DOSE 0.5 ML SYRINGE (90662) IM SCH (09:00)
--- NOTE | 2017-07-25 13:58 | IPN ---
DATE: 07/14/2017 SUBJECTIVE: Patient was seen and examined at the bedside today morning in the intensive care unit (ICU). Patient feels significantly better today. She is off of bilevel positive airway pressure (BiPAP) at this time. She is on new nasal cannula. She was dialyzed yesterday. She tolerated the hemodialysis procedure well, and after that her shortness of breath and hypoxemia significantly improved. Patient is feeling better today. REVIEW OF SYSTEMS: Patient denies any fever, chills, rigors, headache, chest pain. She does report mild shortness of breath. She denies any pain in abdomen, constipation, or diarrhea. Rest of review of systems is negative. OBJECTIVE: Vital signs: Temperature is 97.3 degrees Fahrenheit, blood pressure is 131/60, pulse is 68, respiratory rate of 25, saturating 99% on nasal cannula at 4 liters. Intake and output:: Urine output is not recorded. Weight in the bed scale is 43.8 kg. PHYSICAL EXAMINATION: GENERAL: Patient is awake, alert, oriented times three, lying in bed in no apparent distress. Wearing nasal cannula. HEAD AND NECK: Pupils equally round and reactive to light. Mucous membranes are moist. Neck is supple. There is no jugular venous distention (JVD). CARDIOVASCULAR: S1, S2, regular rate. No murmur, rub, or gallop. RESPIRATORY: Decreased breath sounds at the bases with mild expiratory rhonchi. ABDOMEN: Soft. Positive bowel sounds. Nontender. No ascites. No organomegaly. MUSCULOSKELETAL: Patient has cyanosis of extremities. Pulses are 2+. CENTRAL NERVOUS SYSTEM: Patient is awake, alert, oriented times three. No focal deficit at this time. PSYCHIATRIC: Normal mood and affect. AV ACCESS: Patient has a tunneled right internal jugular (IJ) hemodialysis catheter. LABORATORY REVIEW: CBC showed a WBC 5.7, hemoglobin 10.1, platelets of 121. INR is 3. BMP showed sodium 140, potassium 3.8, chloride 100, bicarbonate is 30, BUN 39, creatinine 4.2, calcium 7.3, phosphorus is 6.1. Albumin is 2.7. CURRENT INPATIENT MEDICATIONS: Patient's medications were all reviewed by me. There are no new medications today as compared with yesterday. ASSESSMENT: A 66-year-old female with past medical history of end-stage renal disease, on hemodialysis Tuesday, , Tuesday, end-stage chronic obstructive pulmonary disease (COPD), on home oxygen and active smoker, along with diastolic congestive heart failure, admitted at this time because of hypercapnic and hypoxic respiratory failure along with decompensated congestive heart failure. RECOMMENDATIONS AND PLAN: 1. End-stage renal disease, on hemodialysis. Today is patient's regular day of dialysis. Patient will be dialyzed according to her regular schedule in the afternoon, and I shall try remove about 2 liters of fluid as tolerated by her blood pressure. 2. Decompensated congestive heart failure. Patient's volume status is optimized at this time. She was emergently dialyzed 2 days ago. Today is her regular day of dialysis. She will get more ultrafiltration done today in the afternoon. 3. End-stage COPD. Steroids are stopped. Continue the nebulization. Hypercapnia is significantly better. 4. Hypertension. Blood pressure is acceptable. Continue bisoprolol 5 mg daily. 5. Chronic atrial fibrillation. INR is therapeutic. Heart rate is controlled at this time. MTDD
== END 2017-07-15 14:05 | disposition home health service (06) | DRG 291 ==
LOC: M ED 11:52 → M ED INP 15:42 → M ICU 17:13 → M MSPAV 07-14 14:31
PROVIDERS: ADMIT Hospitalist; ATTEND Hospitalist
PROC: 5A1D00Z (ICD-10-PCS; principal; 2017-07-12)
DX: I50.33 Acute on chronic diastolic (congestive) heart failure (principal); N18.6 End stage renal disease; J96.21 Acute and chronic respiratory failure with hypoxia; J96.22 Acute and chronic respiratory failure with hypercapnia; I13.2 Hypertensive heart and chronic kidney disease with heart failure and with stage 5 chronic kidney disease, or end stage renal disease; E03.9 Hypothyroidism, unspecified; E78.5 Hyperlipidemia, unspecified; I27.2 Other secondary pulmonary hypertension; F17.210 Nicotine dependence, cigarettes, uncomplicated; E87.5 Hyperkalemia; J44.9 Chronic obstructive pulmonary disease, unspecified; I48.2 Chronic atrial fibrillation; Z99.2 Dependence on renal dialysis; I25.10 Atherosclerotic heart disease of native coronary artery without angina pectoris; Z79.899 Other long term (current) drug therapy; Z79.52 Long term (current) use of systemic steroids; Z79.01 Long term (current) use of anticoagulants; Z99.81 Dependence on supplemental oxygen; Z90.5 Acquired absence of kidney; Z95.828 Presence of other vascular implants and grafts

== ENCOUNTER 2017-07-21 16:20 | Inpatient (IN) | payer MEDICARE, OTHER ==
[~2017-07-21] VITALS: Ht 160 cm; Wt 46.5 kg
[~2017-07-21 16:20] MED LIST changes: +NICO14PA TD; +TIOT18INH INH
[2017-07-21 17:30] LABS: ALBUMIN 3.1 GM/DL (3.2-5.2); ALBUMIN/GLOBULIN RATIO 1.07 (1.00-1.93); ALKALINE PHOSPHATASE 71 U/L (45-117); ALT/SGPT 21 U/L (12-78); ANION GAP 9 MEQ/L (8-16); AST/SGOT 28 U/L (15-37); BILIRUBIN,DIRECT < 0.1 MG/DL (0.0-0.2); BILIRUBIN,TOTAL 0.2 MG/DL (0.2-1.0); BLOOD UREA NITROGEN 21 MG/DL (7-18); CALCIUM LEVEL 7.8 MG/DL (8.8-10.2); CARBON DIOXIDE LEVEL 31 MEQ/L (21-32); CHLORIDE LEVEL 101 MEQ/L (98-107); CREATININE FOR GFR 2.75 MG/DL (0.55-1.02); GLOMERULAR FILTRATION RATE 18.3 (>45); GLUCOSE, FASTING 137 MG/DL (80-110); POTASSIUM SERUM 3.7 MEQ/L (3.5-5.1); SODIUM LEVEL 141 MEQ/L (136-145)
[2017-07-21] MEDS ORDERED: dexameTHASONE 20 MG/5 ML VIAL (J1100) IV ONE (17:45)
[2017-07-21 17:46] LABS: BASO % 0.2 % (0.0-1.0); EOS # 0.1 K/mm3 (0.0-0.50); LARGE UNSTAINED CELL # 0.1 K/mm3 (0.0-0.4); LARGE UNSTAINED CELL % 0.9 % (0.0-4.0); LYMPH # 0.6 K/mm3 (1.5-4.5); LYMPH % 7.3 % (24.0-44.0); MEAN CORPUSCULAR HEMOGLOBIN 31.1 pg (27.0-33.0); MEAN CORPUSCULAR VOLUME 107.3 fl (80.0-96.0); MONO # 0.3 K/mm3 (0.0-0.8); MONO % 4.1 % (0.0-5.0); NEUTROPHILS # 6.9 K/mm3 (1.8-7.7); NEUTROPHILS % 86.5 % (36.0-66.0); PLATELET COUNT, AUTOMATED 153 k/mm3 (150-450); RED CELL DISTRIBUTION WIDTH 14.7 % (11.5-14.5)
--- NOTE | 2017-07-21 17:50 | REP ---
Clinical: Dyspnea. Comparison: 07/12/2017. Findings: Double-lumen central venous catheter with tip in the SVC. Mediastinum and cardiac silhouette are stable. Lung jones demonstrate chronic changes with superimposed interstitial edema as well as bibasilar infiltrates (right greater than left) and small right pleural effusion. No pneumothorax. Skeletal structures stable. Impression: Bibasilar infiltrates (right greater than left) and small right pleural effusion with underlying chronic interstitial changes and possible interstitial edema. Signed by Ferny Bates MD 07/21/2017 05:41 P
[2017-07-21 18:16] LABS: INR 1.71
--- NOTE | 2017-07-21 18:32 | ECGEPIP ---
Stationary ECG Study [facility] - ED Test Date: 2017-07-21 Pat Name: ROBBIE GOLD Department: Room: - Gender: F Human Services Supervisor: frank : 1950 Requested By: MERLIN Miranda Order Number: [id number] Reading MD: Beau Murguia Measurements Intervals [place] Rate: 81 P: [place]: 0 QRS: 85 QRSD: 98 T: 104 QT: 333 QTc: 387 Interpretive Statements ATRIAL FIBRILLATION NONSPECIFIC ST & T-WAVE ABNORMALITY Electronically Signed On 07-21-2017 18:32:07 EDT by Beau Murguia
[2017-07-21] MEDS ORDERED: IPRATROPIUM 0.5MG/ALBUTEROL 2.5MG INH SOL UD 3ML (DUONEB)(J7620) NEB ONE (19:30)
[2017-07-21] MEDS ORDERED: LevoFLOXacin IV 500 MG in APPROPRIATE DILUENT 1 EA IV ONE (19:45)
[2017-07-21] MEDS ORDERED: NICO14DI20 TD (20:11)
[2017-07-21] MEDS ORDERED: CALC1CAP31 PO (20:11)
[2017-07-21] MEDS ORDERED: ALBU17IN INH (20:11)
[2017-07-21] MEDS ORDERED: TYLE500T78 PO (20:11)
[2017-07-21] MEDS ORDERED: DIGO0.12 PO (20:11)
[2017-07-21] MEDS ORDERED: SYMB16INH INH (20:11)
[2017-07-21] MEDS ORDERED: ONDANSETRON 4MG/2ML VIAL (J2405) IV PRN (20:30)
[2017-07-21] MEDS ORDERED: ACETAMINOPHEN TAB 650MG DOSE (2X325MG) PO PRN (20:30)
[2017-07-21] MEDS ORDERED: VANCOMYCIN HCL 1,000 MG, VIAL MATE ADAPTER 1 EACH in D5W 250 ML IV SCH (20:30)
[2017-07-21] MEDS ORDERED: ANEXSIA, NORCO 7.5MG/325MG TABLET(HYDROCODONE/APAP) PO PRN (20:45)
[2017-07-21 21:17] LABS: DIGOXIN LEVEL 0.7 NG/ML (0.5-2.0)
[2017-07-21] MEDS: ISOSORBIDE DIN. (ISORDIL) 20 MG TAB PO SCH (21:51)
[2017-07-21] MEDS: ATORVASTATIN 20 MG TAB PO SCH (21:51)
[2017-07-21] MEDS: WARFARIN SOD 2.5 MG TAB PO SCH (21:52)
[2017-07-21] MEDS: SERTRALINE 100 MG TAB PO SCH (21:52)
[2017-07-21 22:00] VITALS: BP 121/58
[2017-07-21] MEDS ORDERED: LevoFLOXacin IV 250 MG in APPROPRIATE DILUENT 1 EA IV SCH (22:00)
--- NOTE | 2017-07-21 22:31 | HPEPDOC ---
Medical History and Physical Date of Admission 07/21/17 History and Physical PRIMARY CARE PROVIDER: Dr. Romel Powell ATTENDING: Dr. Na Jewell CHIEF COMPLAINT: SOB HISTORY OF PRESENT ILLNESS: This is a 66-year-old female past medical history of stage renal disease on hemodialysis Tuesday//Tuesday, and states COPD on 4 L home O2, atrial fibrillation on Coumadin, CAD status post PCI, diastolic heart failure, hypertension, hypothyroidism, pulmonary artery hypertension who presents complaining of shortness of breath and cough. Patient states she's been having shortness of breath and cough over the past day , presented to hemodialysis today, after which she needed to have it stopped early given her shortness of breath. She was then sent to the emergency department. Shortness of breath improved with nebulizers by EMS. In the ED, patient was noted to have pneumonia. Recently discharged on 07/15/17 from the hospital. Denies chest pain/palpitations. Also states that her INR was elevated greater than 3 and was told by her primary care to hold her Coumadin until . PAST MEDICAL HISTORY: As per HPI PAST SURGICAL HISTORY: Left nephrectomy, PCI, tunneled catheter in April 2017, thyroidectomy SOCIAL HISTORY: History of tobacco abuse however has just recently started the patch. Denies alcohol and illicit drug use. Lives with . FAMILY HISTORY: Noncontributory ALLERGIES: Please see below. REVIEW OF SYSTEMS: HEENT: Denies sore throat/headache CARDIOVASCULAR: Denies chest pain/palpitations RESPIRATORY: Denies shortness of breath/cough GASTROINTESTINAL: denies nausea/vomiting GENITOURINARY: Denies dysuria/urinary urgency. MUSCULOSKELETAL: Denies myalgias/arthralgias NEUROLOGICAL: Denies any focal weakness HOME MEDICATIONS: Please see below. PHYSICAL EXAMINATION: Vitals: (see below) General: No acute distress, laying comfortably in bed. HEENT: Moist mucous membranes. Neck: No JVD or lymphadenopathy. Tunneled catheter on the right. Cardiac: RRR, No murmurs Pulm: Coarse crackles bilateral bases. No wheezing or rhonchi. Abd: NT/ND + BS Ext: Trace edema. No cyanosis Following commands, moving all extremities. LABORATORY DATA: See below. IMAGING: Chest x-ray 07/21/17 Impression: Bibasilar infiltrates (right greater than left) and small right pleural effusion with underlying chronic interstitial changes and possible interstitial edema. MICROBIOLOGY: Please see below. ASSESSMENT/PLAN: 1. HCAP - recent admission. Cough and shortness of breath. Desaturated on ambulation in the ED. Started empirically on vancomycin and Levaquin. Blood cultures pending. 2. End-stage renal disease- on hemodialysis Tuesday//Tuesday 3. Atrial fibrillation on Coumadin- restart Coumadin 4. History of CAD status post PCI- continue home meds 5. History of diastolic heart failure- compensated 6. Hypothyroidism- continue Synthroid 7. End-stage COPD on 4 L home O2- continue O2 and prednisone. Nebs. DVT prophylaxis- Coumadin Patient was followed by Dr. Na Jewell starting 07/22/17 at 7 AM. Vital Signs Vital Signs Date Time Temp Pulse Resp B/P (MAP) Pulse Ox O2 Delivery O2 Flow Rate FiO2 07/21/17 19:20 84 96 07/21/17 19:18 134/51 (78) 07/21/17 16:59 Nasal Cannula 4.0 07/21/17 16:24 97.3 20 Laboratory Data Labs 24H Laboratory Tests 2 07/21/17 16:46: White Blood Count 8.0, Red Blood Count 3.30L, Hemoglobin 10.3L, Hematocrit 35.4L , Mean Corpuscular Volume 107.3H, Mean Corpuscular Hemoglobin 31.1, Mean Corpuscular Hemoglobin Concent 29.0L, Red Cell Distribution Width 14.7H, Platelet Count 153, Neutrophils (%) (Auto) 86.5H, Lymphocytes (%) (Auto) 7.3L, Monocytes (%) (Auto) 4.1, Eosinophils (%) (Auto) 1.0, Basophils (%) (Auto) 0.2, Neutrophils # (Auto) 6.9, Lymphocytes # (Auto) 0.6L, Monocytes # (Auto) 0.3, Eosinophils # (Auto) 0.1, Basophils # (Auto) 0.0, Large Unclassified Cells % 0.9 , Large Unclassified Cells # 0.1, Anion Gap 9, Glomerular Filtration Rate 18.3L , Calcium Level 7.8L, Aspartate Amino Transf (AST/SGOT) 28, Alanine Aminotransferase (ALT/SGPT) 21, Alkaline Phosphatase 71, Total Bilirubin 0.2, Direct Bilirubin < 0.1, Total Creatine Kinase 36, Creatine Kinase MB 1.6, Creatine Kinase MB Relative Index 4.44H, Troponin I 0.03, B-Type Natriuretic Peptide 1940H, Total Protein 6.0L, Albumin 3.1L, Albumin/Globulin Ratio 1.07 07/21/17 17:52: Prothrombin Time 20.6H, Prothromb Time International Ratio 1.71 CBC/BMP Laboratory Tests 07/21/17 16:46 Red Blood Count 3.30 L, Mean Corpuscular Volume 107.3 H, Mean Corpuscular Hemoglobin 31.1, Mean Corpuscular Hemoglobin Concent 29.0 L, Red Cell Distribution Width 14.7 H, Neutrophils (%) (Auto) 86.5 H, Lymphocytes (%) (Auto ) 7.3 L, Monocytes (%) (Auto) 4.1, Eosinophils (%) (Auto) 1.0, Basophils (%) ( Auto) 0.2, Neutrophils # (Auto) 6.9, Lymphocytes # (Auto) 0.6 L, Monocytes # ( Auto) 0.3, Eosinophils # (Auto) 0.1, Basophils # (Auto) 0.0 Home Medications Scheduled Atorvastatin Calcium (Atorvastatin Calcium) 40 Mg Tab, 40 MG PO QHS Bisoprolol Fumarate (Bisoprolol Fumarate) 5 Mg Tab, 5 MG PO DAILY Budesonide/Formoterol (Symbicort 160-4.5 Mcg/Act) 60 Puff/Inhaler Aers, 2 PUFF INH BID Calcitriol (Calcitriol) 0.25 Mcg Cap, 0.25 MCG PO DAILY Cholecalciferol (Vitamin D) 2,000 Unit Tab, 2,000 UNIT PO DAILY Digoxin (Digoxin) 0.125 Mg Tab, 0.125 MG PO ASDIRECTED TAKES ON TUESDAY, TUESDAY AND TUESDAY AT QHS Folic Acid (Folic Acid) 1 Mg Tab, 1 MG PO QHS Isosorbide Dinitrate (Isosorbide Dinitrate) 20 Mg Tab, 20 MG PO QHS Levothyroxine Sodium (Synthroid) 175 Mcg Tab, 175 MCG PO DAILY Nicotine (Nicotine 14MG Patch) 1 Patch Tdsy, 1 PATCH TD DAILY Faulkner 3 Polyunsat Fatty Acids (Faulkner 3 1000 mg) 1 Cap Cap, 1 CAP PO QHS Omeprazole (Omeprazole) 40 Mg Cap, 40 MG PO DAILY Prednisone (Prednisone) 5 Mg Tab, 5 MG PO DAILY Sertraline Hcl (Zoloft) 100 Mg Tab, 100 MG PO QHS Sevelamer Carbonate (Renvela) 800 Mg Tab, 1,600 MG PO WM Warfarin Sod (Coumadin) 3 Mg Tab, 3 MG PO DAILY Scheduled PRN Acetaminophen/Hydrocodone (Hydrocodone/Acetaminophen 7.5-325 mg) 1 Tab Tab, 1 TAB PO TID PRN for PAIN Albuterol Sulfate (Albuterol Sulfate) 2.5 Mg/3 Ml Nebu, 2.5 MG INH Q6H PRN for SHORTNESS OF BREATH Albuterol Sulfate (Ventolin Hfa) 200 Puff/8 Gm Aers, 2 PUFF INH Q4H PRN for SHORTNESS OF BREATH Loperamide HCl (Loperamide HCl) 2 Mg Cap, 2 MG PO QID PRN for DIARRHEA Nitroglycerin (Nitrostat) 0.4 Mg Subl, 0.4 MG SL NITRO PRN for CHEST PAIN Allergies Coded Allergies: Hydromorphone (Verified Adverse Reaction, Mild, HALLUCINATIONS, NOT HERSELF, 03/10/17) CHARLY WEEMS MD Jul 21, 2017 22:31
[2017-07-21] MEDS ORDERED: VANCOMYCIN HCL 1,000 MG, VIAL MATE ADAPTER 1 EACH in D5W 250 ML IV ONE (23:45)
[2017-07-21] MEDS ORDERED: VANCOMYCIN INTERMITTENT/PULSE DOSING BY CLINICAL PHARMACIST PER DOSING PROTOCOL XX SCH (23:45)
[2017-07-22] VITALS: BP 91/53
--- NOTE | 2017-07-22 01:59 | PHACANCOPD ---
PHARMACY VANCOMYCIN DOSING Pt Demographics Demographics Patient Age:66 , Weight:44.900 , Gender: female Adjusted Body Weight Date: 07/22/17, Adjusted Body Weight: [45.5] Kg actual wt Vancomycin Vancomycin indication: HCAP Vancomycin Target Ranges: 15-20 mcg/ml Vancomycin Load Y/N: No Load Dose Date Time Vancomycin Load Dose: Date: Time: Vancomycin Dose Date: 07/22/17. Current Vancomycin Dose: [VANCOMYCIN 1 GM X1@12MID] Intermittent Dosing?: Yes Labs Labs Laboratory Tests 07/21/17 16:46 Red Blood Count 3.30 L, Mean Corpuscular Volume 107.3 H, Mean Corpuscular Hemoglobin 31.1, Mean Corpuscular Hemoglobin Concent 29.0 L, Red Cell Distribution Width 14.7 H, Neutrophils (%) (Auto) 86.5 H, Lymphocytes (%) (Auto ) 7.3 L, Monocytes (%) (Auto) 4.1, Eosinophils (%) (Auto) 1.0, Basophils (%) ( Auto) 0.2, Neutrophils # (Auto) 6.9, Lymphocytes # (Auto) 0.6 L, Monocytes # ( Auto) 0.3, Eosinophils # (Auto) 0.1, Basophils # (Auto) 0.0 Micro Microbiology 07/21/17 Blood Culture, Received Pending Creatinine Clearance Date:07/22/17. Creatinine Clearance: [14].CALCULATED Pending Labs Vancomycin random due 07/22@1200 Assessment and Plan Maintaining Current Dose?: Yes Reason for dose change: No Dose Change Pharmacist Note Pharmacist Note Date: 07/22/17. Pharmacist note:66 YOF ADMITTED W/HCAP;45.5KG,63",SCR=2.75,CRCL= 14(CALCULATED). TREATED WITH LEVOFLOXACIN 250MG IV [id number] AND VANCOMYCIN PER PHARMACY CONSULT. WILL BEGIN VANCOMYCIN PER INTERMITTTENT PROTOCOL D/T POOR RENAL FUNCTION AND WILL TITRATE TO A PROPER REGIMEN.VANCO 1 GM GIVEN IN ED@0015 07/22;WILL DRAW A RANDOM @12NOON AND ASSESS.: WILL CONTINUE TO FOLLOW [facility] Jul 22, 2017 01:59
[2017-07-22 04:00] VITALS: BP 108/55
[2017-07-22 08:00] VITALS: BP_SYST 120; BP_SYST 126; BP_DIAS 56; BP_DIAS 58
[2017-07-22] MEDS: CALCITRIOL 0.25 MCG CAP (S0169) PO SCH (08:13)
[2017-07-22] MEDS: OMEPRAZOLE 20 MG CAP PO SCH (08:13)
[2017-07-22] MEDS: (RENVELA) SEVELAMER **CARBONate** 800 MG TAB PO SCH ×2 (08:13→17:16)
[2017-07-22] MEDS: VITAMIN D 1,000 INTERNATIONAL UNITS TABLET PO SCH (08:13)
[2017-07-22] MEDS: FOLIC ACID 1 MG TAB PO SCH (08:13)
[2017-07-22] MEDS: predniSONE 5 MG TAB PO SCH (08:13)
[2017-07-22] MEDS: NICOTINE 14 MG/24 HR TRANSDERMAL TD SCH (08:14)
[2017-07-22] MEDS: BISOPROLOL FUMARATE 5 MG TAB PO SCH (08:14)
[2017-07-22 11:35] VITALS: BP 133/59
[2017-07-22] MEDS ORDERED: CEFEPIME HCL 1 GM in D5W MINI-BAG PLUS 50 ML IV SCH (12:00)
--- NOTE | 2017-07-22 12:19 | REP ---
Clinical: Shortness of breath. Findings: Advanced COPD and emphysematous changes are appreciated. Superimposed acute moderate right pleural effusion and right lower lobe atelectasis is appreciated as well as trace left basilar atelectasis. Mediastinum demonstrates atherosclerotic changes to the thoracic aorta and coronary arteries with cardiomegaly. No pericardial effusion is appreciated. Moderate pulmonary vascular congestion cannot be excluded. Limited evaluation of the upper abdomen suggests prior left nephrectomy. Musculoskeletal structures demonstrate age-related degenerative changes. Impression: 1. Acute moderate right pleural effusion with passive atelectasis and trace left basilar atelectasis. 2. Underlying chronic COPD/emphysematous changes along with cardiomegaly and evidence for pulmonary vascular congestion. Signed by Ferny Bates MD 07/22/2017 12:10 P
[2017-07-22] MEDS ORDERED: VANCOMYCIN HCL 500 MG in D5W MINI-BAG PLUS 100 ML IV ONE (14:00)
[2017-07-22] MEDS ORDERED: HEPARIN 1,000 UNITS/ML 10ML VIAL (FOR RADIOLOGY& DIALYSIS ONLY) XX ONE (14:45)
--- NOTE | 2017-07-22 14:50 | IPNPDOC ---
Subjective Date Seen The patient was seen on 07/22/17. Subjective Chief Complaint/HPI The patient is a 66-year-old female admitted with a reason for visit of Healthcare Associated Pneumonia. Events since last encounter still feeling sob but a little better than yesterday. does have to break off to take breaths due conversation. will be getting HD today. No fever or chills, no cough or phlegm , unlikely pneumonia, CT chest shows moderate acute right pleural effusion and atelectasis no pneumonia will dc antibiotics. Objective Physical Examination General Exam: Positive: Alert, Cooperative, No Acute Distress Eye Exam: Positive: PERRLA, Conjunctiva & lids normal, EOMI, Negative: Sclera icteric ENT Exam: Positive: Atraumatic, Mucous membr. moist/pink, Pharynx Normal Neck Exam: Positive: Supple, Negative: JVD, thyromegaly Chest Exam: Positive: Rales (at right base), Diminished (at the right base) Heart Exam: Positive: Irregular Rhythm, Normal S1, Normal S2 Telemetry: Positive: Atrial fibrillation Abdomen Exam: Positive: Normal bowel sounds, Soft, Negative: Tenderness, Hepatospenomegaly Extremity Exam: Positive: Normal pulses, Negative: Clubbing, Cyanosis, Edema Skin Exam: Positive: Nl turgor and temperature, Negative: Rash, Breakdown Assessment /Plan Problems (1) CHF (congestive heart failure) Status: Acute Problem Text: Acute on chronic diastolic CHF and acute on chronic right heart failure does not make much urine fluid status to be adjusted through fluid removal in HD Has right pleural effusion due to CHF. (2) COPD (chronic obstructive pulmonary disease) Status: Chronic Problem Text: steroid and oxygen dependent. continue with duonebs. (3) Chronic respiratory failure with hypoxia and hypercapnia Status: Chronic Problem Text: on 4 litter home oxygen (4) Right heart failure Status: Acute Problem Text: acute on chronic right sided heart failure will continue fluid removal as tolerated in HD. (5) Pulmonary hypertension Status: Chronic (6) Atrial fibrillation, chronic Status: Chronic Problem Text: rate controlled. on oral anticoagulants. continue bisoprolol and digoxin. (7) Diabetes Status: Chronic (8) Hypertension Status: Chronic (9) Depression Status: Chronic (10) GERD (gastroesophageal reflux disease) Status: Chronic (11) Hypothyroid Status: Chronic (12) Adrenal adenoma Status: Chronic (13) Protein calorie malnutrition Status: Chronic (14) ESRD needing dialysis Status: Chronic Problem Text: started on HD in april 2017. (15) CAD S/P percutaneous coronary angioplasty Status: Chronic (16) Hx of renal cell carcinoma Status: Resolved (17) Vertebral compression fracture Status: Chronic Plan/VTE VTE Prophylaxis Ordered?: Yes VS, I&O, 24H, Fishbone Vital Signs/I&O Vital Signs Date Time Temp Pulse Resp B/P (MAP) Pulse Ox O2 Delivery O2 Flow Rate FiO2 07/22/17 12:03 Nasal Cannula 4.0 07/22/17 11:35 98.6 80 20 133/59 (83) 89 I&O- Last 24 Hours up to 6 AM 07/22/17 06:00 Intake Total 270 ml Balance 270 ml Laboratory Data 24H LABS Laboratory Tests 2 07/21/17 16:46: White Blood Count 8.0, Red Blood Count 3.30L, Hemoglobin 10.3L, Hematocrit 35.4L , Mean Corpuscular Volume 107.3H, Mean Corpuscular Hemoglobin 31.1, Mean Corpuscular Hemoglobin Concent 29.0L, Red Cell Distribution Width 14.7H, Platelet Count 153, Neutrophils (%) (Auto) 86.5H, Lymphocytes (%) (Auto) 7.3L, Monocytes (%) (Auto) 4.1, Eosinophils (%) (Auto) 1.0, Basophils (%) (Auto) 0.2, Neutrophils # (Auto) 6.9, Lymphocytes # (Auto) 0.6L, Monocytes # (Auto) 0.3, Eosinophils # (Auto) 0.1, Basophils # (Auto) 0.0, Large Unclassified Cells % 0.9 , Large Unclassified Cells # 0.1, Anion Gap 9, Glomerular Filtration Rate 18.3L , Calcium Level 7.8L, Aspartate Amino Transf (AST/SGOT) 28, Alanine Aminotransferase (ALT/SGPT) 21, Alkaline Phosphatase 71, Total Bilirubin 0.2, Direct Bilirubin < 0.1, Total Creatine Kinase 36, Creatine Kinase MB 1.6, Creatine Kinase MB Relative Index 4.44H, Troponin I 0.03, B-Type Natriuretic Peptide 1940H, Total Protein 6.0L, Albumin 3.1L, Albumin/Globulin Ratio 1.07, Digoxin Level 0.7 07/21/17 17:52: Prothrombin Time 20.6H, Prothromb Time International Ratio 1.71 07/22/17 11:55: Random Vancomycin Level 17.6 CBC/BMP Laboratory Tests 07/21/17 16:46 Red Blood Count 3.30 L, Mean Corpuscular Volume 107.3 H, Mean Corpuscular Hemoglobin 31.1, Mean Corpuscular Hemoglobin Concent 29.0 L, Red Cell Distribution Width 14.7 H, Neutrophils (%) (Auto) 86.5 H, Lymphocytes (%) (Auto ) 7.3 L, Monocytes (%) (Auto) 4.1, Eosinophils (%) (Auto) 1.0, Basophils (%) ( Auto) 0.2, Neutrophils # (Auto) 6.9, Lymphocytes # (Auto) 0.6 L, Monocytes # ( Auto) 0.3, Eosinophils # (Auto) 0.1, Basophils # (Auto) 0.0 Microbiology Microbiology 07/22/17 Blood Culture, Received Pending 07/21/17 Blood Culture, Received Pending LUIS ALBERTO ABDULLAHI MD Jul 22, 2017 14:50
[2017-07-22] MEDS: IPRATROPIUM 0.5MG/ALBUTEROL 2.5MG INH SOL UD 3ML (DUONEB)(J7620) NEB SCH ×2 (16:00→23:34)
[2017-07-22 17:00] VITALS: BP 133/66
[2017-07-22] MEDS: WARFARIN SOD 2.5 MG TAB PO SCH (17:16)
[2017-07-22] MEDS ORDERED: IPRATROPIUM 0.5MG/ALBUTEROL 2.5MG INH SOL UD 3ML (DUONEB)(J7620) NEB PRN (20:00)
[2017-07-22] MEDS: SYMBICORT 160/4.5MCG INHALER 6GM INH SCH ×2 (20:14→20:18)
[2017-07-22] MEDS ORDERED: DIGOXIN 0.125 MG TAB PO SCH (21:00)
[2017-07-22 22:00] VITALS: BP 116/79
[2017-07-22] MEDS: ISOSORBIDE DIN. (ISORDIL) 20 MG TAB PO SCH (22:05)
[2017-07-22] MEDS: ATORVASTATIN 20 MG TAB PO SCH (22:05)
[2017-07-22] MEDS: SERTRALINE 100 MG TAB PO SCH (22:05)
--- NOTE | 2017-07-23 03:22 | IPN ---
DATE OF SERVICE: 07/22/2017 SUBJECTIVE: The patient is seen this morning on hemodialysis. She denies any acute events overnight. No fevers or chills and no cough reported. REVIEW OF SYSTEMS: Negative for headache, lightheadedness, chest pain, edema, nausea, vomiting, diarrhea. Positive for chronic shortness of breath. Remainder of review of systems is negative. VITAL SIGNS: 97.9 temperature, pulse 78, respiratory rate 20, blood pressure 120/56, saturating 95% on 4 liters nasal cannula. INTAKE AND OUTPUT: Hemodialysis today removed 2 kg ultrafiltration. Dry weight 44.5 kg in the bed scale. PHYSICAL EXAMINATION: GENERAL: Patient is seen on hemodialysis. She is in no acute respiratory distress. HEAD AND NECK: Extraocular muscles intact. Neck supple. Right internal jugular (IJ) PermaCath is in place. Moist mucous membranes. CHEST: Anterior auscultation only. Symmetric air entry that is decreased at bases. CARDIOVASCULAR: Irregular rhythm, S1, S2, 2+ radial pulse, no edema in the extremities. ABDOMEN: Soft, nontender. EXTREMITIES: Without edema. Left great toe with eschar. NEUROLOGIC: No focal deficit. PSYCHIATRIC: Appropriate mood and affect. LABORATORIES: There are no new labs except for a random vancomycin level of 17. Microbiology: Blood cultures are pending. IMAGING: Chest CT 07/22/2017: Acute moderate right pleural effusion with positive atelectasis and trace left basilar atelectasis, underlying chronic obstructive pulmonary disease (COPD) emphysematous changes along with cardiomegaly and evidence of pulmonary vascular congestion. INPATIENT MEDICATIONS: Patient's antibiotics have been discontinued by the primary team. She remains on DuoNebs and Symbicort. The remainder of the medications are unchanged from prior. ASSESSMENT AND PLAN: 1. Shortness of breath due to acute on chronic diastolic heart failure and right heart dysfunction secondary to severe pulmonary hypertension and end-stage chronic obstructive pulmonary disease (COPD) on home oxygen. Given that the patient has cardiomyopathy, end-stage renal disease, and end-stage lung disease, she is prone to easily becoming short of breath. At this time, she is about 1-2 kg above her dry weight. She was dialyzed this morning with 2 kg ultrafiltration which she tolerated. She is relatively new to dialysis having started in April 2017. However, she does not have very significant residual renal function. She is status post left nephrectomy and now solitary right kidney and so oral diuretics as an additional maintenance therapy along with hemodialysis are unlikely to be of much utility. We would continue to challenge her dry weight on hemodialysis as tolerated by her hemodynamics. Of concern is also the patient's chronic active smoking. She is attempting to quit. 2. End-stage renal disease on hemodialysis Tuesday, , Tuesday. She was dialyzed today with 2 kg ultrafiltration as above. 3. Atrial fibrillation, chronic, on Coumadin with subtherapeutic international normalized ratio (INR). Repeat INR check. Patient continues on bisoprolol and digoxin. Plan of care is discussed with Dr. Na Jewell.
--- NOTE | 2017-07-23 04:19 | CR ---
DATE OF CONSULTATION: 07/21/2017 REQUESTING PROVIDER: René Killian MD. REASON FOR CONSULTATION: Management of end-stage renal disease on hemodialysis. HISTORY OF PRESENT ILLNESS: Patient is a 66-year-old female with past medical history of end-stage renal disease on hemodialysis since April 2017 via PermaCath on Tuesday, , Tuesday schedule. She also has a past medical history of chronic active smoker with end-stage chronic obstructive pulmonary disease (COPD) on home oxygen. She is well known to the nephrology service from outpatient clinic hemodialysis center and from multiple recurrent previous hospitalizations. Patient was at her regularly scheduled hemodialysis this afternoon when she became acutely dyspneic and short of breath approximately 1 hour into the treatment. Her hemodialysis had to be aborted and the patient was transferred to the emergency room for shortness of breath. Her shortness of breath she states is significantly improved with nebulization treatments administered by emergency medical services (EMS). Patient had about 800 mL removed during the first hour of her hemodialysis treatment before it had to be stopped and she is less than 1 kg above her dry weight at this time. Patient also has a past medical history significant for atrial fibrillation on Coumadin currently with subtherapeutic international normalized ratio (INR), coronary artery disease status post percutaneous coronary intervention (PCI), diastolic heart failure, severe pulmonary hypertension with right ventricular dilatation, systemic hypertension, hypothyroidism. In the emergency room, patient had chest x-ray done, which showed bibasilar infiltrates, a small right pleural effusion and underlying chronic interstitial changes and interstitial edema. Symptomatically, she feels improved and at the time of my visit she is eating dinner comfortably in no acute respiratory distress. REVIEW OF SYSTEMS: Patient denies headache, dizziness, lightheadedness, chest pain, palpitations, nausea, vomiting, diarrhea, lower extremity swelling. Review of systems is positive for chronic shortness of breath, currently at baseline. PAST MEDICAL HISTORY: 1. End-stage renal disease on hemodialysis via PermaCath. 2. End-stage COPD on home oxygen. 3. Atrial fibrillation on Coumadin. 4. Coronary artery disease (CAD) status post PCI. 5. Diastolic heart failure. 6. Systemic hypertension. 7. Severe pulmonary hypertension. 8. Dilatation of right ventricle. 9. Hypothyroidism. 10. Chronic active smoker. PAST SURGICAL HISTORY: 1. Left nephrectomy. 2. PCI. 3. Thyroidectomy. 4. PermaCath. SOCIAL HISTORY: Chronic active smoker. She states she has been attempting to go on the patch for the past 2 days. Denies alcohol and drug use. Resides with . FAMILY HISTORY: Denies family history of renal disease. ALLERGIES: HYDROMORPHONE. PHYSICAL EXAMINATION: VITAL SIGNS: Afebrile, temperature 97.3, pulse 88, respiratory rate 20, blood pressure 123/58, saturating 87-95% on 4 liters nasal cannula. GENERAL: Patient is seen in the ER. She is sitting upright in bed eating dinner in no acute respiratory distress. Frail body habitus. HEAD AND NECK: Extraocular muscles intact. Moist mucous membranes. No nasal flaring. Right internal jugular (IJ) PermaCath in place. Jugular veins not distended. CARDIOVASCULAR: Irregular rhythm, 2+ radial pulse, no edema in the extremities. RESPIRATORY: On nasal cannula. Able to speak in full sentences. Not tachypneic. Diminished breath sounds at bases bilaterally. ABDOMEN: Soft, nontender. EXTREMITIES: No edema. Decreased lean body mass. Left foot great toe with eschar. LABORATORIES: White count 8.0, hemoglobin 10.3, platelets 153. Sodium 141, potassium 3.7, bicarbonate 31. LFTs normal. Troponin 0.03. BNP 1940. Corrected calcium 8.5. INR subtherapeutic 1.7. Microbiology: Blood cultures pending. Chest x-ray 07/21/2017: Bibasilar infiltrates, right greater than left, small right pleural effusion with underlying chronic interstitial changes and possible interstitial edema. INPATIENT MEDICATIONS: - Levaquin 250 mg intravenously (IV) every 48 - vancomycin 1 gram - atorvastatin 40 mg by mouth nightly - bisoprolol 5 mg by mouth daily - Symbicort two puffs inhaled twice a day - calcitriol 0.25 mcg by mouth daily - digoxin 0.125 mg by mouth Tuesday, Tuesday, Tuesday - folic acid 1 mg by mouth daily - Isordil 20 mg by mouth nightly - nicotine patch - omeprazole 40 mg by mouth daily - prednisone 5 mg by mouth daily - Renvela 800 mg by mouth twice a day with meals - vitamin D 2000 units by mouth daily - warfarin 2.5 mg by mouth daily ASSESSMENT AND PLAN: 66-year-old female with past medical history of end-stage renal disease on hemodialysis since April 2017 and end-stage chronic obstructive pulmonary disease (COPD), home oxygen dependent, with history of chronic atrial fibrillation on Coumadin with subtherapeutic international normalized ratio (INR), severe pulmonary hypertension, with right heart dilatation, diastolic heart failure, systemic hypertension, who was admitted for an episode of acute shortness of breath. 1. End-stage renal disease on hemodialysis. Patient dialyzes on a Tuesday, , Tuesday schedule via right internal jugular (IJ) PermaCath. She has been deemed too unstable to undergo arteriovenous access creation. Today, the patient had 1 hour of her regularly scheduled outpatient hemodialysis treatment before she became acutely short of breath and had to be transferred to the emergency room. She had about 800 mL of fluid removed prior to termination of her treatment. She is currently 1 kg above dry weight. She will be dialyzed in the morning for fluid removal. The patient states her shortness of breath significantly improved after nebulization treatments by emergency medical services (EMS) and upon my visit at the bedside in the emergency room (ER), the patient is comfortable in no acute respiratory distress. Chest x-ray does show edema and questionable pneumonia. Patient denies any fevers. Her acute episode of shortness of breath is probably more related to COPD exacerbation and volume overload rather than pneumonia. However, at this time, she is started on antibiotics and we will follow her course. 2. End-stage COPD on 4 liters home oxygen. Patient did desaturate in the emergency room. She continues on nasal cannula, nebulizations and steroids. She continues to actively smoke. She does states she has started the nicotine patch within the past 2 days. 3. Atrial fibrillation on Coumadin. INR subtherapeutic. Restart Coumadin. 4. Severe pulmonary hypertension with right heart dilatation and history of diastolic heart failure. Currently no significant edema on exam and patient is within 1 kg of her dry weight. Her hemodialysis treatment had to be stopped early due to acute shortness of breath. We will dialyze her in the morning for a full treatment with ultrafiltration to bring her down to her dry weight.
[2017-07-23 06:00] VITALS: BP 128/79
[2017-07-23] MEDS: predniSONE 5 MG TAB PO SCH (06:29)
[2017-07-23] MEDS: (RENVELA) SEVELAMER **CARBONate** 800 MG TAB PO SCH ×2 (06:29→17:19)
[2017-07-23] MEDS: SERTRALINE 100 MG TAB PO SCH (06:29)
[2017-07-23] MEDS: OMEPRAZOLE 20 MG CAP PO SCH (06:29)
[2017-07-23] MEDS: FOLIC ACID 1 MG TAB PO SCH (06:29)
[2017-07-23] MEDS: VITAMIN D 1,000 INTERNATIONAL UNITS TABLET PO SCH (06:30)
[2017-07-23] MEDS: NICOTINE 14 MG/24 HR TRANSDERMAL TD SCH (06:30)
[2017-07-23] MEDS: CALCITRIOL 0.25 MCG CAP (S0169) PO SCH (06:30)
[2017-07-23] MEDS: IPRATROPIUM 0.5MG/ALBUTEROL 2.5MG INH SOL UD 3ML (DUONEB)(J7620) NEB SCH ×2 (07:52→15:19)
[2017-07-23] MEDS: SYMBICORT 160/4.5MCG INHALER 6GM INH SCH ×2 (07:52→20:13)
[2017-07-23] MEDS: BISOPROLOL FUMARATE 5 MG TAB PO SCH (08:09)
[2017-07-23] MEDS ORDERED: INFLUENZA VIRUS VACCINE HIGH DOSE 0.5 ML SYRINGE (90662) IM ONE (09:00)
--- NOTE | 2017-07-23 10:37 | IPNPDOC ---
Subjective Date Seen The patient was seen on 07/23/17. Subjective Chief Complaint/HPI The patient is a 66-year-old female admitted with a reason for visit of Healthcare Associated Pneumonia. Events since last encounter shortness of breath a little better after dialysis yesterday. no fever or chills , no chest pain , no cough or phlegm , ct chest did not show any pneumonia so antibiotics were stopped. Objective Physical Examination General Exam: Positive: Alert, Cooperative, No Acute Distress Eye Exam: Positive: PERRLA, Conjunctiva & lids normal, EOMI, Negative: Sclera icteric ENT Exam: Positive: Atraumatic, Mucous membr. moist/pink, Pharynx Normal Neck Exam: Positive: Supple, Negative: JVD, thyromegaly Chest Exam: Positive: Rales (at right base), Diminished (at the right base) Heart Exam: Positive: Irregular Rhythm, Normal S1, Normal S2 Telemetry: Positive: Atrial fibrillation Abdomen Exam: Positive: Normal bowel sounds, Soft, Negative: Tenderness, Hepatospenomegaly Extremity Exam: Positive: Normal pulses, Negative: Clubbing, Cyanosis, Edema Skin Exam: Positive: Nl turgor and temperature, Negative: Rash, Breakdown Assessment /Plan Problems (1) CHF (congestive heart failure) Status: Acute Problem Text: Acute on chronic diastolic CHF and acute on chronic right heart failure does not make much urine fluid status to be adjusted through fluid removal in HD Has right pleural effusion due to CHF. (2) COPD (chronic obstructive pulmonary disease) Status: Chronic Problem Text: steroid and oxygen dependent. continue with duonebs. (3) Chronic respiratory failure with hypoxia and hypercapnia Status: Chronic Problem Text: on 4 litter home oxygen (4) Right heart failure Status: Acute Problem Text: acute on chronic right sided heart failure will continue fluid removal as tolerated in HD. (5) Pulmonary hypertension Status: Chronic (6) Atrial fibrillation, chronic Status: Chronic Problem Text: rate controlled. on oral anticoagulants. continue bisoprolol and digoxin. (7) Diabetes Status: Chronic (8) Hypertension Status: Chronic (9) Depression Status: Chronic (10) GERD (gastroesophageal reflux disease) Status: Chronic (11) Hypothyroid Status: Chronic (12) Adrenal adenoma Status: Chronic (13) Protein calorie malnutrition Status: Chronic (14) ESRD needing dialysis Status: Chronic Problem Text: started on HD in april 2017. (15) CAD S/P percutaneous coronary angioplasty Status: Chronic (16) Hx of renal cell carcinoma Status: Resolved (17) Vertebral compression fracture Status: Chronic Plan/VTE VTE Prophylaxis Ordered?: Yes VS, I&O, 24H, Fishbone Vital Signs/I&O Vital Signs Date Time Temp Pulse Resp B/P (MAP) Pulse Ox O2 Delivery O2 Flow Rate FiO2 07/23/17 06:00 98.0 82 18 128/79 (95) 97 Nasal Cannula 4.0 I&O- Last 24 Hours up to 6 AM 07/23/17 06:00 Intake Total 230 ml Output Total 2275 ml Balance -2045 ml Laboratory Data 24H LABS Laboratory Tests 2 07/22/17 11:55: Random Vancomycin Level 17.6 Microbiology Microbiology 07/22/17 Blood Culture - Preliminary, Resulted No growth after 24 hours . All specim... 07/21/17 Blood Culture - Preliminary, Resulted No growth after 24 hours . All specim... LUIS ALBERTO ABDULLAHI MD Jul 23, 2017 10:36
[2017-07-23] MEDS ORDERED: HEPARIN 1,000 UNITS/ML 10ML VIAL (FOR RADIOLOGY& DIALYSIS ONLY) XX ONE (11:30)
[2017-07-23] MEDS ORDERED: CEFEPIME HCL 1 GM in D5W MINI-BAG PLUS 50 ML IV SCH (12:00)
[2017-07-23 14:00] VITALS: BP 129/63
[2017-07-23] MEDS ORDERED: IPRATROPIUM 0.5MG/ALBUTEROL 2.5MG INH SOL UD 3ML (DUONEB)(J7620) NEB SCH (16:00)
--- NOTE | 2017-07-23 16:44 | IPN ---
DATE: 07/23/2017 SUBJECTIVE: The patient is seen this morning on hemodialysis. She is tolerating her treatment well without issue. She had 2 kg ultrafiltration removed yesterday, and today we also target 1-2 kg as tolerated. Weight in the bed scale today is 46 kg. She reports no complaints this morning. Her shortness of breath has improved. She remains off antibiotics. She is discharge pending tomorrow. REVIEW OF SYSTEMS: Negative for headache, chest pain, palpitations, nausea, vomiting, diarrhea. Positive for chronic shortness of breath currently at baseline. OBJECTIVE: VITAL SIGNS: Temperature 98.0, pulse 82, respiratory rate 18, blood pressure 128/79, saturating 97% on four liters nasal cannula. INTAKE AND OUTPUT: Dialysis yesterday removed 2 kg ultrafiltration. Dialysis today removed 2 kg ultrafiltration as well. PHYSICAL EXAMINATION: GENERAL: Alert and oriented times four in no acute respiratory distress. Seen on hemodialysis and pre dialysis as well. HEAD/NECK: Extraocular muscles intact. Neck is supple. No jugular venous distention (JVD). Moist mucous membranes. Right internal jugular (IJ) PermCath. CHEST: Comfortable on 4 liters nasal cannula without tachypnea, speaking in full sentences with ease. Diminished at bases, otherwise audible bilateral air entry without rhonchus. CARDIAC: Irregular rhythm. S1, S2. 2+ radial pulse. No edema in the extremities. ABDOMEN: Soft, nontender. EXTREMITIES: No edema. Right great toe eschar. NEUROLOGIC: No focal deficits. PSYCHIATRIC: Appropriate mood and affect. LABORATORY DATA: No new labs today. MICROBIOLOGY: Blood cultures remain negative for 24 hours. IMAGING: CT chest done yesterday shows acute moderate right pleural effusion with passive atelectasis and trace left basilar atelectasis. No pericardial effusion. Underlying chronic COPD, emphysematous changes along with cardiomegaly. INPATIENT MEDICATIONS: Reviewed by myself. Antibiotics have been discontinued. Her other medications are unchanged from prior. PLAN: 1. Shortness of breath, multifactorial, due to acute on chronic diastolic heart failure and right heart dysfunction secondary to severe pulmonary hypertension and end-stage chronic obstructive pulmonary disease (COPD) on home oxygen, and end-stage renal disease on hemodialysis. As the patient has cardiomyopathy, end-stage renal disease (ESRD) and end-stage lung disease, she is prone to easily becoming short of breath. CT chest also did show acute moderate right-sided pleural effusion. She has received two serial hemodialysis sessions. She is compliant with fluid restriction and the diet, and does not have large interdialytic weight gain; however, she is a chronic active smoker all those years trying to quit. I will discuss with the patient regarding thoracentesis of her right pleural effusion for further improvement in symptomatic shortness of breath. 2. End-stage renal disease on hemodialysis Tuesday, , Tuesday schedule. The patient was dialyzed today per her maintenance schedule. She also had a treatment yesterday. 3. Atrial fibrillation with subtherapeutic international normalized ratio (INR). The patient continues on bisoprolol and digoxin. We will order INR for the morning. 4. End-stage chronic obstructive pulmonary disease (COPD). The patient continues on four liters nasal cannula and her Symbicort and prednisone and DuoNeb. 5. Anemia of end-stage renal disease. Hemoglobin goal 10-11 Plan of care discussed with Dr. Na Jewell. BRYAN
[2017-07-23] MEDS: WARFARIN SOD 2.5 MG TAB PO SCH (17:20)
[2017-07-23 18:00] VITALS: BP 110/75
[2017-07-23] MEDS: ATORVASTATIN 20 MG TAB PO SCH (21:31)
[2017-07-23] MEDS: ISOSORBIDE DIN. (ISORDIL) 20 MG TAB PO SCH (21:33)
[2017-07-23 22:00] VITALS: BP 103/55
[2017-07-24 02:00] VITALS: BP 115/61
[2017-07-24 06:00] VITALS: BP 120/56
[2017-07-24 06:23] LABS: INR 1.83
[2017-07-24] MEDS: SYMBICORT 160/4.5MCG INHALER 6GM INH SCH (07:15)
[2017-07-24] MEDS: IPRATROPIUM 0.5MG/ALBUTEROL 2.5MG INH SOL UD 3ML (DUONEB)(J7620) NEB SCH ×2 (07:15)
[2017-07-24 07:29] LABS: BASO % 0.7 % (0.0-1.0); EOS # 0.2 K/mm3 (0.0-0.50); EOS % 4.1 % (0.0-3.0); LARGE UNSTAINED CELL # 0.2 K/mm3 (0.0-0.4); LYMPH # 1.2 K/mm3 (1.5-4.5); LYMPH % 20.7 % (24.0-44.0); MEAN CORPUSCULAR HEMOGLOBIN 32.5 pg (27.0-33.0); MEAN CORPUSCULAR HGB CONC 30.9 g/dl (32.0-36.5); MEAN CORPUSCULAR VOLUME 105.4 fl (80.0-96.0); MONO # 0.5 K/mm3 (0.0-0.8); MONO % 7.9 % (0.0-5.0); NEUTROPHILS # 3.7 K/mm3 (1.8-7.7); NEUTROPHILS % 63.6 % (36.0-66.0); PLATELET COUNT, AUTOMATED 147 k/mm3 (150-450); RED CELL DISTRIBUTION WIDTH 14.6 % (11.5-14.5); WHITE BLOOD COUNT 5.8 K/mm3 (4.0-10.0)
[2017-07-24 07:34] LABS: CALCIUM LEVEL 8.8 MG/DL (8.8-10.2); CREATININE FOR GFR 2.42 MG/DL (0.55-1.02); GLOMERULAR FILTRATION RATE 21.2 (>45); POTASSIUM SERUM 4.3 MEQ/L (3.5-5.1)
[2017-07-24 07:48] LABS: ADD MORPHOLOGY? YES
[2017-07-24 08:01] LABS: ANISOCYTOSIS 2+; POIKILOCYTOSIS 1+
[2017-07-24 08:03] LABS: HYPOCHROMASIA 1+
[2017-07-24] MEDS: OMEPRAZOLE 20 MG CAP PO SCH (11:29)
[2017-07-24 11:30] VITALS: BP 120/56
[2017-07-24] MEDS: VITAMIN D 1,000 INTERNATIONAL UNITS TABLET PO SCH (11:30)
[2017-07-24] MEDS: CALCITRIOL 0.25 MCG CAP (S0169) PO SCH (11:30)
[2017-07-24] MEDS: BISOPROLOL FUMARATE 5 MG TAB PO SCH (11:30)
[2017-07-24] MEDS: FOLIC ACID 1 MG TAB PO SCH (11:30)
[2017-07-24] MEDS: predniSONE 5 MG TAB PO SCH (11:30)
[2017-07-24] MEDS: NICOTINE 14 MG/24 HR TRANSDERMAL TD SCH (11:31)
[2017-07-24] MEDS: (RENVELA) SEVELAMER **CARBONate** 800 MG TAB PO SCH (11:34)
--- NOTE | 2017-07-24 15:26 | IPN ---
DATE: 07/24/2017 SUBJECTIVE: The patient is seen this morning at the bedside. She had an uneventful course overnight. She has no complaints this morning. Her shortness of breath is at baseline. She is ambulating without issues. She remains afebrile. REVIEW OF SYSTEMS: Negative for headache, chest pain, palpitations, nausea, vomiting, diarrhea. Positive for chronic shortness of breath at baseline. remainder ros negative VITAL SIGNS: Afebrile at 98.2, pulse 71, respiratory rate 18, blood pressure 120/56, saturating 95% on four liters nasal cannula. INTAKE AND OUTPUT: Dialysis yesterday removed 2 kg ultrafiltration. PHYSICAL EXAMINATION: Awake, alert, and oriented times four, in no acute respiratory distress. Seen in bed. HEAD AND NECK: Extraocular muscles intact. Neck is supple. No jugular venous distention (JVD). Moist mucous membranes. Right internal jugular (IJ) PermaCath. CHEST: Comfortable on four liters nasal cannula. Bilateral symmetric air entry, decreased at base. CARDIAC: S1, S2, irregular. No edema in the extremities. ABDOMEN: Soft, nontender. EXTREMITIES: No edema. NEUROLOGIC: No focal deficits. PSYCHIATRIC: Appropriate mood and affect. LABORATORY DATA: Hemoglobin 10.0, white count 5.8, platelets 147. Sodium 142, potassium 4.3, bicarbonate 29, BNP 1860, INR 1.8. Inpatient medications reviewed. No change from the previous 24 hours. ASSESSMENT AND PLAN: 1. Shortness of breath, multifactorial due to acute on chronic diastolic heart failure, right heart dysfunction secondary to severe pulmonary hypertension, end-stage chronic obstructive pulmonary disease (COPD) on home oxygen, ent-stage renal disease on hemodialysis. The patient is prone to getting short of breath given her multiple organ dysfunction. She has received two serial hemodialysis session. CAT scan did not reveal any pneumonia. She has symptomatically improved and at her baseline respiratory status. She is stable for discharge today. 2. End-stage renal disease on hemodialysis Tuesday, and Tuesday. The patient continues to be dialyzed per her maintenance schedule. 3. Atrial fibrillation with subtherapeutic international normalized ratio (INR). The patient continues on bisoprolol and digoxin. Her INR has come up a little bit as compared to yesterday. 4. End-stage COPD on home oxygen. The patient continues on Symbicort, prednisone and nebulizations. 5. Anemia of end-stage renal disease. Hemoglobin is at goal. DISCHARGE PLAN: The patient is stable for discharge from a renal point of view. Discussed with Dr. Na Jewell. BRYAN
--- NOTE | 2017-07-26 02:02 | DSES ---
DATE OF ADMISSION: 07/22/2017 DATE OF DISCHARGE: 07/24/2017 PRIMARY CARE PROVIDER: Romel Powell MD [employer] MACHINE OPERATOR: Don Carrillo MD DISCHARGE DIAGNOSIS: 1. Acute on chronic diastolic congestive heart failure. 2. Acute on chronic right-sided heart failure. 3. Chronic persistent right-sided pleural effusion. 4. Severe pulmonary hypertension. 5. Chronic obstructive pulmonary disease (COPD) 6. Chronic respiratory failure with hypoxia and hypercapnia. 7. Chronic atrial fibrillation. 8. Diabetes. 9. Hypertension. 10. Depression. 11. Gastroesophageal reflux disease (GERD). 12. Hypothyroid. 13. Adrenal adenoma. 14. Protein calorie malnutrition. 15. End-stage renal disease (ESRD) on hemodialysis Tuesday, , Tuesday. 16. Coronary artery disease, status post percutaneous coronary angioplasty. 17. Chronic vertebral compression fractures. 18. History of renal cell carcinoma. 19. Active smoker, possible chronic obstructive pulmonary disease (COPD) exacerbation. 20. Fluid overload. DISCHARGE MEDICATIONS: - Tylenol 1000 mg by mouth every 6 hours as needed for pain - acetaminophen/hydrocodone 7.5, 325 mg by mouth one tablet by mouth three times a day as needed for pain - albuterol sulfate 2.5 mg nebulizer solution as needed for shortness of breath every 6 hours - albuterol sulfate MDI 2 puff inhalation every 4 hours as needed for shortness of breath - atorvastatin 40 mg by mouth at bedtime - bisoprolol 5 mg by mouth daily - Symbicort 160/4.5 mg 2 puffs inhalation twice a day - calcitriol 0.2.5 mcg by mouth daily - cholecalciferol 2000 units by mouth daily - digoxin 0.125 mg as directed - folic acid 1 mg by mouth daily - isosorbide dinitrate 20 mg at bedtime - Synthroid 175 mcg by mouth daily - nicotine patch 14 mg one patch daily - nitroglycerine 0.4 mg sublingual as needed for chest pain - omega 3 fatty acid one capsule as needed at bedtime - omeprazole 40 mg by mouth daily - prednisone 5 mg by mouth daily - sertraline 100 mg by mouth at bedtime - sevelamer carbonate 800 mg by mouth twice a day with meals - Coumadin 2.5 mg by mouth every p.m. HOSPITAL COURSE: This is a 66-year-old female who has been recently started on hemodialysis on April 2017 via [facility], who was at her usual dialysis session when she suddenly became acutely short of breath after about one hour of dialysis with removal of about 800 mL of fluid. Dialysis was aborted and the patient was urgently transferred to the emergency room. In the ambulance, the patient received some nebulizer treatments and further use of nebulizers in the emergency room. The patient had a chest x-ray done, which showed details of small right-sided pleural effusion, interstitial edema, bibasilar infiltrates, right greater than left and chronic interstitial changes. The patient was diagnosed with fluid overload and acute on chronic diastolic congestive heart failure and acute on chronic right-sided heart failure and possible chronic obstructive pulmonary disease (COPD) exacerbation. The patient received two back to back hemodialysis treatments with removal of more than a one litter of fluid by treatment. The patient had a CT scan done in the hospital, which showed moderate right-sided pleural effusion with passive atelectasis and left basilar atelectasis, chronic obstructive pulmonary disease (COPD) and emphysematous changes and pulmonary vascular congestion with cardiomegaly. So, all of her symptoms were felt to be due to congestive heart failure, diastolic, as well as right-sided and her chronic obstructive pulmonary disease (COPD). She did not have any pneumonia. So, her antibiotics, which she was empirically started initially was discontinued. She felt well after two back to back sessions of hemodialysis. Her pleural effusion was chronic and she was not hypoxic. She was at her baseline oxygen requirement, so it was felt that the effusion did not need to be tapped. On the day of discharge, the patient did not have any complaints. Her vitals were stable and functionally she was at her baseline. PHYSICAL EXAMINATION: VITAL SIGNS: Temperature 98.2, pulse 71, respiratory rate 18, blood pressure (BP) 120/56, pulse oximetry 95% with 4 liters nasal cannula. GENERAL: The patient awake, alert, oriented times three, lying down in bed in no acute distress. HEENT: Normocephalic, atraumatic. Moist mucous membranes. Anicteric eyes. CHEST: At the right, decreased breath sounds at the bases. There are bibasilar crackles. CARDIOVASCULAR: S1, S2 irregular, rate controlled. ABDOMEN: Soft, nontender, bowel sounds present. EXTREMITIES: No edema. LABORATORY DATA: White blood count (WBC) 5.8, hemoglobin 10, platelets 147, sodium 142, potassium 4.3, chloride 105, bicarbonate 29, BUN 28, creatine 2.42, glucose 88, calcium 8.8, BNP 1860. Microbiology: No growth after 72 hours and culture. Digoxin level was 0.7. INR was 1.8. DISPOSITION: The patient is discharged home in stable condition. DISCHARGE INSTRUCTIONS: The patient to followup with primary care provider in one week. The patient to followup in her hemodialysis unit as per her outpatient schedule. Diet as tolerated. Activity as tolerated.
== END 2017-07-24 13:50 | disposition home or self-care (01) | DRG 291 ==
LOC: M ED 16:20 → EDBD 16:20 → M ED INP 20:24 → OBSVTOIN 07-22 10:59 → M MS5PR 07-22 11:34
PROVIDERS: ADMIT Internal Medicine; ATTEND Internal Medicine Nephrology
DX: I13.2 Hypertensive heart and chronic kidney disease with heart failure and with stage 5 chronic kidney disease, or end stage renal disease (principal); N18.6 End stage renal disease; I50.33 Acute on chronic diastolic (congestive) heart failure; J90 Pleural effusion, not elsewhere classified; J96.11 Chronic respiratory failure with hypoxia; J96.12 Chronic respiratory failure with hypercapnia; E46 Unspecified protein-calorie malnutrition; J44.9 Chronic obstructive pulmonary disease, unspecified; E11.9 Type 2 diabetes mellitus without complications; F17.200 Nicotine dependence, unspecified, uncomplicated; F32.9 Major depressive disorder, single episode, unspecified; K21.9 Gastro-esophageal reflux disease without esophagitis; I27.2 Other secondary pulmonary hypertension; I48.2 Chronic atrial fibrillation; I25.10 Atherosclerotic heart disease of native coronary artery without angina pectoris; Z79.899 Other long term (current) drug therapy; E87.70 Fluid overload, unspecified; E03.9 Hypothyroidism, unspecified; Z79.52 Long term (current) use of systemic steroids; Z88.5 Allergy status to narcotic agent; D63.1 Anemia in chronic kidney disease

== ENCOUNTER 2017-08-04 14:24 | Inpatient (IN) | payer MEDICARE, OTHER ==
[~2017-08-04] VITALS: Ht 160 cm; Wt 44.4 kg
[~2017-08-04 14:24] MED LIST changes: +TYLE500T78 PO
[2017-08-04 18:30] LABS: INR 2.02
[2017-08-04 18:31] LABS: BASO % 0.4 % (0.0-1.0); EOS # 0.1 K/mm3 (0.0-0.50); EOS % 1.8 % (0.0-3.0); LARGE UNSTAINED CELL # 0.1 K/mm3 (0.0-0.4); LARGE UNSTAINED CELL % 1.7 % (0.0-4.0); LYMPH # 0.8 K/mm3 (1.5-4.5); LYMPH % 11.5 % (24.0-44.0); MEAN CORPUSCULAR HEMOGLOBIN 32.3 pg (27.0-33.0); MEAN CORPUSCULAR HGB CONC 30.4 g/dl (32.0-36.5); MEAN CORPUSCULAR VOLUME 106.2 fl (80.0-96.0); MONO # 0.3 K/mm3 (0.0-0.8); MONO % 4.5 % (0.0-5.0); NEUTROPHILS # 5.6 K/mm3 (1.8-7.7); PLATELET COUNT, AUTOMATED 142 k/mm3 (150-450); RED CELL DISTRIBUTION WIDTH 14.3 % (11.5-14.5)
[2017-08-04 18:51] LABS: ALBUMIN 2.9 GM/DL (3.2-5.2); ALKALINE PHOSPHATASE 58 U/L (45-117); ALT/SGPT 13 U/L (12-78); ANION GAP 3 MEQ/L (8-16); AST/SGOT 10 U/L (15-37); BILIRUBIN,DIRECT < 0.1 MG/DL (0.0-0.2); BILIRUBIN,TOTAL 0.2 MG/DL (0.2-1.0); BLOOD UREA NITROGEN 39 MG/DL (7-18); CARBON DIOXIDE LEVEL 37 MEQ/L (21-32); CHLORIDE LEVEL 96 MEQ/L (98-107); CREATININE FOR GFR 4.54 MG/DL (0.55-1.02); GLOMERULAR FILTRATION RATE 10.2 (>45); GLUCOSE, FASTING 110 MG/DL (80-110); POTASSIUM SERUM 4.4 MEQ/L (3.5-5.1); SODIUM LEVEL 136 MEQ/L (136-145); TOTAL PROTEIN 5.8 GM/DL (6.4-8.2)
--- NOTE | 2017-08-04 19:04 | REP ---
HISTORY: Chest pain. COMPARISON: 07/21/2017 The technique utilized in obtaining the radiograph has magnified the cardiac silhouette and accentuated the interstitial markings. The right-sided central venous catheter in the right internal jugular approach is unchanged with the tip remaining in the superior vena cava. There is cardiomegaly accentuated by technique. There is a diffuse increase in the interstitial markings throughout the lung jones accentuated by technique, however, this has increased from the prior exam. There is right-sided cardiophrenic and costophrenic angle blunting which has also increased. Bibasilar patchy opacities are noted, status quo. There is no change in the osseous structures. IMPRESSION: There is evidence of cardiomegaly and interstitial edema with a small right pleural effusion as described above along with other findings. Signed by Ceferino Quesada DO 08/04/2017 07:30 P
[2017-08-04] MEDS ORDERED: LOPE2CA PO (21:25)
[2017-08-04 21:32] LABS: ABG BASE EXCESS 3.6 (-2.0-2.0); ABG HCO3 32.1 MEQ/L (22.0-26.0); ABG PARTIAL PRESSURE O2 57.2 mmHg (75.0-100.0); ABG STANDARD HCO3 27.6 MEQ/L (22.0-26.0); ABG TOTAL CO2 34.3 MEQ/L (23.0-31.0); ABG pH (ARTERIAL) 7.267 UNITS (7.350-7.450)
[2017-08-04] MEDS ORDERED: ALBUTEROL SULFATE 2.5 MG/0.5 ML INH NEB SOLN NEB PRN (22:15)
[2017-08-04] MEDS ORDERED: LORazepam 2 MG/ML VIAL (J2060) IV STA (22:19)
[2017-08-04 23:17] LABS: DIGOXIN LEVEL 1.3 NG/ML (0.5-2.0)
[2017-08-05] VITALS (16 sets, daily range): BP systolic 94–156; BP diastolic 50–71; O2SAT 92
[2017-08-05 02:06] LABS: ABG BASE EXCESS 1.1 (-2.0-2.0); ABG HCO3 28.3 MEQ/L (22.0-26.0); ABG PARTIAL PRESSURE CO2 59.2 mmHg (35.0-45.0); ABG PARTIAL PRESSURE O2 74.6 mmHg (75.0-100.0); ABG STANDARD HCO3 25.4 MEQ/L (22.0-26.0); ABG TOTAL CO2 30.2 MEQ/L (23.0-31.0); ABG pH (ARTERIAL) 7.298 UNITS (7.350-7.450)
--- NOTE | 2017-08-05 03:13 | HPE ---
DATE OF ADMISSION: 08/04/2017 PRIMARY CARE PROVIDER: Romel Powell MD. BANKING CONSULTANT: Don Carrillo MD. PAST MEDICAL HISTORY: 1. Stage IV chronic obstructive pulmonary disease (COPD). 2. Chronic respiratory failure with hypoxia and hypercapnia on 4 liters home oxygen. 3. Chronic diastolic heart failure. 4. Chronic right-sided heart failure. 5. Severe pulmonary hypertension. 6. Chronic persistent right-sided pleural effusion. 7. Atrial fibrillation on Coumadin. 8. End-stage renal disease (ESRD) on hemodialysis. 9. Coronary artery disease status post percutaneous angioplasty. 10. Diabetes. 11. Hypertension. 12. Depression. 13. Hypothyroid. 14. Gastroesophageal reflux disease. 15. Adrenal adenoma. 16. Protein calorie malnutrition. 17. History of renal cell carcinoma. 18. Active smoker. 19. Chronic vertebral compression fractures. HISTORY OF PRESENT ILLNESS: This is a 66-year-old petite lady with multiple medical comorbidities as mentioned above presented to the hospital because of generalized weakness, dizziness, unable to walk from the house to the dialysis van. Patient felt okay yesterday. This morning she woke up and felt a little nauseous; however, did not throw up. Patient was getting ready to go for her routine dialysis today and was getting dressed and coming out of the bathroom to go the van. She was being helped by her granddaughter when she felt suddenly extremely weak, tired, dizzy and almost fell, and nauseous. She could not make it to the dialysis van, so was brought to the emergency room for evaluation. Patient, later on during the day, developed increasing shortness of breath and at this point she does feel short of breath. Patient tried to ambulate in the emergency room; however, when she got out of bed became very dizzy and weak. In the emergency department (ED), patient had a chest x-ray done, which showed cardiomegaly, interstitial edema, and a small right-sided pleural effusion. Patient's blood work showed a proBNP of 165,732. Patient's bicarbonate was raised to 37. We did a blood gas, which showed pH of 7.26, pCO2 of 72, pO2 of 57, so the patient was diagnosed with acute on chronic respiratory failure with hypoxia and hypercarbia most probably due to congestive heart failure exacerbation and was admitted to the hospitalist service. PAST SURGICAL HISTORY: 1. Left nephrectomy for renal cell carcinoma. 2. Percutaneous coronary angiography. 3. Right-sided tunneled hemodialysis catheter placement in April 2007. 4. Thyroidectomy. SOCIAL HISTORY: Patient is an active smoker, smokes about five cigarettes per day. Denies any alcohol or drug abuse. Resides with her and granddaughter. FAMILY HISTORY: Nothing significant. ALLERGIES: To HYDROMORPHONE. HOME MEDICATIONS: - acetaminophen 1000 mg by mouth every 6 hours as needed for pain - acetaminophen/hydrocodone 7.5/325 mg by mouth three times a day as needed for pain - albuterol sulfate nebulizer solution every 6 hours as needed - albuterol sulfate MDI two puffs every 4 hours as needed - atorvastatin 40 mg at bedtime - bisoprolol 5 mg daily - budesonide formoterol two puff inhalation twice a day - calcitriol 0.25 mcg by mouth daily - cholecalciferol 2000 units by mouth daily - digoxin 0.125 mg by mouth as directed - folic acid 1 mg at bedtime - isosorbide dinitrate 20 mg at bedtime - Synthroid 175 mcg by mouth daily - loperamide 2 mg by mouth four times a day as needed for diarrhea - nicotine patch 14 mg one such daily - nitroglycerin 0.4 mg sublingual as needed for chest pain - omega-3 fatty acid one capsule by mouth at bedtime - omeprazole 40 mg by mouth daily - prednisone 5 mg by mouth daily - sertraline 100 mg at bedtime - sevelamer 1600 mg with meals - Coumadin 2.5 mg daily REVIEW OF SYSTEMS: Patient denies any fever or chills. Denies any chest pain. Does complain of some increased cough for 2 days. Denies any abdominal pain, diarrhea or vomiting. Does complain of some nausea since this morning. PHYSICAL EXAMINATION: VITAL SIGNS: Temperature 96.1, pulse 62, blood pressure 120/57, pulse oximetry 95% with 4 liters nasal cannula. GENERAL: Patient awake, alert, oriented times three, lying down in bed in no acute distress. HEENT: Normocephalic, atraumatic. Moist mucous membranes. Anicteric eyes. CHEST: Bilateral diffuse crackles. Overall poor air entry. CARDIOVASCULAR: S1, S2 irregular. No rub, murmur or gallop. ABDOMEN: Soft, nontender, bowel sounds present. EXTREMITIES: No edema. LABORATORY DATA: WBC 7, hemoglobin 10, platelets 142. Sodium 136, potassium 4.4, chloride 96, bicarbonate 37, BUN 39, creatinine 4.5, glucose 110, calcium 8. Liver function tests are normal, proBNP 165,732, lipase 201. ABG pH 7.26, pCO2 72, pO2 57. Chest x-ray as mentioned above. ASSESSMENT AND PLAN: This is a 66-year-old female with multiple medical comorbidities admitted for acute on chronic respiratory failure with hypoxia and hypercarbia possibly related to congestive heart failure exacerbation. PLAN: 1. Congestive heart failure exacerbation. Patient will be scheduled for dialysis tomorrow. Patient did miss her today's dialysis. Patient is maintaining her saturations with her nasal cannula; however, in view of hypercarbia, will start the patient on bilevel positive airway pressure (BiPAP) tonight. Patient does have diastolic congestive heart failure and right-sided heart failure. 2. Malaise, weakness, dizziness, and nausea. Does not have any obvious cause for her symptoms; however, patient has a PermCath, so there is always a possibility of bacteremia, so will order blood cultures. 3. Chronic obstructive pulmonary disease (COPD). Patient has advanced COPD and continues to smoke. Patient may be having a mild COPD exacerbation due to fluid overload due to the presence of excess fluids. However, patient is steroid dependent, will continue on home steroid dose. Will continue with nebulizers with albuterol and ipratropium, as well as formoterol and budesonide. 4. Atrial fibrillation. Rate is controlled. Will continue with bisoprolol and digoxin. Patient has a therapeutic international normalized ratio (INR). Will check digoxin level. However, in view of her recurrent heart failure and COPD exacerbation, would consider stopping the beta jessica permanently. Will stop the bisoprolol now. 5. Hypothyroidism. Will continue with Synthroid. 6. Hyperphosphatemia and secondary hyperparathyroidism. Will continue with sevelamer and calcitriol. 7. Diabetes. Patient is diet controlled. Will continue to monitor. 8. Hypertension. Blood pressure well controlled. Will continue to monitor. Will hold beta jessica because of recurrent episodes of heart failure and COPD exacerbation and see if that helps with decreasing her episodes. 9. Acute on chronic hypoxic and hypercarbic respiratory failure due to congestive heart failure (CHF) exacerbation. Will place the patient on bilevel positive airway pressure (BiPAP). Will recheck arterial blood gas (ABG) after 1 hour. 10. Patient complains of claustrophobia and requesting something for relaxation. Patient has Zoloft for anxiety. Will give her night dose today. If patient after that still cannot tolerate the BiPAP, will give a very small dose of Ativan if required. 11. Chronic vertebral compression fractures. Patient has chronic back pain and takes hydrocodone and acetaminophen as needed, as well as Tylenol as needed. 12. Protein calorie malnutrition. Patient is severely malnourished. 13. Deep venous thrombosis (DVT) prophylaxis. Patient is on Coumadin. 14. Gastrointestinal (GI) prophylaxis. Patient is omeprazole.
[2017-08-05 05:08] LABS: MEAN CORPUSCULAR HEMOGLOBIN 32.7 pg (27.0-33.0); MEAN CORPUSCULAR HGB CONC 31.3 g/dl (32.0-36.5); MEAN CORPUSCULAR VOLUME 104.5 fl (80.0-96.0); RED CELL DISTRIBUTION WIDTH 14.7 % (11.5-14.5); WHITE BLOOD COUNT 6.9 K/mm3 (4.0-10.0)
[2017-08-05 05:21] LABS: INR 2.04
[2017-08-05 05:31] LABS: CALCIUM LEVEL 8.2 MG/DL (8.8-10.2); CREATININE FOR GFR 4.48 MG/DL (0.55-1.02); GLOMERULAR FILTRATION RATE 10.4 (>45); POTASSIUM SERUM 4.3 MEQ/L (3.5-5.1)
[2017-08-05 05:41] LABS: ABG BASE EXCESS 3.7 (-2.0-2.0); ABG HCO3 30.7 MEQ/L (22.0-26.0); ABG PARTIAL PRESSURE CO2 59.8 mmHg (35.0-45.0); ABG PARTIAL PRESSURE O2 89.6 mmHg (75.0-100.0); ABG STANDARD HCO3 27.8 MEQ/L (22.0-26.0); ABG TOTAL CO2 32.6 MEQ/L (23.0-31.0); ABG pH (ARTERIAL) 7.329 UNITS (7.350-7.450)
[2017-08-05] MEDS: LEVOTHYROXINE 75MCG TABLET (0.075MG) PO SCH (05:43)
[2017-08-05] MEDS: LEVOTHYROXINE 100MCG TABLET (0.1MG) PO SCH (05:43)
[2017-08-05] MEDS: IPRATROPIUM 0.5MG/ALBUTEROL 2.5MG INH SOL UD 3ML (DUONEB)(J7620) NEB SCH ×4 (08:00→20:00)
[2017-08-05] MEDS: BUDESONIDE 0.5 MG/2 ML INHALATION SUSPENSION INH SCH ×2 (08:05→20:05)
[2017-08-05] MEDS: FORMOTEROL FUMARATE 20 MCG/2 ML INHALATION SOLUTION (PERFOROMIST) INH SCH ×2 (08:05→20:05)
[2017-08-05] MEDS: (RENVELA) SEVELAMER **CARBONate** 800 MG TAB PO SCH ×3 (08:58→17:11)
[2017-08-05] MEDS: CALCITRIOL 0.25 MCG CAP (S0169) PO SCH (08:58)
[2017-08-05] MEDS: OMEPRAZOLE 20 MG CAP PO SCH (08:58)
[2017-08-05] MEDS: predniSONE 5 MG TAB PO SCH (08:58)
[2017-08-05] MEDS ORDERED: BISOPROLOL FUMARATE 5 MG TAB PO SCH (09:00)
--- NOTE | 2017-08-05 11:40 | ECGEPIP ---
Stationary ECG Study [facility] - ED Test Date: 2017-08-04 Pat Name: ROBBIE GOLD Department: Room: - Gender: F Communications Engineering Technician: sb : [id number] Requested By: MERLIN Miranda Order Number: [id number] Reading MD: Tiesha Hussein Measurements Intervals [place] Rate: 60 P: NM: 0 QRS: 107 QRSD: 100 T: 60 QT: 381 QTc: 381 Interpretive Statements ATRIAL FIBRILLATION MARKED RIGHT AXIS DEVIATION MODERATE ST DEPRESSION DECREASED RATE/ST CHANGES 07/21/17 Electronically Signed On 08-05-2017 11:40:45 EDT by Tiesha Hussein
[2017-08-05] MEDS ORDERED: HEPARIN 1,000 UNITS/ML 10ML VIAL (FOR RADIOLOGY& DIALYSIS ONLY) XX ONE (13:15)
--- NOTE | 2017-08-05 14:14 | CR ---
DATE OF CONSULTATION: 08/05/2017 REQUESTING PHYSICIAN: Dr. René Killian CONSULTING PHYSICIAN: Dr. Spence REASON FOR CONSULTATION: Management of fluid overload in this patient with end stage renal disease who missed dialysis. CHIEF COMPLAINT: The patient presented to the emergency room yesterday because she felt so weak and tired that she could not go for hemodialysis. HISTORY OF PRESENT ILLNESS: Anjali Delgado is a 66-year-old female with past medical history of end stage renal disease on hemodialysis, well known to nephrology service from outpatient hemodialysis sessions and from multiple previous admissions. She has end stage chronic obstructive pulmonary disease (COPD). She is home oxygen dependent. She has chronic diastolic heart failure and right heart failure with severe pulmonary hypertension. She presented to the emergency room yesterday because she was so weak and tired that she was falling down and she was being helped by her family members. She was unable to go for hemodialysis session yesterday. In the emergency room, she was found to be fluid overloaded with pulmonary congestion on chest x-ray. BNP was more than 165,000. ABG showed that she was in hypoxic and hypercapnic respiratory failure. The patient was admitted to the intensive care unit (ICU) overnight. She was started on BiPAP. Nephrology service was called for help in the management of fluid overload, missing hemodialysis and arrangement of hemodialysis session. I arranged the patient's urgent hemodialysis session today morning. The patient was seen and examined during hemodialysis procedure. The patient was on BiPAP. She reported that she is feeling better with the BiPAP, but she wanted to take the BiPAP off. The patient was getting hemodialysis and tolerating the procedure well. She is hemodynamically stable. PAST MEDICAL HISTORY: 1. End stage renal disease on hemodialysis every Tuesday, and Tuesday. 2. History of end stage COPD, home oxygen dependent. She is on 4 liters of oxygen. 3. History of diastolic congestive heart failure. 4. History of cor pulmonale secondary to severe pulmonary hypertension. 5. Atrial fibrillation, on Coumadin. 6. Diabetes mellitus type 2. 7. Hypertension. 8. Depression. 9. Hypothyroidism. 10. History of renal cell cancer in the past status post left nephrectomy. 11. Chronic active smoker. 12. History of chronic vertebral compression fractures. PAST SURGICAL HISTORY: 1. Left sided nephrectomy for renal cell cancer. 2. History of right internal jugular (IJ) tunneled hemodialysis catheter placement in April 2017. 3. History of thyroidectomy in the past. 4. Coronary angiogram in the past. ALLERGIES: - HYDROMORPHONE FAMILY HISTORY: No significant family history of end stage renal disease requiring hemodialysis. SOCIAL HISTORY: The patient is a chronic active smoker. She continues to smoke about 5-6 cigarettes a day despite having end stage COPD. She denies any alcohol abuse or drug abuse. She lives with her and granddaughter. REVIEW OF SYSTEMS: Constitutional: The patient reported feeling weak, tired and fatigued. Eyes: She denies any blurry vision or double vision. ENT: She denies any dysphagia, odynophagia or ear discharge. Cardiovascular: She reports shortness of breath, history of congestive heart failure (CHF) and she is requiring BiPAP. Respiratory: She reports history of COPD. Home oxygen dependent. She was having shortness of breath at home, but she reports her shortness of breath is getting better with BiPAP at this time. GI: She denies any nausea or vomiting. : She denies any dysphagia, odynophagia. Musculoskeletal: She reported muscle weakness. Otherwise she denies any muscle aches and pains. Central Nervous System: She denies any history of seizures or stroke. Endocrine: She reports history of hypothyroidism. Psychiatric: She reports history of depression. Skin: She denies any rashes or ulcers. All other review of systems is negative. PHYSICAL EXAMINATION: General: The patient is awake, alert and oriented times three, getting hemodialysis done. Vital Signs: Temperature is 97 degrees Fahrenheit. Blood pressure 128/60. Pulse 60. Respiratory rate 12. Saturating 94% on BiPAP with 40% FiO2. Head and Neck Exam: Extraocular muscles intact. Pupils equally round and reactive to light. Mucous membranes are moist. The patient is wearing BiPAP at this time. Neck is supple. There is elevated jugular venous distention (JVD). Cardiovascular: S1, S2, irregularly irregular rate. No murmur, rub or gallop. Respiratory: Decreased breath sounds at the bases with mild crepitations on the bases on deep breaths. Abdomen: Soft. Positive bowel sounds. Nontender. No ascites. No organomegaly. Musculoskeletal: The patient has cyanosis of the bilateral upper and lower extremities. There is positive clubbing of the fingernails. Pulses are 2+. Central Nervous System: No focal neurological deficit. Power is 5/5 in all extremities. Skin: No rashes or ulcers. Psychiatric: Normal mood and affect. Lymph Nodes: No significant cervical, axillary, or inguinal lymphadenopathy. LAB REVIEW: CBC showed a WBC of 6.9, hemoglobin 10.2, and platelets 133. INR is 2. ABG done today morning is pH 7.32, pCO2 59, pO2 89, bicarbonate 30.7, oxygen saturation 96.5. BMP done today morning showed sodium 140, potassium 4.3, chloride 98, bicarbonate 34, BUN 45, creatinine 4.4, calcium 8.2. IMAGING: A chest x-ray done last night showed cardiomegaly, interstitial edema with small right pleural effusion. CURRENT INPATIENT MEDICATIONS: Patient's medications were all reviewed by me, that include albuterol nebulizations, Lipitor 40 mg at bedtime, Pulmicort 0.5 mg twice a day, calcitriol 0.25 mcg daily, digoxin 0.125 mg by mouth Tuesday, Tuesday, Tuesday, DuoNebs four times a day, folic acid 1 mg daily, formoterol 20 mcg twice a day, levothyroxine 75 mcg daily along with 100 mcg by mouth daily, Ativan 1 dose given yesterday, omeprazole 40 mg daily, prednisone 5 mg daily, Zoloft 100 mg at bedtime, Renvela 1600 mg by mouth with meals and Coumadin 2.5 mg by mouth daily. ASSESSMENT: 66-year-old female with past medical history of end stage renal disease on hemodialysis, end stage COPD and home oxygen dependent, admitted at this time with acute decompensated congestive heart failure along with hypoxic and hypercapnic respiratory failure. PLAN: 1. Acute decompensated congestive heart failure. The patient has history of right heart failure, severe pulmonary hypertension and diastolic congestive heart failure. BNP was more than 165,000 on admission. She is currently on BiPAP. She is emergently being hemodialyzed. Ultrafiltration of around 2 kg of fluid would help improve her fluid status. 2. End stage renal disease on hemodialysis. The patient's regular dialysis days are Tuesday, , Tuesday. She missed her dialysis yesterday. She is being dialyzed today. The patient will likely need another session of hemodialysis and ultrafiltration tomorrow morning as well. 3. Acute hypoxic and hypercapnic respiratory failure. It is secondary to a combination of COPD and congestive heart failure exacerbation. The patient is on BiPAP. ABG is improving. Continue the nebulizations. No need of steroids at this time. Ultra filtration would help improve the respiratory status. The rest of the management is as per primary team and pulmonary service. 4. Chronic kidney disease mineral bone disease. Continue current dose of Renvela 1600 mg by mouth three times a day with meals. 5. Secondary hyperparathyroidism. Continue current dose of calcitriol 0.25 mcg by mouth daily. 6. Anemia and end stage renal disease. Hemoglobin is 10.2, which is acceptable. No need of Aranesp administration at this time. 7. Hypertension. Blood pressure is acceptable at this time. Beta blockers were held on admission because of respiratory failure and congestive heart failure. 8. Atrial fibrillation. Heart rate is controlled at this time. Continue current dose of digoxin. INR is therapeutic. Continue current dose of Coumadin. 9. Hypothyroidism. Continue current dose of levothyroxine 175 mcg by mouth daily. Thank you for involving us in the care of this patient. We shall be happy to follow the patient along with you tomorrow morning. Total critical care time spent in the management of this patient in the intensive care unit is 1 hour.
--- NOTE | 2017-08-05 15:10 | IPNPDOC ---
Text Note Date of Service The patient was seen on 08/05/17. NOTE Subjective: Patient states her dyspnea significantly improved. She was on hemodialysis this morning. Objective: Vitals: (see below) General: No acute distress, laying comfortably in bed. HEENT: Moist mucous membranes. Neck: No JVD or lymphadenopathy Cardiac: RRR, No murmurs Pulm: Diminished breath sounds at the bases b/l. No wheezing, rhonchi Abd: NT/ND + BS Ext: No edema or cyanosis Labs (see below) Images: Chest x-ray 08/04/17 IMPRESSION: There is evidence of cardiomegaly and interstitial edema with a small right pleural effusion as described above along with other findings. Assessment/Plan 1. Acute decompensated diastolic heart failure- history of right-sided heart failure with severe pulmonary hypertension. Elevated BNP on labs. Responded well to BiPAP hemodialysis. Appreciate nephrology assistance. Echocardiogram pending. 2. End-stage renal disease on hemodialysis- administer dialysis yesterday however is typically on Tuesday//Tuesday. Receiving hemodialysis today. 3. Acute on chronic hypercapnic respiratory failure secondary to CHF exacerbation as well as COPD. ABG improving. Responded well to BiPAP. Continue nebs. 4. Hypertension- controlled continue current meds. 5. Atrial fibrillation on digoxin and Coumadin 6. Hypothyroidism- on Synthroid 7. Chronic vertebral fractures 8. GERD 9. History of depression 10. History of CAD status PCI continue home meds 11. History of renal cell carcinoma status post nephrectomy 12. History of thyroidectomy DVT prophy: On Coumadin Prognosis guarded VS,Fishbone, I+O VS, Fishbone, I+O Laboratory Tests 08/04/17 17:59 Red Blood Count 3.09 L, Mean Corpuscular Volume 106.2 H, Mean Corpuscular Hemoglobin 32.3, Mean Corpuscular Hemoglobin Concent 30.4 L, Red Cell Distribution Width 14.3, Neutrophils (%) (Auto) 80.0 H, Lymphocytes (%) (Auto) 11.5 L, Monocytes (%) (Auto) 4.5, Eosinophils (%) (Auto) 1.8, Basophils (%) ( Auto) 0.4, Neutrophils # (Auto) 5.6, Lymphocytes # (Auto) 0.8 L, Monocytes # ( Auto) 0.3, Eosinophils # (Auto) 0.1, Basophils # (Auto) 0.0 08/04/17 18:12 08/05/17 04:49 Red Blood Count 3.13 L, Mean Corpuscular Volume 104.5 H, Mean Corpuscular Hemoglobin 32.7, Mean Corpuscular Hemoglobin Concent 31.3 L, Red Cell Distribution Width 14.7 H, Calcium Level 8.2 L Vital Signs Date Time Temp Pulse Resp B/P (MAP) Pulse Ox O2 Delivery O2 Flow Rate FiO2 08/05/17 11:49 72 16 08/05/17 08:00 BIPAP/CPAP 40 08/05/17 06:00 130/61 (84) 95 08/05/17 04:00 97.0 08/04/17 21:19 4.0 I&O- Last 24 Hours up to 6 AM 08/06/17 05:59 Intake Total 30 ml Output Total 2000 ml Balance -1970 ml CHARLY WEEMS MD Aug 05, 2017 15:10
[2017-08-05] MEDS ORDERED: WARFARIN SOD 2.5 MG TAB PO SCH (17:00)
[2017-08-05] MEDS: ATORVASTATIN 20 MG TAB PO SCH (20:03)
[2017-08-05] MEDS: SERTRALINE 100 MG TAB PO SCH (20:03)
[2017-08-05] MEDS: FOLIC ACID 1 MG TAB PO SCH (20:03)
[2017-08-05] MEDS ORDERED: DIGOXIN 0.125 MG TAB PO SCH (21:00)
[2017-08-06] VITALS (13 sets, daily range): BP systolic 102–149; BP diastolic 53–65; O2SAT 94
[2017-08-06 04:44] LABS: MEAN CORPUSCULAR HEMOGLOBIN 32.5 pg (27.0-33.0); MEAN CORPUSCULAR HGB CONC 31.2 g/dl (32.0-36.5); RED CELL DISTRIBUTION WIDTH 14.6 % (11.5-14.5); WHITE BLOOD COUNT 6.6 K/mm3 (4.0-10.0)
[2017-08-06 04:58] LABS: INR 1.61
[2017-08-06 05:02] LABS: CALCIUM LEVEL 8.2 MG/DL (8.8-10.2); CREATININE FOR GFR 2.7 MG/DL (0.55-1.02); GLOMERULAR FILTRATION RATE 18.7 (>45); POTASSIUM SERUM 3.8 MEQ/L (3.5-5.1)
[2017-08-06] MEDS: LEVOTHYROXINE 75MCG TABLET (0.075MG) PO SCH (05:32)
[2017-08-06] MEDS: LEVOTHYROXINE 100MCG TABLET (0.1MG) PO SCH (05:33)
[2017-08-06 06:19] LABS: ABG BASE EXCESS 1.2 (-2.0-2.0); ABG HCO3 28.6 MEQ/L (22.0-26.0); ABG PARTIAL PRESSURE CO2 59.5 mmHg (35.0-45.0); ABG PARTIAL PRESSURE O2 90.4 mmHg (75.0-100.0); ABG STANDARD HCO3 25.5 MEQ/L (22.0-26.0); ABG TOTAL CO2 30.4 MEQ/L (23.0-31.0); ABG pH (ARTERIAL) 7.299 UNITS (7.350-7.450)
[2017-08-06] MEDS: BUDESONIDE 0.5 MG/2 ML INHALATION SUSPENSION INH SCH ×2 (07:50→19:43)
[2017-08-06] MEDS: IPRATROPIUM 0.5MG/ALBUTEROL 2.5MG INH SOL UD 3ML (DUONEB)(J7620) NEB SCH ×4 (07:50→19:43)
[2017-08-06] MEDS: FORMOTEROL FUMARATE 20 MCG/2 ML INHALATION SOLUTION (PERFOROMIST) INH SCH ×2 (07:50→19:43)
[2017-08-06] MEDS: CALCITRIOL 0.25 MCG CAP (S0169) PO SCH (08:37)
[2017-08-06] MEDS: predniSONE 5 MG TAB PO SCH (08:37)
[2017-08-06] MEDS: OMEPRAZOLE 20 MG CAP PO SCH (08:37)
[2017-08-06] MEDS: (RENVELA) SEVELAMER **CARBONate** 800 MG TAB PO SCH ×3 (08:37→17:28)
[2017-08-06] MEDS ORDERED: HEPARIN 1,000 UNITS/ML 10ML VIAL (FOR RADIOLOGY& DIALYSIS ONLY) XX ONE (11:45)
--- NOTE | 2017-08-06 12:27 | IPNPDOC ---
Text Note Date of Service The patient was seen on 08/06/17. NOTE Subjective: Patient states her dyspnea resolved. Laying flat without difficulty. Eating breakfast. Objective: Vitals: (see below) General: No acute distress, laying comfortably in bed. HEENT: Moist mucous membranes. Neck: No JVD or lymphadenopathy Cardiac: RRR, No murmurs Pulm: Diminished breath sounds at the bases b/l. No wheezing, rhonchi Abd: NT/ND + BS Ext: No edema or cyanosis Labs (see below) Images: Chest x-ray 08/04/17 IMPRESSION: There is evidence of cardiomegaly and interstitial edema with a small right pleural effusion as described above along with other findings. Assessment/Plan 1. Acute decompensated diastolic heart failure- history of right-sided heart failure with severe pulmonary hypertension. Elevated BNP on labs. Responded well to BiPAP hemodialysis. Appreciate nephrology assistance. Echocardiogram pending. 2. End-stage renal disease on hemodialysis- administer dialysis yesterday however is typically on Tuesday//Tuesday. Receiving hemodialysis today. 3. Acute on chronic hypercapnic respiratory failure secondary to CHF exacerbation as well as COPD. ABG improving. Responded well to BiPAP. Continue nebs. 4. Hypertension- controlled continue current meds. 5. Atrial fibrillation on digoxin and Coumadin 6. Hypothyroidism- on Synthroid 7. Chronic vertebral fractures 8. GERD 9. History of depression 10. History of CAD status PCI continue home meds 11. History of renal cell carcinoma status post nephrectomy 12. History of thyroidectomy 13. NSVT - 3 beats. asymptomatic. K replaced. Will cont to monitor on tele. Restart bisopolol. DVT prophy: On Coumadin Prognosis guarded VS,Fishbone, I+O VS, Fishbone, I+O Laboratory Tests 08/06/17 04:34 Red Blood Count 3.22 L, Mean Corpuscular Volume 104.0 H, Mean Corpuscular Hemoglobin 32.5, Mean Corpuscular Hemoglobin Concent 31.2 L, Red Cell Distribution Width 14.6 H, Calcium Level 8.2 L Vital Signs Date Time Temp Pulse Resp B/P (MAP) Pulse Ox O2 Delivery O2 Flow Rate FiO2 08/06/17 08:00 Nasal Cannula 4.0 08/06/17 08:00 96.9 68 20 149/56 (87) 92 08/05/17 16:00 40 I&O- Last 24 Hours up to 6 AM 08/07/17 06:00 Intake Total 30 ml Balance 30 ml CHARLY WEEMS MD Aug 06, 2017 12:27
[2017-08-06] MEDS ORDERED: POTASSIUM CHLORIDE 10 MEQ SR TABLET PO ONE (12:30)
[2017-08-06 13:21] LABS: CALCIUM LEVEL 9.1 MG/DL (8.8-10.2); POTASSIUM SERUM 4.1 MEQ/L (3.5-5.1)
[2017-08-06 13:31] LABS: GLOMERULAR FILTRATION RATE 42.6 (>45)
[2017-08-06 13:53] LABS: CREATININE FOR GFR 1.32 MG/DL (0.55-1.02)
[2017-08-06] MEDS: BISOPROLOL FUM 2.5 MG PER 1/2TAB PO SCH (14:16)
--- NOTE | 2017-08-06 15:03 | IPN ---
DATE: 08/06/2017 Mrs. Delgado is seen this morning during hemodialysis. She was admitted with shortness of breath and respiratory failure. She has known history of advanced lung disease and diastolic congestive heart failure in the setting of end-stage renal disease. She most likely has been noncompliant with her fluid restriction. She continues to smoke and has no lung reserve. She denies any fever, chills, nausea or vomiting. PHYSICAL EXAMINATION: Temperature 98.5 degrees Fahrenheit, heart rate 70 per minute and respiratory rate 18 per minute. Blood pressure earlier was 119/56 mmHg and now 102/54 mmHg. Oxygen saturation 96% on 4 liters oxygen. Her head is atraumatic. Neck is supple and without jugular venous distention (JVD) or thyroid enlargement. Pupils equal and reactive to light and sclera is anicteric. Ears, nose and throat are unremarkable. Heart sounds are regular and lungs with moderate bilateral air entry. At present, I do not hear any wheezing or rales. Abdomen is soft and nontender. Bowel sounds are normal. Extremities have no cyanosis or clubbing. Skin has no rash or ulcers. Neurologically, she is awake, alert and oriented times three. Today's labs show WBC count 6.6, hemoglobin 10.5 and hematocrit 33.5. Sodium 139 and potassium 4.1. BUN is 8 and creatinine 1.32. Calcium level 9.1 and magnesium 2.0. PROBLEMS: 1. End-stage renal disease. The patient is regularly dialyzed on Tuesday, and Tuesday schedule. She is very well dialyzed. She has not missed any dialysis treatments; however, she did get volume overloaded. She is being dialyzed today for her regular treatment. 2. Shortness of breath. The patient has a combination of advanced lung disease and diastolic congestive heart failure. Her volume status seems to be significantly improved and optimum at dialysis today. Now she has no peripheral edema or elevated neck veins. She has chronic hypoxemia and has been on 4 liters oxygen, even at home. We are trying to remove about 1.5 liters of fluid today. 3. Anemia. Her anemia has been stable and we will continue to monitor closely. 4. Chronic obstructive pulmonary disease (COPD). The patient seems to be doing well and remains on chronic medications. 5. Hypertension. Blood pressure is somewhat low now after dialysis. Has been well controlled on current antihypertensive medications. No changes are needed today. DISPOSITION: The patient is likely to be ready for discharge in the next 24 hours.
[2017-08-06] MEDS ORDERED: WARFARIN SOD 5 MG TAB PO SCH (17:00)
[2017-08-06] MEDS: SERTRALINE 100 MG TAB PO SCH (21:49)
[2017-08-06] MEDS: FOLIC ACID 1 MG TAB PO SCH (21:49)
[2017-08-06] MEDS: ATORVASTATIN 20 MG TAB PO SCH (21:49)
[2017-08-07 04:00] VITALS: BP 114/58
[2017-08-07 05:01] LABS: MEAN CORPUSCULAR HEMOGLOBIN 32.5 pg (27.0-33.0); MEAN CORPUSCULAR VOLUME 104.9 fl (80.0-96.0); RED CELL DISTRIBUTION WIDTH 14.7 % (11.5-14.5)
[2017-08-07 05:06] LABS: INR 1.8
[2017-08-07 05:13] LABS: CALCIUM LEVEL 8.6 MG/DL (8.8-10.2); GLOMERULAR FILTRATION RATE 21.2 (>45); POTASSIUM SERUM 4.5 MEQ/L (3.5-5.1)
[2017-08-07 05:35] LABS: CREATININE FOR GFR 2.42 MG/DL (0.55-1.02)
[2017-08-07] MEDS: LEVOTHYROXINE 75MCG TABLET (0.075MG) PO SCH (05:40)
[2017-08-07] MEDS: LEVOTHYROXINE 100MCG TABLET (0.1MG) PO SCH (05:40)
[2017-08-07 08:00] VITALS: BP 124/59
[2017-08-07] MEDS: IPRATROPIUM 0.5MG/ALBUTEROL 2.5MG INH SOL UD 3ML (DUONEB)(J7620) NEB SCH ×2 (08:00→11:21)
[2017-08-07] MEDS: BUDESONIDE 0.5 MG/2 ML INHALATION SUSPENSION INH SCH (08:03)
[2017-08-07] MEDS: FORMOTEROL FUMARATE 20 MCG/2 ML INHALATION SOLUTION (PERFOROMIST) INH SCH (08:03)
[2017-08-07] MEDS: (RENVELA) SEVELAMER **CARBONate** 800 MG TAB PO SCH (08:59)
[2017-08-07] MEDS: OMEPRAZOLE 20 MG CAP PO SCH (09:00)
[2017-08-07] MEDS: BISOPROLOL FUM 2.5 MG PER 1/2TAB PO SCH (09:00)
[2017-08-07] MEDS: predniSONE 5 MG TAB PO SCH (09:00)
[2017-08-07] MEDS: CALCITRIOL 0.25 MCG CAP (S0169) PO SCH (09:00)
[2017-08-07] MEDS ORDERED: COUM2.5T17 PO (11:52)
[2017-08-07] MEDS ORDERED: COUM1TAB19 PO (11:59)
--- NOTE | 2017-08-07 14:25 | DS.PDOC ---
Discharge Summary General Date of Admission Aug 04, 2017 at 22:07 Date of Discharge 08/07/17 Attending Physician: CHARLY WEEMS MD Specialist/Consultants Involve: GADIEL LARIOS MD @ Discharge Summary PROCEDURES PERFORMED DURING STAY: Hemodialysis ADMITTING/DISCHARGE DIAGNOSES: 1. Acute decompensated diastolic heart failure 2. Acute hypoxic or center failure secondary to decompensated heart failure 3. End-stage renal disease on hemodialysis 4. Atrial fibrillation on Coumadin 5. Acute on chronic hypercapnic respiratory failure requiring BiPAP 6. Hypertension 7. Chronic vertebral fractures 8. GERD 9. History of depression 10. History of CAD status PCI continue home meds 11. History of renal cell carcinoma status post nephrectomy 12. History of thyroidectomy 14 Hypothyroidism COMPLICATIONS/CHIEF COMPLAINT: Shortness of breath HISTORY OF PRESENT ILLNESS/HOSPITAL COURSE: This is a 66-year-old female past mental history of diastolic heart failure, end -stage renal disease on hemodialysis presents complaining of dyspnea. She missed her dialysis session on the day of admission given her dyspnea. The patient was noted to be in acute decompensated diastolic heart failure and underwent 2 sessions of hemodialysis. Her symptoms have significantly improved. Her dyspnea has resolved. She is able to lie flat at this point. The patient was also mildly hypercapnic and required BiPAP. In addition, the patient had a 3 beat episode of nonsustained ventricular tachycardia during which the patient was asymptomatic. Her electrolytes were replaced and her beta jessica was restarted. Her ejection fraction is preserved. The patient maintained hemodynamically stable. Her INR was subtherapeutic and her Coumadin dose was increased. Patient was given a prescription for repeat INR with results to be sent to her primary care physician. Patient is to return to the ED if symptoms worsen. DISCHARGE MEDICATIONS: Please see below. ALLERGIES: Please see below. PHYSICAL EXAMINATION ON DISCHARGE: Vitals: (see below) General: No acute distress, laying comfortably in bed. HEENT: Moist mucous membranes. Neck: No JVD or lymphadenopathy Cardiac: RRR, No murmurs Pulm: Diminished breath sounds at the bases b/l. No wheezing, rhonchi Abd: NT/ND + BS Ext: No edema or cyanosis LABORATORY DATA: Please see below. IMAGING: Chest x-ray 08/06/17 IMPRESSION: There is evidence of cardiomegaly and interstitial edema with a small right pleural effusion as described above along with other findings. PROGNOSIS: Guarded ACTIVITY: As tolerated. DIET: Low Na DISCHARGE PLAN/DISPOSITION: Discharge home DISCHARGE INSTRUCTIONS: 1. Patient's follow-up with PCP and nephrology in 1-2 weeks. Continue regularly scheduled hemodialysis sessions. INR prescription given to patients with results to be sent to primary care physician for further management of the INR/ Coumadin dosing. DISCHARGE CONDITION: Stable. TIME SPENT ON DISCHARGE: 30 Vital Signs/I&Os Vital Signs Date Time Temp Pulse Resp B/P (MAP) Pulse Ox O2 Delivery O2 Flow Rate FiO2 08/07/17 12:00 Nasal Cannula 4.0 08/07/17 08:00 97.5 69 13 124/59 (80) 100 08/05/17 16:00 40 Laboratory Data Labs 24H Laboratory Tests 2 08/07/17 04:47: Prothrombin Time 21.4H, Prothromb Time International Ratio 1.80, Anion Gap 7L, Glomerular Filtration Rate 21.2L, Blood Urea Nitrogen 22#H, Creatinine 2.42#H, Sodium Level 145, Potassium Level 4.5, Chloride Level 110H, Carbon Dioxide Level 28, Calcium Level 8.6L CBC/BMP Laboratory Tests 08/07/17 04:47 Red Blood Count 3.31 L, Mean Corpuscular Volume 104.9 H, Mean Corpuscular Hemoglobin 32.5, Mean Corpuscular Hemoglobin Concent 31.0 L, Red Cell Distribution Width 14.7 H, Calcium Level 8.6 L Microbiology Microbiology 08/04/17 Blood Culture - Preliminary, Resulted No Growth after 48 hours. All Specime... 08/04/17 Blood Culture - Preliminary, Resulted No Growth after 48 hours. All Specime... Discharge Medications Scheduled Atorvastatin Calcium (Atorvastatin Calcium) 40 Mg Tab, 40 MG PO QHS, (Reported) Bisoprolol Fumarate (Bisoprolol Fumarate) 5 Mg Tab, 5 MG PO DAILY, (Reported) Budesonide/Formoterol (Symbicort 160-4.5 Mcg/Act) 60 Puff/Inhaler Aers, 2 PUFF INH BID, (Reported) Calcitriol (Calcitriol) 0.25 Mcg Cap, 0.25 MCG PO DAILY, (Reported) Cholecalciferol (Vitamin D) 2,000 Unit Tab, 2,000 UNIT PO DAILY, (Reported) Digoxin (Digoxin) 0.125 Mg Tab, 0.125 MG PO ASDIRECTED, (Reported) TAKES ON TUESDAY, TUESDAY AND TUESDAY AT QHS Folic Acid (Folic Acid) 1 Mg Tab, 1 MG PO QHS, (Reported) Isosorbide Dinitrate (Isosorbide Dinitrate) 20 Mg Tab, 20 MG PO QHS, (Reported) Levothyroxine Sodium (Synthroid) 175 Mcg Tab, 175 MCG PO DAILY, (Reported) Nicotine (Nicotine 14MG Patch) 1 Patch Tdsy, 1 PATCH TD DAILY, (Reported) [place] 3 Polyunsat Fatty Acids ([place] 3 1000 mg) 1 Cap Cap, 1 CAP PO QHS, ( Reported) Omeprazole (Omeprazole) 40 Mg Cap, 40 MG PO DAILY, (Reported) Prednisone (Prednisone) 5 Mg Tab, 5 MG PO DAILY, (Reported) Sertraline Hcl (Zoloft) 100 Mg Tab, 100 MG PO QHS, (Reported) Sevelamer Carbonate (Renvela) 800 Mg Tab, 1,600 MG PO WM, (Reported) Warfarin Sod (Coumadin) 3 Mg Tab, 3 MG PO DAILY Scheduled PRN Acetaminophen/Hydrocodone (Hydrocodone/Acetaminophen 7.5-325 mg) 1 Tab Tab, 1 TAB PO TID PRN for PAIN, (Reported) Albuterol Sulfate (Albuterol Sulfate) 2.5 Mg/3 Ml Nebu, 2.5 MG INH Q6H PRN for SHORTNESS OF BREATH, (Reported) Albuterol Sulfate (Ventolin Hfa) 200 Puff/8 Gm Aers, 2 PUFF INH Q4H PRN for SHORTNESS OF BREATH, (Reported) Loperamide HCl (Loperamide HCl) 2 Mg Cap, 2 MG PO QID PRN for DIARRHEA, ( Reported) Nitroglycerin (Nitrostat) 0.4 Mg Subl, 0.4 MG SL NITRO PRN for CHEST PAIN, ( Reported) Allergies Coded Allergies: Hydromorphone (Verified Adverse Reaction, Mild, HALLUCINATIONS, NOT HERSELF, 03/10/17) CHARLY WEEMS MD Aug 07, 2017 14:25
--- NOTE | 2017-08-07 16:39 | IPN ---
DATE: 08/07/2017 Ms. Delgado is seen this morning on her bedside in intensive care unit. She is feeling well and wants to go home. She underwent hemodialysis yesterday which she tolerated reasonably well. A total of 1500 mL fluid was removed with dialysis yesterday. Her chronic dyspnea and hypoxemia is stable at baseline. The patient denies any nausea, vomiting, fever or chills. PHYSICAL EXAMINATION: Temperature 97.5 degrees Fahrenheit, heart rate 70 per minute and respiratory rate 16 per minute. Blood pressure 124/60 mmHg and oxygen saturation 100% on 4 liters oxygen. Her head is atraumatic. Neck is supple and without JVD or thyroid enlargement. There is no oral thrush or ulcers. Mucous membranes are moist and healthy. Pupils equal and reactive to light and sclerae is anicteric. Heart sounds are regular and lungs with moderate bilateral air entry. She has few chronic basilar crepitations. There is no wheezing. Abdomen is soft and nontender. Bowel sounds are normal. Extremities have no cyanosis or clubbing. Skin has no rash or ulcers. Neurologically she is awake, alert and oriented times three. Today's labs show WBC count 8.0, hemoglobin 10.8 and hematocrit 34.7. Platelets 143. Sodium 145 and potassium 4.5, BUN 22 and creatinine 2.42. PROBLEMS: 1. Shortness of breath. The patient was initially admitted with shortness of breath. She was volume overloaded. She underwent hemodialysis frequently during her hospital stay. Her volume status has improved and corrected. I have discussed with the patient at length about need for following fluid restriction. She will be scheduled for next hemodialysis on Tuesday. 2. End-stage renal disease. Patient is dialyzed on Tuesday, and Tuesday schedule. She was dialyzed now on , Tuesday and Tuesday in a row. Her next dialysis will be scheduled as an outpatient on Tuesday. 3. COPD and hypoxemia. This is chronic and stable at baseline. The patient will continue with home oxygen 4 liters and chronic nebulizer therapy. DISPOSITION: From a renal standpoint, the patient is stable for discharge. She will return for her next dialysis on Tuesday at regular time. I have emphasized the importance of following fluid restriction.
[2017-08-07] MEDS ORDERED: WARFARIN SOD 7.5 MG TAB PO SCH (17:00)
== END 2017-08-07 13:12 | disposition home health service (06) | DRG 291 ==
LOC: EDBD 14:24 → M ED 14:24 → M ED INP 22:07 → M ICU 08-05 01:38
PROVIDERS: ADMIT Internal Medicine Nephrology; ATTEND Internal Medicine
PROC: 5A1D00Z (ICD-10-PCS; principal; 2017-08-05)
DX: I13.2 Hypertensive heart and chronic kidney disease with heart failure and with stage 5 chronic kidney disease, or end stage renal disease (principal); N18.6 End stage renal disease; J96.22 Acute and chronic respiratory failure with hypercapnia; J96.21 Acute and chronic respiratory failure with hypoxia; I50.33 Acute on chronic diastolic (congestive) heart failure; J90 Pleural effusion, not elsewhere classified; E46 Unspecified protein-calorie malnutrition; N25.81 Secondary hyperparathyroidism of renal origin; K21.9 Gastro-esophageal reflux disease without esophagitis; I25.10 Atherosclerotic heart disease of native coronary artery without angina pectoris; I48.91 Unspecified atrial fibrillation; Z79.01 Long term (current) use of anticoagulants; F32.9 Major depressive disorder, single episode, unspecified; Z79.899 Other long term (current) drug therapy; Z88.5 Allergy status to narcotic agent; I27.2 Other secondary pulmonary hypertension; F17.210 Nicotine dependence, cigarettes, uncomplicated; E11.9 Type 2 diabetes mellitus without complications; E03.9 Hypothyroidism, unspecified; Z79.52 Long term (current) use of systemic steroids; E83.39 Other disorders of phosphorus metabolism; J44.9 Chronic obstructive pulmonary disease, unspecified; F41.9 Anxiety disorder, unspecified; Z85.51 Personal history of malignant neoplasm of bladder; Z91.19 Patient's noncompliance with other medical treatment and regimen